=== PATIENT | female | born 1995 | race Hispanic/Latino ===

== ENCOUNTER 2017-05-08 22:35 | Emergency (ER) | payer OTHER ==
[2017-05-08 23:24] LABS: Absolute Lymphocytes (CBC) 2.1 K/uL (0.7-4.9); Absolute Monocytes 0.5 K/uL (0.1-1.3); Absolute Neutrophil 8.1 K/uL (1.8-8.0); Basophils % 0.2 % (0-1.3); Hematocrit 39.1 % (36.0-45.0); Lymphocytes % 19.1 % (15.3-44.8); MCH 28.2 pg (27.0-35.0); MCV 84.8 fL (80-100); MPV 7.4 fL (7.6-11.3); Monocytes % 4.7 % (3.3-12.3); RBC Red Blood Cell Count 4.62 M/uL (3.86-4.86)
--- NOTE | 2017-05-08 23:29 | ER ---
Nurse's Notes [facility] Name: Rasheeda Pagan Age: 21 yrs Sex: Female : 1995 Arrival Date: 05/08/2017 Time: 22:36 Bed 19 Private MD: Jordan Cruz E Diagnosis: Abdominal tenderness; related conditions, unspecified, second trimester;Cholelithiasis;Cholecystitis;Hypokalemia Presentation: 05/08 22:47 Presenting complaint: Patient states: she is 19 weeks has hx of gallstones and bb has severe abdominal pain and vomiting since approx 1900 tonight. Transition of care: patient was not received from another setting of care. Onset of symptoms was May 08, 2017 at 19:00. Care prior to arrival: None. 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 - Social history:: Smoking status: Patient/guardian denies using tobacco, Patient/guardian denies using alcohol, street drugs. Screenin:13 Abuse screen: Denies threats or abuse. Denies injuries from another. Nutritional bs1 screening: No deficits noted. Tuberculosis screening: No symptoms or risk factors identified. Fall Risk None identified. Assessment: 22:50 General: Appears uncomfortable, Behavior is cooperative, anxious, crying. bs1 22:50 Pain: Complains of pain in right upper abdomen Pain does not radiate. Pain currently is bs1 10 out of 10 on a pain scale. Quality of pain is described as stabbing. Neuro: Level of Consciousness is awake, alert, obeys commands, Oriented to person, place, time, situation, Appropriate for age [place]er are equal bilaterally Moves all extremities. Gait is steady. Cardiovascular: Denies chest pain, lightheadedness, shortness of breath, Heart tones S1 S2 present Capillary refill < 3 seconds Patient's skin is warm and dry. Respiratory: Airway is patent Trachea midline Respiratory effort is even, unlabored, Respiratory pattern is regular, symmetrical, Breath sounds are clear bilaterally. GI: Abdomen is round Pt is actively vomiting bile, Bowel sounds present X 4 quads. Abdomen is tender to palpation X 4 quads. Reports upper abdominal pain, nausea, vomiting. : No deficits noted. No signs and/or symptoms were reported regarding the genitourinary system. Denies burning with urination. EENT: No deficits noted. No signs and/or symptoms were reported regarding the EENT system. Derm: No deficits noted. No signs and/or symptoms reported regarding the dermatologic system. Musculoskeletal: Circulation, motion, and sensation intact. Capillary refill < 3 seconds, Range of motion: intact in all extremities. 23:50 Reassessment: No changes from previously documented assessment. Patient and/or family bs1 updated on plan of care and expected duration. Pain level reassessed. Patient is alert, oriented x 3, equal unlabored respirations, skin warm/dry/pink. Pending transfer. 05/09 00:09 General: Report called to Jennifer Lopez RN at [facility] OB unit.. bs1 00:36 Reassessment: Blood pressure dropped to 90/46 after given 50 mcg of Fentanyl. Patient bs1 denies dizziness or SOB. New IV started in left AC 20G by AUSTYN Gallegos, Bolus still infusing, New IV fluids NS w/ 20KCL started in left AC IV. Will continue to monitor blood pressure. Pending transfer to [facility]. 00:50 Reassessment: Patient and/or family updated on plan of care and expected duration. Pain bs1 level reassessed. Patient is alert, oriented x 3, equal unlabored respirations, skin warm/dry/pink. Patient c/o pain 10/10. Nurse closely monitoring blood pressure. Order for 25mcg of Fent IV. 01:02 Reassessment: Patient tolerated pain meds. Vitals wnl. [facility] here to transfer bs1 patient to [facility], report given to [facility]. Vital Signs: 05/08 22:48 BP 125 / 71; Pulse 91; Resp 20 S; Temp 98.8(O); Pulse Ox 100% on R/A; Weight 97.07 kg bb (R); Height 5 ft. 5 in. (165.10 cm) (R); Pain 10/10; 23:02 BP 114 / 69; Pulse 86; Resp 16; Pulse Ox 100% ; bp 23:50 BP 90 / 46; Pulse 72; Resp 19 S; Pulse Ox 100% on R/A; Pain 8/10; bs1 05/09 00:11 BP 103 / 61; Pulse 70; Resp 16; Pulse Ox 100% on R/A; bs1 00:39 BP 114 / 60; Pulse 79; Resp 17; Pulse Ox 100% on R/A; Pain 8/10; bs1 00:50 BP 123 / 76; Pulse 76; Resp 17; Pulse Ox 100% on R/A; Pain 10/10; bs1 00:52 BP 125 / 71; Pulse 74; Resp 17 S; Pulse Ox 100% on R/A; Pain 9/10; bs1 05/08 22:48 Body Mass Index 35.61 (97.07 kg, 165.10 cm) bb Vitals: 05/08 23:55 Heart Tones 152 bpm. bs1 ED Course: 22:36 Patient arrived in ED. es 22:36 Jordan Cruz MD is Private Physician. es 22:48 Triage completed. bb 22:48 Arm band placed on left wrist. Patient placed in an exam room, on a stretcher, on pulse bb oximetry. Family accompanied patient. 22:55 Ivonne Lopez, JESSICA is Primary Nurse. bs1 23:02 Inserted saline lock: 22 gauge in right antecubital area, using aseptic technique. bs1 23:10 US Abdomen Limited Sent. bp 23:14 Navi Allen PA is PHCP. cp 23:14 Navi Harrison MD is Attending Physician. cp 23:14 Patient has correct armband on for positive identification. Placed in gown. Bed in low bs1 position. Call light in reach. Side rails up X 1. Pulse ox on. NIBP on. 23:19 US Abdomen Limited In Process Unspecified. EDMS 05/09 00:10 No provider procedures requiring assistance completed. Patient transferred, IV remains bs1 in place. intact. 00:20 Inserted saline lock: 20 gauge in left antecubital area, using aseptic technique. By bs1 PARK Gallegos. Administered Medications: 05/08 23:45 Drug: NS 0.9% 1000 ml Route: IV; Rate: 1 bolus; Site: right antecubital; bs1 05/09 00:12 Follow up: IV Status: Infusion continued upon transfer bs1 05/08 23:45 Drug: fentaNYL (PF) 50 mcg Route: IVP; Site: right antecubital; bs1 05/09 00:11 Follow up: Response: No adverse reaction bs1 05/08 23:45 Drug: Zofran 4 mg Route: IVP; Site: right antecubital; bs1 05/09 00:11 Follow up: Response: No adverse reaction bs1 05/08 23:45 Drug: Zosyn 3.375 grams Route: IVPB; Infused Over: 60 mins; Site: right antecubital; bs1 05/09 00:12 Follow up: IV Status: Completed infusion bs1 00:30 Drug: Zofran 4 mg Route: IVP; Site: right antecubital; bs1 01:06 Follow up: Response: No adverse reaction bs1 00:34 Drug: NS 0.9% with KCl 20 mEq/L 1000 ml Route: IV; Rate: 125 ml/hr; Site: left bs1 antecubital; 00:59 Follow up: IV Status: Infusion continued upon transfer bs1 00:51 Drug: fentaNYL (PF) 25 mcg Route: IVP; Site: left antecubital; bs1 01:06 Follow up: Response: No adverse reaction bs1 Outcome: 05/08 23:28 ER care complete, transfer ordered by MD. [email or web address] 05/09 01:05 Transferred by ground EMS to [facility], Transfer form bs1 completed. Note: Report given to [facility]. Condition: stable 01:07 Patient left the ED. bs1 Signatures: Dispatcher [employer] Navi Ahuja MD MD cha Salyer, Edna es Ballard, Brenda RN RN Navi Pagan PA PA cp Peltier, Brian, RN RN bp Salazar, Brittany, RN RN bs1
--- NOTE | 2017-05-08 23:29 | EDPHYS ---
Physician Documentation [facility] Name: Rasheeda Pagan Age: 21 yrs Sex: Female : 1995 Arrival Date: 05/08/2017 Time: 22:36 Bed 19 Private MD: Jordan Cruz E ED Physician Navi Harrison HPI: 05/08 23:25 This 21 yrs old Female presents to ER via Ambulatory with complaints of oseas Abdominal Pain, 19 Weeks preg, Vomiting. 23:25 The patient presents to the emergency department with nausea, vomiting, abdominal pain, oseas of the right upper quadrant. Onset: The symptoms/episode began/occurred just prior to arrival. Possible causes: gallstones. The symptoms are aggravated by food , The symptoms are alleviated by nothing. Associated signs and symptoms: The patient has no apparent associated signs or symptoms. Severity of symptoms: At their worst the symptoms were moderate. The patient has not experienced similar symptoms in the past. 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 - Social history:: Smoking status: Patient/guardian denies using tobacco, Patient/guardian denies using alcohol, street drugs. ROS: 23:26 Constitutional: Negative for fever, chills, and weight loss, Eyes: Negative for injury, oseas pain, redness, and discharge, ENT: Negative for injury, pain, and discharge, Neck: Negative for injury, pain, and swelling, Cardiovascular: Negative for chest pain, palpitations, and edema, Respiratory: Negative for shortness of breath, cough, wheezing, and pleuritic chest pain, Back: Negative for injury and pain, : Negative for injury, bleeding, discharge, and swelling, MS/Extremity: Negative for injury and deformity, Skin: Negative for injury, rash, and discoloration, Neuro: Negative for headache, weakness, numbness, tingling, and seizure, Psych: Negative for depression, anxiety, suicide ideation, homicidal ideation, and hallucinations, Allergy/Immunology: Negative for hives, rash, and allergies, Endocrine: Negative for neck swelling, polydipsia, polyuria, polyphagia, and marked weight changes. 23:26 Abdomen/GI: Positive for abdominal pain, of the right upper quadrant. Exam: 23:26 Constitutional: This is a well developed, well nourished patient who is awake, alert, oseas and in no acute distress. Head/Face: Normocephalic, atraumatic. Eyes: Pupils equal round and reactive to light, extra-ocular motions intact. Lids and lashes normal. Conjunctiva and sclera are non-icteric and not injected. Cornea within normal limits. Periorbital areas with no swelling, redness, or edema. ENT: Nares patent. No nasal discharge, no septal abnormalities noted. Tympanic membranes are normal and external auditory canals are clear. Oropharynx with no redness, swelling, or masses, exudates, or evidence of obstruction, uvula midline. Mucous membranes moist. Neck: Trachea midline, no thyromegaly or masses palpated, and no cervical lymphadenopathy. Supple, full range of motion without nuchal rigidity, or vertebral point tenderness. No Meningismus. Chest/axilla: Normal chest wall appearance and motion. Nontender with no deformity. No lesions are appreciated. Cardiovascular: Regular rate and rhythm with a normal S1 and S2. No gallops, murmurs, or rubs. Normal PMI, no JVD. No pulse deficits. Respiratory: Lungs have equal breath sounds bilaterally, clear to auscultation and percussion. No rales, rhonchi or wheezes noted. No increased work of breathing, no retractions or nasal flaring. Back: No spinal tenderness. No costovertebral tenderness. Full range of motion. Female : Normal external genitalia. Skin: Warm, dry with normal turgor. Normal color with no rashes, no lesions, and no evidence of cellulitis. MS/ Extremity: Pulses equal, no cyanosis. Neurovascular intact. Full, normal range of motion. Neuro: Awake and alert, GCS 15, oriented to person, place, time, and situation. Cranial nerves II-XII grossly intact. Motor strength 5/5 in all extremities. Sensory grossly intact. Cerebellar exam normal. Normal gait. Psych: Awake, alert, with orientation to person, place and time. Behavior, mood, and affect are within normal limits. 23:26 Abdomen/GI: Inspection: gravid appearance, is noted, Bowel sounds: normal, Palpation: abdomen is soft and non-tender, in the right upper quadrant, Liver: tenderness, that is mild, Hernia: not appreciated. Vital Signs: 22:48 BP 125 / 71; Pulse 91; Resp 20 S; Temp 98.8(O); Pulse Ox 100% on R/A; Weight 97.07 kg bb (R); Height 5 ft. 5 in. (165.10 cm) (R); Pain 10/10; 23:02 BP 114 / 69; Pulse 86; Resp 16; Pulse Ox 100% ; bp 23:50 BP 90 / 46; Pulse 72; Resp 19 S; Pulse Ox 100% on R/A; Pain 8/10; bs1 05/09 00:11 BP 103 / 61; Pulse 70; Resp 16; Pulse Ox 100% on R/A; bs1 00:39 BP 114 / 60; Pulse 79; Resp 17; Pulse Ox 100% on R/A; Pain 8/10; bs1 00:50 BP 123 / 76; Pulse 76; Resp 17; Pulse Ox 100% on R/A; Pain 10/10; bs1 00:52 BP 125 / 71; Pulse 74; Resp 17 S; Pulse Ox 100% on R/A; Pain 9/10; bs1 05/08 22:48 Body Mass Index 35.61 (97.07 kg, 165.10 cm) bb MDM: 05/08 23:14 Patient medically screened. cp 23:26 Data reviewed: vital signs, nurses notes, lab test result(s), radiologic studies, oseas ultrasound. 05/08 23:07 Order name: Amylase, Serum bp 05/08 23:07 Order name: Basic Metabolic Panel bp 05/08 23:07 Order name: CBC with Diff; Complete Time: 23:25 bp 05/08 23:07 Order name: Creatinine for Radiology; Complete Time: 00:09 bp 05/08 23:07 Order name: Hepatic Function bp 05/08 23:07 Order name: Lipase bp 05/08 22:53 Order name: US Abdomen Limited fc 05/08 23:07 Order name: Beta hcg bp 05/08 23:07 Order name: IV Saline Lock; Complete Time: 23:11 bp 05/08 23:07 Order name: Labs collected and sent; Complete Time: 23:11 bp 05/08 23:07 Order name: Urine Dipstick-Ancillary (obtain specimen); Complete Time: 23:10 bp 05/08 23:25 Order name: FHT's; Complete Time: 23:54 oseas Administered Medications: 23:45 Drug: NS 0.9% 1000 ml Route: IV; Rate: 1 bolus; Site: right antecubital; bs1 05/09 00:12 Follow up: IV Status: Infusion continued upon transfer bs1 05/08 23:45 Drug: fentaNYL (PF) 50 mcg Route: IVP; Site: right antecubital; bs1 05/09 00:11 Follow up: Response: No adverse reaction bs1 05/08 23:45 Drug: Zofran 4 mg Route: IVP; Site: right antecubital; bs1 05/09 00:11 Follow up: Response: No adverse reaction 1 05/08 23:45 Drug: Zosyn 3.375 grams Route: IVPB; Infused Over: 60 mins; Site: right antecubital; bs1 05/09 00:12 Follow up: IV Status: Completed infusion bs1 00:30 Drug: Zofran 4 mg Route: IVP; Site: right antecubital; bs1 01:06 Follow up: Response: No adverse reaction bs1 00:34 Drug: NS 0.9% with KCl 20 mEq/L 1000 ml Route: IV; Rate: 125 ml/hr; Site: left bs1 antecubital; 00:59 Follow up: IV Status: Infusion continued upon transfer bs1 00:51 Drug: fentaNYL (PF) 25 mcg Route: IVP; Site: left antecubital; bs1 01:06 Follow up: Response: No adverse reaction bs1 Disposition: 05/08/17 23:28 Transfer ordered to [facility]. Diagnosis are Abdominal tenderness, related conditions, unspecified, second trimester, Cholelithiasis, Cholecystitis, Hypokalemia. - Reason for transfer: Higher level of care. - Accepting physician is to [id number], post . - Condition is Stable. - Problem is new. - Symptoms have improved. Signatures: Dispatcher [employer] EDNavi Dyson MD MD cha Ballard, Brenda, RN RN bb Navi Allen PA PA cp Peltier, Brian, RN RN bp Ivonne Lopez RN RN bs1
[2017-05-08] MEDS ORDERED: FENTANYL CITR 100 MCG/2 ML ONE (23:53)
[2017-05-08] MEDS ORDERED: ONDANSETRON 4 MG/2 ML VIAL ONE (23:53)
[2017-05-08] MEDS ORDERED: NA CHLORIDE 0.9% 1,000 ML ONE (23:54)
[2017-05-08] MEDS ORDERED: PIPER/TAZO/NS 3.375gm 3.375 GM/100 ML BAG ONE (23:54)
[2017-05-08 23:55] LABS: Glomerular Filtration Rate > 60 mL/min (>60)
[2017-05-08 23:59] LABS: Bicarbonate 24 mEq/L (21-31); Glucose Level 113 mg/dL (65-120); Lipase 16 U/L (22-51); Potassium 3.2 mEq/L (3.6-5.0); Sodium Level 139 mEq/L (135-145)
[2017-05-09 00:05] LABS: ALT/SGPT 13 IU/L (10-60); AST/SGOT 14 IU/L (10-42); Albumin 3.5 g/dL (3.2-5.5); Alkaline Phosphatase 59 IU/L (42-121); Amylase Level 84 U/L (28-100); BUN Blood Urea Nitrogen 7 mg/dL (6-20); Bilirubin Direct 0.1 mg/dL (0-0.2); Bilirubin Total 0.6 mg/dL (0.3-1.2); Glomerular Filtration Rate > 90 mL/min (=/>90); Protein, Total 7.8 g/dL (6.0-8.3)
[2017-05-09] MEDS ORDERED: NS KCL 20MEQ 1,000 ML IV ONE (00:44)
[2017-05-09] MEDS ORDERED: ONDANSETRON 4 MG/2 ML VIAL ONE (00:47)
[2017-05-09 01:19] VITALS: TEMP 98.8; O2SAT 100
[2017-05-09 01:26] VITALS: BP 125/71
--- NOTE | 2017-05-09 10:22 | RAD REPORT ---
EXAM DESCRIPTION: US - Abdomen Exam Limited - 05/08/2017 11:21 pm CLINICAL HISTORY: Abdominal pain, right upper quadrant pain A preliminary report was provided at the time of the study. COMPARISON: None. FINDINGS: Multiple gallstones are seen in a normal-sized gallbladder. No pericholecystic fluid. Gall bladder wall is upper normal in thickness. No common duct stone or biliary tree dilatation identified. IMPRESSION: Multi stone cholelithiasis with gallbladder wall upper normal. No pericholecystic fluid or biliary tree dilatation.
== END 2017-05-09 01:07 | disposition short-term general hospital (02) ==
LOC: ER 22:35
DX: O99.612 Diseases of the digestive system complicating pregnancy, second trimester (principal); K80.10 Calculus of gallbladder with chronic cholecystitis without obstruction; Z3A.16 16 weeks gestation of pregnancy; E87.6 Hypokalemia; O24.419 Gestational diabetes mellitus in pregnancy, unspecified control
CPT/HCPCS: 36415; 76705; 80048; 80076; 82150; 83690; 84702; 85025; 99285; J2405; J2543; J3010; J7030

== ENCOUNTER 2017-09-26 17:56 | Emergency (ER) | payer OTHER ==
--- NOTE | 2017-09-26 19:18 | EDPHYS ---
Physician Documentation [facility] Name: Rasheeda Pagan Age: 21 yrs Sex: Female : 1995 Arrival Date: 09/26/2017 Time: 17:58 Bed 17 Private MD: None, None ED Physician Cj Silva HPI: 09/26 18:40 This 21 yrs old Female presents to ER via Ambulatory with complaints of C cp Section Bleeding. 18:40 noticed bloody drainage from wound today. cp 18:40 Onset: The symptoms/episode began/occurred today. Patient denies fever, chills and cp sweats. Patient reports delivery 3 days ago. 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 - Social history:: Smoking status: Patient/guardian denies using tobacco. - Ebola Screening: : No symptoms or risks identified at this time. ROS: 18:40 Eyes: Negative for injury, pain, redness, and discharge. cp 18:40 Constitutional: Negative for body aches, chills, fever, poor PO intake. 18:40 Cardiovascular: Negative for chest pain. 18:40 Respiratory: Negative for cough, shortness of breath, wheezing. 18:40 Abdomen/GI: Negative for abdominal pain. 18:40 : Negative for urinary symptoms. 18:40 Skin: Positive for of the suprapubic area, surgical wound. 18:40 All other systems are negative. Exam: 18:45 Constitutional: The patient appears in no acute distress, alert, awake, non-toxic, well cp developed, well nourished. 18:45 Head/Face: Normocephalic, atraumatic. cp 18:45 Eyes: Periorbital structures: appear normal, Conjunctiva: normal, Lids and lashes: appear normal, bilaterally. 18:45 ENT: External ear(s): are unremarkable, Nose: is normal, Mouth: is normal, Posterior pharynx: is normal, airway is patent. 18:45 Chest/axilla: Inspection: normal, Palpation: is normal, no crepitus, no tenderness. 18:45 Cardiovascular: Rate: normal, Rhythm: regular. 18:45 Respiratory: the patient does not display signs of respiratory distress, Respirations: normal, no use of accessory muscles, no retractions, no splinting, no tachypnea. 18:45 Abdomen/GI: Inspection: obese Bowel sounds: active, all quadrants, Palpation: abdomen is soft and non-tender, in all quadrants. 18:45 Skin: wound appears w/o erythema, minimal drainage noted, no swelling, appears intact. Vital Signs: 18:02 BP 110 / 67; Pulse 103; Resp 19; Temp 97.5; Pulse Ox 100% on R/A; Weight 101.6 kg; la1 Height 5 ft. 4 in. (162.56 cm); 19:35 BP 120 / 70; Pulse 90; Resp 18; Temp 98(O); Pulse Ox 98% ; Pain 0/10; ea 18:02 Body Mass Index 38.45 (101.60 kg, 162.56 cm) la1 MDM: 18:37 Patient medically screened. cp 18:50 Differential Diagnosis sepsis, seroma, cellulitis, abscess. cp 19:15 Data reviewed: vital signs, nurses notes, and as a result, I will discharge patient. cp 19:15 Counseling: I had a detailed discussion with the patient and/or guardian regarding: the cp historical points, exam findings, and any diagnostic results supporting the discharge/admit diagnosis, to return to the emergency department if symptoms worsen or persist or if there are any questions or concerns that arise at home. ED course: VSS. Wound cleaned and redressed. 09/26 18:51 Order name: [facility] [place]. Order: dressing change; Complete Time: 19:07 cp Administered Medications: No medications were administered Disposition: 09/27 15:53 Co-signature as Attending Physician, Cj Silva MD. Disposition: 09/26/17 19:17 Discharged to Home. Impression: Encounter for change or removal of surgical wound dressing. - Condition is Stable. - Discharge Instructions: How to Change Your Dressing, Stitches, [place], or Adhesive Wound Closure, Wound Care. - Medication Reconciliation Form, Thank You Letter, Antibiotic Education, Prescription Opioid Use form. - Follow up: Private Physician; When: as scheduled for wound check; Reason: Wound Recheck. - Problem is new. - Symptoms have improved. Signatures: Reed Hughes RN RN la1 Navi Allen PA PA cp Swathi Melvin RN RN ea Cj Silva MD MD gs Corrections: (The following items were deleted from the chart) 09/26 19:39 19:17 09/26/2017 19:17 Discharged to Home. Impression: Encounter for change or removal ea of surgical wound dressing. Condition is Stable. Forms are Medication Reconciliation Form, Thank You Letter, Antibiotic Education, Prescription Opioid Use. Follow up: Private Physician; When: as scheduled for wound check; Reason: Wound Recheck. Problem is new. Symptoms have improved. cp 09/27 16:36 16:32 All other systems are negative, cp cp
--- NOTE | 2017-09-26 19:18 | ER ---
Nurse's Notes [facility] Name: Rasheeda Pagan Age: 21 yrs Sex: Female : 1995 Arrival Date: 09/26/2017 Time: 17:58 Bed 17 Private MD: None, None Diagnosis: Encounter for change or removal of surgical wound dressing Presentation: 09/26 18:01 Presenting complaint: Patient states: I had a 3 days ago and when it was la1 having it cleaned my significant other stated that it was bleeding a little. Transition of care: patient was not received from another setting of care. Onset of symptoms was September 26, 2017. Risk Assessment: Do you want to hurt yourself or someone else? Patient reports no desire to harm self or others. Initial Sepsis Screen: Does the patient meet any 2 criteria? No. Patient's initial sepsis screen is negative. Does the patient have a suspected source of infection? No. Patient's initial sepsis screen is negative. Care prior to arrival: None. 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 - Social history:: Smoking status: Patient/guardian denies using tobacco. - Ebola Screening: : No symptoms or risks identified at this time. Screenin:35 Abuse screen: Denies threats or abuse. Nutritional screening: No deficits noted. em Tuberculosis screening: No symptoms or risk factors identified. Fall Risk None identified. Assessment: 18:20 General: Appears in no apparent distress. comfortable, Behavior is calm, cooperative, em Denies fever, currently breast feeding . Pain: Denies pain. Neuro: Level of Consciousness is awake, alert, obeys commands, Oriented to person, place, time, situation. Cardiovascular: Capillary refill < 3 seconds Patient's skin is warm and dry. Respiratory: Airway is patent Respiratory effort is even, unlabored, Respiratory pattern is regular, symmetrical. GI: Abdomen is round distended, drainage noted to incision with steri strips. : Denies burning with urination, pain. EENT: No signs and/or symptoms were reported regarding the EENT system. Derm: Skin is pink, warm \T\ dry. Musculoskeletal: Range of motion: intact in all extremities. 18:30 Reassessment: Patient appears in no apparent distress at this time. I agree with above iw assessment by Jimbo Hoff LVN. 19:08 Reassessment: Patient appears in no apparent distress at this time. Patient and/or em family updated on plan of care and expected duration. Pain level reassessed. Patient is alert, oriented x 3, equal unlabored respirations, skin warm/dry/pink. cleaned Hibiclens and dry padded incision, applied new steri strips, ABD pad applied, pt tolerated well. 19:34 General: Appears in no apparent distress. comfortable, Behavior is calm, cooperative. ea Pain: Denies pain. Neuro: Level of Consciousness is awake, alert, obeys commands, Oriented to person, place, time, situation. Cardiovascular: Patient's skin is warm and dry. Respiratory: Airway is patent Respiratory effort is even, unlabored, Respiratory pattern is regular, symmetrical. GI: Abdomen is round. : No signs and/or symptoms were reported regarding the genitourinary system. EENT: No signs and/or symptoms were reported regarding the EENT system. Derm: Skin is pink, warm \T\ dry. Musculoskeletal: Range of motion: intact in all extremities. Vital Signs: 18:02 BP 110 / 67; Pulse 103; Resp 19; Temp 97.5; Pulse Ox 100% on R/A; Weight 101.6 kg; la1 Height 5 ft. 4 in. (162.56 cm); 19:35 BP 120 / 70; Pulse 90; Resp 18; Temp 98(O); Pulse Ox 98% ; Pain 0/10; ea 18:02 Body Mass Index 38.45 (101.60 kg, 162.56 cm) la1 ED Course: 17:58 Patient arrived in ED. mr 17:58 None, None is Private Physician. mr 18:02 Triage completed. la1 18:02 Arm band placed on left wrist. la1 18:11 Jimbo Hoff LVN is Primary Nurse. em 18:34 Patient has correct armband on for positive identification. Placed in gown. Bed in low em position. Call light in reach. Adult w/ patient. 18:37 Navi Allen PA is PHCP. cp 18:37 Cj Silva MD is Attending Physician. cp 19:09 No provider procedures requiring assistance completed. Patient did not have IV access em during this emergency room visit. Administered Medications: No medications were administered Outcome: 19:17 Discharge ordered by MD. cp 19:39 Discharged to home ambulatory, with family. ea 19:39 Condition: good 19:39 Discharge instructions given to patient, Instructed on discharge instructions, follow up and referral plans. Demonstrated understanding of instructions, follow-up care. 19:39 Patient left the ED. ea Signatures: Edith Bass mr Hoff, Jimbo, FOREST SCIENTIST FOREST SCIENTIST em Susan Lynn, JESSICA RN iw Reed Hughes RN RN la1 Navi Allen PA PA cp Antunez, Elena RN RN addie
[2017-09-26 20:28] VITALS: BP 120/70; TEMP 98; O2SAT 98
== END 2017-09-26 19:39 | disposition home or self-care (01) ==
LOC: ER 17:56
DX: Z48.01 Encounter for change or removal of surgical wound dressing (principal)
CPT/HCPCS: 99281

== ENCOUNTER 2018-11-18 12:20 | Emergency (ER) | payer OTHER, SELFPAY ==
[2018-11-18] MEDS ORDERED: KETOROLAC 30 MG/ML INJ ONE (14:41)
[2018-11-18 15:11] LABS: Absolute Lymphocytes (CBC) 1.7 K/uL (0.7-4.9); Basophils % 0.4 % (0-1.3); Hematocrit 40.4 % (36.0-45.0); Lymphocytes % 20.4 % (15.3-44.8); MPV 7.5 fL (7.6-11.3); RBC Red Blood Cell Count 4.75 M/uL (3.86-4.86)
[2018-11-18 15:21] LABS: Urine Blood 3+ (NEG); Urine Glucose NEGATIVE (NEG); Urine Protein NEGATIVE (NEG); Urine Specific Gravity >1.030 (1.005-1.030); Urine pH 5.5 (5.0-7.0)
[2018-11-18 15:24] LABS: BUN Blood Urea Nitrogen 11 mg/dL (7-18); Bicarbonate 29 mmol/L (21-32); Glucose Level 81 mg/dL (74-106); Potassium 3.5 mmol/L (3.5-5.1); Sodium Level 142 mmol/L (136-145)
--- NOTE | 2018-11-18 15:36 | ER ---
Nurse's Notes [facility] Name: Rasheeda Pagan Age: 22 yrs Sex: Female : 1995 Arrival Date: 11/18/2018 Time: 12:21 Bed 30 Private MD: Diagnosis: Menorrhagia Presentation: 11/18 12:42 Presenting complaint: Patient states: "I've been on my period for about a week and it's aa5 heavy with clots". Pt reports she is using approximately 6-7 pads a day since Friday. Transition of care: patient was not received from another setting of care. Onset of symptoms was 2018. Risk Assessment: Do you want to hurt yourself or someone else? Patient reports no desire to harm self or others. Initial Sepsis Screen: Does the patient meet any 2 criteria? No. Patient's initial sepsis screen is negative. Does the patient have a suspected source of infection? No. Patient's initial sepsis screen is negative. Care prior to arrival: None. 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 - Social history:: Smoking status: Patient/guardian denies using tobacco. - Ebola Screening: : No symptoms or risks identified at this time. Screenin:04 Abuse screen: Denies threats or abuse. Denies injuries from another. Nutritional rv screening: No deficits noted. Tuberculosis screening: No symptoms or risk factors identified. Fall Risk None identified. Assessment: 15:03 General: Appears in no apparent distress. comfortable, Behavior is calm, cooperative. rv Pain: Complains of pain in abdomen. Neuro: Level of Consciousness is awake, alert, obeys commands, Oriented to person, place, time, situation. Cardiovascular: Patient's skin is warm and dry. Respiratory: Airway is patent. GI: No signs and/or symptoms were reported involving the gastrointestinal system. : Vaginal discharge is bloody, Reports vaginal bleeding that is heavy flow. EENT: No signs and/or symptoms were reported regarding the EENT system. Derm: Skin is intact. Musculoskeletal: No signs and/or symptoms reported regarding the musculoskeletal system. 15:49 Reassessment: Patient appears in no apparent distress at this time. Patient is alert, ca1 oriented x 3, equal unlabored respirations, skin warm/dry/pink. Vital Signs: 12:44 BP 117 / 82; Pulse 93; Resp 18 S; Temp 97.0(TE); Pulse Ox 100% on R/A; Weight 104.33 kg aa5 (R); Height 5 ft. 3 in. (160.02 cm) (R); Pain 3/10; 15:05 BP 98 / 57; Pulse 73; Resp 15; Pulse Ox 100% on R/A; rv 15:49 BP 100 / 54; Pulse 81; Resp 16 S; Pulse Ox 100% on R/A; ca1 12:44 Body Mass Index 40.74 (104.33 kg, 160.02 cm) aa5 ED Course: 12:21 Patient arrived in ED. as 12:37 [facility]vian Cristobal [facility]-C [facility] snw 12:37 Navi Harrison MD is Attending Physician. snw 12:42 Arm band placed on. aa5 12:44 Triage completed. aa5 14:06 Trey Lyons, JESSICA is Primary Nurse. rv 14:24 Inserted saline lock: 20 gauge in right antecubital area, using aseptic technique. rv Blood collected. 14:27 Urine collected: clean catch specimen, clear, penny colored. ca1 15:03 Chem 7 Sent. rv 15:03 CBC with Diff Sent. rv 15:04 Patient has correct armband on for positive identification. Bed in low position. Call rv light in reach. Side rails up X 1. Pulse ox on. NIBP on. 15:49 No provider procedures requiring assistance completed. IV discontinued, intact, ca1 bleeding controlled, No redness/swelling at site. Pressure dressing applied. Administered Medications: 14:35 Drug: TORadol 30 mg Route: IVP; Site: right antecubital; rv 15:06 Follow up: Response: Pain is decreased rv Outcome: 15:36 Discharge ordered by . snw 15:50 Discharged to home ambulatory, with family. ca1 15:50 Condition: stable 15:50 Discharge instructions given to patient, Instructed on discharge instructions, follow up and referral plans. medication usage, Demonstrated understanding of instructions, follow-up care, medications, Prescriptions given X 1. 15:50 Patient left the ED. ca1 Signatures: Silvina Cristobal, LEARNING AND DEVELOPMENT INTERN-C LEARNING AND DEVELOPMENT INTERN-Shortyw Rosita Lee Audri, RN RN aa5 Trey Lyons RN RN rv Accarli, JESSICA Coats RN ca1
--- NOTE | 2018-11-18 15:36 | EDPHYS ---
Physician Documentation [facility] Name: Rasheeda Pagan Age: 22 yrs Sex: Female : 1995 Arrival Date: 11/18/2018 Time: 12:21 Bed 30 Private MD: ED Physician Navi Harrison HPI: 11/18 14:30 This 22 yrs old Female presents to ER via Ambulatory with complaints of snw Vaginal Bleeding, Pelvic Pain, Back Pain. 14:30 The patient presents with vaginal bleeding that is heavy, with clots, reports using 6 snw pads or tampons per day. Onset: The symptoms/episode began/occurred suddenly, 5 day(s) ago, and became persistent. Modifying factors: The symptoms are alleviated by nothing, the symptoms are aggravated by nothing. Associated signs and symptoms: Pertinent positives: cramping, nausea, vaginal bleeding. Severity of symptoms: At their worst the symptoms were moderate. The patient's method of control includes nexplanon. The patient has experienced similar episodes in the past, several times, today's symptoms are similar. Well woman next Friday. 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 - Social history:: Smoking status: Patient/guardian denies using tobacco. - Ebola Screening: : No symptoms or risks identified at this time. ROS: 14:29 Constitutional: Negative for fever, chills, and weight loss, Eyes: Negative for injury, snw pain, redness, and discharge, ENT: Negative for injury, pain, and discharge, Neck: Negative for injury, pain, and swelling, Cardiovascular: Negative for chest pain, palpitations, and edema, Respiratory: Negative for shortness of breath, cough, wheezing, and pleuritic chest pain, Abdomen/GI: Negative for abdominal pain, nausea, vomiting, diarrhea, and constipation, Back: Negative for injury and pain, MS/Extremity: Negative for injury and deformity, Skin: Negative for injury, rash, and discoloration, Neuro: Negative for headache, weakness, numbness, tingling, and seizure, Psych: Negative for depression, anxiety, suicide ideation, homicidal ideation, and hallucinations. 14:29 : Positive for vaginal bleeding. Exam: 14:29 Constitutional: This is a well developed, well nourished patient who is awake, alert, snw and in no acute distress. Head/Face: Normocephalic, atraumatic. Eyes: Pupils equal round and reactive to light, extra-ocular motions intact. Lids and lashes normal. Conjunctiva and sclera are non-icteric and not injected. Cornea within normal limits. Periorbital areas with no swelling, redness, or edema. ENT: Nares patent. No nasal discharge, no septal abnormalities noted. Tympanic membranes are normal and external auditory canals are clear. Oropharynx with no redness, swelling, or masses, exudates, or evidence of obstruction, uvula midline. Mucous membranes moist. Neck: Trachea midline, no thyromegaly or masses palpated, and no cervical lymphadenopathy. Supple, full range of motion without nuchal rigidity, or vertebral point tenderness. No Meningismus. Chest/axilla: Normal chest wall appearance and motion. Nontender with no deformity. No lesions are appreciated. Cardiovascular: Regular rate and rhythm with a normal S1 and S2. No gallops, murmurs, or rubs. Normal PMI, no JVD. No pulse deficits. Respiratory: Lungs have equal breath sounds bilaterally, clear to auscultation and percussion. No rales, rhonchi or wheezes noted. No increased work of breathing, no retractions or nasal flaring. Abdomen/GI: Soft, mild generalized tenderness, with normal bowel sounds. No distension or tympany. No guarding or rebound. No evidence of tenderness throughout. Back: No spinal tenderness. No costovertebral tenderness. Full range of motion. Skin: Warm, dry with normal turgor. Normal color with no rashes, no lesions, and no evidence of cellulitis. MS/ Extremity: Pulses equal, no cyanosis. Neurovascular intact. Full, normal range of motion. Neuro: Awake and alert, GCS 15, oriented to person, place, time, and situation. Cranial nerves II-XII grossly intact. Motor strength 5/5 in all extremities. Sensory grossly intact. Cerebellar exam normal. Normal gait. Psych: Awake, alert, with orientation to person, place and time. Behavior, mood, and affect are within normal limits. Vital Signs: 12:44 BP 117 / 82; Pulse 93; Resp 18 S; Temp 97.0(TE); Pulse Ox 100% on R/A; Weight 104.33 kg aa5 (R); Height 5 ft. 3 in. (160.02 cm) (R); Pain 3/10; 15:05 BP 98 / 57; Pulse 73; Resp 15; Pulse Ox 100% on R/A; rv 15:49 BP 100 / 54; Pulse 81; Resp 16 S; Pulse Ox 100% on R/A; ca1 12:44 Body Mass Index 40.74 (104.33 kg, 160.02 cm) aa5 MDM: 13:49 Patient medically screened. oseas 15:36 Data reviewed: vital signs, nurses notes. Data interpreted: Pulse oximetry: on room air snw is 100 %. Interpretation: normal. Counseling: I had a detailed discussion with the patient and/or guardian regarding: the historical points, exam findings, and any diagnostic results supporting the discharge/admit diagnosis, lab results, the need for outpatient follow up, to return to the emergency department if symptoms worsen or persist or if there are any questions or concerns that arise at home. Special discussion: Based on the history and exam findings, there is no indication for further emergent testing or inpatient evaluation. I discussed with the patient/guardian the need to see the OB Gyne specialist for further evaluation of the symptoms. I discussed with the patient/guardian the need to see the primary care provider for further evaluation of the symptoms. 11/18 14:28 Order name: Urine Dipstick--Ancillary (enter results); Complete Time: 15:21 gm 11/18 14:28 Order name: Urine --Ancillary (enter results); Complete Time: 15:21 gm 11/18 14:50 Order name: CBC with Diff; Complete Time: 15:31 snw 11/18 14:50 Order name: Chem 7; Complete Time: 15:25 snw 11/18 12:39 Order name: Urine Test (obtain specimen); Complete Time: 14:26 snw 11/18 12:39 Order name: Urine Dipstick-Ancillary (obtain specimen); Complete Time: 14:26 snw Administered Medications: 14:35 Drug: TORadol 30 mg Route: IVP; Site: right antecubital; rv 15:06 Follow up: Response: Pain is decreased rv Disposition: 11/19 07:23 Co-signature as Attending Physician, Navi Harrison MD I agree with the assessment and oseas plan of care. Disposition: 11/18/18 15:36 Discharged to Home. Impression: Menorrhagia. - Condition is Stable. - Discharge Instructions: Dysmenorrhea, Menorrhagia. - Prescriptions for Mobic 7.5 mg Oral Tablet - take 1 tablet by ORAL route once daily take with food; 20 tablet. - Medication Reconciliation Form, Thank You Letter, Antibiotic Education, Prescription Opioid Use form. - Follow up: Emergency Department; When: As needed; Reason: Worsening of condition. Follow up: Private Physician; When: 1 week; Reason: Recheck today's complaints, Continuance of care, Re-evaluation by your physician. Signatures: Dispatcher [employer] Navi Ahuja MD MD cha Therrien, Shelly, HAND COLLATOR-C HAND COLLATOR-Csnw Nannette Camacho, RN RN aa5 Trey Lyons RN RN rv Acob, Pauly RN RN ca1 Corrections: (The following items were deleted from the chart) 11/18 15:50 15:36 11/18/2018 15:36 Discharged to Home. Impression: Menorrhagia. Condition is ca1 Stable. Forms are Medication Reconciliation Form, Thank You Letter, Antibiotic Education, Prescription Opioid Use. Follow up: Emergency Department; When: As needed; Reason: Worsening of condition. Follow up: Private Physician; When: 1 week; Reason: Recheck today's complaints, Continuance of care, Re-evaluation by your physician. snw
[2018-11-18 15:57] VITALS: TEMP 97; O2SAT 100
[2018-11-18 15:59] VITALS: BP 100/54
== END 2018-11-18 15:50 | disposition home or self-care (01) ==
LOC: ER 12:20
DX: N92.0 Excessive and frequent menstruation with regular cycle (principal)
CPT/HCPCS: 36415; 80048; 81003; 81025; 85025; 96374; 99284

== ENCOUNTER 2019-01-14 17:24 | Emergency (ER) | payer SELFPAY ==
--- OUTSIDE RECORDS SUMMARY | 2019-01-14 17:26 | XMS REPORT ---
:1995 [facility] Address [address] [place] [address] Dr. Marquez [address] [place] [id number] Care Team Providers Name Role Phone Unavailable Unavailable Unavailable Problems This patient has no known problems. Allergies, Adverse Reactions, Alerts This patient has no known allergies or adverse reactions. Medications This patient has no known medications.
[2019-01-14 19:14] LABS: Urine Blood 2+ (NEG); Urine Glucose NEGATIVE (NEG); Urine Protein TRACE (NEG); Urine Specific Gravity >1.030 (1.005-1.030); Urine pH 5.5 (5.0-7.0)
--- NOTE | 2019-01-14 19:43 | RAD REPORT ---
EXAM DESCRIPTION: US - Abdomen Exam Limited - 01/14/2019 7:34 pm CLINICAL HISTORY: Abdominal pain. COMPARISON: 2018 FINDINGS: Multiple gallstones. Gallbladder wall is not thickened. The biliary tree is normal caliber. IMPRESSION: Cholelithiasis
[2019-01-14] MEDS ORDERED: NA CHLORIDE 0.9% 1,000 ML ONE (19:47)
[2019-01-14 20:01] LABS: Absolute Lymphocytes (CBC) 1.1 K/uL (0.7-4.9); Basophils % 0.3 % (0-1.3); Hematocrit 42.5 % (36.0-45.0); MPV 7.2 fL (7.6-11.3); RBC Red Blood Cell Count 5.09 M/uL (3.86-4.86)
[2019-01-14 20:22] LABS: ALT/SGPT 21 U/L (12-78); AST/SGOT 13 U/L (15-37); Albumin 3.7 g/dL (3.4-5.0); Alkaline Phosphatase 112 U/L (45-117); BUN Blood Urea Nitrogen 10 mg/dL (7-18); Bicarbonate 27 mmol/L (21-32); Bilirubin Direct < 0.1 mg/dL (0-0.2); Bilirubin Total 0.3 mg/dL (0.2-1.0); Glucose Level 89 mg/dL (74-106); Lipase 80 U/L (73-393); Potassium 3.8 mmol/L (3.5-5.1); Protein, Total 8.6 g/dL (6.4-8.2); Sodium Level 139 mmol/L (136-145)
--- NOTE | 2019-01-14 20:35 | ER ---
Nurse's Notes [facility] Name: Rasheeda Pagan Age: 23 yrs Sex: Female : 1995 Arrival Date: 01/14/2019 Time: 17:26 Bed 17 Private MD: Diagnosis: Unspecified abdominal pain;Volume depletion;Cholelithiasis Presentation: 01/14 18:04 Presenting complaint: Patient states: Diarrhea since last night, nausea and vomiting jl7 today, RUQ pain, reports hx of gallstones. Transition of care: patient was not received from another setting of care. Onset of symptoms was January 13, 2019. Risk Assessment: Do you want to hurt yourself or someone else? Patient reports no desire to harm self or others. Initial Sepsis Screen: Does the patient meet any 2 criteria? HR > 90 bpm. No. Patient's initial sepsis screen is negative. Does the patient have a suspected source of infection? Yes: Acute abdominal pain. Care prior to arrival: None. 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 - Social history:: Smoking status: Patient/guardian denies using tobacco. - Ebola Screening: : No symptoms or risks identified at this time. Screenin:15 Abuse screen: Denies threats or abuse. Denies injuries from another. Nutritional ca1 screening: No deficits noted. Tuberculosis screening: No symptoms or risk factors identified. Fall Risk None identified. Assessment: 18:15 General: Appears in no apparent distress. comfortable, Behavior is calm, cooperative, ca1 appropriate for age. Pain: Complains of pain in abdomen Pain currently is 8 out of 10 on a pain scale. Quality of pain is described as crampy, Pain began 1 day ago. Is intermittent. Neuro: Level of Consciousness is awake, alert, obeys commands, Oriented to person, place, time, situation. Cardiovascular: Heart tones S1 S2 present Capillary refill < 3 seconds Patient's skin is warm and dry. Respiratory: Airway is patent Respiratory effort is even, unlabored, Respiratory pattern is regular, symmetrical. GI: Abdomen is round non-distended, Bowel sounds present X 4 quads. Abd is soft X 4 quads Abdomen is tender to palpation X 4 quads. Reports cramping, diarrhea, nausea, vomiting, since last night. : No deficits noted. No signs and/or symptoms were reported regarding the genitourinary system. EENT: No deficits noted. No signs and/or symptoms were reported regarding the EENT system. Derm: Skin is intact, is healthy with good turgor, Skin is pink, warm \T\ dry. Musculoskeletal: Circulation, motion, and sensation intact. Capillary refill < 3 seconds, Range of motion: intact in all extremities. 19:30 Reassessment: Patient appears in no apparent distress at this time. Patient and/or wh family updated on plan of care and expected duration. Pain level reassessed. Patient is alert, oriented x 3, equal unlabored respirations, skin warm/dry/pink. 20:49 Reassessment: Patient appears in no apparent distress at this time. Patient is alert, aa1 oriented x 3, equal unlabored respirations, skin warm/dry/pink. Discussed d/c \T\ f/u instructions with pt; denies questions or concerns at this time. Ambulatory to lobby with steady gait. Patient states feeling better. Vital Signs: 18:06 BP 113 / 70; Pulse 106; Resp 17 S; Temp 98.6(O); Pulse Ox 98% on R/A; Weight 99.79 kg [facility] (R); Height 5 ft. 4 in. (162.56 cm) (R); Pain 6/10; 19:45 BP 95 / 54; Pulse 88; Resp 18; Pulse Ox 100% on R/A; wh 20:49 BP 96 / 61; Pulse 82; Resp 16; Pulse Ox 99% on R/A; aa1 18:06 Body Mass Index 37.76 (99.79 kg, 162.56 cm) [facility] ED Course: 17:26 Patient arrived in ED. as 18:05 Triage completed. 7 18:06 Arm band placed on right wrist. 7 18:15 Patient has correct armband on for positive identification. Bed in low position. Call ca1 light in reach. Side rails up X2. Pulse ox on. NIBP on. Warm blanket given. 18:15 No provider procedures requiring assistance completed. ca1 18:21 Silvina Cristobal FNP-C is PSYCHIATRICP. snw 18:21 Raz Benites MD is Attending Physician. snw 18:29 Pauly Neal, JESSICA is Primary Nurse. ca1 19:35 Inserted saline lock: 20 gauge in right antecubital area, using aseptic technique. Blood collected. 19:36 US Abdomen Limited In Process Unspecified. EDMS 20:49 IV discontinued, intact, bleeding controlled, No redness/swelling at site. Pressure aa1 dressing applied. Administered Medications: 19:47 Drug: NS 0.9% 1000 ml Route: IV; Rate: 1000 ml; Site: right antecubital; 20:38 Follow up: Response: No adverse reaction; IV Status: Completed infusion Outcome: 20:35 Discharge ordered by . snw 20:49 Discharged to home ambulatory. aa1 20:49 Condition: good 20:49 Discharge instructions given to patient, Instructed on discharge instructions, follow up and referral plans. medication usage, Demonstrated understanding of instructions, follow-up care, medications, Prescriptions given X 2. 20:50 Patient left the ED. aa1 Signatures: Dispatcher [employer] EDFL Risa Menon RN RN aa1 Silvina Cristobal FNP-C METAL STUD FRAMER-[facility] Rosita Lee Jahala, RN RN jl7 Rebekah Camacho Pauly Neal RN RN ca1
--- NOTE | 2019-01-14 20:36 | EDPHYS ---
Physician Documentation [facility] Name: Rasheeda Pagan Age: 23 yrs Sex: Female : 1995 Arrival Date: 01/14/2019 Time: 17:26 Bed 17 Private MD: ED Physician Raz Benites HPI: 01/14 19:45 This 23 yrs old Female presents to ER via Ambulatory with complaints of snw Abdominal Pain, Diarrhea, Fever. 19:45 The patient presents with abdominal pain in the upper abdomen. Onset: The snw symptoms/episode began/occurred suddenly, yesterday. The symptoms do not radiate. Associated signs and symptoms: Pertinent positives: diarrhea, nausea. The symptoms are described as crampy. Severity of pain: At its worst the pain was moderate. It is unknown whether or not the patient has had similar symptoms in the past. The patient has not recently seen a physician. child with similar s/s. 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 - Social history:: Smoking status: Patient/guardian denies using tobacco. - Ebola Screening: : No symptoms or risks identified at this time. ROS: 19:45 Constitutional: Negative for fever, chills, and weight loss, Eyes: Negative for injury, snw pain, redness, and discharge, ENT: Negative for injury, pain, and discharge, Neck: Negative for injury, pain, and swelling, Cardiovascular: Negative for chest pain, palpitations, and edema, Respiratory: Negative for shortness of breath, cough, wheezing, and pleuritic chest pain, Back: Negative for injury and pain, : Negative for injury, bleeding, discharge, and swelling, MS/Extremity: Negative for injury and deformity, Skin: Negative for injury, rash, and discoloration, Neuro: Negative for headache, weakness, numbness, tingling, and seizure. 19:45 Abdomen/GI: Positive for abdominal pain, nausea, diarrhea. Exam: 19:45 Constitutional: This is a well developed, well nourished patient who is awake, alert, snw and in no acute distress. Head/Face: Normocephalic, atraumatic. Eyes: Pupils equal round and reactive to light, extra-ocular motions intact. Lids and lashes normal. Conjunctiva and sclera are non-icteric and not injected. Cornea within normal limits. Periorbital areas with no swelling, redness, or edema. ENT: Nares patent. No nasal discharge, no septal abnormalities noted. Tympanic membranes are normal and external auditory canals are clear. Oropharynx with no redness, swelling, or masses, exudates, or evidence of obstruction, uvula midline. Mucous membranes moist. Neck: Trachea midline, no thyromegaly or masses palpated, and no cervical lymphadenopathy. Supple, full range of motion without nuchal rigidity, or vertebral point tenderness. No Meningismus. Chest/axilla: Normal chest wall appearance and motion. Nontender with no deformity. No lesions are appreciated. Cardiovascular: Regular rate and rhythm with a normal S1 and S2. No gallops, murmurs, or rubs. Normal PMI, no JVD. No pulse deficits. Respiratory: Lungs have equal breath sounds bilaterally, clear to auscultation and percussion. No rales, rhonchi or wheezes noted. No increased work of breathing, no retractions or nasal flaring. Back: No spinal tenderness. No costovertebral tenderness. Full range of motion. Skin: Warm, dry with normal turgor. Normal color with no rashes, no lesions, and no evidence of cellulitis. MS/ Extremity: Pulses equal, no cyanosis. Neurovascular intact. Full, normal range of motion. Neuro: Awake and alert, GCS 15, oriented to person, place, time, and situation. Cranial nerves II-XII grossly intact. Motor strength 5/5 in all extremities. Sensory grossly intact. Cerebellar exam normal. Normal gait. Psych: Awake, alert, with orientation to person, place and time. Behavior, mood, and affect are within normal limits. 19:45 Abdomen/GI: Inspection: obese Bowel sounds: normal, Palpation: mild abdominal tenderness, in all quadrants. Vital Signs: 18:06 BP 113 / 70; Pulse 106; Resp 17 S; Temp 98.6(O); Pulse Ox 98% on R/A; Weight 99.79 kg jl7 (R); Height 5 ft. 4 in. (162.56 cm) (R); Pain 6/10; 19:45 BP 95 / 54; Pulse 88; Resp 18; Pulse Ox 100% on R/A; wh 20:49 BP 96 / 61; Pulse 82; Resp 16; Pulse Ox 99% on R/A; aa1 18:06 Body Mass Index 37.76 (99.79 kg, 162.56 cm) 7 MDM: 18:56 Patient medically screened. snw 20:36 Data reviewed: vital signs, nurses notes. Data interpreted: Pulse oximetry: on room air snw is 100 %. Interpretation: normal. Counseling: I had a detailed discussion with the patient and/or guardian regarding: the historical points, exam findings, and any diagnostic results supporting the discharge/admit diagnosis, lab results, radiology results, the need for outpatient follow up, to return to the emergency department if symptoms worsen or persist or if there are any questions or concerns that arise at home. Special discussion: Based on the history and exam findings, there is no indication for further emergent testing or inpatient evaluation. I discussed with the patient/guardian the need to see the animal physiologist for further evaluation of the symptoms. I discussed with the patient/guardian the need to see the general surgeon for further evaluation of the symptoms. I discussed with the patient/guardian the need to see the primary care provider for further evaluation of the symptoms. 01/14 18:56 Order name: Urine Dipstick--Ancillary (enter results) em1 01/14 18:56 Order name: Urine --Ancillary (enter results) em1 01/14 18:56 Order name: GC (Ezekiel/Chl) Probe URINE EDMS 01/14 19:08 Order name: Basic Metabolic Panel; Complete Time: 20:33 snw 01/14 19:08 Order name: CBC with Diff; Complete Time: 20:11 snw 01/14 19:08 Order name: Hepatic Function; Complete Time: 20:33 snw 01/14 19:08 Order name: Lipase; Complete Time: 20:33 snw 01/14 19:08 Order name: IV Saline Lock; Complete Time: 19:39 snw 01/14 19:08 Order name: Labs collected and sent; Complete Time: 19:39 snw 01/14 19:08 Order name: US Abdomen Limited; Complete Time: 19:48 snw 01/14 19:08 Order name: NPO; Complete Time: 19:39 snw Administered Medications: 19:47 Drug: NS 0.9% 1000 ml Route: IV; Rate: 1000 ml; Site: right antecubital; 20:38 Follow up: Response: No adverse reaction; IV Status: Completed infusion Disposition: 01/14/19 20:35 Discharged to Home. Impression: Unspecified abdominal pain, Volume depletion, Cholelithiasis. - Condition is Stable. - Discharge Instructions: Abdominal Pain, Adult, Dehydration, Adult, Fat and Cholesterol Restricted Diet, Cholelithiasis, Rehydration, Adult. - Prescriptions for Bentyl 20 mg Oral Tablet - take 1 tablet by ORAL route every 6 hours As needed; 20 tablet. promethazine 25 mg Oral Tablet - take 1 tablet by ORAL route every 6 hours As needed; 20 tablet. - Work release form, Medication Reconciliation Form, Thank You Letter, Antibiotic Education, Prescription Opioid Use form. - Follow up: Emergency Department; When: As needed; Reason: Worsening of condition. Follow up: Private Physician; When: As needed; Reason: Recheck today's complaints, Re-evaluation by your physician. Addendum: 01/18/2019 07:26 Co-signature as Attending Physician, Raz Benites MD. r n Signatures: Dispatcher [employer] EDMS Risa Menon RN RN aa1 Silvina Cristobal, PROFESSOR OF RELIGION-C PROFESSOR OF RELIGION-Csnw Raz Benites MD MD rn Leal, Jahala, RN RN jl7 Rebekah Camacho Corrections: (The following items were deleted from the chart) 01/14 20:50 20:35 01/14/2019 20:35 Discharged to Home. Impression: Unspecified abdominal pain; aa1 Volume depletion; Cholelithiasis. Condition is Stable. Forms are Medication Reconciliation Form, Thank You Letter, Antibiotic Education, Prescription Opioid Use. Follow up: Emergency Department; When: As needed; Reason: Worsening of condition. Follow up: Private Physician; When: As needed; Reason: Recheck today's complaints, Re-evaluation by your physician. snw
[2019-01-14 22:37] VITALS: TEMP 98.6
[2019-01-14 22:39] VITALS: BP 96/61; O2SAT 99
[2019-01-19 20:48] LABS: C.trachomatis RNA,TMA Not Detected (Not Detected)
== END 2019-01-14 20:50 | disposition home or self-care (01) ==
LOC: ER 17:24
DX: E86.9 Volume depletion, unspecified (principal); K80.20 Calculus of gallbladder without cholecystitis without obstruction
CPT/HCPCS: 36415; 76705; 80048; 80076; 81003; 81025; 83690; 85025; 87490; 87590; 96360; 99284; J7030

== ENCOUNTER 2019-09-11 08:00 | Emergency (ER) | payer SELFPAY ==
--- OUTSIDE RECORDS SUMMARY | 2019-09-11 08:02 | XMS REPORT | Continuity of Care Document ---
:1995 Author Organization [facility] t Address [address] [place] [address] [place] [id number] Care Team Providers Name Role Phone Unavailable Unavailable Unavailable Problems This patient has no known problems. Allergies, Adverse Reactions, Alerts This patient has no known allergies or adverse reactions. Medications This patient has no known medications. Procedures This patient has no known procedures. Results This patient has no known results.
[2019-09-11] MEDS ORDERED: HYDROCODONE/APAP 7.5/325 MG TAB ONE (09:29)
--- NOTE | 2019-09-11 10:50 | ER ---
Nurse's Notes [facility] Name: Rasheeda Pagan Age: 23 yrs Sex: Female : 1995 Arrival Date: 09/11/2019 Time: 08:03 Bed 13 Private MD: Diagnosis: Unspecified sprain of left elbow;Facial contusion;Facial/oral abrasions Presentation: 09/10 08:25 Chief complaint: Patient states: Fell just prior to arrival down approximately 10 ss carpeted steps. Pt states, "I don't know if my boot got caught on the carpet, but I was sliding down the steps on my knees and finally my elbow caught and my face hit something at the end. My lip is swollen, my nose was bleeding and my L elbow hurts". Coronavirus screen: Client denies travel out of the [place] in the last 14 days. At this time, the client does not indicate any symptoms associated with coronavirus-19. Ebola Screen: Patient denies exposure to infectious person. Patient denies travel to an Ebola-affected area in the 21 days before illness onset. Initial Sepsis Screen: Does the patient meet any 2 criteria? No. Patient's initial sepsis screen is negative. Does the patient have a suspected source of infection? No. Patient's initial sepsis screen is negative. Risk Assessment: Do you want to hurt yourself or someone else? Patient reports no desire to harm self or others. Onset of symptoms was September 11, 2019. 08:25 Method Of Arrival: Ambulatory 08:25 Acuity: RILEY 4 ss Historical: - Allergies: 08:28 No Known Allergies; ss - Home Meds: 08:28 None [Active]; ss - PMHx: 08:28 GALLSTONES; gestational diabetes; ss - PSHx: 08:28 ; ss - Immunization history:: Adult Immunizations up to date. - Social history:: Smoking status: Patient denies any tobacco usage or history of. Vital Signs: 08:25 BP 126 / 73; Pulse 94; Resp 16; Temp 98.1(O); Pulse Ox 100% on R/A; Weight 90.72 kg; ss Height 5 ft. 5 in. (165.10 cm); Pain 8/10; 11:15 Pain 3/10; sv 08:25 Body Mass Index 33.28 (90.72 kg, 165.10 cm) ED Course: 08:03 Patient arrived in ED. mr 08:18 Ravin Madison MD is Attending Physician. kdr 08:27 Triage completed. ss 08:28 Arm band placed on right wrist. ss 08:29 Deandra Ray, RN is Primary Nurse. ss 08:48 Primary Nurse role handed off by Deandra Ray RN 08:48 Karen Campbell, RN is Primary Nurse. hb 09:06 Lyly Arizmendi RN is Primary Nurse. sv 10:38 Elbow Left 3 View XRAY In Process Unspecified. EDMS 10:39 Nasal Bones XRAY In Process Unspecified. EDMS Administered Medications: 09:29 Drug: [place] (7.5 mg-325 mg) 1 tabs {Note: rass1.} Route: PO; sv 11:15 Follow up: Pain 04/19 Adult; Response: No adverse reaction; Marked relief of symptoms; sv Pain is decreased; RASS: Alert and Calm (0) Outcome: 10:50 Discharge ordered by . kdr 11:16 Patient left the ED. sv Signatures: Dispatcher [employer] EDMS Lyly Arizmendi RN RN Ravin Madison MD MD [facility] mr Deandra Ray RN RN Karen Campbell RN RN
--- NOTE | 2019-09-11 10:51 | EDPHYS ---
Physician Documentation [facility] Name: Rasheeda Pagan Age: 23 yrs Sex: Female : 1995 Arrival Date: 09/11/2019 Time: 08:03 Bed 13 Private MD: ED Physician Ravin Madison HPI: 09/10 09:07 This 23 yrs old Female presents to ER via Ambulatory with complaints of Fall kdr Injury. 09:07 Details of fall: The patient fell from an upright position, while walking, Walking down kdr stairs. Onset: The symptoms/episode began/occurred acutely, suddenly, just prior to arrival. Associated injuries: The patient sustained injury to the head, contusion, pain, left elbow, decreased range of motion, painful injury, swelling. 09:07 Severity of symptoms: At their worst the symptoms were mild, in the emergency kdr department the symptoms are unchanged. The patient has not experienced similar symptoms in the past. The patient has not recently seen a physician. Historical: - Allergies: 08:28 No Known Allergies; ss - Home Meds: 08:28 None [Active]; ss - PMHx: 08:28 GALLSTONES; gestational diabetes; ss - PSHx: 08:28 ; ss - Immunization history:: Adult Immunizations up to date. - Social history:: Smoking status: Patient denies any tobacco usage or history of. ROS: 09:07 Constitutional: Negative for fever, chills, and weight loss, Eyes: Negative for injury, kdr pain, redness, and discharge, Neck: Negative for injury, pain, and swelling, Cardiovascular: Negative for chest pain, palpitations, and edema, Respiratory: Negative for shortness of breath, cough, wheezing, and pleuritic chest pain, Abdomen/GI: Negative for abdominal pain, nausea, vomiting, diarrhea, and constipation, Back: Negative for injury and pain, : Negative for injury, bleeding, discharge, and swelling, Skin: Negative for injury, rash, and discoloration, Neuro: Negative for headache, weakness, numbness, tingling, and seizure activity. Psych: Negative for depression, anxiety, suicide ideation, homicidal ideation, and hallucinations, Allergy/Immunology: Negative for hives, rash, and allergies, Endocrine: Negative for neck swelling, polydipsia, polyuria, polyphagia, and marked weight changes, Hematologic/Lymphatic: Negative for swollen nodes, abnormal bleeding, and unusual bruising. 09:07 ENT: Positive for nose bleed. 09: MS/extremity: Positive for contusion, decreased range of motion, pain, tenderness, of the left antecubital area and left elbow. Exam: : Constitutional: This is a well developed, well nourished patient who is awake, alert, kdr and in no acute distress. Head/Face: Normocephalic, atraumatic. Eyes: Pupils equal round and reactive to light, extra-ocular motions intact. Lids and lashes normal. Conjunctiva and sclera are non-icteric and not injected. Cornea within normal limits. Periorbital areas with no swelling, redness, or edema. Neck: Trachea midline, no thyromegaly or masses palpated, and no cervical lymphadenopathy. Supple, full range of motion without nuchal rigidity, or vertebral point tenderness. No Meningismus. Chest/axilla: Normal chest wall appearance and motion. Nontender with no deformity. No lesions are appreciated. Cardiovascular: Regular rate and rhythm with a normal S1 and S2. No gallops, murmurs, or rubs. Normal PMI, no JVD. No pulse deficits. Respiratory: Lungs have equal breath sounds bilaterally, clear to auscultation and percussion. No rales, rhonchi or wheezes noted. No increased work of breathing, no retractions or nasal flaring. Abdomen/GI: Soft, non-tender, with normal bowel sounds. No distension or tympany. No guarding or rebound. No evidence of tenderness throughout. Back: No spinal tenderness. No costovertebral tenderness. Full range of motion. Skin: Warm, dry with normal turgor. Normal color with no rashes, no lesions, and no evidence of cellulitis. Neuro: Awake and alert, GCS 15, oriented to person, place, time, and situation. Cranial nerves II-XII grossly intact. Motor strength 5/5 in all extremities. Sensory grossly intact. Cerebellar exam normal. Normal gait. Psych: Awake, alert, with orientation to person, place and time. Behavior, mood, and affect are within normal limits. :07 Skin: Appearance: normal except for affected area, injury, abrasion(s). Vital Signs: 08:25 BP 126 / 73; Pulse 94; Resp 16; Temp 98.1(O); Pulse Ox 100% on R/A; Weight 90.72 kg; ss Height 5 ft. 5 in. (165.10 cm); Pain 8/10; 11:15 Pain 3/10; sv 08:25 Body Mass Index 33.28 (90.72 kg, 165.10 cm) ss MDM: 09:07 Data reviewed: vital signs, nurses notes, radiologic studies. Counseling: I had a kdr detailed discussion with the patient and/or guardian regarding: the historical points, exam findings, and any diagnostic results supporting the discharge/admit diagnosis, radiology results, the need for outpatient follow up. 10:50 Patient medically screened. kdr 09/10 09:05 Order name: Elbow Left 3 View XRAY kdr 09/10 09:05 Order name: Nasal Bones XRAY kdr 09/10 10:48 Order name: Ed wrap-joint: Let elbow; Complete Time: 11:15 kdr 09/10 10:48 Order name: Sling: Left arm; Complete Time: 11:15 kdr Administered Medications: 09:29 Drug: [place] (7.5 mg-325 mg) 1 tabs {Note: rass1.} Route: PO; sv 11:15 Follow up: Pain 3/10 Adult; Response: No adverse reaction; Marked relief of symptoms; sv Pain is decreased; RASS: Alert and Calm (0) Disposition: 09/11/19 10:50 Discharged to Home. Impression: Unspecified sprain of left elbow, Facial contusion, Facial/oral abrasions. - Condition is Stable. - Discharge Instructions: Facial or Scalp Contusion, [id number], Elbow Contusion, [id number]-[id number]. - Prescriptions for Ibuprofen 600 mg Oral Tablet - take 1 tablet by ORAL route every 6 hours As needed take with food; 30 tablet. Tramadol 50 mg Oral Tablet - take 1 tablet by ORAL route every 8 hours as needed; 12 tablet. - Work release form, Medication Reconciliation Form, Thank You Letter form. - Follow up: Private Physician; When: 2 - 3 days; Reason: If symptoms return, Further diagnostic work-up, Recheck today's complaints, Continuance of care, Re-evaluation by your physician. - Problem is new. - Symptoms have improved. Signatures: Dispatcher [employer] Lyly Polanco RN RN sv Ravin Madison MD MD kdr Deandra Ray, JESSICA RN ss Corrections: (The following items were deleted from the chart) 10:50 10:50 09/11/2019 10:50 Discharged to Home. Impression: Unspecified sprain of left kdr elbow; Facial contusion. Condition is Stable. Forms are Medication Reconciliation Form, Thank You Letter, Antibiotic Education, Prescription Opioid Use. Follow up: Private Physician; When: 2 - 3 days; Reason: If symptoms return, Further diagnostic work-up, Recheck today's complaints, Continuance of care, Re-evaluation by your physician. Problem is new. Symptoms have improved. kdr 11:16 10:50 09/11/2019 10:50 Discharged to Home. Impression: Unspecified sprain of left sv elbow; Facial contusion; Facial/oral abrasions. Condition is Stable. Forms are Medication Reconciliation Form, Thank You Letter, Antibiotic Education, Prescription Opioid Use. Follow up: Private Physician; When: 2 - 3 days; Reason: If symptoms return, Further diagnostic work-up, Recheck today's complaints, Continuance of care, Re-evaluation by your physician. Problem is new. Symptoms have improved. kdr
--- NOTE | 2019-09-11 11:07 | RAD REPORT ---
EXAM DESCRIPTION: RAD - Elbow Left 3 View - 09/11/2019 10:38 am CLINICAL HISTORY: PAIN Trauma, fall, pain COMPARISON: No comparisons FINDINGS: No fracture or dislocation is seen.
--- NOTE | 2019-09-11 11:08 | RAD REPORT ---
EXAM DESCRIPTION: RAD - Nasal Bones - 09/11/2019 10:39 am CLINICAL HISTORY: FACIAL PAIN Trauma, fall, pain COMPARISON: No comparisons FINDINGS: No nasal bone fracture is seen. Visualized paranasal sinuses and mastoids are clear.
[2019-09-11 11:20] VITALS: BP 126/73; TEMP 98.1; O2SAT 100
== END 2019-09-11 11:16 | disposition home or self-care (01) ==
LOC: ER 08:00
DX: S53.402A Unspecified sprain of left elbow, initial encounter (principal); S00.81XA Abrasion of other part of head, initial encounter; S00.512A Abrasion of oral cavity, initial encounter; S00.83XA Contusion of other part of head, initial encounter; W10.9XXA Fall (on) (from) unspecified stairs and steps, initial encounter; Y93.01 Activity, walking, marching and hiking; Y92.9 Unspecified place or not applicable
CPT/HCPCS: 70160; 99283

== ENCOUNTER 2020-04-22 19:34 | Emergency (ER) | payer OTHER, SELFPAY ==
--- OUTSIDE RECORDS SUMMARY | 2020-04-22 19:37 | XMS REPORT | Continuity of Care Document ---
:1995 Author Organization [facility] t Address [address] [place] [place] [address] Care Team Providers Name Role Phone Leeroy LOPEZ Attending Clinician Unavailable Ultrasound Attending Clinician Unavailable Eugenia Murphy Attending Clinician Doctor Unassigned, Name Attending Clinician Unavailable Luis GRAVES, R Attending Clinician Problems This patient has no known problems. Allergies, Adverse Reactions, Alerts This patient has no known allergies or adverse reactions. Medications This patient has no known medications. Procedures This patient has no known procedures. Encounters Start End Encounter Admission Attending Care Care Encounter Source Date/Time Date/Time Type Type Clinicians Facility Department ID 2020-04-22 2020-04-22 Nurse FRED Umaña [id number] 00:00:00 00:00:00 Triage Navi TUCKER [id number] [facility] [id number] 2020-04-12 2020-04-12 Credit Manager CADY Lagunas [id number] 10:53:54 11:23:54 Visit Juli [employer]ER [id number] [facility] [id number] MATERNAL [id number] & CHILD [address] [place] [address] 2020-04-12 2020-04-12 Abstract CADY Avalos [id number] 00:00:00 00:00:00 Roshunda R [employer] OFFICER [id number] [facility] [id number] MATERNAL [id number] & CHILD [address] [facility] [place] 2020-04-11 2020-04-11 [facility] [id number] 00:00:00 00:00:00 Roshunda R C[employer]S OFFICER [id number] [facility] [id number] MATERNAL [id number] & CHILD 107 [facility] [place] 2020-04-10 2020-04-10 [facility] [id number] 12:50:04 13:57:01 Roshunda R C[employer]S OFFICER [id number] Visit [facility] [id number] MATERNAL [id number] & CHILD 107 [facility] [place] 2020-04-10 2020-04-10 Orders Doctor FRED [id number] 00:00:00 00:00:00 Only Unassigned, GARRETT [id number] [facility] [id number] 2020-03-22 2020-03-22 [facility] [id number] 00:00:00 00:00:00 Roshunda R [employer] OFFICER [id number] [facility] [id number] MATERNAL [id number] & CHILD 107 [facility] [place] 2020-03-19 2020-03-19 Emergency [facility] [id number] 18:03:00 21:52:00 Gilberto Hagen [id number] [place] [id number] [place] [id number] Results This patient has no known results.
[2020-04-22 21:02] LABS: Urine Blood NEGATIVE (NEG); Urine Glucose NEGATIVE (NEG); Urine Protein NEGATIVE (NEG); Urine Specific Gravity >1.030 (1.005-1.030); Urine pH 5.5 (5.0-7.0)
[2020-04-22 21:22] LABS: Absolute Lymphocytes (CBC) 1.8 K/uL (0.7-4.9); Basophils % 0.1 % (0-1.3); Hematocrit 36.8 % (36.0-45.0); Lymphocytes % 18.2 % (15.3-44.8); MPV 7.3 fL (7.6-11.3); RBC Red Blood Cell Count 4.32 M/uL (3.86-4.86)
[2020-04-22 21:28] LABS: Urine Bacteria <20 /HPF (<20); Urine RBC NONE SEEN /HPF (NONE SEEN)
[2020-04-22 21:29] LABS: Calcium Oxalate Crystals- Ur MODERATE (NONE SEEN)
[2020-04-22] MEDS ORDERED: NA CHLORIDE 0.9% 1,000 ML ONE (21:32)
[2020-04-22] MEDS ORDERED: ONDANSETRON 4 MG/2 ML VIAL ONE (21:32)
[2020-04-22 21:54] LABS: ALT/SGPT 17 U/L (12-78); AST/SGOT 8 U/L (15-37); Alkaline Phosphatase 65 U/L (45-117); BUN Blood Urea Nitrogen 12 mg/dL (7-18); Bicarbonate 22 mmol/L (21-32); Bilirubin Direct < 0.1 mg/dL (0-0.2); Bilirubin Total 0.2 mg/dL (0.2-1.0); Glucose Level 75 mg/dL (74-106); HCG, Quantitative 22611 mIU/mL (1-3); Lipase 85 U/L (73-393); Potassium 3.8 mmol/L (3.5-5.1); Protein, Total 7.8 g/dL (6.4-8.2); Sodium Level 140 mmol/L (136-145)
--- NOTE | 2020-04-22 23:08 | EDPHYS ---
Physician Documentation [facility] Name: Rasheeda Pagan Age: 24 yrs Sex: Female : 1995 Arrival Date: 04/22/2020 Time: 19:36 Bed 13 Private MD: ED Physician Raz Benites HPI: 04/22 21:10 This 24 yrs old Female presents to ER via Ambulatory with complaints of cp Abdominal Pain, Constipation. 21:10 The patient presents with abdominal pain in the upper abdomen. The symptoms do not cp radiate. Associated signs and symptoms: Pertinent positives: constipation, dysuria, nausea, headache, dizziness, Pertinent negatives: chest pain, diarrhea, fever, vomiting, vaginal bleeding. 21:10 Patient reports last bowel movement was 6 days ago. 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 - Social history:: Smoking status: Patient denies any tobacco usage or history of. ROS: 21:15 Abdomen/GI: Positive for abdominal pain, nausea, constipation, Negative for vomiting, cp diarrhea, black/tarry stool, rectal bleeding. 21:15 Eyes: Negative for injury, pain, redness, and discharge. cp 21:15 Constitutional: Negative for body aches, chills, fever, poor PO intake. 21:15 Cardiovascular: Negative for chest pain, palpitations. 21:15 Respiratory: Negative for cough, shortness of breath. 21:15 Back: Negative for pain at rest, pain with movement. 21:15 Neuro: Negative for altered mental status, headache, weakness. 21:15 All other systems are negative. Exam: 21:20 Constitutional: The patient appears in no acute distress, alert, awake, non-toxic, well cp developed, well nourished. 21:20 Head/Face: Normocephalic, atraumatic. cp 21:20 Eyes: Periorbital structures: appear normal, Conjunctiva: normal, no exudate, no injection, Sclera: no appreciated abnormality, Lids and lashes: appear normal, bilaterally. 21:20 ENT: External ear(s): are unremarkable, Nose: is normal, Mouth: Lips: moist, Oral mucosa: moist, Posterior pharynx: Airway: no evidence of obstruction, patent. 21:20 Chest/axilla: Inspection: normal, Palpation: is normal, no crepitus, no tenderness. 21:20 Cardiovascular: Rate: normal, Rhythm: regular. 21:20 Respiratory: the patient does not display signs of respiratory distress, Respirations: normal, no use of accessory muscles, no retractions, labored breathing, is not present, Breath sounds: are clear throughout, no decreased breath sounds, no stridor, no wheezing. 21:20 Abdomen/GI: Inspection: abdomen appears normal, Bowel sounds: active, all quadrants, Palpation: soft, in all quadrants, mild abdominal tenderness, in the right upper quadrant and left upper quadrant, rebound tenderness, is not appreciated, voluntary guarding, is not appreciated, involuntary guarding, is not appreciated. 21:20 Back: CVA tenderness, is absent. 21:20 Neuro: Orientation: is normal, Mentation: is normal. Vital Signs: 19:41 BP 121 / 72; Pulse 88; Resp 17; Temp 98.7; Pulse Ox 100% ; Weight 102.06 kg; Height 5 ll1 ft. 3 in. (160.02 cm); Pain 6/10; 23:14 BP 105 / 59; Pulse 88; Resp 17; Temp 98.4; Pulse Ox 100% ; rv 19:41 Body Mass Index 39.86 (102.06 kg, 160.02 cm) ll1 MDM: 21:03 Patient medically screened. cp 23:07 Data reviewed: vital signs, nurses notes, lab test result(s), radiologic studies, cp ultrasound. 23:07 Differential diagnosis: bowel obstruction, cholecystitis, Cholelithiasis, gastritis, cp pancreatitis, Peptic Ulcer Disease, Perf. Duodenal Ulcer, Perf. Gastric Ulcer, urinary tract infection. Counseling: I had a detailed discussion with the patient and/or guardian regarding: the historical points, exam findings, and any diagnostic results supporting the discharge/admit diagnosis, lab results, radiology results, to return to the emergency department if symptoms worsen or persist or if there are any questions or concerns that arise at home. Response to treatment: Symptoms improved, and as a result, I will discharge patient. 04/22 21:00 Order name: Urine Dipstick--Ancillary (enter results); Complete Time: 21:07 mw2 04/22 21:00 Order name: Urine --Ancillary (enter results); Complete Time: 21:07 2 04/22 21:09 Order name: Basic Metabolic Panel; Complete Time: 22:08 cp 04/22 22:08 Interpretation: Normal except: CL 109. cp 04/22 21:09 Order name: CBC with Diff; Complete Time: 22:08 cp 04/22 22:09 Interpretation: Normal except: MPV 7.3; TORREY% 74.2. cp 04/22 21:09 Order name: Hepatic Function; Complete Time: 22:08 cp 04/22 22:09 Interpretation: Normal except: ALB 3.0; GLOB 4.8; A/G 0.6. cp 04/22 21:09 Order name: Lipase; Complete Time: 22:08 cp 04/22 20:53 Order name: Urine Dipstick-Ancillary (obtain specimen); Complete Time: 20:54 mw2 04/22 21:09 Order name: Quantitative Hcg; Complete Time: 22:08 cp 04/22 21:09 Order name: Abo/rh Typing 04/22 21:10 Order name: Urine Microscopic Only; Complete Time: 22:08 cp 04/22 21:13 Order name: US OB Limited 04/22 21:13 Order name: US Abdomen Limited: liver/gallbladder 04/22 20:53 Order name: Urine Test (obtain specimen); Complete Time: 20:54 mw2 04/22 21:09 Order name: IV Saline Lock; Complete Time: 21:12 cp 04/22 21:09 Order name: Labs collected and sent; Complete Time: 21:12 cp Administered Medications: 21:21 Drug: Zofran (Ondansetron) 4 mg Route: IVP; Site: right antecubital; rv 23:15 Follow up: Response: No adverse reaction rv 21:22 Drug: NS 0.9% 1000 ml Route: IV; Rate: 1 bolus; Site: right antecubital; rv 23:15 Follow up: IV Status: Completed infusion; IV Intake: 1000ml rv Disposition: 23:24 Co-signature as Attending Physician, Raz Benites MD. rn Disposition: 04/22/20 23:08 Discharged to Home. Impression: Constipation, unspecified, Cholelithiasis, related conditions, unspecified, first trimester, Nausea. - Condition is Stable. - Discharge Instructions: Abdominal Pain During , Biliary Colic, Adult, Constipation, Adult, Cholelithiasis. - Prescriptions for promethazine 25 mg Oral Tablet - take 1 tablet by ORAL route every 6 hours As needed; 20 tablet. Bentyl 20 mg Oral Tablet - take 2 tablet by ORAL route every 6 hours As needed; 40 tablet. - Medication Reconciliation Form, Thank You Letter, Antibiotic Education, Prescription Opioid Use form. - Follow up: Private Physician; When: 2 - 3 days; Reason: Recheck today's complaints. - Problem is new. - Symptoms have improved. Signatures: Dispatcher [employer] EDMS Raz Benites MD MD rn Page, Corey, PA PA cp Tara Garcia mw2 Trey Lyons RN RN rv Shun Miller RN RN ll1 Corrections: (The following items were deleted from the chart) 23:15 23:08 04/22/2020 23:08 Discharged to Home. Impression: Constipation, unspecified; rv Cholelithiasis; related conditions, unspecified, first trimester; Nausea. Condition is Stable. Forms are Medication Reconciliation Form, Thank You Letter, Antibiotic Education, Prescription Opioid Use. Follow up: Private Physician; When: 2 - 3 days; Reason: Recheck today's complaints. Problem is new. Symptoms have improved. cp
--- NOTE | 2020-04-22 23:08 | ER ---
Nurse's Notes [facility] Name: Rasheeda Pagan Age: 24 yrs Sex: Female : 1995 Arrival Date: 04/22/2020 Time: 19:36 Bed 13 Private MD: Diagnosis: Constipation, unspecified;Cholelithiasis; related conditions, unspecified, first trimester;Nausea Presentation: 04/22 19:41 Chief complaint: Patient states: Abd pain with constipation for 1 week. + nausea. No ll1 fever. + LANZA and dizzy. Dysuria for 2 days. About 13 weeks . G4, P2. Coronavirus screen: Client denies travel out of the [place] in the last 14 days. At this time, the client does not indicate any symptoms associated with coronavirus-19. Ebola Screen: Patient denies travel to an Ebola-affected area in the 21 days before illness onset. Initial Sepsis Screen: Does the patient meet any 2 criteria? No. Patient's initial sepsis screen is negative. Does the patient have a suspected source of infection? Yes: Acute abdominal pain. Risk Assessment: Do you want to hurt yourself or someone else? Patient reports no desire to harm self or others. Onset of symptoms was April 15, 2020. 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 - Social history:: Smoking status: Patient denies any tobacco usage or history of. Screenin:20 Abuse screen: Denies threats or abuse. Denies injuries from another. Nutritional rv screening: No deficits noted. Tuberculosis screening: No symptoms or risk factors identified. Fall Risk None identified. Assessment: 21:21 General: Appears comfortable, Behavior is calm, cooperative. Pain: Complains of pain in rv abdomen. Neuro: Level of Consciousness is awake, alert, obeys commands, Oriented to person, place, time, situation. Cardiovascular: Patient's skin is warm and dry. Respiratory: Airway is patent Respiratory effort is even, unlabored. GI: Bowel sounds present X 4 quads. Abd is soft and non tender X 4 quads. Derm: Skin is intact. Vital Signs: 19:41 BP 121 / 72; Pulse 88; Resp 17; Temp 98.7; Pulse Ox 100% ; Weight 102.06 kg; Height 5 ll1 ft. 3 in. (160.02 cm); Pain 6/10; 23:14 BP 105 / 59; Pulse 88; Resp 17; Temp 98.4; Pulse Ox 100% ; rv 19:41 Body Mass Index 39.86 (102.06 kg, 160.02 cm) ll1 Vitals: 21:22 Heart Tones 155. rv ED Course: 19:36 Patient arrived in ED. cl3 19:44 Triage completed. ll1 19:45 Arm band placed on. ll1 20:52 Navi Allen PA is PHCP. cp 20:52 Raz Benites MD is Attending Physician. cp 20:53 Trey Lyons RN is Primary Nurse. rv 21:12 Initial lab(s) drawn, by me, sent to lab. Inserted saline lock: 20 gauge in right rv antecubital area, using aseptic technique. Blood collected. 21:21 Patient has correct armband on for positive identification. Pulse ox on. NIBP on. rv 23:14 No provider procedures requiring assistance completed. IV discontinued, intact, rv bleeding controlled, No redness/swelling at site. Pressure dressing applied. 23:19 US OB Limited In Process Unspecified. EDMS 23:19 US Abdomen Limited: liver/gallbladder In Process Unspecified. EDMS Administered Medications: 21:21 Drug: Zofran (Ondansetron) 4 mg Route: IVP; Site: right antecubital; rv 23:15 Follow up: Response: No adverse reaction rv 21:22 Drug: NS 0.9% 1000 ml Route: IV; Rate: 1 bolus; Site: right antecubital; rv 23:15 Follow up: IV Status: Completed infusion; IV Intake: 1000ml rv Intake: 23:15 IV: 1000ml; Total: 1000ml. rv Outcome: 23:08 Discharge ordered by . cp 23:15 Discharged to home ambulatory. rv 23:15 Condition: good 23:15 Discharge instructions given to patient, Instructed on discharge instructions, follow up and referral plans. medication usage, Demonstrated understanding of instructions, follow-up care, medications, Prescriptions given X 2. 23:15 Patient left the ED. rv Signatures: Dispatcher [employer] EDMS Navi Allen PA PA cp Vicente, Ronaldo, RN RN rv Dani Miller cl3 Shun Miller RN RN ll1
[2020-04-23 00:19] VITALS: O2SAT 100
[2020-04-23 00:20] VITALS: BP 105/59; TEMP 98.4
--- NOTE | 2020-04-23 08:19 | RAD REPORT ---
EXAM DESCRIPTION: US - Abdomen Exam Limited - 04/22/2020 11:19 pm CLINICAL HISTORY: ABD PAIN Preliminary findings provided at the time of the study. COMPARISON: Abdomen Exam Limited dated 01/14/2019 FINDINGS: Gallbladder is densely packed with stones as has been previously demonstrated. The dense s hadowing created by the gallstones partially obscures the gallbladder montes and limits overall assess ment of gallbladder size. Gallbladder does not appear to be dilated. No wall thickening suspected. No pericholecystic fluid seen. No common duct stone or biliary tree dilatation identified. IMPRESSION: Cholelithiasis. Normal size gallbladder is densely packed with multiple gallstones. No biliary tree abnormality.
--- NOTE | 2020-04-23 10:28 | RAD REPORT ---
EXAM DESCRIPTION: US - OB Limited - 04/22/2020 11:19 pm CLINICAL HISTORY: ABD PAIN Preliminary findings provided at the time of the study. COMPARISON: No relevant comparison FINDINGS: Limited OB sonography shows a single intrauterine gestation within a normal shaped gestati onal sac. Amniotic fluid volume is normal. Placenta is anterior with no suspicious finding. Cervical canal is long and closed. No gross anatomic abnormality seen. Anatomic assessment is significantly limited at this gestational age. Body and limb measurements were obtained. Gestational age is 13 weeks 6 days with an estimated d elivery date of 10/22/2020. Heart rate was 146 BPM. No adnexal abnormality identifiable. IMPRESSION: Single 13 week 6 day IUP with a due date of 10/22/2020. Heart rate was 146 BPM. No gross anatomic abnormality seen though assessment is limited at this age. No placenta, amniotic fluid or adnexal abnormality seen.
== END 2020-04-22 23:15 | disposition home or self-care (01) ==
LOC: ER 19:34
DX: O99.611 Diseases of the digestive system complicating pregnancy, first trimester (principal); K80.20 Calculus of gallbladder without cholecystitis without obstruction; O24.419 Gestational diabetes mellitus in pregnancy, unspecified control; O26.891 Other specified pregnancy related conditions, first trimester; Z3A.13 13 weeks gestation of pregnancy
CPT/HCPCS: 85025; 80048; 36415; 86900; 81025; 86901; 80076; 84702; 83690; 76705; 76815; J7030; J2405; 81003; 81015; 96361; 96374; 99284

== ENCOUNTER 2020-09-04 21:36 | Emergency (ER) | payer OTHER ==
--- OUTSIDE RECORDS SUMMARY | 2020-09-04 21:38 | XMS REPORT | Continuity of Care Document ---
:1995 Author Organization [facility]ly [facility] t Address [address] [place] [place] [address] Care Team Providers Name Role Phone Eugenia Murphy Attending Clinician Problems This patient has no known problems. Allergies, Adverse Reactions, Alerts This patient has no known allergies or adverse reactions. Medications This patient has no known medications. Procedures This patient has no known procedures. 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
[2020-09-05] MEDS ORDERED: ACETAMINOPHEN 500 MG TAB ONE (01:51)
--- NOTE | 2020-09-05 07:55 | RAD REPORT ---
EXAM DESCRIPTION: RAD - Knee Left 2 View - 09/04/2020 11:30 pm CLINICAL HISTORY: PAIN, fall with knee pain COMPARISON: No comparisons FINDINGS: No fracture, dislocation or periosteal reaction.No joint effusion seen. No joint space devyn rowing. No soft tissue abnormality. IMPRESSION: Negative left knee. Clinical concerns for internal derangement or occult bony injury could be further assessed with MR im aging.
--- NOTE | 2020-09-05 07:56 | RAD REPORT ---
EXAM DESCRIPTION: RAD - Elbow Left 3 View - 09/04/2020 11:30 pm CLINICAL HISTORY: PAIN, fall with elbow pain COMPARISON: None. FINDINGS: No fracture is identified and no elevated posterior fat pad. There is no dislocation or pe riosteal reaction noted. No foreign body in the soft tissues. Edema or contusion changes are present posterior forearm. IMPRESSION: Negative left elbow examination.
--- NOTE | 2020-09-05 17:48 | EDPHYS ---
Physician Documentation [facility] Name: Rasheeda Alfonso Age: 24 yrs Sex: Female : 1995 Arrival Date: 09/04/2020 Time: 21:40 Bed 19 Private MD: IDALIA Physician Navi Harrison HPI: 09/05 01:24 This 24 yrs old Female presents to ER via Wheelchair with complaints of Knee oseas Pain, Back Pain, ELBOW PAIN. 01:24 The patient presents with pain that is acute. The symptoms are located in the low back, oseas lumbar area. Onset: The symptoms/episode began/occurred just prior to arrival. The pain does not radiate. Associated signs and symptoms: The patient has no apparent associated signs or symptoms. The problem was sustained during a fall, while walking. Modifying factors: The patient symptoms are alleviated by remaining still, the patient symptoms are aggravated by any movement. Severity of symptoms: At their worst the symptoms were mild, in the emergency department the symptoms are unchanged. The patient has not experienced similar symptoms in the past. 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 - Social history:: Smoking status: Patient denies any tobacco usage or history of. - Family history:: not pertinent. ROS: 09/05 01:24 Constitutional: Negative for fever, chills, and weight loss, Eyes: Negative for injury, oseas pain, redness, and discharge, ENT: Negative for injury, pain, and discharge, Neck: Negative for injury, pain, and swelling, Cardiovascular: Negative for chest pain, palpitations, and edema, Respiratory: Negative for shortness of breath, cough, wheezing, and pleuritic chest pain, Abdomen/GI: Negative for abdominal pain, nausea, vomiting, diarrhea, and constipation, Back: Negative for injury and pain, : Negative for injury, bleeding, discharge, and swelling, Skin: Negative for injury, rash, and discoloration, Neuro: Negative for headache, weakness, numbness, tingling, and seizure, Psych: Negative for depression, anxiety, suicide ideation, homicidal ideation, and hallucinations, Allergy/Immunology: Negative for hives, rash, and allergies, Endocrine: Negative for neck swelling, polydipsia, polyuria, polyphagia, and marked weight changes, Hematologic/Lymphatic: Negative for swollen nodes, abnormal bleeding, and unusual bruising. MS/extremity: Positive for decreased range of motion, pain, tenderness, of the right knee, left elbow. Exam: 01:24 Constitutional: This is a well developed, well nourished patient who is awake, alert, oseas and in no acute distress. Head/Face: Normocephalic, atraumatic. Eyes: Pupils equal round and reactive to light, extra-ocular motions intact. Lids and lashes normal. Conjunctiva and sclera are non-icteric and not injected. Cornea within normal limits. Periorbital areas with no swelling, redness, or edema. ENT: Nares patent. No nasal discharge, no septal abnormalities noted. Tympanic membranes are normal and external auditory canals are clear. Oropharynx with no redness, swelling, or masses, exudates, or evidence of obstruction, uvula midline. Mucous membranes moist. Neck: Trachea midline, no thyromegaly or masses palpated, and no cervical lymphadenopathy. Supple, full range of motion without nuchal rigidity, or vertebral point tenderness. No Meningismus. Chest/axilla: Normal chest wall appearance and motion. Nontender with no deformity. No lesions are appreciated. Cardiovascular: Regular rate and rhythm with a normal S1 and S2. No gallops, murmurs, or rubs. Normal PMI, no JVD. No pulse deficits. Respiratory: Lungs have equal breath sounds bilaterally, clear to auscultation and percussion. No rales, rhonchi or wheezes noted. No increased work of breathing, no retractions or nasal flaring. Abdomen/GI: Soft, non-tender, with normal bowel sounds. No distension or tympany. No guarding or rebound. No evidence of tenderness throughout. Back: No spinal tenderness. No costovertebral tenderness. Full range of motion. Female : Normal external genitalia. Skin: Warm, dry with normal turgor. Normal color with no rashes, no lesions, and no evidence of cellulitis. Neuro: Awake and alert, GCS 15, oriented to person, place, time, and situation. Cranial nerves II-XII grossly intact. Motor strength 5/5 in all extremities. Sensory grossly intact. Cerebellar exam normal. Normal gait. Psych: Awake, alert, with orientation to person, place and time. Behavior, mood, and affect are within normal limits. 01:24 Musculoskeletal/extremity: ROM: limited active range of motion, limited passive range of motion, limited active range of motion due to pain, limited passive range of motion due to pain, in the left arm and left leg, Circulation is intact in all extremities. Sensation intact. Compartment Syndrome exam of affected extremity: is normal. Weight bearing: able to fully bear weight, DVT Exam: no swelling, negative Homans' sign noted on exam, no appreciated bluish discoloration, no erythema, no increased warmth, pain, tenderness. Vital Signs: 09/04 22:56 BP 129 / 75; Pulse 105; Resp 20; Temp 97.6(TE); Pulse Ox 100% on R/A; Weight 105.23 kg; kg Height 5 ft. 3 in. (160.02 cm); Pain 8/10; 09/05 01:40 BP 105 / 60; Pulse 83; Resp 16 S; Pulse Ox 98% on R/A; ad5 09/04 22:56 Body Mass Index 41.10 (105.23 kg, 160.02 cm) kg MDM: 01:06 Patient medically screened. [facility] 01:27 Differential diagnosis: arthritis, Joint Injury Obesity sprain. Data oseas reviewed: vital signs, nurses notes, radiologic studies, plain films. Data interpreted: monitor worker: not applicable for this patient encounter. rate is 105 beats/min. Test interpretation: by ED physician or midlevel provider: plain radiologic studies. Counseling: I had a detailed discussion with the patient and/or guardian regarding: the historical points, exam findings, and any diagnostic results supporting the discharge/admit diagnosis, lab results, radiology results, the need for outpatient follow up, for definitive care, a family practitioner, an OB/Gyne specialist, a orthopedic surgeon. 09/04 22:56 Order name: XRAY Elbow LEFT 3 view kg 09/04 22:56 Order name: XRAY Knee LEFT 2 view kg 09/05 01:23 Order name: Ice pack; Complete Time: 01:40 oseas 09/05 01:23 Order name: FHT's; Complete Time: :40 [facility] Administered Medications: 01:35 Drug: Tylenol 1000 mg Route: PO; ad5 02:04 Follow up: Response: No adverse reaction ad5 Disposition Summary: 09/05/20 01:29 Discharge Ordered Location: Home oseas Problem: new oseas Symptoms: have improved oseas Condition: Stable oseas Diagnosis - Fall (on)(from) incline oseas - 36 weeks gestation of oseas - Contusion of left knee oseas - Contusion of left elbow oseas Followup: oseas - With: Private Physician - When: 2 - 3 days - Reason: Recheck today's complaints, Continuance of care, Re-evaluation by your physician Followup: oseas - With: Bala Remy MD - When: 2 - 3 days - Reason: Recheck today's complaints, Re-evaluation by your physician Discharge Instructions: - Discharge Summary Sheet oseas - Fall Prevention in the Home, Adult oseas - Care oseas - Third Trimester of oseas - Fall Prevention in the Home, Adult, [id number] [facility] Forms: - Medication Reconciliation Form [facility] - Thank You Letter oseas - Antibiotic Education oseas - Prescription Opioid Use [facility] Prescriptions: - Tylenol 325 mg Oral Tablet - take 2 tablets by ORAL route every 6 hours as needed; 1 bottle; Refills: 0, oseas Product Selection Permitted Signatures: Dispatcher [employer] Navi Ahuja MD MD cha Graham, Kristen, RN RN Lee Chappell ad5
--- NOTE | 2020-09-05 17:48 | ER ---
Nurse's Notes [facility] Name: Rasheeda Alfonso Age: 24 yrs Sex: Female : 1995 Arrival Date: 09/04/2020 Time: 21:40 Bed 19 Private MD: Diagnosis: Fall (on)(from) incline;36 weeks gestation of ;Contusion of left knee;Contusion of left elbow Presentation: 09/04 22:56 Chief complaint: Patient states: Pt slipped and fell and hit the wall. Hurt left knee, kg left elbow, back pain, lower abdominal pain. Coronavirus screen: Client denies travel out of the [place] in the last 14 days. At this time, unable to obtain information related to travel outside the [place] At this time, the client does not indicate any symptoms associated with coronavirus-19. Ebola Screen: Patient negative for fever greater than or equal to 101.5 degrees Fahrenheit, and additional compatible Ebola Virus Disease symptoms Patient denies exposure to infectious person. Patient denies travel to an Ebola-affected area in the 21 days before illness onset. Initial Sepsis Screen: Does the patient meet any 2 criteria? No. Patient's initial sepsis screen is negative. Does the patient have a suspected source of infection? No. Patient's initial sepsis screen is negative. Risk Assessment: Do you want to hurt yourself or someone else? Patient reports no desire to harm self or others. Onset of symptoms was September 04, 2020 at 18:30. 22:56 Method Of Arrival: Wheelchair kg 22:56 Acuity: RILEY 4 kg Triage Assessment: 22:59 General: Appears in no apparent distress. Behavior is calm, cooperative, appropriate kg for age, quiet. Pain: Denies pain. Musculoskeletal: Capillary refill < 3 seconds, Range of motion: intact in all extremities, Reports pain in Left elbow, left knee, lower abdominal, back. 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 - Social history:: Smoking status: Patient denies any tobacco usage or history of. - Family history:: not pertinent. Screenin/27 01:49 Abuse screen: Denies threats or abuse. Denies injuries from another. Nutritional ad5 screening: No deficits noted. Tuberculosis screening: No symptoms or risk factors identified. Fall Risk Ambulatory Aid- None/Bed Rest/Nurse Assist (0 pts). Gait- Normal/Bed Rest/Wheelchair (0 pts) Mental Status- Oriented to own ability (0 pts). Total Pimentel Fall Scale indicates. Assessment: 09/04 23:03 Reassessment: Pt was seen in L\T\D and cleared. . kg 09/05 01:47 General: Appears in no apparent distress. Behavior is calm, cooperative, appropriate ad5 for age. Neuro: No deficits noted. Level of Consciousness is awake, alert, obeys commands, Oriented to person, place, time, situation, Appropriate for age. Cardiovascular: No deficits noted. Capillary refill < 3 seconds Patient's skin is warm and dry. Pulses are all present. Rhythm is regular. Respiratory: No deficits noted. Airway is patent Respiratory effort is even, unlabored, Respiratory pattern is regular, symmetrical. GI: Bowel sounds present X 4 quads. Reports lower abdominal pain, nausea. : No deficits noted. No signs and/or symptoms were reported regarding the genitourinary system. Derm: abrasion to L elbow; bruising to medial L knee. Musculoskeletal: Reports pain to L elbow, LL abd, L knee s/p mechanical fall at home. Pt states was observed in LD prior to coming to ED. Distal SMCs intact, no obvious deformity noted to affected areas. Vital Signs: 09/04 22:56 BP 129 / 75; Pulse 105; Resp 20; Temp 97.6(TE); Pulse Ox 100% on R/A; Weight 105.23 kg; kg Height 5 ft. 3 in. (160.02 cm); Pain 8/10; 09/05 01:40 BP 105 / 60; Pulse 83; Resp 16 S; Pulse Ox 98% on R/A; ad5 09/04 22:56 Body Mass Index 41.10 (105.23 kg, 160.02 cm) kg Vitals: 01:40 Heart Tones 131 . ad5 ED Course: 09/04 21:40 Patient arrived in ED. cf2 22:59 Triage completed. kg 22:59 Arm band placed on right wrist. kg 23:30 XRAY Elbow LEFT 3 view In Process Unspecified. EDMS 23:30 XRAY Knee LEFT 2 view In Process Unspecified. EDMS 09/05 01:06 Navi Harrison MD is Attending Physician. oseas 01:24 Lee Maldonado is Primary Nurse. ad5 01:29 Bala Remy MD is Referral Physician. oseas 01:50 Patient has correct armband on for positive identification. Bed in low position. Call ad5 light in reach. Side rails up X2. Adult w/ patient. Pulse ox on. NIBP on. 02:05 No provider procedures requiring assistance completed. Patient did not have IV access ad5 during this emergency room visit. Administered Medications: 01:35 Drug: Tylenol 1000 mg Route: PO; ad5 02:04 Follow up: Response: No adverse reaction ad5 Outcome: 01:29 Discharge ordered by . oseas 02:05 Discharged to home via wheelchair, with significant other. ad5 02:05 Condition: stable 02:05 Discharge instructions given to patient, significant other, Instructed on discharge instructions, follow up and referral plans. medication usage, Demonstrated understanding of instructions, follow-up care, medications, Prescriptions given X 1. 02:05 Patient left the ED. ad5 Signatures: Dispatcher [employer] [facility] Navi Harrison MD MD cha Frazier, Celesta cf2 Jesusita Knapp, RN RN kg Lee Maldonado ad5
[2020-09-06 17:20] VITALS: TEMP 97.6
[2020-09-06 17:22] VITALS: BP 105/60; O2SAT 98
== END 2020-09-05 02:05 | disposition home or self-care (01) ==
LOC: ER 21:36
DX: O9A.213 Injury, poisoning and certain other consequences of external causes complicating pregnancy, third trimester (principal); S80.02XA Contusion of left knee, initial encounter; S50.02XA Contusion of left elbow, initial encounter; O24.419 Gestational diabetes mellitus in pregnancy, unspecified control; Z3A.36 36 weeks gestation of pregnancy; W10.2XXA Fall (on)(from) incline, initial encounter; Y93.01 Activity, walking, marching and hiking

== ENCOUNTER 2020-11-13 22:56 | Emergency (ER) | payer OTHER ==
--- NOTE | 2020-11-14 00:05 | ER ---
Nurse's Notes [facility] Name: Rasheeda Alfonso Age: 24 yrs Sex: Female : 1995 Arrival Date: 11/13/2020 Time: 23:09 Bed 10 Private MD: Diagnosis: Mastitis Presentation: 11/13 23:12 Chief complaint: Patient states: Pt states she is breast feeding and pumping for her wg and a week ago noticed a half-dollar sized lump just below her left breast. Pt states it has slowly been getting larger. Pt denies any abnormal discharge from breast/nipple. Pt states she took Motrin without relief. Coronavirus screen: Vaccine status: Patient reports receiving the 2nd dose of the covid vaccine. Date October 06, 2020. Ebola Screen: Patient negative for fever greater than or equal to 101.5 degrees Fahrenheit, and additional compatible Ebola Virus Disease symptoms Patient denies exposure to infectious person. Patient denies travel to an Ebola-affected area in the 21 days before illness onset. Initial Sepsis Screen: Does the patient meet any 2 criteria? No. Patient's initial sepsis screen is negative. Does the patient have a suspected source of infection? No. Patient's initial sepsis screen is negative. Risk Assessment: Do you want to hurt yourself or someone else? Patient reports no desire to harm self or others. Onset of symptoms was November 05, 2020. 23:12 Method Of Arrival: Ambulatory 23:12 Acuity: RILEY 4 wg Triage Assessment: 23:15 General: Appears uncomfortable, obese, well groomed, Behavior is calm, cooperative, wg appropriate for age. Pain: Complains of pain in Left breast- below nipple Pain currently is 8 out of 10 on a pain scale. Quality of pain is described as burning, sharp, Pain began gradually. 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 - Social history:: Smoking status: Patient denies any tobacco usage or history of. Screenin/05 00:32 Abuse screen: Denies. Nutritional screening: No deficits noted. wr 00:33 Tuberculosis screening: No symptoms or risk factors identified. wr 00:33 Fall Risk None identified. wr Assessment: 00:32 Reassessment: No changes from previously documented assessment. wr Vital Signs: 11/13 23:12 BP 121 / 68; Pulse 82; Resp 18; Temp 98.7; Pulse Ox 100% on R/A; Weight 93.89 kg; wg Height 5 ft. 4 in. (162.56 cm); Pain 8/10; 11/14 00:30 BP 121 / 68; Pulse 82; Resp 20; Temp 97.8; Pulse Ox 100% ; wr 11/13 23:12 Body Mass Index 35.53 (93.89 kg, 162.56 cm) ED Course: 11/13 23:09 Patient arrived in ED. cf2 23:15 Triage completed. wg 23:15 Arm band placed on left wrist. wg 23:33 Amador Aguirre NP is PHCP. pm1 23:33 Navi Harrison MD is Attending Physician. pm1 Administered Medications: No medications were administered Outcome: 11/14 00:05 Discharge ordered by . pm1 00:33 Patient left the ED. wr Signatures: Amador Aguirre NP PSYCHIATRIC NURSE pm1 Pradip Hdz cf2 Ori Patricia RN Dwayne Newman Corrections: (The following items were deleted from the chart) 11/13 23:18 23:12 Chief complaint: Patient states: Pt states she is breast feeding and pumping for wg her and a week ago noticed a half-dollar sized lump just below her left breast. Pt states it has slowly been getting larger. Pt denies any abnormal discharge from breast/nipple. Pt states she took Motrin without relief. wg
--- NOTE | 2020-11-14 00:06 | EDPHYS ---
Physician Documentation [facility] Name: Rasheeda Alfonso Age: 24 yrs Sex: Female : 1995 Arrival Date: 11/13/2020 Time: 23:09 Bed 10 Private MD: IDALIA Physician Navi Harrison HPI: 11/14 00:04 This 24 yrs old Female presents to ER via Ambulatory with complaints of Breast pm1 Problem, Breast Lump. 00:04 Onset: The symptoms/episode began/occurred 3 day(s) ago. Associated signs and symptoms: pm1 Pertinent negatives: fever. Modifying factors: The patient symptoms are alleviated by nothing, the patient symptoms are aggravated by nothing. The patient has not experienced similar symptoms in the past. The patient has not recently seen a physician. Patient breast feeding her 1 month old child. Patient with difficulty feeding on the left breast because she has an inverted nipple on that breast and her child has difficulty latching on. 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 - Social history:: Smoking status: Patient denies any tobacco usage or history of. ROS: 11/14 00:04 Constitutional: Negative for fever, chills, and weight loss, Cardiovascular: Negative pm1 for chest pain, palpitations, and edema, Respiratory: Negative for shortness of breath, cough, wheezing, and pleuritic chest pain, MS/Extremity: Negative for injury and deformity, Skin: Negative for injury, rash, and discoloration, Neuro: Negative for headache, weakness, numbness, tingling, and seizure. All other systems are negative. Exam: 00:04 Constitutional: This is a well developed, well nourished patient who is awake, alert, pm1 and in no acute distress. Head/Face: Normocephalic, atraumatic. MS/ Extremity: Pulses equal, no cyanosis. Neurovascular intact. Full, normal range of motion. 00:04 Skin: Warm, dry with normal turgor. Normal color with no rashes, no lesions, and no evidence of cellulitis. 00:04 Chest/axilla: Inspection: cellulitis, is not appreciated, Breasts: cellulitis, is not appreciated, nipple discharge, is not appreciated, tenderness, of the left breast, Mild swelling present at 7 o'clock. 00:04 Cardiovascular: Exam negative for acute changes, Rate: normal, Rhythm: regular, Pulses: no pulse deficits are appreciated. 00:04 Respiratory: Exam negative for acute changes, respiratory distress, shortness of breath. 00:04 Neuro: Exam negative for acute changes, Orientation: is normal, Mentation: is normal, Motor: is normal, moves all fours. Vital Signs: 11/13 23:12 BP 121 / 68; Pulse 82; Resp 18; Temp 98.7; Pulse Ox 100% on R/A; Weight 93.89 kg; wg Height 5 ft. 4 in. (162.56 cm); Pain 09/19; 11/14 00:30 BP 121 / 68; Pulse 82; Resp 20; Temp 97.8; Pulse Ox 100% ; wr 11/13 23:12 Body Mass Index 35.53 (93.89 kg, 162.56 cm) wg MDM: 11/13 23:36 Patient medically screened. oseas 11/14 00:04 Data reviewed: vital signs. Data interpreted: Pulse oximetry: on room air is 100 %. pm1 Interpretation: normal. Counseling: I had a detailed discussion with the patient and/or guardian regarding: the historical points, exam findings, and any diagnostic results supporting the discharge/admit diagnosis, the need for outpatient follow up, an OB/Gyne specialist, to return to the emergency department if symptoms worsen or persist or if there are any questions or concerns that arise at home. Administered Medications: No medications were administered Disposition: 06:51 Co-signature as Attending Physician, Navi Harrison MD I agree with the assessment and oseas plan of care. Disposition Summary: 11/14/20 00:05 Discharge Ordered Location: Home pm1 Problem: new pm1 Symptoms: have improved pm1 Condition: Stable pm1 Diagnosis - Mastitis pm1 Followup: pm1 - With: Emergency Department - When: As needed - Reason: Worsening of condition Followup: pm1 - With: Private Physician - When: 2 - 3 days - Reason: Recheck today's complaints, Continuance of care, Re-evaluation by your physician Discharge Instructions: - Discharge Summary Sheet pm1 - Mastitis pm1 - and Mastitis pm1 Forms: - Medication Reconciliation Form pm1 - Thank You Letter pm1 - Antibiotic Education pm1 - Prescription Opioid Use pm1 Prescriptions: - Dicloxacillin 500 mg Oral Capsule - take 1 capsule by ORAL route every 6 hours for 10 days; 40 capsule; Refills: 0, pm1 Product Selection Permitted Signatures: Navi Harrison MD MD cha Marinas, Patrick, NP PRESCHOOL ADVISER pm1 Ori Patricia, RN wg
[2020-11-14 00:56] VITALS: BP 121/68; O2SAT 100
[2020-11-14 00:58] VITALS: TEMP 97.8
== END 2020-11-14 00:33 | disposition home or self-care (01) ==
LOC: ER 22:56
DX: N61.0 Mastitis without abscess (principal)
CPT/HCPCS: 99281

== ENCOUNTER 2021-01-31 09:46 | Emergency (ER) | payer OTHER ==
--- OUTSIDE RECORDS SUMMARY | 2021-01-31 09:50 | XMS REPORT | Continuity of Care Document ---
:1995 Author Organization [facility] t Address [facility] [place] [address] Care Team Providers Name Role Phone Juan GRAVES, R Primary Care Physician Aníbal MARQUEZ Attending Clinician Unavailable UNKNOWN Attending Clinician Unavailable Aurelia GRAVES Attending Clinician Unknown Attending Clinician Unavailable Aníbal Reis Attending Clinician Lab Attending Clinician Unavailable Juan GRAVES R Attending Clinician AKINKatharine LOWERY Attending Clinician Unavailable Eugenia AVALOS Attending Clinician Unavailable Aj SAENZ Admitting Clinician Unavailable Payers Payer Name Policy Type Policy Number Effective Date Expiration Date [facility] [id number] 2020 [facility] MEDICAID 00:00:00 AURA RODRIGUEZ [id number] 2020 00:00:00 Advance Directives Directive Decision Effective Termination Comments Source Date Date Healthcare Agents on N/A [facility] FileNameRelation[facility] Agent Medical RelationshipCommunicationBellevue Branch SanchezMdtherHealth Care [phone] (Mobile) Dayron PenaSpouseFirst Alternate Health Care [phone] (Mobile) Problems Condition Condition Condition Status Onset Resolution Last Treating Co mments Source Name Details Category Date Date Treatment Clinician Date History of History of Disease Active 2020-02 U nivers gestationa gestationa 0-13 [place] l diabetes [place] [facility] Morbid Morbid Disease Active Univers obesity obesity 8-18 [place] of [place] mass index mass index 00 Me dical of of Branch 40.0-49.9 40.0-49.9 Maternal Maternal Disease Active Overview: Un reyes varicella, varicella, 3- Formattin ity of non-immune non-immune 00:00: g of this [place] 00 note Medical might be Branch different from the original. Address in Postpartu m Acute Acute Disease Active Univers cholecysti cholecysti 05-11 it y of tis tis 00:00: [place] 00 Medical Branch Gall Gall Disease Active Overview: Univer s bladder bladder 04-08 Formattin ity o f stones stones 00:00: g of this [place] 00 note Medical might be Branch different from the original. Per patient report can not have surgery until she is about 20 weeks Allergies, Adverse Reactions, Alerts Allergy Allergy Status Severity Reaction(s) Onset Inactive Treating Comm ents Source Name Type Date Date Clinician NO KNOWN Drug Active Univers ALLERGIE Class ity of S [facility] Social History Social Habit Start Date Stop Date Quantity Comments Source Exposure to Not sure [facility] SARS-CoV-2 (event) Medica l Branch Alcohol intake 2020-11-22 2020-11-22 0 /d [facility] 00:00:00 00:00:00 [facility] Tobacco use and 2014-05-17 2014-05-17 Never used [facility] exposure 00:00:00 00:00:00 [facility] Sex Assigned At [birth year] [facility] 00:00:00 00:00:00 [facility] Smoking Status Start Date Stop Date Source Never smoker [facility] Medications Ordered Filled Start Stop Current Ordering Indication Dosage Frequency Signature Comments Components Source Medication Medication Date Date Medication? Clinician (SIG) Name Name cephALEXin 2020-02- Yes [id number] 500mg Take 1 Univers (KEFLEX) 12-17 capsule by ity of 500 mg 00:00: 04:59 mouth 4 [place] capsule 00 :00 (four) Medical times Branch daily for 10 days. norethindro 2020-02 Yes [id number] 1{tbl} Take 1 Univers ne 0.35 mg 0-13 tablet by ity of tablet 00:00: mouth [place] 00 daily. Medical Branch norethindro 2020-02 Yes [id number] 1{tbl} Take 1 Univers ne 0.35 mg 0-13 tablet by ity of tablet 00:00: mouth [place] 00 daily. Medical Branch norethindro 2020-02 Yes [id number] 1{tbl} Take 1 Univers ne 0.35 mg 0-13 tablet by ity of tablet 00:00: mouth [place] 00 daily. Medical Branch dicloxacill 2020-02 Yes Univer s in 500 mg 0-05 ity of capsule 00:00: [place] 00 Medical Branch dicloxacill 2020-02 Yes Univer s in 500 mg 0-05 ity of capsule 00:00: [place] 00 Medical Branch dicloxacill 2020-02 Yes Univer s in 500 mg 0-05 ity of capsule 00:00: [place] 00 Medical Branch Yes [id number] 1{tbl} Take 1 Univers vitamin 9-01 tablet by ity of w/FA tablet 00:00: mouth [place] 00 daily. Medical Branch docusate Yes [id number] 240mg Take 1 U nivers calcium 240 9-01 capsule by it y of mg capsule 00:00: mouth [place] 00 daily as Medical needed for Branch Constipati on. ferrous Yes [id number] 325mg Take 1 Un reyes sulfate 325 9-01 tablet by ity of mg (65 mg 00:00: mouth 2 [place] iron) 00 (two) Medical tablet times Branch daily. ibuprofen Yes [id number] 600mg Take 1 Univers 600 mg 9-01 tablet by ity of tablet 00:00: mouth [place] 00 every 6 Medical (six) Branch hours as needed (Pain). Take with food or milk. Yes [id number] 1{tbl} Take 1 Univers vitamin 9-01 tablet by ity of w/FA tablet 00:00: mouth [place] 00 daily. Medical Branch docusate Yes [id number] 240mg Take 1 U nivers calcium 240 9-01 capsule by it y of mg capsule 00:00: mouth once [place] 00 daily as Medical needed for Branch Constipati on. ferrous Yes [id number] 325mg Take 1 Un reyes sulfate 325 9-01 tablet by ity of mg (65 mg 00:00: mouth 2 [place] iron) 00 (two) Medical tablet times Branch daily. ibuprofen Yes [id number] 600mg Take 1 Univers 600 mg 9-01 tablet by ity of tablet 00:00: mouth [place] 00 every 6 Medical (six) Branch hours as needed (Pain). Take with food or milk. Yes [id number] 1{tbl} Take 1 Univers vitamin 9-01 tablet by ity of w/FA tablet 00:00: mouth [place] 00 daily. Medical Branch docusate Yes [id number] 240mg Take 1 U nivers calcium 240 9-01 capsule by it y of mg capsule 00:00: mouth once [place] 00 daily as Medical needed for Branch Constipati on. ferrous Yes [id number] 325mg Take 1 Un reyes sulfate 325 9-01 tablet by ity of mg (65 mg 00:00: mouth 2 [place] iron) 00 (two) Medical tablet times Branch daily. ibuprofen Yes [id number] 600mg Take 1 Univers 600 mg 9-01 tablet by ity of tablet 00:00: mouth [place] 00 every 6 Medical (six) Branch hours as needed (Pain). Take with food or milk. Immunizations Ordered Filled Immunization Date Status Comments [facility] e Immunization Name Name Influenza Virus 2020-11-22 Completed Universit y of Vaccine Quad IM, 00:00:00 [facility] dical Preserv and ABX Branch Free 2-64 YRS HPV9 2020-11-22 Completed University of 00:00:00 [facility] Influenza Virus 2020-11-22 Completed Universit y of Vaccine Quad IM, 00:00:00 [place] Me dical Preserv and ABX Branch Free 6 MO-64 YRS HPV9 2020-11-22 Completed University of 00:00:00 [facility] Influenza Virus 2020-11-22 Completed Universit y of Vaccine Quad IM, 00:00:00 [facility] dical Preserv and ABX Branch Free 6 MO-64 YRS HPV9 2020-11-22 Completed University 00:00:00 [facility] TDAP 2020-08-09 Completed University of 00:00:00 [facility] TDAP 2020-08-09 Completed University of 00:00:00 [facility] TDAP 2020-08-09 Completed University of 00:00:00 [facility] HPV9 2017-09-24 Completed University of 00:00:00 [facility] HPV9 2017-09-24 Completed University of 00:00:00 [facility] HPV9 2017-09-24 Completed University of 00:00:00 [facility] TDAP 2017-07-09 Completed University of 00:00:00 [facility] TDAP 2017-07-09 Completed University of 00:00:00 [facility] TDAP 2017-07-09 Completed University of 00:00:00 [facility] Influenza Virus 2017-01-21 Completed Universit y of Vaccine Quad IM 3+ 00:00:00 [facility] Influenza Virus 2017-01-21 Completed Universit y of Vaccine Quad IM 3+ 00:00:00 [facility] Influenza Virus 2017-01-21 Completed Universit y of Vaccine Quad IM 3+ 00:00:00 [facility] HPV9 2016-11-06 Completed University of 00:00:00 [facility] HPV9 2016-11-06 Completed University of 00:00:00 [facility] HPV9 2016-11-06 Completed University of 00:00:00 [facility] TDAP 2015-05-16 Completed University of 00:00:00 [facility] TDAP 2015-05-16 Completed University of 00:00:00 [facility] TDAP 2015-05-16 Completed University of 00:00:00 [facility] Influenza Virus 2014-12-05 Completed Universit y of Vaccine Quad IM 3+ 00:00:00 [facility] Influenza Virus 2014-12-05 Completed Universit y of Vaccine Quad IM 3+ 00:00:00 [facility] Influenza Virus 2014-12-05 Completed Universit y of Vaccine Quad IM 3+ 00:00:00 [facility] TDAP 2009-02-10 Completed University of 00:00:00 [facility] TDAP 2009-02-10 [facility] 00:[facility] Vital Signs Vital Name Observation Time Observation Value Comments Source Systolic blood 2020-12-06 19:45:00 104 mm[Hg] Univer sity of pressure [facility] Diastolic blood 2020-12-06 19:45:00 69 mm[Hg] Unive rsity of pressure [facility] Heart rate 2020-12-06 19:45:00 75 /min Universi ty [facility] Body temperature 2020-12-06 19:45:00 36.72 Samina [facility] Res[facility] rate 2020-12-06 19:45:00 16 /min [facility] Body height 2020-12-06 19:45:00 162.6 cm Universi ty [facility] Body weight 2020-12-06 19:45:00 93.611 [address]i ty [facility] BMI 2020-12-06 19:45:00 35.42 kg/m2 [facility] Oxygen saturation in 2020-12-06 19:45:00 98 /min [facility] Arterial blood by [facility] Pulse oximetry Branch Procedures This patient has no known procedures. Encounters Start End Encounter Admission Attending Care Care Encounter Source Date/Time Date/Time Type Type Clinicians Facility Department ID 2020-12-11 Outpatient P [facility] [id number] Univers 16:35:[address] [facility] 2020-12-11 Outpatient [facility] [id number] [facility] 2020-12-09 Emergency [facility] [id number] Univers 22:21:37 [facility] 2021-02-12 2021-02-12 Outpatient R ALMA [facility] [id number] Univers 08:00:00 08:00:00 ANGELINA [id number] [facility] 2021-02-12 2021-02-12 Outpatient R ALMA [facility] [id number] Univers 08:00:00 08:00:00 [facility] 2020-12-06 2020-12-06 Outpatient R [facility] [id number] Univers 15:00:00 15:00:00 [id number] [facility] 2020-12-06 2020-12-06 Outpatient R JANEL [facility] [id number] Univers 15:00:00 15:00:[address] 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 Univers 07:58:15 08:13:12 Visit AvalosGavino [employer]CH[employer]ISING STOCK ASSOCIATE [id number] [facility] [id number] Erik as MATERNAL [phone] Med ical & CHILD [address] [place] [address] 2020-11-27 2020-11-27 Outpatient R [facility] [id number] Univers 07:45:00 07:45:00 [id number] [facility] 2020-11-27 2020-11-27 Outpatient R [facility] [id number] Univers 07:45:00 07:45:[address] [facility] 2020-11-22 2020-11-22 [facility] [id number] Univers 13:15:00 13:15:00 ANGELINA [id number] [facility] 2020-11-22 2020-11-22 Outpatient R ALMA [facility] [id number] Univers 13:15:00 13:15:00 [facility] 2020-11-01 2020-11-01 Outpatient R FADUMO [facility] [id number] Univers 13:30:00 13:30:00 MARCELLE [id number] ity o f [facility] 2020-11-01 2020-11-01 Outpatient R AKINSIELLIOTT [facility] [id number] Univers 13:30:00 13:30:00 MARCELLE ity o f [facility] 2020-10-17 2020-10-17 Outpatient R JUAN [facility] [id number] Univers 08:00:00 08:00:00 RAENDA ity o f [facility] 2020-10-04 2020-10-04 Outpatient [facility] [id number] Univers 10:15:00 10:15:[id number] [facility] 2020-10-04 2020-10-04 Outpatient R [facility] [id number] Univers 10:15:00 10:15:[address] [facility] 2020-10-02 2020-10-02 Outpatient R JUAN [facility] [id number] Univers 14:45:00 14:45:00 GAVINO [id number] ity o f [facility] 2020-10-02 2020-10-02 Outpatient R JUAN [facility] [id number] Univers 14:45:00 14:45:00 GAVINO ity o [facility] 2020-09-27 2020-09-27 Outpatient R [facility] [id number] Univers 13:30:00 13:30:00 [id number] [facility] 2020-09-27 2020-09-27 Outpatient R [facility] [id number] Univers 13:30:00 13:30:[address] [facility] 2020-09-25 2020-09-25 Outpatient R [facility] [id number] Univers 15:30:00 15:30:[id number] [facility] 2020-09-25 2020-09-25 Outpatient P [facility] [id number] Univers 15:30:00 15:30:[address] [facility] 2020-09-20 2020-09-20 Outpatient R [facility] [id number] Univers 15:00:00 15:00:[id number] [facility] 2020-09-20 2020-09-20 Outpatient R [facility] [id number] Univers 15:00:00 15:00:[address] [facility] 2020-09-18 2020-09-18 Outpatient R JUAN [facility] [id number] Univers 17:00:00 17:00:00 RAENDA [id number] ity o f [facility] 2020-09-18 2020-09-18 [facility] [id number] Univers 17:00:00 17:00:00 RENAA ity o f [facility] 2020-09-13 2020-09-13 Outpatient R [facility] [id number] Univers 14:30:00 14:30:[id number] [facility] 2020-09-13 2020-09-13 Outpatient R [facility] [id number] Univers 14:30:00 14:30:[address] [facility] 2020-09-11 2020-09-11 Outpatient R AVALOS, [facility] [id number] Univers 14:30:00 14:30:00 GAVINO [id number] ity o [facility] 2020-09-11 2020-09-11 [facility] [id number] Univers 14:30:00 14:30:00 GAVINO ity o f [facility] 2020-09-06 2020-09-06 Outpatient R [facility] [id number] Univers 13:45:00 13:45:[id number] [facility] 2020-09-06 2020-09-06 Outpatient R [facility] [id number] Univers 13:45:00 13:45:00 [facility] 2020-09-04 2020-09-04 [facility] [id number] 13:56:43 14:48:59 Gavino R [employer] ASSOCI[employer] [id number] Visit REGIONAL [id number] MATERNAL [phone] & CHILD [address] [place] [address] 2020-09-04 2020-09-04 Outpatient R [facility] [id number] Univers 14:30:00 14:30:00 [id number] ity of [facility] 2020-09-04 2020-09-04 Outpatient R [facility] [id number] Univers 14:30:00 14:30:00 ity of [facility] 2020-08-31 2020-08-31 Outpatient R [facility] [id number] Univers 09:30:00 09:30:00 [id number] ity of [facility] 2020-08-31 2020-08-31 Outpatient R [facility] [id number] Univers 09:30:00 09:30:00 ity of [facility] 2020-08-29 2020-08-29 Outpatient R [facility] [id number] Univers 15:15:00 15:15:00 [id number] ity of [facility] 2020-08-29 2020-08-29 Outpatient R [facility] [id number] Univers 15:15:00 15:15:00 ity of [facility] 2020-08-28 2020-08-28 Outpatient R [facility] [id number] Univers 13:00:00 13:00:00 [id number] ity of [facility] 2020-08-28 2020-08-28 Outpatient R [facility] [id number] Univers 13:00:00 13:00:00 ity of [facility] 2020-08-22 2020-08-22 Outpatient R [facility] [id number] Univers 15:15:00 15:15:00 [id number] ity of [facility] 2020-08-22 2020-08-22 Outpatient P [facility] [id number] Univers 15:15:00 15:15:00 ity of [facility] 2020-08-21 2020-08-21 [facility] [id number] Univers 13:45:00 13:45:00 GAVINO [id number] ity o f [facility] 2020-08-21 2020-08-21 [facility] [id number] Univers 13:45:00 13:45:00 ROSJESSENDA ity o [facility] 2020-08-09 2020-08-09 Outpatient R JUAN, [facility] [id number] Univers 16:00:00 16:00:00 GAVINO ity o [facility] 2020-08-09 2020-08-09 Outpatient R JUAN, [facility] [id number] Univers 08:00:00 08:00:00 GAVINO [id number] ity o [facility] 2020-08-09 2020-08-09 Outpatient R JUAN, [facility] [id number] Univers 08:00:00 08:00:00 GAVINO peres o [facility] 2020-08-01 2020-08-01 Outpatient [facility] [id number] Univers 15:00:00 15:00:00 [id number] [facility] 2020-08-01 2020-08-01 Outpatient R AKINSIPE, [facility] [id number] Univers 15:00:00 15:00:00 MARCELLE peres o [facility] 2020-07-28 2020-07-28 Outpatient [facility] [id number] Univers 07:45:00 07:45:00 [id number] [facility] 2020-07-28 2020-07-28 Outpatient R AKINSIPE, [facility] [id number] Univers 07:45:00 07:45:00 MARCELLE itviviana o [facility] 2020-07-26 2020-07-26 Outpatient R JUAN, [facility] [id number] Univers 10:00:00 10:00:00 GAVINO [id number] ity o [facility] 2020-07-26 2020-07-26 Outpatient R AVALOS, [facility] [id number] Univers 10:00:00 10:00:00 RAENDA ity o [facility] 2020-07-12 2020-07-12 Outpatient R AVALOS, [facility] [id number] Univers 10:45:00 10:45:00 GAVINO [id number] ity o [facility] 2020-07-12 2020-07-12 Outpatient R AVALOS, [facility] [id number] Univers 10:45:00 10:45:00 ROSHUNDA ity o [facility] 2020-07-05 2020-07-05 Outpatient R JUAN [facility] [id number] Univers 13:45:00 13:45:00 ROSHUNDA [id number] ity o f [facility] 2020-07-05 2020-07-05 Outpatient Eugenia AVALOS [facility] [id number] Univers 13:45:00 13:45:00 ROSHUNDA ity o [facility] 2020-07-03 2020-07-03 Outpatient Eugenia AVALOS [facility] [id number] Univers 13:00:00 13:00:00 ROSJESSENDA [id number] ity o [facility] 2020-07-03 2020-07-03 Outpatient Eugenia AVALOS [facility] [id number] Univers 13:00:00 13:00:00 JOSSELYNNDA ity o [facility] 2020-06-06 2020-06-06 Outpatient R [facility] [id number] Univers 09:30:00 09:30:00 [id number] [facility] 2020-06-06 2020-06-06 Outpatient P [facility] [id number] Univers 09:30:00 09:30:00 [facility] 2020-06-05 2020-06-05 Outpatient R JUAN [facility] [id number] Univers 12:45:00 12:45:00 JOSSELYNHUNDA [id number] ity o [facility] 2020-06-05 2020-06-05 Outpatient Eugenia AVALOS [facility] [id number] Univers 12:45:00 12:45:00 ROSHUNDA ity o [facility] 2020-05-08 2020-05-08 Outpatient R JUAN [facility] [id number] Univers 13:00:00 13:00:00 ROSJESSENDA [id number] ity o [facility] 2020-05-08 2020-05-08 Outpatient Eugenia AVALOS [facility] [id number] Univers 13:00:00 13:00:00 RAENDA ity o f [facility] 2020-04-12 2020-04-12 Outpatient R [facility] [id number] Univers 11:00:00 11:00:00 [id number] [facility] 2020-04-12 2020-04-12 Outpatient P [facility] [id number] Univers 11:00:00 11:00:00 [facility] 2020-04-10 2020-04-10 Outpatient R AVALOS, [facility] [id number] Univers 13:15:00 13:15:00 GAVINO [id number] ity o [facility] 2020-04-10 2020-04-10 Outpatient R AVALOS, [facility] [id number] Univers 13:15:00 13:15:00 RAENDA ity o [facility] 2020-03-22 2020-03-22 Outpatient R AVALOS, [facility] [id number] Univers 14:15:00 14:15:00 RAENDRafael [id number] ity o [facility] 2020-03-22 2020-03-22 Outpatient R AVALOS, [facility] [id number] Univers 14:15:00 14:15:00 RENAA ity o [facility] 2019-12-13 2019-12-13 Outpatient R AKINSIPE, [facility] [id number] Univers 12:45:00 12:45:00 MARCELLE [id number] y o [facility] 2019-12-13 2019-12-13 Outpatient R AKINSIPE, [facility] [id number] Univers 12:45:00 12:45:00 MARCELLE [facility] Results This patient has no known results.
[2021-01-31 10:10] LABS: Urine Blood 3+ (Negative); Urine Glucose Negative (Negative); Urine Protein Negative (Negative); Urine Specific Gravity 1.025 (1.005-1.030)
[2021-01-31 10:15] LABS: Urine Specific Gravity/Preg 1.025 (1.005-1.030)
[2021-01-31] MEDS ORDERED: ONDANSETRON 4 MG/2 ML VIAL ONE ×2 (10:34→10:47)
[2021-01-31] MEDS ORDERED: NA CHLORIDE 0.9% 500 ML ONE ×2 (10:34→10:47)
[2021-01-31 10:36] LABS: Absolute Lymphocytes (CBC) 2.3 K/uL (0.7-4.9); Basophils % 0.3 % (0-1.3); Hematocrit 34.9 % (36.0-45.0); MPV 6.7 fL (7.6-11.3); RBC Red Blood Cell Count 4.26 M/uL (3.86-4.86)
[2021-01-31 10:53] LABS: ALT/SGPT 18 U/L (12-78); AST/SGOT 9 U/L (15-37); Albumin 2.8 g/dL (3.4-5.0); Alkaline Phosphatase 115 U/L (45-117); BUN Blood Urea Nitrogen 18 mg/dL (7-18); Bicarbonate 25 mmol/L (21-32); Bilirubin Direct < 0.1 mg/dL (0-0.2); Bilirubin Total 0.3 mg/dL (0.2-1.0); Glucose Level 102 mg/dL (74-106); Lipase 92 U/L (73-393); Protein, Total 7.2 g/dL (6.4-8.2); Sodium Level 141 mmol/L (136-145)
--- NOTE | 2021-01-31 11:09 | RAD REPORT ---
EXAM DESCRIPTION: US - Abdomen Exam Limited - 01/31/2021 10:46 am CLINICAL HISTORY: history of stones. Flare up of GB;Abd pain Abdominal pain COMPARISON: Abdomen Exam Limited dated 04/22/2020 FINDINGS: The gallbladder demonstrates extensive cholelithiasis. No pericholecystic fluid or gallbla dder wall thickening. The common bile duct is normal measuring 1-2 mm. The liver demonstrates no findings of intrahepatic biliary dilatation. IMPRESSION: Extensive cholelithiasis.
--- NOTE | 2021-01-31 11:52 | EDPHYS ---
Physician Documentation [facility] Name: Rasheeda Alfonso Age: 25 yrs Sex: Female : 1995 Arrival Date: 01/31/2021 Time: 09:49 Bed 8 Private MD: ED Physician Ravin Madison HPI: 01/31 11:33 This 25 yrs old Female presents to ER via Ambulatory with complaints of jr8 Abdominal Pain. 11:33 This is a 25-year-old female with a history of gallstones from previous pregnancies in 8 the past that presented to the emergency room with complaints of upper abdominal pain including right side of abdomen with nausea and diarrhea. Patient stated that she had a delivery about 4-1/2 months ago. Now over the last 24 hours started to have pain. Feels like it is her gallbladder again. Denies any fevers or any other symptoms at this time.. 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 - Social history:: Smoking status: Patient denies any tobacco usage or history of. ROS: 11:33 Constitutional: Negative for fever, chills, and weight loss. jr8 11:33 Cardiovascular: Negative for chest pain, palpitations, and edema, Respiratory: Negative for shortness of breath, cough, wheezing, and pleuritic chest pain, Back: Negative for injury and pain. 11:33 Abdomen/GI: Positive for abdominal pain, nausea, diarrhea. 11:33 All other systems are negative. Exam: 11:33 Constitutional: This is a well developed, well nourished patient who is awake, alert, jr8 and in no acute distress. Cardiovascular: Regular rate and rhythm with a normal S1 and S2. No gallops, murmurs, or rubs. Normal PMI, no JVD. No pulse deficits. Respiratory: Lungs have equal breath sounds bilaterally, clear to auscultation and percussion. No rales, rhonchi or wheezes noted. No increased work of breathing, no retractions or nasal flaring. Back: No spinal tenderness. No costovertebral tenderness. Full range of motion. Skin: Warm, dry with normal turgor. Normal color with no rashes, no lesions, and no evidence of cellulitis. MS/ Extremity: Pulses equal, no cyanosis. Neurovascular intact. Full, normal range of motion. Neuro: Awake and alert, GCS 15, oriented to person, place, time, and situation. Cranial nerves II-XII grossly intact. Motor strength 5/5 in all extremities. Sensory grossly intact. 11:33 Abdomen/GI: Inspection: abdomen appears normal, Bowel sounds: active, all quadrants, Palpation: soft, in all quadrants, moderate abdominal tenderness, in the epigastric area and right upper quadrant, mass, is not appreciated, rebound tenderness, is not appreciated, voluntary guarding, is not appreciated, involuntary guarding, is not appreciated, no appreciated organomegaly, Indicators: McBurney's point is not tender, Max's sign is positive, Rovsing's sign is negative. Vital Signs: 09:57 BP 127 / 65; Pulse 78; Resp 16; Temp 98.2(O); Pulse Ox 99% on R/A; Weight 104.33 kg; iw Height 5 ft. 4 in. (162.56 cm); 11:12 BP 106 / 58; Pulse 71; Resp 18; Pulse Ox 98% on R/A; oconnell 09:57 Body Mass Index 39.48 (104.33 kg, 162.56 cm) iw MDM: 10:01 Patient medically screened. [facility] 11:33 Data reviewed: vital signs, nurses notes, lab test result(s), radiologic studies, jr ultrasound. Data interpreted: Pulse oximetry: on room air is 98 %. Interpretation: normal. Counseling: I had a detailed discussion with the patient and/or guardian regarding: the historical points, exam findings, and any diagnostic results supporting the discharge/admit diagnosis, lab results, radiology results, the need for outpatient follow up, a general surgeon, to return to the emergency department if symptoms worsen or persist or if there are any questions or concerns that arise at home. 11:50 ED course: Discussed with patient that there is no signs for acute cholecystitis at [facility] this time. Patient does have multiple stones throughout the gallbladder which is her likely cause for her pain. Patient overall doing better at this time. We will send her to see general surgery for further evaluation for possible cholecystectomy. Patient knows to come back if she were to run fever pain will get worsening point time.. 01/31 10:10 Order name: Urine Dipstick-Ancillary; Complete Time: 10:10 EDMS 01/31 10:11 Order name: Basic Metabolic Panel; Complete Time: 10:55 [facility] 01/31 10:11 Order name: CBC with Diff; Complete Time: 10:45 8 01/31 10:11 Order name: Hepatic Function; Complete Time: 10:55 [facility] 01/31 10:11 Order name: Lipase; Complete Time: 10:55 [facility] 01/31 10:12 Order name: Urine --Ancillary (enter results); Complete Time: 10:26 bd 01/31 10:11 Order name: IV Saline Lock; Complete Time: 10:29 [facility] 01/31 10:11 Order name: Labs collected and sent; Complete Time: 10:29 8 01/31 10:25 Order name: US Abdomen Limited; Complete Time: 11:14 [facility] Administered Medications: 10:50 Drug: Zofran (Ondansetron) 4 mg Route: IVP; Site: left antecubital; oconnell 10:50 Follow up: Response: No adverse reaction oconnell 11:43 Follow up: Response: Nausea is decreased jg9 10:50 Drug: NS 0.9% 500 ml Route: IV; Rate: bolus; Site: left antecubital; oconnell 11:53 Follow up: IV Status: Completed infusion; IV Intake: 500ml jg9 Disposition: 18:28 Co-signature as Attending Physician, Ravin Madison MD I agree with the assessment and kdr plan of care. Disposition Summary: 01/31/21 11:51 Discharge Ordered Location: Home [facility] Problem: new jr Symptoms: have improved jr Condition: Stable jr8 Diagnosis - Other cholelithiasis without obstruction jr8 - Right upper quadrant abdominal tenderness [facility] Followup: jr8 - With: Manuel Lee MD - When: Today - Reason: Recheck today's complaints, Continuance of care, Re-evaluation by your physician Discharge Instructions: - Discharge Summary Sheet jr8 - Abdominal Pain, Adult jr8 - Cholelithiasis jr8 - Gallbladder Eating Plan jr8 - Form - Return To Work oconnell - Form - Excuse from Work, School, or Physical Activity oconnell Forms: - Medication Reconciliation Form jr8 - Thank You Letter jr8 - Antibiotic Education jr8 - Prescription Opioid Use jr8 Prescriptions: - Zofran 4 mg Oral Tablet - take 1 tablet by ORAL route every 12 hours As needed; 20 tablet; Refills: 0, jr8 Product Selection Permitted Signatures: Dispatcher [employer] EDRavin Cotter MD MD kdr Williams, Irene, RN RN Geoffrey Mares PA PA jr8 Karen Erickson Jennifer jg9
--- NOTE | 2021-01-31 11:52 | ER ---
Nurse's Notes [facility] Name: Rasheeda Alfonso Age: 25 yrs Sex: Female : 1995 Arrival Date: 01/31/2021 Time: 09:49 Bed 8 Private MD: Diagnosis: Other cholelithiasis without obstruction;Right upper quadrant abdominal tenderness Presentation: 01/31 09:56 Chief complaint: Patient states: has gallstones and earlier this morning she had a lot iw of pain and nausea and diarrhea. Coronavirus screen: At this time, the client does not indicate any symptoms associated with coronavirus-19. Ebola Screen: Patient negative for fever greater than or equal to 101.5 degrees Fahrenheit, and additional compatible Ebola Virus Disease symptoms Patient denies exposure to infectious person. Patient denies travel to an Ebola-affected area in the 21 days before illness onset. No symptoms or risks identified at this time. Initial Sepsis Screen: Does the patient meet any 2 criteria? No. Patient's initial sepsis screen is negative. Does the patient have a suspected source of infection? No. Patient's initial sepsis screen is negative. Risk Assessment: Do you want to hurt yourself or someone else? Patient reports no desire to harm self or others. Onset of symptoms was January 31, 2021. 09:56 Method Of Arrival: Ambulatory iw 09:56 Acuity: RILEY 3 iw Triage Assessment: 10:30 General: Appears uncomfortable, Behavior is calm, cooperative. 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 - Social history:: Smoking status: Patient denies any tobacco usage or history of. Screenin:29 Abuse screen: Denies threats or abuse. Denies injuries from another. Nutritional oconnell screening: No deficits noted. Tuberculosis screening: No symptoms or risk factors identified. Fall Risk IV access (20 points). Assessment: 10:29 Pain: Complains of pain in abdomen Pain at worst was 10 out of 10 on a pain scale. oconnell Quality of pain is described as sharp, stabbing. GI: Bowel sounds Abdomen is tender to palpation in right upper quadrant Reports upper abdominal pain, diarrhea, nausea. 11:44 Reassessment: Patient is alert, oriented x 3, equal unlabored respirations, skin jg9 warm/dry/pink. Patient states feeling better. patient reports decreased nausea. Vital Signs: 09:57 BP 127 / 65; Pulse 78; Resp 16; Temp 98.2(O); Pulse Ox 99% on R/A; Weight 104.33 kg; iw Height 5 ft. 4 in. (162.56 cm); 11:12 BP 106 / 58; Pulse 71; Resp 18; Pulse Ox 98% on R/A; oconnell 09:57 Body Mass Index 39.48 (104.33 kg, 162.56 cm) iw ED Course: 09:49 Patient arrived in ED. mr 09:56 Triage completed. iw 09:57 Arm band placed on. iw 10:01 Geoffrey Parra PA is PHCP. jr8 10:01 Ravin Madison MD is Attending Physician. jr8 10:17 Asha Michael is Primary Nurse. jg9 10:29 Patient has correct armband on for positive identification. Bed in low position. oconnell 10:29 Basic Metabolic Panel Sent. oconnell 10:29 CBC with Diff Sent. oconnell 10:29 Hepatic Function Sent. oconnell 10:29 Lipase Sent. oconnell 10:29 No provider procedures requiring assistance completed. Inserted saline lock: 20 gauge oconnell in left antecubital area, using aseptic technique. 10:46 US Abdomen Limited In Process Unspecified. EDMS 11:42 No apparent distress. Resting quietly. Awaiting lab results, Awaiting radiology jg9 results. Awaiting disposition. 11:51 Manuel Lee MD is Referral Physician. jr8 12:06 IV discontinued, No redness/swelling at site. Pressure dressing applied. oconnell Administered Medications: 10:50 Drug: Zofran (Ondansetron) 4 mg Route: IVP; Site: left antecubital; oconnell 10:50 Follow up: Response: No adverse reaction oconnell 11:43 Follow up: Response: Nausea is decreased jg9 10:50 Drug: NS 0.9% 500 ml Route: IV; Rate: bolus; Site: left antecubital; oconnell 11:53 Follow up: IV Status: Completed infusion; IV Intake: 500ml jg9 Intake: 11:53 IV: 500ml; Total: 500ml. jg9 Outcome: 11:51 Discharge ordered by MD. aponte 12:05 Discharged to home ambulatory. oconnell 12:05 Condition: good 12:05 Discharge instructions given to patient, Prescriptions given X 1. 12:06 Patient left the ED. oconnell Signatures: Dispatcher [employer] Bertha Elizalde Irene, RN RN Geoffrey Mares PA PA jr8 Asha Michael jg9 Au-StagerKaren
[2021-01-31 12:23] VITALS: TEMP 98.2
[2021-01-31 12:28] VITALS: BP 106/58; O2SAT 98
== END 2021-01-31 12:06 | disposition home or self-care (01) ==
LOC: ER 09:46
DX: K80.80 Other cholelithiasis without obstruction (principal)
CPT/HCPCS: 96361; 85025; 80048; 36415; 81025; 80076; 81003; 83690; 76705; 96374; 99284; J7040 ×2; J2405

== ENCOUNTER 2021-04-02 16:42 | Emergency (ER) | payer OTHER ==
[2021-04-02 17:58] LABS: Urine Blood 2+ (Negative); Urine Glucose Negative (Negative); Urine Protein Negative (Negative); Urine Specific Gravity >=1.030 (1.005-1.030); Urine pH 5.5 (5.0-7.0)
[2021-04-02 18:16] LABS: Urine Specific Gravity/Preg >1.030 (1.005-1.030)
[2021-04-02] MEDS ORDERED: MORPHINE 2 MG/ML SYR ONE ×2 (18:21→18:50)
[2021-04-02] MEDS ORDERED: ONDANSETRON 4 MG/2 ML VIAL ONE ×2 (18:21→18:47)
[2021-04-02] MEDS ORDERED: NA CHLORIDE 0.9% 1,000 ML ONE (18:21)
[2021-04-02 18:29] LABS: Absolute Lymphocytes (CBC) 0.5 K/uL (0.7-4.9); Hematocrit 39.9 % (36.0-45.0); Lymphocytes % 5.6 % (15.3-44.8); MPV 6.8 fL (7.6-11.3); RBC Red Blood Cell Count 4.89 M/uL (3.86-4.86)
[2021-04-02 18:37] LABS: Urine Bacteria 20-50 /HPF (<20); Urine Mucus 3+ /HPF (NONE SEEN)
[2021-04-02 18:47] LABS: Albumin 3.5 g/dL (3.4-5.0); Bilirubin Direct 0.1 mg/dL (0-0.2); Bilirubin Total 0.7 mg/dL (0.2-1.0); Magnesium 1.9 mg/dL (1.8-2.4); Potassium 3.8 mmol/L (3.5-5.1); Protein, Total 8.3 g/dL (6.4-8.2)
--- NOTE | 2021-04-02 20:14 | RAD REPORT ---
EXAM DESCRIPTION: CT - Abdomen Pelvis W Contrast - 04/02/2021 8:00 pm CLINICAL HISTORY: Abdominal pain COMPARISON: none. TECHNIQUE: Computed axial tomography of the abdomen pelvis was obtained. 100 cc Isovue-300 was admin istered intravenously. Oral contrast was not requested which limits evaluation of bowel. All CT scans are performed using dose optimization technique as appropriate and may include automated exposure control or mA/KV adjustment according to patient size. FINDINGS: Cholecystectomy. The liver, spleen, pancreas, adrenal and kidneys appear unremarkable. There is no evidence of diverticulitis. Normal appendix Fluid within nondilated bowel. IMPRESSION: Fluid within nondilated bowel may indicate an enteritis
--- NOTE | 2021-04-02 20:38 | EDPHYS ---
Physician Documentation [facility] Name: Rasheeda Alfonso Age: 25 yrs Sex: Female : 1995 Arrival Date: 04/02/2021 Time: 16:47 Bed 20 Private MD: ED Physician Navi Harrison HPI: 04/02 18:00 This 25 yrs old Female presents to ER via Ambulatory with complaints of cp Nausea/Vomiting/Diarrhea, Abdominal Pain. 18:00 The patient presents with abdominal pain in the upper abdomen. cp 18:00 The patient presents to the emergency department with nausea, vomiting, that is cp intermittent. Possible causes: unknown. Patient reports having cholecystectomy 03-03-2021. 18:00 Severity of pain: in the emergency department the pain is unchanged despite home cp interventions. Historical: - Allergies: 17:02 No Known Drug Allergies; ph - PMHx: 17:02 GALLSTONES; gestational diabetes; ph - PSHx: 17:02 section; ph - Immunization history:: Adult Immunizations unknown. - Social history:: Smoking status: Patient denies any tobacco usage or history of. ROS: 18:05 Eyes: Negative for injury, pain, redness, and discharge. cp 18:05 Constitutional: Negative for body aches, chills, fever, poor PO intake. 18:05 Cardiovascular: Negative for chest pain, palpitations. 18:05 Respiratory: Negative for cough, shortness of breath, wheezing. 18:05 Abdomen/GI: Positive for abdominal pain, nausea and vomiting. 18:05 Neuro: Negative for altered mental status, headache, weakness. 18:05 All other systems are negative. Exam: 18:10 Constitutional: The patient appears in no acute distress, alert, awake, cp non-diaphoretic, non-toxic, well developed, well nourished. 18:10 Head/Face: Normocephalic, atraumatic. cp 18:10 Eyes: Periorbital structures: appear normal, Conjunctiva: normal, no exudate, no injection, Sclera: no appreciated abnormality, Lids and lashes: appear normal, bilaterally. 18:10 ENT: External ear(s): are unremarkable, Nose: is normal, Mouth: Lips: moist, Oral mucosa: moist, Posterior pharynx: Airway: no evidence of obstruction, patent. 18:10 Chest/axilla: Inspection: normal. 18:10 Cardiovascular: Rate: tachycardic, Rhythm: regular, Edema: is not appreciated, JVD: is not appreciated. 18:10 Respiratory: the patient does not display signs of respiratory distress, Respirations: normal, no use of accessory muscles, no retractions, labored breathing, is not present, Breath sounds: are clear throughout, no decreased breath sounds, no stridor, no wheezing. 18:10 Abdomen/GI: Inspection: scar(s), are noted in the umbilical area and right upper quadrant, Bowel sounds: active, all quadrants, Palpation: soft, in all quadrants, moderate abdominal tenderness, in the right upper quadrant and left upper quadrant, rebound tenderness, is not appreciated, involuntary guarding, is not appreciated. 18:10 Back: CVA tenderness, is absent. 18:10 Skin: cellulitis, is not appreciated, no rash present. Vital Signs: 16:59 BP 123 / 56; Pulse 138; Resp 18; Temp 99.0; Pulse Ox 98% on R/A; Weight 99.79 kg; ph Height 5 ft. 4 in. (162.56 cm); 17:39 BP 111 / 62; Pulse 116; Resp 18; Pulse Ox 98% ; ke1 16:59 Body Mass Index 37.76 (99.79 kg, 162.56 cm) ph MDM: 17:06 Patient medically screened. cp 18:00 Differential diagnosis: gastritis, gastroenteritis, appendicitis, bowel obstruction, cp Pyelonephritis, Ureterolithiasis, urinary tract infection, choledocholithiasis. 20:37 Data reviewed: vital signs, nurses notes, lab test result(s), radiologic studies, CT cp scan. 20:37 Counseling: I had a detailed discussion with the patient and/or guardian regarding: the cp historical points, exam findings, and any diagnostic results supporting the discharge/admit diagnosis, lab results, radiology results, to return to the emergency department if symptoms worsen or persist or if there are any questions or concerns that arise at home. Response to treatment: the patient's symptoms have markedly improved after treatment, and as a result, I will discharge patient. Special discussion: Based on the patient's Hx, exam, and Dx evaluation, there is no indication for emergent surgery or inpatient Tx. It is understood by the patient/guardian that if the Sx's persist or worsen they need to return immediately for re-evaluation. 04/02 17:46 Order name: Basic Metabolic Panel; Complete Time: 20:24 cp 04/02 20:24 Interpretation: Normal except: CL 109; GLUC 107; GFR 85. cp 04/02 17:46 Order name: CBC with Diff; Complete Time: 20:24 cp 04/02 20:25 Interpretation: Normal except: RBC 4.89; RDW 15.5; MPV 6.8; TORREY% 87.7; LYM% 5.6; LYMA cp 0.5. 04/02 17:46 Order name: Hepatic Function; Complete Time: 20:24 cp 04/02 20:25 Interpretation: Normal except: AST 11; ALK 128; TP 8.3; GLOB 4.8; A/G 0.7. cp 04/02 17:46 Order name: Lipase; Complete Time: 20:24 cp 04/02 17:46 Order name: Magnesium; Complete Time: 20:24 cp 04/02 17:46 Order name: Urine Microscopic Only; Complete Time: 20:24 04/02 20:25 Interpretation: Normal except: URBC 5-10; UBACT 20-50; SQEPI 5-10; MUCUS 3+. cp 04/02 17:58 Order name: Urine Dipstick-Ancillary; Complete Time: 18:20 [facility] 04/02 18:09 Order name: Urine --Ancillary (enter results); Complete Time: 18:20 bd 04/02 18:20 Order name: CT Abd/Pelvis - IV Contrast Only; Complete Time: 20:24 04/02 18:38 Order name: Urine Culture [facility] 04/02 17:46 Order name: IV Saline Lock; Complete Time: 18:29 cp 04/02 17:46 Order name: Labs collected and sent; Complete Time: 18:29 cp 04/02 17:46 Order name: Urine Test (obtain specimen); Complete Time: 18:10 04/02 17:46 Order name: Urine Dipstick-Ancillary (obtain specimen); Complete Time: 18:10 cp 04/02 20:26 Order name: PO challenge; Complete Time: 20:50 cp Administered Medications: 18:27 Drug: morphine 2 mg Route: IVP; Site: left antecubital; ke1 18:45 Follow up: Response: Pain is unchanged, physician notified ke1 18:28 Drug: Zofran (Ondansetron) 4 mg Route: IVP; Site: left antecubital; ke1 18:45 Follow up: Response: Nausea unchanged 18:29 Drug: NS 0.9% 1000 ml Route: IV; Rate: 1 bolus; Site: left antecubital; ke1 18:54 Drug: morphine 2 mg Route: IVP; Site: left antecubital; ke1 18:54 Drug: Zofran (Ondansetron) 4 mg Route: IVP; Site: left antecubital; ke1 Disposition Summary: 04/02/21 20:38 Discharge Ordered Location: Home cp Problem: new cp Symptoms: have improved cp Condition: Stable cp Diagnosis - Nausea cp - Diarrhea, unspecified cp Followup: cp - With: Private Physician - When: 2 - 3 days - Reason: Worsening of condition Discharge Instructions: - Discharge Summary Sheet cp - Food Choices to Help Relieve Diarrhea, Adult cp - Diarrhea, Adult cp - Nausea, Adult cp Forms: - Medication Reconciliation Form cp - Thank You Letter cp - Antibiotic Education cp - Prescription Opioid Use cp Prescriptions: - Zofran 4 mg Oral Tablet - take 1 tablet by ORAL route every 12 hours As needed; 20 tablet; Refills: 0, cp Product Selection Permitted - dicyclomine 20 mg Oral Tablet - take 1 tablet by ORAL route 4 times per day As needed; 20 tablet; Refills: 0, cp Product Selection Permitted Signatures: Dispatcher [employer] Ellen Medellin RN RN ph Page, Corey, PA PA cp Ebrottie, Kouassi, RN RN ke1 Corrections: (The following items were deleted from the chart) 04/03 20:50 04/02 18:00 The patient presents with abdominal pain that is diffuse, cp cp 04/03 20:52 18:05 Constitutional: Negative for body aches, chills, fever, poor PO intake, cp cp 20:52 18:05 Respiratory: Negative for cough, shortness of breath, wheezing, cp cp 20:52 18:05 Cardiovascular: Negative for chest pain, palpitations, cp cp 20:52 18:05 Abdomen/GI: Positive for abdominal pain, nausea and vomiting, cp cp 20:52 18:05 Eyes: Negative for injury, pain, redness, and discharge, cp cp 20:52 18:05 Neuro: Negative for altered mental status, headache, weakness, cp cp 20:52 18:05 All other systems are negative, cp cp
--- NOTE | 2021-04-02 20:38 | ER ---
Nurse's Notes [facility] Name: Rasheeda Alfonso Age: 25 yrs Sex: Female : 1995 Arrival Date: 04/02/2021 Time: 16:47 Bed 20 Private MD: Diagnosis: Nausea;Diarrhea, unspecified Presentation: 04/02 16:59 Chief complaint: Patient states: Upper abdominal pain, N/V/D, palpitations, and fever, ph had gallbladder removed 03/08. Coronavirus screen: Vaccine status: Patient reports having had a previously documented Covid positive illness. Ebola Screen: No symptoms or risks identified at this time. Initial Sepsis Screen: Does the patient meet any 2 criteria? HR > 90 bpm. Does the patient have a suspected source of infection? No. Patient's initial sepsis screen is negative. Risk Assessment: Do you want to hurt yourself or someone else? Patient reports no desire to harm self or others. Onset of symptoms was April 02, 2021. 16:59 Method Of Arrival: Ambulatory 16:59 Acuity: RILEY 2 ph Triage Assessment: 19:02 General: Appears uncomfortable, Behavior is calm, cooperative. ke1 Historical: - Allergies: 17:02 No Known Drug Allergies; ph - PMHx: 17:02 GALLSTONES; gestational diabetes; ph - PSHx: 17:02 section; ph - Immunization history:: Adult Immunizations unknown. - Social history:: Smoking status: Patient denies any tobacco usage or history of. Screenin:00 Abuse screen: Denies threats or abuse. Nutritional screening: No deficits noted. ke1 Tuberculosis screening: No symptoms or risk factors identified. Fall Risk No fall in past 12 months (0 pts). No secondary diagnosis (0 pts). IV access (20 points). Ambulatory Aid- None/Bed Rest/Nurse Assist (0 pts). Gait- Normal/Bed Rest/Wheelchair (0 pts) Mental Status- Oriented to own ability (0 pts). Total Pimentel Fall Scale indicates No Risk (0-24 pts). Assessment: 17:13 Pain: Complains of pain in Right upper and lower abdomen Pain does not radiate. Pain ke1 currently is 7 out of 10 on a pain scale. Respiratory: Airway is patent Breath sounds are clear bilaterally. GI: Abdomen is round non-distended, Bowel sounds present X 4 quads. diminished in right upper quadrant, left upper quadrant, right lower quadrant and abdomen diffusely Abd is soft X 4 quads Abdomen is tender to palpation in right upper quadrant and right lower quadrant. 17:16 Cardiovascular: Pulses are all present. tachycardic. ke1 17:17 Derm: Post laparoscopic surgery 4 points access dry, no sign of infection. ke1 Vital Signs: 16:59 BP 123 / 56; Pulse 138; Resp 18; Temp 99.0; Pulse Ox 98% on R/A; Weight 99.79 kg; ph Height 5 ft. 4 in. (162.56 cm); 17:39 BP 111 / 62; Pulse 116; Resp 18; Pulse Ox 98% ; ke1 16:59 Body Mass Index 37.76 (99.79 kg, 162.56 cm) ph ED Course: 16:47 Patient arrived in ED. ds1 17:02 Triage completed. ph 17:03 Arm band placed on. ph 17:04 Navi Allen PA is PHCP. cp 17:05 Navi Harrison MD is Attending Physician. cp 17:08 Frantz Kirkland, JESSICA is Primary Nurse. ke1 18:10 Urine --Ancillary (enter results) Sent. mh5 18:10 Urine Microscopic Only Sent. 5 18:22 Inserted saline lock: 22 gauge in left antecubital area, using aseptic technique. Blood jd3 collected. 20:00 CT Abd/Pelvis - IV Contrast Only In Process Unspecified. EDMS 20:13 Warm blanket given. sf1 20:55 IV discontinued, intact, bleeding controlled, No redness/swelling at site. Pressure sf1 dressing applied. Administered Medications: 18:27 Drug: morphine 2 mg Route: IVP; Site: left antecubital; ke1 18:45 Follow up: Response: Pain is unchanged, physician notified ke1 18:28 Drug: Zofran (Ondansetron) 4 mg Route: IVP; Site: left antecubital; ke1 18:45 Follow up: Response: Nausea unchanged ke1 18:29 Drug: NS 0.9% 1000 ml Route: IV; Rate: 1 bolus; Site: left antecubital; ke1 18:54 Drug: morphine 2 mg Route: IVP; Site: left antecubital; ke1 18:54 Drug: Zofran (Ondansetron) 4 mg Route: IVP; Site: left antecubital; ke1 Outcome: 20:38 Discharge ordered by . josef 20:57 Discharged to home ambulatory. sf1 20:57 Condition: good 20:57 Discharge instructions given to patient, Instructed on discharge instructions, follow up and referral plans. Demonstrated understanding of instructions, follow-up care, medications, Prescriptions given X 2. 20:57 Patient left the ED. sf1 Signatures: Dispatcher [employer] EDPA Iveth Prieto Ellen Buck, RN RN ph Tiffany, Navi, SHANA PA Edith Fischer Leon Bowling RN RN jd3 Lynn Brooks RN RN sf1 Frantz Kirkland RN RN ke1
[2021-04-02 21:09] VITALS: TEMP 99; O2SAT 98
[2021-04-02 21:11] VITALS: BP 111/62
== END 2021-04-02 20:57 | disposition home or self-care (01) ==
LOC: ER 16:42
DX: R19.7 Diarrhea, unspecified (principal); Z90.49 Acquired absence of other specified parts of digestive tract
CPT/HCPCS: 87088; 85025; 87086; 80048; 36415; 83735; 81025; 80076; 83690; 74177; 96375; 96374; 99284; Q9967; J2270 ×2; J7030; J2405 ×2; 81003; 81015

== ENCOUNTER 2021-07-28 09:22 | Emergency (ER) | payer OTHER ==
--- OUTSIDE RECORDS SUMMARY | 2021-07-28 09:26 | XMS REPORT | Continuity of Care Document ---
:1995 Author Organization [facility] t Address [address] [place] [address] Care Team Providers Name Role Phone Eugenia MARTINEZ Primary Care Physician Unavailable Katharine THORNE Attending Clinician Unavailable Zaire MERCADO Attending Clinician Eugenia Murphy Attending Clinician Payers Payer Name Policy Type Policy Number Effective Date Expiration Date S ource Problems Condition Condition Condition Status Onset Resolution Last Treating Co mments Source Name Details Category Date Date Treatment Clinician Date Obesity Obesity Disease Active Univers (BMI (BMI 1-24 ity of 30-39.9) 30-39.9) 00:00: [place] 00 [facility] History of History of Disease Active 2020-02 U nivers gestationa gestationa 0-13 [place] l diabetes [place] Morbid Morbid Disease Active Univers obesity obesity 8-18 [place] of [place] body [place] mass index mass index 00 Me dical of of Branch 40.0-49.9 40.0-49.9 Maternal Maternal Disease Active Overview: Un reyes varicella, varicella, 3-02 Formattin ity of non-immune non-immune 00:00: g of this [place] 00 note Medical might be Branch different from the original. Address in Postpartu m Acute Acute Disease Active Univers cholecysti cholecysti 4 it y of tis tis 00:00: [place] 00 [facility] Gall Gall Disease Active Overview: Ravin mayers bladder bladder 2-27 Formattin ity o f stones stones 00:00: g of this note Medical might be Branch different from the original. Per patient report can not have surgery until she is about 20 weeks Allergies, Adverse Reactions, Alerts Allergy Allergy Status Severity Reaction(s) Onset Inactive Treating Comm ents Source Name Type Date Date Clinician NO KNOWN Drug Active Univers ALLERGIE Class ity of S [facility] Social History Social Habit Start Date Stop Date Quantity Comments Source Exposure to Not sure [facility] SARS-CoV-2 (event) [facility] [place] Alcohol intake 2021-05-24 2021-05-24 0 /d [facility] 00:00:00 00:00:00 [facility] Tobacco use and 2014-05-17 2014-05-17 Never used [facility] exposure 00:00:00 00:00:00 [facility] Sex Ass[birth year] [facility] 00:00:00 00:00:00 [facility] Smoking Status Start Date Stop Date Source Never smoker [facility] Medications Ordered Filled Start Stop Current Ordering Indication Dosage Frequency Signature Comments Components Source Medication Medication Date Date Medication? Clinician (SIG) Name Name ann 2020-02 Yes [id number] 1{tbl} Take 1 Univers ne 0.35 mg 0-13 tablet by ity of tablet 00:00: mouth 00 daily. Medical Branch dicloxacill 2020-02 Yes Univmarla s in 500 mg 0-05 ity of capsule 00:00: [place] 00 Medical Branch Yes [id number] 1{tbl} Take 1 Univers vitamin 9-01 tablet by ity of w/FA tablet 00:00: mouth 00 daily. Medical Branch docusate Yes [id number] 240mg Take 1 U nivers calcium 240 9-01 capsule by it y of mg capsule 00:00[place] 00 daily as Medical needed for Branch Constipati on. ferrous Yes [id number] 325mg Take 1 Un reyes sulfate 325 9- tablet by ity of mg (65 mg 00:00: mouth 2 [place] iron) 00 (two) Medical tablet times Branch daily. Immunizations Ordered Filled Immunization Date Status Comments Sour e Immunization Name Name Influenza Virus 2020-11-22 Completed Universit y of Vaccine Quad IM, 00:00:00 [facility] dical Preserv and ABX Branch Free 6 MO-64 YRS HPV9 2020-11-22 Completed University of 00:00:00 [facility] TDAP 2020-08-09 Completed University of 00:00:00 [facility] HPV9 2017-09-24 Completed University of 00:00:00 [facility] TDAP 2017-07-09 Completed University of 00:00:00 [facility] Influenza Virus 2017-01-21 Completed Universit y of Vaccine Quad IM 3+ 00:00:00 [facility] HPV9 2016-11-06 Completed University of 00:00:00 [facility] TDAP 2015-05-16 Completed University of 00:00:00 [facility] Influenza Virus 2014-12-05 Completed Universit y of Vaccine Quad IM 3+ 00:00:00 [facility] TDAP 2009-02-10 Completed University of 00:00:00 [facility] Vital Signs Vital Name Observation Time Observation Value Comments Source Systolic blood 2021-05-21 21:30:00 116 mm[Hg] Univer sity of pressure [facility] Diastolic blood 2021-05-21 21:30:00 77 mm[Hg] Unive rsity of pressure [facility] Heart rate 2021-05-21 21:30:00 88 /min [facility] Body temperature 2021-05-21 21:30:00 36.72 [facility] Respiratory rate 2021-05-21 21:30:00 18 /min [facility] Body height 2021-05-21 21:30:00 162.6 cm [facility] Body weight 2021-05-21 21:30:00 99.156 kg [facility] BMI 2021-05-21 21:30:00 37.52 kg/m2 [facility] Procedures This patient has no known procedures. Encounters Start End Encounter Admission Attending Care Care Encounter Source Date/Time Date/Time Type Type Clinicians Facility Department ID 2021-08-01 2021-08-01 [facility] [id number] Univers 14:15:00 14:15:00 MARCELLE [id number] ity o f [facility] 2021-05-21 2021-05-21 Office SHERICE Tai [id number] Univers 16:00:00 16:44:38 Visit [facility] [id number] ity of [facility] [id number] Fallon mayers [id number] [address] 2020-09-04 2020-09-04 Routine [facility] [id number] 13:56:43 14:48:59 Roshunda R ARMHOLE SEWER [id number] Visit [facility] [id number] MATERNAL [id number] & CHILD [address] [place] [address] Results Test Description Test Time Test Comments Results Result Comments Source CULTURE, URINE 2021-07-27 SPECIMEN NUMBER: 10:31:14 [id number] CULTURE, URINE SPECIMEN NUMBER: [id number] SPECIMEN COMMENT: URINE SOURCE: URINE REPORT STATUS: FINAL ISOLATE NUMBER 1: IDENTIFICATION: 07/27/2021 <10,000 CFU/ML BETA-STREPTOCOCCUS GROUP B ADDITIONAL OBSERVATIONS: PENICILLIN AND AMPICILLIN ARE DRUGS OF CHOICE FOR TREATMENT OF B-HEMOLYTIC STREPTOCOCCAL INFECTIONS. SUSCEPTIBILITY TESTING OF PENICILLIN AND OTHER B-LACTAMS APPROVED BY THE US FOOD AND DRUG ADMINISTRATION FOR TREATMENT OF B-HEMOLYTIC STREPTOCOCCAL INFECTIONS NEED NOT BE PERFORMED ROUTINELY. ADDITIONAL OBSERVATIONS: 07/27/2021 50-100,000 CFU/ML UROGENITAL RHETT PRESENT NO COMMON PATHOGENS HEMOGLOBIN ELECTROPHORESIS 2021-07-27 09:41:43 Test Item Value Reference Range Interpretation Comme nts HEMOGLOBIN A1 (test code = 97.7 % 95.0-98.5 5) HEMOGLOBIN A2 (test code = 2.3 % 1.6-3.7 2576) HEMOGLOBIN F () (test 0.0 % 0.0-2.0 code = 2722) HEMOGLOBIN S (test code = NONE % NONE DETECTED 2723) HEMOGLOBIN C (test code = NONE % NONE DETECTED 2725) OTHER HEMOGLOBIN VARIANT (test NONE DETEC % NONE DETECTED code = 50219) PATHOLOGIST'S INTERPRETATION (NOTE) NO ABNORMAL HEMOGLOBINS (test code = 2577) AZRA BRAND M.D. CT/NG, NAAT, [id number] 18:15:43 Test Item Value Reference Range Interpretation Comments GONORRHEA, NAAT NEGATIVE NEGATIVE IMPORTANT (test code = NOTICE: [place] [address]) [email or web address] [email or web address] MedicalrineKit Note: Assay methodology is nucleic acid amplification b y discharge door operator mediated amplification ( TMA) utilizing the A ptima Combo 2 Assay. CHLAMYDIA, NAAT NEGATIVE NEGATIVE IMPORTANT (test code = NOTICE: [place] [address]) [email or web address] [email or web address] Note: Assay methodology is nucleic acid amplification b y discharge door operator mediated amplification ( TMA) utilizing the A ptima Combo 2 Assay. VARICELLA ZOSTER [id number] 14:50:13 Test Item Value Reference Range Interpretation Comments VARICELLA ZOSTER IgG 270 INDEX SEE BELOW INTERPRETATION (test code = 94962) VZV IgG N EGATIVE . . . . . . . . . . . . INDEX <135 EQUIVOCAL. . . . . . . . . . . . I NDEX 135-164 NOTE: CONSIDER RETEST ING IN A CLINICALLY SUIT ABLE BRIAN OD OF TIME, NO SOONER THAN 1-2 WEEKS. POSITIVE . . . . . . . . . . . . INDEX >=165 DRUG ABUSE SCREEN 10 REFLEX [id number] 06:16:03 Test Item Value Reference Range Interpretation Comments AMPHETAMINES (test NEGATIVE NEGATIVE code = 3201) BARBITURATES (test NEGATIVE NEGATIVE code = 3202) BENZODIAZEPINES (test NEGATIVE NEGATIVE code = 3203) CANNABINOIDS (test NEGATIVE NEGATIVE code = 3204) COCAINE METABOLITE NEGATIVE NEGATIVE (test code = 3205) OPIATES (test code = NEGATIVE NEGATIVE 3209) OXYCODONE (test code NEGATIVE NEGATIVE = 24564) PHENCYCLIDINE (test NEGATIVE NEGATIVE code = 3210) METHADONE (test code NEGATIVE NEGATIVE = 3207) BUPRENORPHINE (test NEGATIVE NEGATIVE code = 29583) SOURCE (test code = URINE * SEE BELOW FOR 852322) THRESHOLDS AND IMPORTANT METHOD NOTES * ANALYTE SCREENING CUTOF F CONFIRMATORY CUTOFF AMPHETAMINES 500 NG/ML 100 NG/MLBARB ITURATES 2 00 NG/ML 10 0 NG/MLBENZODIAZE PINES 200 NG/ ML 100 NG/MLCANNABINOI DS (THC) 20 NG/ ML 15 NG/M LCOCAINE METABOLITES 150 NG/ML 100 NG/MLOPIATE MET ABOLITES 300 NG/ ML 100 NG/M LOXYCODONE 100 NG/ML 100 NG/MLPHENCYCLID INE (PCP) 25 NG/ ML 25 NG/M LMETHADONE 300 NG/ML 100 NG/MLBUPRENORPH INE 5 NG/ ML 5 NG/M L NOTE: Screening metho dology is qualitative Enz yme Immunoassay.The screening method may be l ess sensitive for c ertain medicationsincl uding clonazepam and lorazepam in the benzodia zepine assay andtramad ol or fentanyl in the opiate assay, amongst others. Patientcomplian ce, hydration statu s, timing and dose of med ications, drugabsorption and specimen qualit y may affect screenin g assay.For clini albertina discrepancies, consider directed testin g for specificcompoun ds or contact the lab oratory within specimen stability toforrocky top for confirmatory te sting. This test is sp ecified for medicalpurp oses only. It is not lianne d for forensic use. GLUCOSE, 1 HR, GESTATIONAL SCREEN, 50 GM [id number] 06:09:04 Test Item Value Reference Range Interpretation Comments GLUCOSE 1 HR POST 197 MG/DL <140 H UNL ESS OTHERWISE 50 GM (test code = INDICATED , ALL TESTING 2005) PERFORMED [facility] [address] [place] [address] 4 LABORATORY DIRE CTOR: RAJAN BOWDEN M.D. CLIA NUMBER [id number] [place]. [id number] OBSTETRIC PANEL + [id number] 03:35:02 Test Item Value Reference Range Interpretation Comments WBC (test code = 9.4 K/UL 3.5-11.0 1001) RBC (test code = 4.32 M/UL 3.80-5.40 1002) HEMOGLOBIN (test 12.3 G/DL 11.5-15.5 code = 1003) HEMATOCRIT (test 36.4 % 34.0-45.0 code = 1004) MCV (test code = 84.3 fL 80.0-99.0 1005) MCH (test code = 28.5 PG 25.0-33.0 1006) MCHC (test code = 33.8 G/DL 31.0-36.0 1007) RDW (test code = 13.0 % 11.5-15.0 1038) NEUTROPHILS (test 81.1 % code = 1008) LYMPHOCYTES (test 13.6 % code = 1010) MONOCYTES (test 3.6 % code = 1011) EOSINOPHILS (test 1.1 % code = 1012) BASOPHILS (test 0.3 % code = 1013) IMMATURE 0.3 % GRANULOCYTES (test code = 1036) NUCLEATED RBCS 0.0 /100 WBC'S See_Comment [Automate d message] (test code = 1065) The syste [email or web address] which generated this result transmit lino reference range : 0.0. The refere nce range was not u sed to interpret th is result as normal/abnormal . PLATELET COUNT 338 K/UL 130-400 (test code = 1015) ABSOLUTE 7.60 K/UL 1.50-7.50 H NEUTROPHILS (test code = 1066) ABSOLUTE 1.27 K/UL 1.00-4.00 LYMPHOCYTES (test code = 1067) ABSOLUTE MONOCYTES 0.34 K/UL 0.20-1.00 (test code = 1068) ABSOLUTE 0.10 K/UL 0.00-0.50 EOSINOPHILS (test code = 1040) ABSOLUTE BASOPHILS 0.03 K/UL 0.00-0.20 (test code = 1069) ABS IMMATURE 0.03 K/UL 0.00-0.10 GRANULOCYTES (test code = 1020) ABS NUCLEATED RBCS 0.00 K/UL 0.00-0.11 (test code = 37709) BLOOD TYPE AND RH O POSITIVE A HISTORI ALBERTINA RECORD (test code = 3906) CHECK FOR PREVIOUS RESULTS IS NOT PERFORMED.THESE RESULTS SHOULD BE CORRELATED WITH RESULTS OF PRIO R BLOODTYPING AND ANTIBODY SCREEN STUDIES. ANTIBODY SCREEN NEGATIVE NEGATIVE A HISTORICA L RECORD (test code = 3907) CHECK FOR PREVIOUS RESULTS IS NOT PERFORMED.THESE RESULTS SHOULD BE CORRELATED WITH RESULTS OF PRIO R BLOODTYPING AND ANTIBODY SCREEN STUDIES. RUBELLA ANTIBODY 43 IU/ML SEE BELOW SCREEN (test code = INTERPRE TATION 4600) RUBELLA IgG NON-REACTIVE/NO N-IMM UNE . . . . . . . IU/ML < 10 REACTIVE/IM MUNE . . . . . . . . . . . IU/ML >=10 RUBELLA IgG INTERP REACTIVE REACTIVE (test code = 13184) HEPATITIS B SURF AG NON-REACTIVE NON-REACTIVE (test code = 2739) RPR (test code = NON-REACTIVE NON-REACTIVE 97208) RPR TITER (test NOT INDIC. NOT INDIC. code = 3500) TITER HIV 1/2 4TH GEN, NON-REACTIVE NON-REACTIVE RFLX CONF (test code = 3514) HEPATITIS C REFLEX [id number] 03:35:02 Test Item Value Reference Range Interpretation Comments HEPATITIS C ANTIBODY (test code NON-REACTIVE NON-REACTIVE = 4675) [id number] 03:31:45 Test Item Value Reference Range Interpretation Comments RPR RESULT (test code = NON-REACTIVE NON-REACTIVE 3501) RPR TITER (test code = 3500) NOT INDIC. TITER NOT INDIC. COMPREHENSIVE METABOLIC [id number] 02:50:58 Test Item Value Reference Range Interpretation Comments GLUCOSE (test code = 192 MG/DL 70-99 H 2216) BUN (test code = 9 MG/DL 6-20 2207) CREATININE (test 0.63 MG/DL 0.60-1.30 code = 2214) eGFR (2020 CKD-EPI) 125 >60 (test code = 78331) ML/MIN/1.73 CALC BUN/CREAT (test 14 RATIO 6-28 code = 2235) SODIUM (test code = 138 MEQ/L 932-572 3551) POTASSIUM (test code 4.0 MEQ/L 3.5-5.4 = 2227) CHLORIDE (test code 103 MEQ/L 95-107 = 221) CARBON DIOXIDE (test 23 MEQ/L 19-31 code = 2206) CALCIUM (test code = 8.6 MG/DL 8.5-10.5 2208) PROTEIN, TOTAL (test 7.4 G/DL 6.1-8.3 code = 2229) ALBUMIN (test code = 4.0 G/DL 3.5-5.2 2200) CALC GLOBULIN (test 3.4 G/DL 1.9-3.7 code = 2240) CALC A/G RATIO (test 1.2 RATIO 1.0-2.6 code = 2234) BILIRUBIN, TOTAL 0.3 MG/DL See_Comment [Automated message] (test code = 2207) The syste m which generated this result transmit lino reference range : <=1.2. The refe rence range was not u sed to interpret th is result as normal/abnormal . ALKALINE PHOSPHATASE 107 U/L 40-112 (test code = 4) AST (test code = 12 U/L 9-40 2217) ALT (test code = 18 U/L 5-40 2218) SARS-CoV-2 (COVID-19), RT-PCR/[id number] 09:38:11 Test Item Value Reference Interpretation Comments Range SARS-CoV-2 NEGATIVE SEE NOTE SARS-CoV-2 RNA NOT INTERPRETATION DETECTEDNegat crystal (test code = 41113) results do not preclude SARS-CoV-2 infe ction and should notb e used as the sole bas is for patient managem ent decisions. Negativeresults must be combined with c linical observations, p atient history,and epidemiological information. Op timum specimen types and timingfor peak viral levels during infections caus ed by SARS-CoV-2 have notbeen determined. Col lection of multiple spe cimens or types ofspec imens may be necessar y to detect virus. I mproper specimencollect ion and handling, seque nce variability und er primers/probes, or organism presen t below the limit of de tection may lead to falsenegative r esults. Positive and ne gative predictive valu es oftesting are h ighly dependent on prevalence. Fal se negative testre sults are more likely when prevalence is h igh. SOURCE (test code = [place]IF[place]: [place] [address]) Roma Fredy Judith l-Time RT-PCR. The exp ected result or ref erence range is NEGATI VE (Not Detected). For more information reg arding COVID-19 testin g to include clinicalinforma tion, methodology det ail, intended use, F DA authorization andrecommended fact sheets for leroy ents or healthcare prov iders, see NewTest Announcement: SARS-CoV-2 (COV ID-19) by NAAT at URL below (note,fact shee ts are provided by met hod given in report:https:// [email or web address] [email or web address] [email or web address] ns/ Alternatively, see downloadable PD F fact sheet at:https://www. [employer]/COVID-19-RT -PCR UNLESS OTHERW ISE INDICATED, ALL TESTING PERFORMED [facility] PATHOLOG[facility] [employer] [facility]. [address] [place] [address] 4 LABORATORY DI KARLI: Ita ARENAS ZHAO R [id number] CAP ACCREDITATION N O. [id number] SARS-CoV-2 (COVID-19), RT-PCR/[id number] 09:22:51 Test Item Value Reference Interpretation Comments Range SARS-CoV-2 NEGATIVE SEE NOTE SARS-CoV-2 RNA NOT INTERPRETATION DETECTEDNegat crystal (test code = 19765) results do not preclude SARS-CoV-2 infe ction and should notb e used as the sole bas is for patient managem ent decisions. Negativeresults must be combined with c linical observations, p atient history,and epidemiological information. Op timum specimen types and timingfor peak viral levels during infections caus ed by SARS-CoV-2 have notbeen determined. Col lection of multiple spe cimens or types ofspec imens may be necessar y to detect virus. I mproper specimencollect ion and handling, seque nce variability und er primers/probes, or organism presen t below the limit of de tection may lead to falsenegative r esults. Positive and ne gative predictive valu es oftesting are h ighly dependent on prevalence. Fal se negative testre sults are more likely when prevalence is h igh. SOURCE (test code = NASOPHARYNGEAL Note: [place] [address]) Roma Fredy Judith l-Time RT-PCR. The exp ected result or ref erence range is NEGATI VE (Not Detected). For more information reg arding COVID-19 testin g to include clinicalinforma tion, methodology det ail, intended use, F DA authorization andrecommended fact sheets for leroy ents or healthcare prov iders, see NewTest Announcement: SARS-CoV-2 (COV ID-19) by NAAT at URL below (note,fact shee ts are provided by met hod given in report:https:// www.[email or web address] [email or web address] nt-[email or web address] ns/ Alternatively, see downloadable PD F fact sheet at:https://www. [employer]/COVID-19-RT -PCR UNLESS OTHERW ISE INDICATED, ALL TESTING PERFORMED [facility] NICAL PATHOLOGY [facility], [facility]. [address] [place] [address] 4 LABORATORY DI KARLI: Ita ARENAS [id number] CAP ACCREDITATION N O. [id number]
[2021-07-28 10:09] LABS: Urine Blood Negative (Negative); Urine Glucose Negative (Negative); Urine Protein Negative (Negative); Urine Specific Gravity >=1.030 (1.005-1.030)
--- NOTE | 2021-07-28 11:17 | EDPHYS ---
Physician Documentation [facility] Name: Raseheda Alfonso Age: 25 yrs Sex: Female : 1995 Arrival Date: 07/28/2021 Time: 09:24 Bed 20 Private MD: ED Physician Patrick Truong HPI: 07/28 12:31 This 25 yrs old Female presents to ER via Ambulatory with complaints of kb Vaginal Bleeding, + Preg <12wks, Flu Symptoms. 12:31 cough, congestion, sore throat and hoarse for a few days. slight spotting as well. kb 12:32 The patient or guardian reports cough, that is intermittent, described as mild. The kb patient or guardian reports hoarse voice. Onset: The symptoms/episode began/occurred 2 day(s) ago. Severity of symptoms: At their worst the symptoms were mild, in the emergency department the symptoms are unchanged. Modifying factors: The symptoms are alleviated by nothing, the symptoms are aggravated by nothing. Associated signs and symptoms: Pertinent positives: sore throat, Pertinent negatives: chest pain, diarrhea, ear ache, fever, nausea, rhinorrhea, vomiting. The patient has not experienced similar symptoms in the past. The patient has not recently seen a physician. SERVICE DELIVERY DIRECTOR: 09:30 5, Full Term 3, Premature 0, 1, Living 3 aa5 Historical: - Allergies: 09:30 No Known Allergies; aa5 - PMHx: 09:30 GALLSTONES; gestational diabetes; aa5 - PSHx: 09:30 section; aa5 - Immunization history:: Adult Immunizations up to date. - Social history:: Smoking status: Patient denies any tobacco usage or history of. ROS: 12:32 Constitutional: Negative for fever, chills, and weight loss. kb 12:32 ENT: Positive for hoarseness, sinus congestion, sore throat. 12:32 Respiratory: Positive for cough. 12:32 : Positive for vaginal bleeding. 12:32 All other systems are negative. Exam: 12:32 Constitutional: This is a well developed, well nourished patient who is awake, alert, kb and in no acute distress. Head/Face: Normocephalic, atraumatic. ENT: Moist Mucous membranes Cardiovascular: Regular rate and rhythm with a normal S1 and S2. No gallops, murmurs, or rubs. No pulse deficits. Respiratory: Respirations even and unlabored. No increased work of breathing. Talking in full sentences Abdomen/GI: Soft, non-tender. No distention Skin: Warm, dry with normal turgor. Normal color. MS/ Extremity: Pulses equal, no cyanosis. Neurovascular intact. Full, normal range of motion. Neuro: Awake and alert, GCS 15, oriented to person, place, time, and situation. Moves all extremities. Normal gait. Psych: Awake, alert, with orientation to person, place and time. Behavior, mood, and affect are within normal limits. Vital Signs: 09:30 BP 107 / 52; Pulse 104; Resp 18 S; Temp 98.4(TE); Pulse Ox 100% on R/A; aa5 09:34 BP 129 / 94; aa5 MDM: 09:36 Patient medically screened. kb 12:33 Data reviewed: vital signs, nurses notes. Data interpreted: Pulse oximetry: on room air kb is 100 %. Interpretation: normal. Counseling: I had a detailed discussion with the patient and/or guardian regarding: the historical points, exam findings, and any diagnostic results supporting the discharge/admit diagnosis, lab results, radiology results, the need for outpatient follow up, a family practitioner, an OB/Gyne specialist, to return to the emergency department if symptoms worsen or persist or if there are any questions or concerns that arise at home. 07/28 09:36 Order name: Flu; Complete Time: 10:52 kb 07/28 09:36 Order name: COVID-19 SARS RT PCR (Document "Date of Onset" if Symptomatic); Complete kb Time: 11:01 07/28 09:36 Order name: Strep; Complete Time: 10:52 kb 07/28 10:09 Order name: Urine --Ancillary (enter results) eb 07/28 10:10 Order name: Urine Dipstick-Ancillary; Complete Time: 10:17 EDMS 07/28 10:32 Order name: Throat Culture EDMS 07/28 09:36 Order name: Urine Dipstick-Ancillary (obtain specimen); Complete Time: 10:03 kb 07/28 09:36 Order name: US Transvaginal Ob; Complete Time: 11:24 kb 07/28 10:26 Order name: OB Limited EDMS Administered Medications: No medications were administered Disposition Summary: 07/28/21 11:17 Discharge Ordered Location: Home kb Condition: Stable kb Diagnosis - Acute upper respiratory infection, unspecified kb - Threatened kb Followup: kb - With: Emergency Department - When: As needed - Reason: Worsening of condition Followup: kb - With: Private Physician - When: 2 - 3 days - Reason: Recheck today's complaints, Continuance of care, Re-evaluation by your physician Discharge Instructions: - Discharge Summary Sheet kb - Upper Respiratory Infection, Adult, [id number] kb - Viral Respiratory Infection, [id number] kb Forms: - Medication Reconciliation Form kb - Thank You Letter kb - Antibiotic Education kb - Prescription Opioid Use kb Signatures: Dispatcher [employer] EDMS Mary Pinto, JAIME GRAVES-Nannette Gagnon, RN RN aa5 Shun Miller RN RN ll1
--- NOTE | 2021-07-28 11:17 | ER ---
Nurse's Notes [facility] Name: Rasheeda Alfonso Age: 25 yrs Sex: Female : 1995 Arrival Date: 07/28/2021 Time: 09:24 Bed 20 Private MD: Diagnosis: Acute upper respiratory infection, unspecified;Threatened Presentation: 07/28 09:30 Chief complaint: Patient states: sore throat, hoarse voice,cough that began 2 days ago. aa5 Pt reports being 7wks and reports vaginal spotting x 2 days ago. Pt also reports she is currently breast feeding. Coronavirus screen: cough unrelated to allergies. Ebola Screen: No symptoms or risks identified at this time. Initial Sepsis Screen: Does the patient meet any 2 criteria? HR > 90 bpm. Does the patient have a suspected source of infection? No. Patient's initial sepsis screen is negative. Risk Assessment: Do you want to hurt yourself or someone else? Patient reports no desire to harm self or others. Onset of symptoms was July 2021. 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 - Social history:: Smoking status: Patient denies any tobacco usage or history of. Screenin:40 Abuse screen: Denies threats or abuse. Nutritional screening: No deficits noted. ll1 Tuberculosis screening: No symptoms or risk factors identified. Fall Risk Total Pimentel Fall Scale indicates No Risk (0-24 pts). Assessment: 09:39 General: Appears ill, Behavior is calm, cooperative, appropriate for age. Neuro: No ll1 deficits noted. Cardiovascular: No deficits noted. Respiratory: Reports cough that is. : Reports vaginal bleeding that is spotty. EENT: Reports hoarse voice. 09:40 Obstetrical Assessment: General assessment:. Pain: Denies pain. ll1 Vital Signs: 09:30 BP 107 / 52; Pulse 104; Resp 18 S; Temp 98.4(TE); Pulse Ox 100% on R/A; aa5 09:34 BP 129 / 94; aa5 ED Course: 09:24 Patient arrived in ED. mr 09:25 [facility]C [facility] kb 09:25 Patrick Truong MD is Attending Physician. kb 09:30 Arm band placed on. aa5 09:32 Triage completed. aa5 09:38 Shun Miller, RN is Primary Nurse. ll1 09:40 Patient has correct armband on for positive identification. Bed in low position. Call ll1 light in reach. Side rails up X 1. Cardiac monitoring not applicable on this patient. 09:42 Strep Sent. mb7 09:42 Flu Sent. mb7 09:43 COVID-19 SARS RT PCR (Document "Date of Onset" if Symptomatic) Sent. mb7 10:31 US Transvaginal Ob In Process Unspecified. EDMS 10:31 OB Limited In Process Unspecified. EDMS 11:27 No provider procedures requiring assistance completed. Patient did not have IV access ss during this emergency room visit. Administered Medications: No medications were administered Medication: 09:40 VIS not applicable for this client. ll1 Outcome: 11:17 Discharge ordered by . kb 11:27 Discharged to home ambulatory. ss 11:27 Condition: good 11:27 Discharge instructions given to patient, Instructed on discharge instructions, follow up and referral plans. medication usage, Demonstrated understanding of instructions, follow-up care. 11:28 Patient left the ED. ss Signatures: Dispatcher [employer] EDTX Mary Pinto FNP-C FNP-Ckb Rivera Bertha CamachoNannette RN RN aa5 Deandra Ray RN RN ss Shun Miller, JESSICA RN [facility] MariahelidaBertha 7
--- NOTE | 2021-07-28 11:22 | RAD REPORT ---
EXAM DESCRIPTION: US - Transvaginal OB - 07/28/2021 10:35 am CLINICAL HISTORY: VAGINAL BLEEDING COMPARISON: OB Limited dated 07/28/2021 FINDINGS: A single gestational sac is seen within the uterus. The shape of the sac is within normal limits for gestational age. Within the sac is a single pole with crown-rump length of 4 mm, cor relating to estimated gestational age of 6 weeks 1 day. Estimated date of delivery is 03/22/2022. Heart rate is 119 BPM. The placenta is not yet developed due to early gestational age. The maternal adnexa and ovaries are within normal limits. Normal Doppler blood flow was demonstrated to both ovaries. IMPRESSION: Single live early intrauterine gestation with estimated gestational age of 6 weeks 1 day , [employer] 03/22/2022. No unusual or unexpected finding.
[2021-07-28 11:33] VITALS: TEMP 98.4; O2SAT 100
[2021-07-28 11:34] VITALS: BP 129/94
--- NOTE | 2021-07-30 11:53 | RAD REPORT ---
EXAM DESCRIPTION: US - OB Limited - 07/28/2021 10:29 am CLINICAL HISTORY: VAGINAL BLEEDING COMPARISON: OB Limited dated 07/28/2021 FINDINGS: A single gestational sac is seen within the uterus. The shape of the sac is within normal limits for gestational age. Within the sac is a single pole with crown-rump length of 4 mm , co rrelating to estimated gestational age of 6 weeks 1 day . Estimated date of delivery is 03/22/2022 . Heart rate is 119 BPM . The placenta is not yet developed due to early gestational age. The maternal adnexa and ovaries are within normal limits. Normal Doppler blood flow was demonstrated to both ovaries. IMPRESSION: Single live early intrauterine gestation with estimated gestational age of 6 weeks 1 day , [employer] 03/22/2022 . No unusual or unexpected finding.
== END 2021-07-28 11:28 | disposition home or self-care (01) ==
LOC: ER 09:22
DX: O20.0 Threatened abortion (principal); Z3A.01 Less than 8 weeks gestation of pregnancy; J06.9 Acute upper respiratory infection, unspecified; Z20.822 Contact with and (suspected) exposure to COVID-19
CPT/HCPCS: 87070; 81025; 87081; 81003; 87804 ×2; 76815; 76817; 99283; U0003

== ENCOUNTER 2022-03-30 19:19 | Emergency (ER) | payer OTHER ==
--- OUTSIDE RECORDS SUMMARY | 2022-03-30 19:53 | XMS REPORT | Continuity of Care Document ---
:1995 Author Organization [facility] t Address [address] [place] [place] [address] Care Team Providers Name Role Phone Marcelle García Primary Care Physician [phone] CASTRO GUTIÉRREZ Attending Clinician Unavailable KAROLINE MATT Attending Clinician Unavailable Provider, Jerry Temp Attending Clinician Unavailable Karoline Matt CNM Attending Clinician Visit, Jerry Nurse Attending Clinician Unavailable Marcelle García Attending Clinician [phone] MARCELLE MUNGUIA Attending Clinician Unavailable VIKTOR NEVES Attending Clinician Unavailable Barber Hendricks MD Attending Clinician Viktor Neves MD Attending Clinician OMKAR GILBERT Attending Clinician Unavailable Doctor Unassigned, Carmichael Attending Clinician Unavailable GRADY MARIE Attending Clinician Unavailable Risk, Yrx-Fekui-Lb/High Attending Clinician Unavailable Grady Griffin Attending Clinician Ultrasound, Ang-Mfm Attending Clinician Unavailable Mirtha Escamilla MD, Gardner Attending Clinician [phone] SHANNON KOUTROUVELIS, GARDNER Attending Clinician Unavailable FABIENNE VIEIRA Attending Clinician Unavailable FABIENNE VIEIRA Attending Clinician Unavailable Trudy Gomez MD Attending Clinician [phone] TRUDY GOMEZ Attending Clinician Unavailable MINERVA BEEBE Attending Clinician Unavailable Rc Dickerson MD Attending Clinician Minerva Beebe MD Attending Clinician Sylvia Wong RN Attending Clinician Unavailable Nathalia Pearl MD Attending Clinician NATHALIA PEARL Attending Clinician Unavailable NATHALIA PEARL Attending Clinician Unavailable Lab, Ang-Rmchp Attending Clinician Unavailable Juan APARTMENT ASSISTANT MANAGER, Gavino Bello Attending Clinician GAVINO MARTINEZ Attending Clinician Unavailable Castro Gutiérrez MD Attending Clinician Only, Adc Test Attending Clinician Unavailable VICKEY MARQUEZ Attending Clinician Unavailable Alma APARTMENT ASSISTANT MANAGER, Vickey Spangler Attending Clinician UNKNOWN, ATTENDING Attending Clinician Unavailable Ebyelena APARTMENT ASSISTANT MANAGER, Laura Attending Clinician Unknown, Attending Attending Clinician Unavailable Sada Quach MD Attending Clinician Tapan Calles MD Attending Clinician Kim QURESHIP, Melanie Mcnulty Attending Clinician Nely Cruz MD Attending Clinician Ultrasound, Sug-Mfm Attending Clinician Unavailable Faculty, Ang Rmchp Mfm Attending Clinician Unavailable Nehemiah Andrade MD Attending Clinician Navi Umaña RN Attending Clinician Unavailable Luis GRAVES, Gilberto Bello Attending Clinician MINERVA BEEBE Admitting Clinician Unavailable CASTRO GUTIÉRREZ Admitting Clinician Unavailable BARBER HENDRICKS Admitting Clinician Unavailable VIKTOR NEVES Admitting Clinician Unavailable Viktor Neves MD Admitting Clinician FABIENNE VIEIRA Admitting Clinician Unavailable Abiel MERCADO, Minerva Mcnulty Admitting Clinician Zaire MERCADO, Castro Admitting Clinician Stevan MERCADO, Tapan Membreno Admitting Clinician Payers Payer Name Policy Type Policy Number Effective Date Expiration Date S jameel [facility] [id number] 2020 CHOICE [place] STAR 00:00:00 AURA RODRIGUEZ [id number] 2020 00:00:00 Problems Condition Condition Condition Status Onset Resolution Last Treating Co mments Source Name Details Category Date Date Treatment Clinician Date Anemia, Anemia, Disease Active Univers 2-03 it y of 00:00: Medical Branch S/P S/P Disease Active Univers 1-17 ity of section section 00:00: [place] [facility] Branch 36 weeks 36 weeks Disease Active Unive rs gestation gestation 1-06 ity of of of 00:00: [place] 00 [facility] Branch Abdominal Abdominal Disease Active 2021-02 Uni vers pain pain 1-27 [place] of affecting [place] [facility] [place] Diet Diet Disease Active 2021-02 Univers controlled controlled 1-22 it y of gestationa gestationa 00:[place] l diabetes l diabetes 00 Me dical mellitus mellitus Branch (GDM) (GDM) Pregestati Pregestati Disease Active 2021-02 U nivers onal onal 1-22 ity of diabetes diabetes 00:00: [place] mellitus, mellitus, 00 [facility] modified modified Branch White White class B class B Abscess of Abscess of Disease Active U nivers right right 9- ity of buttock buttock 00:00: Medical Branch Right Right Disease Active Univers buttock buttock 9-22 ity of pain pain 00:00: [facility] Branch UTI in UTI in Disease Active Overview: Univer s 10-29 Formattin i ty of 00:00: g of this 00 note Medical might be Branch different from the original. pending bhavin Boil of Boil of Disease Active Univers buttock buttock 8-24 ity of 00:00: [place] 00 Medical Branch GBS (group GBS (group Disease Active Overview : Univers B B 08-06 Formattin ity of streptococ streptococ 00:00: g of this [place] cus) UTI cus) UTI 00 note Medica l complicati complicati might be Branch ng ng different from the original. pending bhavin Abnormal Abnormal Disease Active Overview: Un reyes maternal maternal 08-03 Formattin ity of glucose glucose 00:00: g of this [place] tolerance, tolerance, 00 note Me dical antepartum antepartum might be Branch different from the original. See outside records failed 1hr gtt 197mgdl, passed early 3hr gtt History of History of Disease Active Overview : Univers 08-01 Formattin ity of section section 00:00: g of this [place] 00 note Medical might be Branch different from the original. x3 Multiparit Multiparit Disease Active U nivers y y 08-01 ity of 00:00: [place] 00 Medical Branch Short Short Disease Active Univers interval interval 08-01 ity of between between 00:00: [place] pregnancie pregnancie 00 Me dical s s Branch affecting affecting , , antepartum antepartum Supervisio Supervisio Disease Active U nivers n of n of 08-01 ity of high-risk high-risk 00:[place] [facility] Vaginal Vaginal Disease Active Overview: Univ ers bleeding bleeding 08-01 Formattin ity of in in 00:00: g of this [place] 00 note Medi albertina might be Branch different from the original. Reports seen at ER on07/28/21 , reports resolved History of History of Disease Active Overview : Univers cholecyste cholecyste 08-01 Formattin ity of ctomy ctomy 00:00: g of this [place] 00 note Medical might be Branch different from the original. Reports 02/2021 Diarrhea Diarrhea Disease Active Unive rs during during 08-01 [place] Obesity Obesity Disease Active Univers during during 24 [place] of 00:[place] History of History of Disease Active 2020-02 Overview : Univers gestationa gestationa 0-13 Formattin ity of l diabetes l diabetes 00:00: g of this 00 note Medical might be Branch different from the original. With 2nd and 4th Acute Acute Disease Active Univers cholecysti cholecysti 05-11 it y of tis tis 00:00: [address] Allergies, Adverse Reactions, Alerts Allergy Allergy Status Severity Reaction(s) Onset Inactive Treating Comm ents Source Name Type Date Date Clinician NO KNOWN Drug Active Univers ALLERGIE Class ity of S [facility] Social History Social Habit Start Date Stop Date Quantity Comments Source ASSERTION 2021-06-22 [facility] 00:00:00 [facility] History of Passive smoker [facility] tobacco use [facility] Exposure to 2022-03-05 2022-03-15 Not sure [facility] SARS-CoV-2 00:00:00 10:36:00 [facility] (event) [place] Alcohol intake 2022-03-15 2022-03-15 0 /d [facility] 00:00:00 00:00:00 [facility] Tobacco use and 2022-02-15 2022-02-15 Smokeless tobacco Un iversity of exposure 00:00:00 00:00:00 non-user [facility] Sex Ass[birth year] At [birth year] Universit y of 00:00:00 00:00:00 [facility] Smoking Status Start Date Stop Date Source Never smoked tobacco [facility] Medications Ordered Filled Start Stop Current Ordering Indication Dosage Frequency Signature Comments Components Source Medication Medication Date Date Medication? Clinician (SIG) Name Name metFORMIN Yes 500mg 500 mg, Univ ers (GLUCOPHAGE 1-07 Oral, BID ity of ) tablet 14:00: MEALS, [place] 500 mg 00 First dose Medical on [facility] 02/16/22 at 0800, Until Discontinu ed, Routine metFORMIN No 500mg 500 mg, Uni vers (GLUCOPHAGE 1-07 -09 Oral, BID it y of ) tablet 14:00: 21:57 MEALS, [place] 500 mg 00 :23 First dose Medical on [facility] 02/16/22 at 0800, Until Discontinu ed, Routine No known No No known Unive rs medications 1-07 medication it y of 00:36: s [address] Yes [id number] 1{tbl} Take 1 Univers vitamin 1-07 tablet by ity of w/FA tablet 00:00: mouth [place] 00 the Medical morning. Branch docusate 2022-0 Yes [id number] 200mg Take 2 U nivers 100 mg 1-07 capsules ity of capsule 00:00: by mouth [place] 00 once daily Medical as needed Branch for Constipati on. ferrous 2022-0 Yes [id number] 325mg Take 1 Un reyes sulfate 325 1-07 tablet by ity of mg (65 mg 00:00: [place] iron[place] 00 the Medical tablet morning Branch and 1 tablet in the evening. ibuprofen 2022-0 Yes [id number] 600mg Take 1 Univers 600 mg 1-07 tablet by ity of tablet 00:00: mouth [place] 00 every 6 Medical (six) Branch hours as needed (Pain). Take with food or milk. foLIC acid 2022-0 Yes [id number] 1mg Take 1 Univers 1 mg tablet 1-07 tablet by ity of 00:00: mouth in [place] 00 the Medical morning. Branch ascorbic 2022-0 Yes [id number] 500mg Take 1 U nivers acid, 1-07 tablet by ity of vitamin C, 00:00: mouth in [place] (VITAMIN C) 00 the Medical 500 mg morning. Branch tablet 2022-0 Yes [id number] 1{tbl} Take 1 Univers vitamin 1-07 tablet by ity of w/FA tablet 00:00: [place] the Medical morning. Branch docusate 2022-0 Yes [id number] 200mg Take 2 U nivers 100 mg 1-07 capsules ity of capsule 00:00: by mouth [place] 00 once daily Medical as needed Branch for Constipati on. ferrous 2022-0 Yes [id number] 325mg Take 1 Un reyes sulfate 325 1-07 tablet by ity of mg (65 mg 00:00: [place] iron[place] 00 the Medical tablet morning Branch and 1 tablet in the evening. ibuprofen 2022-0 Yes [id number] 600mg Take 1 Univers 600 mg 1-07 tablet by ity of tablet 00:00: mouth [place] 00 every 6 Medical (six) Branch hours as needed (Pain). Take with food or milk. foLIC acid 2022-0 Yes [id number] 1mg Take 1 Univers 1 mg tablet 1-07 tablet by ity of 00:00: mouth in [place] 00 the Medical morning. Branch ascorbic 2022-0 Yes [id number] 500mg Take 1 U nivers acid, 1-07 tablet by ity of vitamin C, 00:00: mouth in [facility] as (VITAMIN C) 00 the Medical 500 mg morning. Branch tablet 2022-0 Yes [id number] 1{tbl} Take 1 Univers vitamin 1-07 tablet by ity of w/FA tablet 00:00: [place] the Medical morning. Branch docusate 2022-0 Yes [id number] 200mg Take 2 U nivers 100 mg 1-07 capsules ity of capsule 00:00: by mouth [place] 00 once daily Medical as needed Branch for Constipati on. ferrous 2022-0 Yes [id number] 325mg Take 1 Un reyes sulfate 325 1-07 tablet by ity of mg (65 mg 00:00: mouth in [facility] iron) 00 the Medical tablet morning Branch and 1 tablet in the evening. ibuprofen 2022-0 Yes [id number] 600mg Take 1 Univers 600 mg 1-07 tablet by ity of tablet 00:00: mouth [place] 00 every 6 Medical (six) Branch hours as needed (Pain). Take with food or milk. foLIC acid 2022-0 Yes [id number] 1mg Take 1 Univers 1 mg tablet 1-07 tablet by ity of 00:00: mouth in [place] 00 the Medical morning. Branch ascorbic 2022-0 Yes [id number] 500mg Take 1 U nivers acid, 1-07 tablet by ity of vitamin C, 00:00: mouth in [facility] as (VITAMIN C) 00 the Medical 500 mg morning. Branch tablet 2022-0 Yes [id number] 1{tbl} Take 1 Univers vitamin 1-07 tablet by ity of w/FA tablet 00:00: [place] the Medical morning. Branch docusate 2022-0 Yes [id number] 200mg Take 2 U nivers 100 mg 1-07 capsules ity of capsule 00:00: by mouth [place] 00 once daily Medical as needed Branch for Constipati on. ferrous 2022-0 Yes [id number] 325mg Take 1 Un reyes sulfate 325 1-07 tablet by ity of mg (65 mg 00:00: mouth in [facility] iron) 00 the Medical tablet morning Branch and 1 tablet in the evening. ibuprofen Yes [id number] 600mg Take 1 Univers 600 mg 02-16 tablet by ity of tablet 00:00: mouth [place] 00 every 6 Medical (six) Branch hours as needed (Pain). Take with food or milk. foLIC acid Yes [id number] 1mg Take 1 Univers 1 mg tablet 07 tablet by ity of 00:00: mouth in [place] 00 the Medical morning. Branch ascorbic 2022-0 Yes [id number] 500mg Take 1 U nivers acid, -07 tablet by ity of vitamin C, 00:00: mouth in [place] (VITAMIN C) 00 the Medical 500 mg morning. Branch tablet metFORMIN 2022- Yes [id number] 500mg Take 1 Univers 500 mg 02-16 tablet by ity of tablet 00:00: 05:59 mouth in [place] 00 :00 the Medical morning Branch and 1 tablet in the evening. Take with meals. Do all this for 45 days. metFORMIN 2022- Yes [id number] 500mg Take 1 Univers 500 mg 02-16 tablet by ity of tablet 00:00: 05:59 mouth in [place] 00 :00 the Medical morning Branch and 1 tablet in the evening. Take with meals. Do all this for 45 days. metFORMIN 2022- Yes [id number] 500mg Take 1 Univers 500 mg 02-16 tablet by ity of tablet 00:00: 05:59 mouth in [place] 00 :00 the Medical morning Branch and 1 tablet in the evening. Take with meals. Do all this for 45 days. metFORMIN 2022- Yes [id number] 500mg Take 1 Univers 500 mg 02-16 tablet by ity of tablet 00:00: 05:59 mouth in [place] 00 :00 the Medical morning Branch and 1 tablet in the evening. Take with meals. Do all this for 45 days. HYDROcodone 2022- Yes [id number] 1{tbl} Take 1 U nivers -acetaminop 02-1615 tablet by it y of hen 5-325 00:00: 05:59 mouth [place] mg tablet 00 :00 every 6 Medical (six) Branch hours as needed for Pain (scale 4-6) or Pain (scale 7-10) (Pain scale above 4) for up to 7 days. Do not exceed 3 grams of acetaminop hen in 24 hours. Indication s: acute pain HYDROcodone 2022- Yes [id number] 1{tbl} Take 1 U nivers -acetaminop 02-1615 tablet by it y of hen 5-325 00:00: 05:59 mouth [place] mg tablet 00 :00 every 6 Medical (six) Branch hours as needed for Pain (scale 4-6) or Pain (scale 7-10) (Pain scale above 4) for up to 7 days. Do not exceed 3 grams of acetaminop hen in 24 hours. Indication s: acute pain HYDROcodone 2022- Yes [id number] 1{tbl} Take 1 U nivers -acetaminop 02-1615 tablet by it y of hen 5-325 00:00: 05:59 mouth [place] mg tablet 00 :00 every 6 Medical (six) Branch hours as needed for Pain (scale 4-6) or Pain (scale 7-10) (Pain scale above 4) for up to 7 days. Do not exceed 3 grams of acetaminop hen in 24 hours. Indication s: acute pain rho(D) Yes 300ug 300 mcg, Univer s immune 02-15 Intramuscu ity of globulin 19:17: lar, ONCE, [place] (RHOGAM) 57 For 1 Medical syringe 300 dose, Branch mcg Conditiona l, Routine rho(D) 2022- No 300ug 300 mcg, Unive rs immune 02-15- Intramuscu ity of globulin 19:17: 21:57 [place], [place] (RHOGAM) 57 :23 For 1 Medical syringe 300 dose, Branch mcg Conditiona l, Routine HYDROcodone Yes 2{tbl} 2 tablet, Univers -acetaminop 1-06 Oral, ity of hen (NORCO 19:17: Q6HPRN, [place] 5) 5-325 mg 53 Starting Medi albertina tablet 2 on Fri Branch tablet 02/15/22 at 1317, Until Discontinu ed, Routine, Pain (scale 7-10), Alternate with Ibuprofen HYDROcodone Yes 1{tbl} 1 tablet, Univers -acetaminop 1-06 Oral, ity of hen (NORCO 19:17: Q6HPRN, [place] 5) 5-325 mg 53 Starting Medi albertina tablet 1 on Fri Branch tablet 02/15/22 at 1317, Until Discontinu ed, Routine, Pain (scale 4-6), Alternate with Ibuprofen ibuprofen 2023-0 Yes 600mg 600 mg, Univ ers (IBU) 1 Oral, ity of tablet 600 19:17: Q6HPRN, [place] mg 53 Starting Medical on Fri Branch 02/15/22 at 1317, Until Discontinu ed, Routine, Pain (scale 1-3) diphenhydrA 2023-0 Yes 25mg 25 mg, Univ ers MINE 1- Slow IV ity of (BENADRYL) 19:17: Push, [place] injection 53 Q6HPRN, Medical 25 mg Starting Branch on 02/15/22 at 1317, Until Discontinu ed, Routine, Itching diphenhydrA 2023-0 Yes 25mg 25 mg, Univ ers MINE 02-15 Oral, ity of (BENADRYL) 19:17: Q6HPRN, [place] tablet 25 53 Starting Medica l mg on Fri Branch 02/15/22 at 1317, Until Discontinu ed, Routine, Sleep, Itching ondansetron 3-0 Yes 4mg 4 mg, Slow Univers (ZOFRAN 02-15 IV Push, ity of (PF)) 19:17: Q8HPRN, [place] injection 4 53 Starting Medi albertina mg on Fri Branch 02/15/22 at 1317, Until Discontinu ed, Routine, Nausea and Vomiting (N/V) bisacodyL 2022-0 Yes 10mg 10 mg, Univer s (DULCOLAX) 02-15 Rectal, ity of suppository 19:17: QDAILYPRN, [place] 10 mg 53 Starting Medical on Fri Branch 02/15/22 at 1317, Until Discontinu ed, Routine, Constipati on simethicone 3-0 Yes 160mg 160 mg, Un reyes (GAS RELIEF 02-15 Oral, ity of (SIMETHICON 19:17: PC+HSPRN, [place] E)) 53 Starting Medical chewable on Fri Branch tablet 160 02/15/22 at mg 1317, Until Discontinu ed, Routine, Gas docusate Yes 200mg 200 mg, Unive rs (COLACE) 06 Oral, ity of capsule 200 19:17: QDAILYPRN, [place] mg 53 Starting Medical on Fri Branch 02/15/22 at 1317, Until Discontinu ed, Routine, Constipati on magnesium Yes 30mL 30 mL, Univer s hydroxide 06 Oral, ity of (MILK OF 19:17: QDAILYPRN, [place] MAGNESIA) 53 Starting Medica l 400 mg/5 mL on Fri Branch suspension 02/15/22 at 30 mL 1317, Until Discontinu ed, Routine, Constipati on lactated Yes 1000mL at 125 Unive rs ringers IV 1-06 mL/hr, ity of infusion 19:17: 1,000 mL, [place] 1,000 mL 53 IV Medical Infusion, Branch PRN, 1 dose, Starting on 02/15/22 at 1317, Until Discontinu ed, Routine HYDROcodone 2022- No 2{tbl} 2 tablet, Univers -acetaminop 02-15 Oral, ity of hen (NORCO 19:17: 21:57 Q6HPRN, [place] 5) 5-325 mg 53 :23 Starting Medi albertina tablet 2 on Fri Branch tablet 02/15/22 at 1317, Until 02/18/22 at 1557, Routine, Pain (scale 7-10), Alternate with Ibuprofen HYDROcodone 2022- No 1{tbl} 1 tablet, Univers -acetaminop 02-15 Oral, ity of hen (NORCO 19:17: 21:57 Q6HPRN, [place] 5) 5-325 mg 53 :23 Starting Medi albertina tablet 1 on Fri Branch tablet 02/15/22 at 1317, Until 02/18/22 at 1557, Routine, Pain (scale 4-6), Alternate with Ibuprofen ibuprofen 2022- No 600mg 600 mg, Uni vers (IBU) 02-15 Oral, ity of tablet 600 19:17: 21:57 Q6HPRN, [place] mg 53 :23 Starting Medical on Fri Branch 02/15/22 at 1317, Until 02/18/22 at 1557, Routine, Pain (scale 1-3) diphenhydrA 2022- No 25mg 25 mg, Uni vers MINE 02-15 Slow IV ity of (BENADRYL) 19:17: 21:57 Push, [place] injection 53 :23 Q6HPRN, Medical 25 mg Starting Branch on 02/15/22 at 1317, Until 02/18/22 at 1557, Routine, Itching diphenhydrA 2022- No 25mg 25 mg, Uni vers MINE 02-15 Oral, ity of (BENADRYL) 19:17: 21:57 Q6HPRN, [place] tablet 25 53 :23 Starting Medica l mg on Fri Branch 02/15/22 at 1317, Until 02/18/22 at 1557, Routine, Sleep, Itching ondansetron 2022- No 4mg 4 mg, Slow Univers (ZOFRAN 02-15 IV Push, ity of (PF)) 19:17: 21:57 Q8HPRN, [place] injection 4 53 :23 Starting Medi albertina mg on Fri Branch 02/15/22 at 1317, Until 02/18/22 at 1557, Routine, Nausea and Vomiting (N/V) bisacodyL 2022- No 10mg 10 mg, Unive rs (DULCOLAX) 02-15 Rectal, ity o f suppository 19:17: 21:57 QDAILYPRN, [place] 10 mg 53 :23 Starting Medical on Fri Branch 02/15/22 at 1317, Until 02/18/22 at 1557, Routine, Constipati on simethicone 2022- No 160mg 160 mg, U nivers (GAS RELIEF 02-15 Oral, ity of (SIMETHICON 19:17: 21:57 PC+HSPRN, [place] E)) 53 :23 Starting Medical chewable on Fri Branch tablet 160 02/15/22 at mg 1317, Until 02/18/22 at 1557, Routine, Gas docusate 2022- No 200mg 200 mg, Univ ers (COLACE) 02-15 Oral, ity of capsule 200 19:17: 21:57 QDAILYPRN, [place] mg 53 :23 Starting Medical on Fri Branch 02/15/22 at 1317, Until 02/18/22 at 1557, Routine, Constipati on magnesium 2022- No 30mL 30 mL, Unive rs hydroxide 02-15 Oral, ity of (MILK OF 19:17: 21:57 QDAILYPRN, [place] MAGNESIA) 53 :23 Starting Medica l 400 mg/5 mL on Fri Branch suspension 02/15/22 at 30 mL 1317, Until 02/18/22 at 1557, Routine, Constipati on lactated 2022- No 1000mL at 125 Univ ers ringers IV 02-15 mL/hr, ity of infusion 19:17: 21:57 1,000 mL, [place] 1,000 mL 53 :23 IV Medical Infusion, Branch PRN, 1 dose, Starting on 02/15/22 at 1317, Until Fri02/18/22 at 1557, Routine FENTanyl PF Yes 25ug 25 mcg, Uni vers (SUBLIMAZE 02-15 Slow IV ity of (PF)) 16:50: Push, [place] injection 58 Q5MIN PRN, Medi albertina 25 mcg 4 doses, Branch Starting on Fri02/15/22 at 1050, Until Discontinu ed, Routine, Pain (scale 4-6), PACU nalbuphine Yes 5mg 5 mg, Univer s (NUBAIN) 02-15 Intravenou ity o f injection 5 16:50: s, PRN, 1 [place] mg 58 dose, Medical Starting Branch on Fri02/15/22 at 1050, Until Discontinu ed, Routine, itching, PACU FENTanyl PF 2022- No 25ug 25 mcg, Un reyes (SUBLIMAZE 02-15 Slow IV ity o f (PF)) 16:50: 21:57 Push, [place] injection 58 :23 Q5MIN PRN, Medi albertina 25 mcg 4 doses, Branch Starting on Fri02/15/22 at 1050, Until 02/18/22 at 1557, Routine, Pain (scale 4-6), PACU nalbuphine 2022- No 5mg 5 mg, Unive rs (NUBAIN) 02-15 Intravenou ity of injection 5 16:50: 21:57 s, PRN, 1 [place] mg 58 :23 dose, Medical Starting Branch on Fri02/15/22 at 1050, Until Fri02/18/22 at 1557, Routine, itching, PACU HYDROcodone 2022- No 1{tbl} 1 tablet, Univers -acetaminop 02-15 Oral, ity of hen (NORCO) 13:43: 14:14 Q6HPRN, 1 [place] 10-325 mg 31 :00 dose, Medical tablet 1 Starting Branch tablet on Fri02/15/22 at 0743, Until Discontinu ed, Routine, Pain (scale 7-10) HYDROcodone Yes 1{tbl} 1 tablet, Univers -acetaminop 02-15 Oral, ity of hen (NORCO 13:43: Q6HPRN, 1 [place] 5) 5-325 mg 30 dose, Medical tablet 1 Starting Branch tablet on Fri02/15/22 at 0743, Until Discontinu ed, Routine, Pain (scale 4-6) HYDROcodone 2022- No 1{tbl} 1 tablet, Univers -acetaminop 02-15 Oral, ity of hen (NORCO 13:43: 21:57 Q6HPRN, 1 [place] 5) 5-325 mg 30 :23 dose, Medical tablet 1 Starting Branch tablet on Fri02/15/22 at 0743, Until Fri02/18/22 at 1557, Routine, Pain (scale 4-6) ibuprofen Yes 600mg 600 mg, Univ ers (IBU) 02-15 Oral, ity of tablet 600 13:43: Q6HPRN, [place] mg 28 Starting Medical on Fri Branch 02/15/22 at 0743, Until Discontinu ed, Routine, Pain (scale 1-3) ibuprofen 2022- No 600mg 600 mg, Uni vers (IBU) 02-15 Oral, ity of tablet 600 13:43: 21:57 Q6HPRN, [place] mg 28 :23 Starting Medical on Fri Branch 02/15/22 at 0743, Until Fri02/18/22 at 1557, Routine, Pain (scale 1-3) oxytocin 2022-0 Yes 600mL/h 600 mL/hr, Univers (PITOCIN) 1-06 IV ity of 30 units in 13:43: Infusion, [place] 500 mL 14 PRN, For Medica l IV infusion post Branch delivery uterine atony., Starting on Fri02/15/22 at 0743<br&gt ;Start at 600 mL/hr for 1 hr then 150 mL/hr for 1 hr.
oxytocin 2022-0 Yes 300mL/h 300 mL/hr, Univers (PITOCIN) 06 IV ity of 30 units in 13:43: Infusion, [place] 500 mL 14 SEE-INSTRU Medi albertina IV infusion CTIONS, Branc h Starting on Fri02/15/[address] at 300 mL/hr for 1 hr then 150 mL/hr for 1 hr. & nbsp; For post delivery uterotonic
oxytocin 2022-0 2022- No 600mL/h 600 mL/hr, Univers (PITOCIN) 02-1509 IV ity of 30 units in 13:43: 21:57 Infusion, [place] NS 500 mL 14 :23 PRN, For Medica l IV infusion post Branch delivery uterine atony., Starting on Fri02/15/22 at 0743<br&gt ;Start at 600 mL/hr for 1 hr then 150 mL/hr for 1 hr.
oxytocin 2022-0 2022- No 300mL/h 300 mL/hr, Univers (PITOCIN) 02-1509 IV ity of 30 units in 13:43: 21:57 Infusion, [place] NS 500 mL 14 :23 SEE-INSTRU Medi albertina IV infusion CTIONS, Branc h Starting on Fri02/15/[address] art at 300 mL/hr for 1 hr then 150 mL/hr for 1 hr. & nbsp; For post delivery uterotonic
lactated 2022-0 Yes 1000mL at 125 Unive rs ringers IV 1-06 mL/hr, ity of infusion 12:15: 1,000 mL, [place] 1,000 mL 00 IV Medical Infusion, Branch CONTINUOUS , Starting on Fri02/15/22 at 0615, Until Discontinu ed, Routine lactated No 1000mL at 125 Univ ers ringers IV 02-1509 mL/hr, ity of infusion 12:15: 21:57 1,000 mL, [place] 1,000 mL 00 :23 IV Medical Infusion, Branch CONTINUOUS , Starting on Fri02/15/22 at 0615, Until 02/18/22 at 1557, Routine acetaminoph 2022- No 650mg 650 mg, U nivers en 02-15 Oral, ity of (TYLENOL) 12:15: 13:59 ONCE, 1 [place] tablet 650 00 :00 dose, On Medic al mg 02/15/22 Branch at 0615, Routine ceFAZolin No 2000mg 2,000 mg, [facility] (ANCEF) 02-15 IV ity of 2,000 mg in 12:05: 12:04 Piggyback, [place] NaCl 0.9% 06 :06 O.R. Medical (NS) 100 mL HOLDING Branc h MINI-BAG ONCE, Starting on Fri02/15/22 at 0605, Until 02/16/22 at 0604, Administer over 30 Minutes, 100 mL
Reas on for Anti-Infec tive: Surgical Prophylaxi s
Surgi albertina Prophylaxi s: GRINDER TENDER
Duration of therapy: within 24 hours of surgery sodium 2022- No 30mL 30 mL, [facility] citrate-cit 02-15 Oral, ity of rex acid 12:05: 14:16 PRE-PROCED [place] (BICITRA) 06 :00 URE ONCE, Medic al 500-334 1 dose, Branch mg/5 mL Starting solution 30 on Fri mL 02/15/22 at 0605, Until 02/17/22 at 2359, Routine, Surgery/Pr ocedure metFORMIN 2021-02- Yes [id number] Take 1 U nivers 500 mg 2-15 -14 tablet by ity of tablet 00:00: 05:59 mouth [place] 00 :00 daily with Medical breakfast Branch AND 1 tablet at bedtime. Do all this for 60 days. metFORMIN 2021-02- Yes [id number] Take 1 U nivers 500 mg 2-15 -14 tablet by ity of tablet 00:00: 05:59 mouth [place] 00 :00 daily with Medical breakfast Branch AND 1 tablet at bedtime. Do all this for 60 days. metFORMIN 2021-02- Yes [id number] Take 1 U nivers 500 mg 2-15 -14 tablet by ity of tablet 00:00: 05:59 mouth [place] 00 :00 daily with Medical breakfast Branch AND 1 tablet at bedtime. Do all this for 60 days. metFORMIN 2021-02- Yes [id number] Take 1 U nivers 500 mg 2-15 -14 tablet by ity of tablet 00:00: 05:59 mouth [place] 00 :00 daily with Medical breakfast Branch AND 1 tablet at bedtime. Do all this for 60 days. metFORMIN 2021-02- Yes [id number] Take 1 U nivers 500 mg 2-15 -14 tablet by ity of tablet 00:00: 05:59 mouth [place] 00 :00 daily with Medical breakfast Branch AND 1 tablet at bedtime. Do all this for 60 days. metFORMIN 2021-02- Yes [id number] Take 1 U nivers 500 mg 2-15 -14 tablet by ity of tablet 00:00: 05:59 mouth [place] 00 :00 daily with Medical breakfast Branch AND 1 tablet at bedtime. Do all this for 60 days. metFORMIN 2021-02- Yes [id number] Take 1 U nivers 500 mg 2-15 -14 tablet by ity of tablet 00:00: 05:59 mouth [place] 00 :00 daily with Medical breakfast Branch AND 1 tablet at bedtime. Do all this for 60 days. lancets 2021-02 Yes [id number] Check Unive rs (FREESTYLE 1-22 blood ity of LANCETS) 28 00:00: glucose 4x [place] gauge Misc 00 daily Medical Branch Blood-Gluco 2021-02 Yes [id number] Check U nivers se Meter 1-22 blood ity of (FREESTYLE 00:00: glucose 4x [place] LITE METER) 00 daily Medical Kit Branch blood sugar 2021-02 Yes [id number] Check U nivers diagnostic 1-22 blood ity of (FREESTYLE 00:00: glucose 4x [place] LITE 00 daily Medical STRIPS) Branch strip lancets 2021-02 Yes [id number] Check Unive rs (FREESTYLE 1-22 blood ity of LANCETS) 28 00:00: glucose 4x [place] gauge Misc 00 daily Medical Branch Blood-Gluco 2021-02 Yes [id number] Check U nivers se Meter 1-22 blood ity of (FREESTYLE 00:00: glucose 4x [place] LITE METER) 00 daily Medical Kit Branch blood sugar 2021-02 Yes [id number] Check U nivers diagnostic 1-22 blood ity of (FREESTYLE 00:00: glucose 4x [place] LITE 00 daily Medical STRIPS) Branch strip lancets 2021-02 Yes [id number] Check Unive rs (FREESTYLE 1-22 blood ity of LANCETS) 28 00:00: glucose 4x [place] gauge Misc daily Medical Branch Blood-Gluco 2021-02 Yes [id number] Check U nivers se Meter 1-22 blood ity of (FREESTYLE 00:00: glucose 4x [place] LITE METER) 00 daily Medical Kit Branch blood sugar 2021-02 Yes [id number] Check U nivers diagnostic 1-22 blood ity of (FREESTYLE 00:00: glucose 4x [place] LITE 00 daily Medical STRIPS) Branch strip lancets 2021-02 Yes [id number] Check Unive rs (FREESTYLE 1-22 blood ity of LANCETS) 28 00:00: glucose 4x [place] gauge Misc daily Medical Branch Blood-Gluco 2021-02 Yes [id number] Check U nivers se Meter 1-22 blood ity of (FREESTYLE 00:00: glucose 4x [place] LITE METER) 00 daily Medical Kit Branch blood sugar 2021-02 Yes [id number] Check U nivers diagnostic 1-22 blood ity of (FREESTYLE 00:00: glucose 4x [place] LITE 00 daily Medical STRIPS) Branch strip lancets 2021-02 Yes [id number] Check Unive rs (FREESTYLE 1-22 blood ity of LANCETS) 28 00:00: glucose 4x [place] gauge Misc daily Medical Branch Blood-Gluco 2021-02 Yes [id number] Check U nivers se Meter 1-22 blood ity of (FREESTYLE 00:00: glucose 4x [place] LITE METER) 00 daily Medical Kit Branch blood sugar 2021-02 Yes [id number] Check U nivers diagnostic 1-22 blood ity of (FREESTYLE 00:00: glucose 4x [place] LITE 00 daily Medical STRIPS) Branch strip lancets 2021-02 Yes [id number] Check Unive rs (FREESTYLE 1-22 blood ity of LANCETS) 28 00:00: glucose 4x [place] gauge Misc 00 daily Medical Branch Blood-Gluco 2021-02 Yes [id number] Check U nivers se Meter 1-22 blood ity of (FREESTYLE 00:00: glucose 4x [place] LITE METER) 00 daily Medical Kit Branch blood sugar 2021-02 Yes [id number] Check U nivers diagnostic 1-22 blood ity of (FREESTYLE 00:00: glucose 4x [place] LITE 00 daily Medical STRIPS) Branch strip lancets 2021-02 Yes [id number] Check Unive rs (FREESTYLE 1-22 blood ity of LANCETS) 28 00:00: glucose 4x [place] gauge Misc 00 daily Medical Branch Blood-Gluco 2021-02 Yes [id number] Check U nivers se Meter 1-22 blood ity of (FREESTYLE 00:00: glucose 4x [place] LITE METER) 00 daily Medical Kit Branch blood sugar 2021-02 Yes [id number] Check U nivers diagnostic 1-22 blood ity of (FREESTYLE 00:00: glucose 4x [place] LITE 00 daily Medical STRIPS) Branch strip lancets 2021-02 Yes [id number] Check Unive rs (FREESTYLE 1-22 blood ity of LANCETS) 28 00:00: glucose 4x [place] gauge Misc 00 daily Medical Branch Blood-Gluco 2021-02 Yes [id number] Check U nivers se Meter 1-22 blood ity of (FREESTYLE 00:00: glucose 4x [place] LITE METER) 00 daily Medical Kit Branch blood sugar 2021-02 Yes [id number] Check U nivers diagnostic 1-22 blood ity of (FREESTYLE 00:00: glucose 4x [place] LITE 00 daily Medical STRIPS) Branch strip lancets 2021-02 Yes [id number] Check Unive rs (FREESTYLE 1-22 blood ity of LANCETS) 28 00:00: glucose 4x [place] gauge Misc 00 daily Medical Branch Blood-Gluco 2021-02 Yes [id number] Check U nivers se Meter 1-22 blood ity of (FREESTYLE 00:00: glucose 4x [place] LITE METER) 00 daily Medical Kit Branch blood sugar 2021-02 Yes [id number] Check U nivers diagnostic 1-22 blood ity of (FREESTYLE 00:00: glucose 4x [place] LITE 00 daily Medical STRIPS) Branch strip lancets 2021-02 Yes [id number] Check Unive rs (FREESTYLE 1-22 blood ity of LANCETS) 28 00:00: glucose 4x [place] gauge Misc 00 daily Medical Branch Blood-Gluco 2021-02 Yes [id number] Check U nivers se Meter 1-22 blood ity of (FREESTYLE 00:00: glucose 4x [place] LITE METER) 00 daily Medical Kit Branch blood sugar 2021-02 Yes [id number] Check U nivers diagnostic 1-22 blood ity of (FREESTYLE 00:00: glucose 4x [place] LITE 00 daily Medical STRIPS) Branch strip lancets 2021-02 Yes [id number] Check Unive rs (FREESTYLE 1-22 blood ity of LANCETS) 28 00:00: glucose 4x [place] gauge Misc daily Medical Branch Blood-Gluco 2021-02 Yes [id number] Check U nivers se Meter 1-22 blood ity of (FREESTYLE 00:00: glucose 4x [place] LITE METER) 00 daily Medical Kit Branch blood sugar 2021-02 Yes [id number] Check U nivers diagnostic 1-22 blood ity of (FREESTYLE 00:00: glucose 4x [place] LITE 00 daily Medical STRIPS) Branch strip lancets 2021-02 Yes [id number] Check Unive rs (FREESTYLE 1-22 blood ity of LANCETS) 28 00:00: glucose 4x [place] gauge Misc 00 daily Medical Branch Blood-Gluco 2021-02 Yes [id number] Check U nivers se Meter 1-22 blood ity of (FREESTYLE 00:00: glucose 4x [place] LITE METER) 00 daily Medical Kit Branch blood sugar 2021-02 Yes [id number] Check U nivers diagnostic 1-22 blood ity of (FREESTYLE 00:00: glucose 4x [place] LITE 00 daily Medical STRIPS) Branch strip lancets 2021-02 Yes [id number] Check Unive rs (FREESTYLE 1-22 blood ity of LANCETS) 28 00:00: glucose 4x [place] gauge Misc 00 daily Medical Branch Blood-Gluco 2021-02 Yes [id number] Check U nivers se Meter 1-22 blood ity of (FREESTYLE 00:00: glucose 4x [place] LITE METER) 00 daily Medical Kit Branch blood sugar 2021-02 Yes [id number] Check U nivers diagnostic 1-22 blood ity of (FREESTYLE 00:00: glucose 4x [place] LITE 00 daily Medical STRIPS) Branch strip lancets 2021-02 Yes [id number] Check Unive rs (FREESTYLE 1-22 blood ity of LANCETS) 28 00:00: glucose 4x [place] gauge Misc 00 daily Medical Branch Blood-Gluco 2021-02 Yes [id number] Check U nivers se Meter 1-22 blood ity of (FREESTYLE 00:00: glucose 4x [place] LITE METER) 00 daily Medical Kit Branch blood sugar 2021-02 Yes [id number] Check U nivers diagnostic 1-22 blood ity of (FREESTYLE 00:00: glucose 4x [place] LITE 00 daily Medical STRIPS) Branch strip lancets 2021-02 Yes [id number] Check Unive rs (FREESTYLE 1-22 blood ity of LANCETS) 28 00:00: glucose 4x [place] gauge Misc 00 daily Medical Branch Blood-Gluco 2021-02 Yes [id number] Check U nivers se Meter 1-22 blood ity of (FREESTYLE 00:00: glucose 4x [place] LITE METER) 00 daily Medical Kit Branch blood sugar 2021-02 Yes [id number] Check U nivers diagnostic 1-22 blood ity of (FREESTYLE 00:00: glucose 4x [place] LITE 00 daily Medical STRIPS) Branch strip lancets 2021-02- No [id number] Check Univ ers (FREESTYLE -22 -07 blood ity of LANCETS) 28 00:00: 00:00 glucose 4x [place] gauge Misc 00 :00 daily Medical Branch Blood-Gluco 2021-02- No [id number] Check [facility] se Meter 1-22 -07 blood ity of (FREESTYLE 00:00: 00:00 glucose 4x [place] LITE METER) 00 :00 daily Medical Kit Branch blood sugar 2021-02- No [id number] Check [facility] diagnostic 03-03 blood ity of (FREESTYLE 00:00: 00:00 glucose 4x [place] LITE 00 :00 daily Medical STRIPS) Branch strip lancets 2021-02- No [id number] Check Univ ers (FREESTYLE 03-03 blood ity of LANCETS) 28 00:00: 00:00 glucose 4x [place] gauge Misc 00 :00 daily Medical Branch Blood-Gluco 2021-02- No [id number] Check [facility] se Meter 03-03 blood ity of (FREESTYLE 00:00: 00:00 glucose 4x [place] LITE METER) 00 :00 daily Medical Kit [place] blood sugar 2021-02- No [id number] Check [facility] diagnostic 03-03 blood ity of (FREESTYLE 00:00: 00:00 glucose 4x [place] LITE 00 :00 daily Medical STRIPS) Branch strip PNV 2021-02 Yes [id number] 3{tbl} Take 3 Unive rs 112-iron-FA 1-02 tablets by it y of -om-3s-dha- 00:00: mouth [place] epa 00 daily. Medical (VITAFOL Branch GUMMIES) 3.33 mg iron- 0.33 mg Chew PNV 2021-02 Yes [id number] 3{tbl} Take 3 Unive rs 112-iron-FA 1-02 tablets by it y of -om-3s-dha- 00:00: mouth [place] epa 00 daily. Medical (VITAFOL Branch GUMMIES) 3.33 mg iron- 0.33 mg Chew PNV 2021-02 Yes [id number] 3{tbl} Take 3 Unive rs 112-iron-FA 1-02 tablets by it y of -om-3s-dha- 00:00: mouth [place] epa 00 daily. Medical (VITAFOL Branch GUMMIES) 3.33 mg iron- 0.33 mg Chew PNV 2021-02 Yes [id number] 3{tbl} Take 3 Unive rs 112-iron-FA 1-02 tablets by it y of -om-3s-dha- 00:00: mouth [place] epa 00 daily. Medical (VITAFOL Branch GUMMIES) 3.33 mg iron- 0.33 mg Chew PNV 2-1 Yes [id number] 3{tbl} Take 3 Unive rs 112-iron-FA 1-02 tablets by it y of -om-3s-dha- 00:00: mouth [place] epa 00 daily. Medical (VITAFOL Branch GUMMIES) 3.33 mg iron- 0.33 mg Chew PNV 2021- Yes [id number] 3{tbl} Take 3 Unive rs 112-iron-FA 1-02 tablets by it y of -om-3s-dha- 00:00: mouth [place] epa 00 daily. Medical (VITAFOL Branch GUMMIES) 3.33 mg iron- 0.33 mg Chew PNV 2- Yes [id number] 3{tbl} Take 3 Unive rs 112-iron-FA 1-02 tablets by it y of -om-3s-dha- 00:00: mouth [place] epa 00 daily. Medical (VITAFOL Branch GUMMIES) 3.33 mg iron- 0.33 mg Chew PNV 2021- Yes [id number] 3{tbl} Take 3 Unive rs 112-iron-FA 1-02 tablets by it y of -om-3s-dha- 00:00: mouth [place] epa 00 daily. Medical (VITAFOL Branch GUMMIES) 3.33 mg iron- 0.33 mg Chew PNV 2021-1 Yes [id number] 3{tbl} Take 3 Unive rs 112-iron-FA 1-02 tablets by it y of -om-3s-dha- 00:00: mouth [place] epa 00 daily. Medical (VITAFOL Branch GUMMIES) 3.33 mg iron- 0.33 mg Chew PNV 2-1 Yes [id number] 3{tbl} Take 3 Unive rs 112-iron-FA 1-02 tablets by it y of -om-3s-dha- 00:00: mouth [place] epa 00 daily. Medical (VITAFOL Branch GUMMIES) 3.33 mg iron- 0.33 mg Chew PNV 2-1 Yes [id number] 3{tbl} Take 3 Unive rs 112-iron-FA 1-02 tablets by it y of -om-3s-dha- 00:00: mouth [place] epa 00 daily. Medical (VITAFOL Branch GUMMIES) 3.33 mg iron- 0.33 mg Chew PNV 2-1 Yes [id number] 3{tbl} Take 3 Unive rs 112-iron-FA 1-02 tablets by it y of -om-3s-dha- 00:00: mouth [place] epa 00 daily. Medical (VITAFOL Branch GUMMIES) 3.33 mg iron- 0.33 mg Chew PNV 2-1 Yes [id number] 3{tbl} Take 3 Unive rs 112-iron-FA 1-02 tablets by it y of -om-3s-dha- 00:00: mouth [place] epa 00 daily. Medical (VITAFOL Branch GUMMIES) 3.33 mg iron- 0.33 mg Chew PNV 2-1 Yes [id number] 3{tbl} Take 3 Unive rs 112-iron-FA 1-02 tablets by it y of -om-3s-dha- 00:00: mouth [place] epa 00 daily. Medical (VITAFOL Branch GUMMIES) 3.33 mg iron- 0.33 mg Chew PNV 2-1 Yes [id number] 3{tbl} Take 3 Unive rs 112-iron-FA 1-02 tablets by it y of -om-3s-dha- 00:00: mouth [place] epa 00 daily. Medical (VITAFOL Branch GUMMIES) 3.33 mg iron- 0.33 mg Chew PNV 2021-1 Yes [id number] 3{tbl} Take 3 Unive rs 112-iron-FA 1-02 tablets by it y of -om-3s-dha- 00:00: mouth [place] epa 00 daily. Medical (VITAFOL Branch GUMMIES) 3.33 mg iron- 0.33 mg Chew PNV 2-1 Yes [id number] 3{tbl} Take 3 Unive rs 112-iron-FA 1-02 tablets by it y of -om-3s-dha- 00:00: mouth [place] epa 00 daily. Medical (VITAFOL Branch GUMMIES) 3.33 mg iron- 0.33 mg Chew PNV 2-1 Yes [id number] 3{tbl} Take 3 Unive rs 112-iron-FA 1-02 tablets by it y of -om-3s-dha- 00:00: mouth [place] epa 00 daily. Medical (VITAFOL Branch GUMMIES) 3.33 mg iron- 0.33 mg Chew PNV 2021- Yes [id number] 3{tbl} Take 3 Unive rs 112-iron-FA 1-02 tablets by it y of -om-3s-dha- 00:00: mouth [place] epa 00 daily. Medical (VITAFOL Branch GUMMIES) 3.33 mg iron- 0.33 mg Chew PNV 2021-1 Yes [id number] 3{tbl} Take 3 Unive rs 112-iron-FA 1-02 tablets by it y of -om-3s-dha- 00:00: mouth [place] epa 00 daily. Medical (VITAFOL Branch GUMMIES) 3.33 mg iron- 0.33 mg Chew PNV 2021- Yes [id number] 3{tbl} Take 3 Unive rs 112-iron-FA 1-02 tablets by it y of -om-3s-dha- 00:00: mouth [place] epa 00 daily. Medical (VITAFOL Branch GUMMIES) 3.33 mg iron- 0.33 mg Chew PNV 2021- Yes [id number] 3{tbl} Take 3 Unive rs 112-iron-FA 1-02 tablets by it y of -om-3s-dha- 00:00: mouth [place] epa 00 daily. Medical (VITAFOL Branch GUMMIES) 3.33 mg iron- 0.33 mg Chew PNV 2021- Yes [id number] 3{tbl} Take 3 Unive rs 112-iron-FA 1-02 tablets by it y of -om-3s-dha- 00:00: mouth [place] epa 00 daily. Medical (VITAFOL Branch GUMMIES) 3.33 mg iron- 0.33 mg Chew PNV 2-1 Yes [id number] 3{tbl} Take 3 Unive rs 112-iron-FA 1-02 tablets by it y of -om-3s-dha- 00:00: mouth [place] epa 00 daily. Medical (VITAFOL Branch GUMMIES) 3.33 mg iron- 0.33 mg Chew PNV 2-1 Yes [id number] 3{tbl} Take 3 Unive rs 112-iron-FA 1-02 tablets by it y of -om-3s-dha- 00:00: mouth [place] epa 00 daily. Medical (VITAFOL Branch GUMMIES) 3.33 mg iron- 0.33 mg Chew PNV 2021-02 Yes [id number] 3{tbl} Take 3 Unive rs 112-iron-FA 02-11 tablets by it y of -om-3s-dha- 00:00: mouth [place] epa 00 daily. Medical (VITAFOL Branch GUMMIES) 3.33 mg iron- 0.33 mg Chew PNV 2021-02- No [id number] 3{tbl} Take 3 Univ ers 112-iron-FA 02-11 tablets by i ty of -om-3s-dha- 00:00: 00:00 mouth [place] epa 00 :00 daily. Medical (VITAFOL Branch GUMMIES) 3.33 mg iron- 0.33 mg Chew PNV 2021-02- No [id number] 3{tbl} Take 3 Univ ers 112-iron-FA 02-11 tablets by i ty of -om-3s-dha- 00:00: 00:00 mouth [place] epa 00 :00 daily. Medical (VITAFOL Branch GUMMIES) 3.33 mg iron- 0.33 mg Chew acetaminoph 2021- No 650mg 650 mg, U nivers en 11-02 Oral, ity of (TYLENOL) 00:51: 00:54 Q6HPRN, 1 [place] tablet 650 55 :00 dose, Medical mg Starting Branch on Fri11/01/21 at 1950, Until Fri11/01/21 at 1953, Routine, Pain (scale 4-6) guaifenesin 2021- No Take by [facility] [place] (MUCINEX 11-01 mouth. ity of ORAL) 20:01: 00:00 [place] 10 :00 Medical Branch amoxicillin Yes [id number] 500mg Take 1 [facility] -pot 11-01 tablet by ity of clavulanate 00:00: mouth in [place] 500 mg 00 the Medical (AUGMENTIN) morning Branc h 500-125 mg and 1 tablet tablet at noon and 1 tablet in the evening. amoxicillin Yes [id number] 500mg Take 1 [facility] -pot 11-01 tablet by ity of clavulanate 00:00: mouth in [place] 500 mg 00 the Medical (AUGMENTIN) morning Branc h 500-125 mg and 1 tablet tablet at noon and 1 tablet in the evening. amoxicillin 2022-0 Yes [id number] 500mg Take 1 [facility] -pot 9-22 tablet by ity of clavulanate 00:00: mouth in [place] 500 mg 00 the Medical (AUGMENTIN) morning Branc h 500-125 mg and 1 tablet tablet at noon and 1 tablet in the evening. amoxicillin 2022-0 Yes [id number] 500mg Take 1 [facility] -pot 9-22 tablet by ity of clavulanate 00:00: mouth in [place] 500 mg 00 the Medical (AUGMENTIN) morning Branc h 500-125 mg and 1 tablet tablet at noon and 1 tablet in the evening. amoxicillin 2022-0 Yes [id number] 500mg Take 1 [facility] -pot 9-22 tablet by ity of clavulanate 00:00: mouth in [place] 500 mg 00 the Medical (AUGMENTIN) morning Branc h 500-125 mg and 1 tablet tablet at noon and 1 tablet in the evening. amoxicillin 2022-0 Yes [id number] 500mg Take 1 [facility] -pot 9-22 tablet by ity of clavulanate 00:00: mouth in [place] 500 mg 00 the Medical (AUGMENTIN) morning Branc h 500-125 mg and 1 tablet tablet at noon and 1 tablet in the evening. amoxicillin 2022-0 Yes [id number] 500mg Take 1 [facility] -pot 9-22 tablet by ity of clavulanate 00:00: mouth in [place] 500 mg 00 the Medical (AUGMENTIN) morning Branc h 500-125 mg and 1 tablet tablet at noon and 1 tablet in the evening. amoxicillin 2022-0 Yes [id number] 500mg Take 1 [facility] -pot 9-22 tablet by ity of clavulanate 00:00: mouth in [place] 500 mg 00 the Medical (AUGMENTIN) morning Branc h 500-125 mg and 1 tablet tablet at noon and 1 tablet in the evening. amoxicillin 2022-0 Yes [id number] 500mg Take 1 [facility] -pot 9-22 tablet by ity of clavulanate 00:00: mouth in [place] 500 mg 00 the Medical (AUGMENTIN) morning Branc h 500-125 mg and 1 tablet tablet at noon and 1 tablet in the evening. amoxicillin 2022-0 Yes [id number] 500mg Take 1 [facility] -pot 9-22 tablet by ity of clavulanate 00:00: mouth in [place] 500 mg 00 the Medical (AUGMENTIN) morning Branc h 500-125 mg and 1 tablet tablet at noon and 1 tablet in the evening. amoxicillin 2022-0 Yes [id number] 500mg Take 1 [facility] -pot 9-22 tablet by ity of clavulanate 00:00: mouth in [place] 500 mg 00 the Medical (AUGMENTIN) morning Branc h 500-125 mg and 1 tablet tablet at noon and 1 tablet in the evening. amoxicillin 2022-0 Yes [id number] 500mg Take 1 [facility] -pot 9-22 tablet by ity of clavulanate 00:00: mouth in [place] 500 mg 00 the Medical (AUGMENTIN) morning Branc h 500-125 mg and 1 tablet tablet at noon and 1 tablet in the evening. amoxicillin 2022-0 Yes [id number] 500mg Take 1 [facility] -pot 9-22 tablet by ity of clavulanate 00:00: mouth in [place] 500 mg 00 the Medical (AUGMENTIN) morning Branc h 500-125 mg and 1 tablet tablet at noon and 1 tablet in the evening. amoxicillin 2-0 Yes [id number] 500mg Take 1 [facility] -pot 9-22 tablet by ity of clavulanate 00:00: mouth in [place] 500 mg 00 the Medical (AUGMENTIN) morning Branc h 500-125 mg and 1 tablet tablet at noon and 1 tablet in the evening. amoxicillin 2022-0 Yes [id number] 500mg Take 1 [facility] -pot 9-22 tablet by ity of clavulanate 00:00: mouth in [place] 500 mg 00 the Medical (AUGMENTIN) morning Branc h 500-125 mg and 1 tablet tablet at noon and 1 tablet in the evening. amoxicillin 2022-0 Yes [id number] 500mg Take 1 [facility] -pot 9-22 tablet by ity of clavulanate 00:00: mouth in [place] 500 mg 00 the Medical (AUGMENTIN) morning Branc h 500-125 mg and 1 tablet tablet at noon and 1 tablet in the evening. amoxicillin 2022-0 Yes [id number] 500mg Take 1 [facility] -pot 9-22 tablet by ity of clavulanate 00:00: mouth in [place] 500 mg 00 the Medical (AUGMENTIN) morning Branc h 500-125 mg and 1 tablet tablet at noon and 1 tablet in the evening. amoxicillin 2022-0 Yes [id number] 500mg Take 1 [facility] -pot 9-22 tablet by ity of clavulanate 00:00: mouth in [place] 500 mg 00 the Medical (AUGMENTIN) morning Branc h 500-125 mg and 1 tablet tablet at noon and 1 tablet in the evening. amoxicillin 2022-0 Yes [id number] 500mg Take 1 [facility] -pot 9-22 tablet by ity of clavulanate 00:00: mouth in [place] 500 mg 00 the Medical (AUGMENTIN) morning Branc h 500-125 mg and 1 tablet tablet at noon and 1 tablet in the evening. amoxicillin 2022-0 Yes [id number] 500mg Take 1 [facility] -pot 9-22 tablet by ity of clavulanate 00:00: mouth in [place] 500 mg 00 the Medical (AUGMENTIN) morning Branc h 500-125 mg and 1 tablet tablet at noon and 1 tablet in the evening. amoxicillin 2022-0 Yes [id number] 500mg Take 1 [facility] -pot 9-22 tablet by ity of clavulanate 00:00: mouth in [place] 500 mg 00 the Medical (AUGMENTIN) morning Branc h 500-125 mg and 1 tablet tablet at noon and 1 tablet in the evening. amoxicillin 2022-0 Yes [id number] 500mg Take 1 [facility] -pot 9-22 tablet by ity of clavulanate 00:00: mouth in [place] 500 mg 00 the Medical (AUGMENTIN) morning Branc h 500-125 mg and 1 tablet tablet at noon and 1 tablet in the evening. amoxicillin 2022-0 Yes [id number] 500mg Take 1 [facility] -pot 9-22 tablet by ity of clavulanate 00:00: mouth in [place] 500 mg 00 the Medical (AUGMENTIN) morning Branc h 500-125 mg and 1 tablet tablet at noon and 1 tablet in the evening. amoxicillin 2022-0 Yes [id number] 500mg Take 1 [facility] -pot 9-22 tablet by ity of clavulanate 00:00: mouth in [place] 500 mg 00 the Medical (AUGMENTIN) morning Branc h 500-125 mg and 1 tablet tablet at noon and 1 tablet in the evening. amoxicillin 2-0 Yes [id number] 500mg Take 1 [facility] -pot 9-22 tablet by ity of clavulanate 00:00: mouth in [place] 500 mg 00 the Medical (AUGMENTIN) morning Branc h 500-125 mg and 1 tablet tablet at noon and 1 tablet in the evening. amoxicillin 2-0 Yes [id number] 500mg Take 1 [facility] -pot 9-22 tablet by ity of clavulanate 00:00: mouth in [place] 500 mg 00 the Medical (AUGMENTIN) morning Branc h 500-125 mg and 1 tablet tablet at noon and 1 tablet in the evening. amoxicillin 2-0 Yes [id number] 500mg Take 1 [facility] -pot 9-22 tablet by ity of clavulanate 00:00: mouth in [place] 500 mg 00 the Medical (AUGMENTIN) morning Branc h 500-125 mg and 1 tablet tablet at noon and 1 tablet in the evening. amoxicillin 2-0 Yes [id number] 500mg Take 1 [facility] -pot 9-22 tablet by ity of clavulanate 00:00: mouth in [place] 500 mg 00 the Medical (AUGMENTIN) morning Branc h 500-125 mg and 1 tablet tablet at noon and 1 tablet in the evening. amoxicillin 2-0 Yes [id number] 500mg Take 1 [facility] -pot 9-22 tablet by ity of clavulanate 00:00: mouth in [place] 500 mg 00 the Medical (AUGMENTIN) morning Branc h 500-125 mg and 1 tablet tablet at noon and 1 tablet in the evening. amoxicillin 2-0 Yes [id number] 500mg Take 1 [facility] -pot 9-22 tablet by ity of clavulanate 00:00: mouth in [place] 500 mg 00 the Medical (AUGMENTIN) morning Branc h 500-125 mg and 1 tablet tablet at noon and 1 tablet in the evening. amoxicillin 2-0 2023- No [id number] 500mg Take 1 [facility] -pot 9-22 01-07 tablet by ity of clavulanate 00:00: 00:00 mouth in [place] 500 mg 00 :00 the Medical (AUGMENTIN) morning Branc h 500-125 mg and 1 tablet tablet at noon and 1 tablet in the evening. amoxicillin 3- No [id number] 500mg Take 1 [facility] -pot 9-22 01-07 tablet by ity of clavulanate 00:00: 00:00 mouth [place] 500 mg 00 :00 the Medical (AUGMENTIN) morning Branc h 500-125 mg and 1 tablet tablet at noon and 1 tablet in the evening. Nitrofurant Yes [id number] 100mg Take 1 [facility] oin&Nit. 9-19 capsule by ity o f Macrocryst 00:00: mouth in [place] (MACROBID) 00 the Medical 100 mg morning Branch capsule and 1 capsule in the evening. Nitrofurant Yes [id number] 100mg Take 1 [facility] oin&Nit. 9-19 capsule by ity o f Macrocryst 00:00: mouth in [place] (MACROBID) 00 the Medical 100 mg morning Branch capsule and 1 capsule in the evening. Nitrofurant Yes [id number] 100mg Take 1 [facility] oin&Nit. 9-19 capsule by ity o f Macrocryst 00:00: mouth in [place] (MACROBID) 00 the Medical 100 mg morning Branch capsule and 1 capsule in the evening. Nitrofurant Yes [id number] 100mg Take 1 [facility] oin&Nit. 9-19 capsule by ity o f Macrocryst 00:00: mouth in [place] (MACROBID) 00 the Medical 100 mg morning Branch capsule and 1 capsule in the evening. Nitrofurant Yes [id number] 100mg Take 1 [facility] oin&Nit. 9-19 capsule by ity o f Macrocryst 00:00: mouth in [place] (MACROBID) 00 the Medical 100 mg morning Branch capsule and 1 capsule in the evening. Nitrofurant 2021-0 Yes [id number] 100mg Take 1 [facility] oin&Nit. 9-19 capsule by ity o f [facility] 00:00: mouth in [place] (MACROBID) 00 the Medical 100 mg morning Branch capsule and 1 capsule in the evening. Nitrofurant 2021-0 Yes [id number] 100mg Take 1 [facility] oin&Nit. 9-19 capsule by ity o f [facility] 00:00: mouth in [place] (MACROBID) 00 the Medical 100 mg morning Branch capsule and 1 capsule in the evening. Nitrofurant 0 Yes [id number] 100mg Take 1 [facility] oin&Nit. 9-19 capsule by ity o f [facility] 00:00: mouth in [place] (MACROBID) 00 the Medical 100 mg morning Branch capsule and 1 capsule in the evening. Nitrofurant 0 Yes [id number] 100mg Take 1 [facility] oin&Nit. 9-19 capsule by ity o f [facility] 00:00: mouth in [place] (MACROBID) 00 the Medical 100 mg morning Branch capsule and 1 capsule in the evening. Nitrofurant Yes [id number] 100mg Take 1 [facility] oin&Nit. 9-19 capsule by ity o f [facility] 00:00: mouth in [place] (MACROBID) 00 the Medical 100 mg morning Branch capsule and 1 capsule in the evening. Nitrofurant Yes [id number] 100mg Take 1 [facility] oin&Nit. 9-19 capsule by ity o f [facility] 00:00: mouth in [place] (MACROBID) 00 the Medical 100 mg morning Branch capsule and 1 capsule in the evening. Nitrofurant Yes [id number] 100mg Take 1 [facility] oin&Nit. 9-19 capsule by ity o f [facility] 00:00: mouth in [place] (MACROBID) 00 the Medical 100 mg morning Branch capsule and 1 capsule in the evening. Nitrofurant Yes [id number] 100mg Take 1 [facility] oin&Nit. 9-19 capsule by ity o f [facility] 00:00: mouth in [place] (MACROBID) 00 the Medical 100 mg morning Branch capsule and 1 capsule in the evening. Nitrofurant 2021-0 Yes [id number] 100mg Take 1 [facility] oin&Nit. 9-19 capsule by ity o f [facility] 00:00: mouth in [place] (MACROBID) 00 the Medical 100 mg morning Branch capsule and 1 capsule in the evening. Nitrofurant 2021-0 Yes [id number] 100mg Take 1 [facility] oin&Nit. 9-19 capsule by ity o f [facility] 00:00: mouth in [place] (MACROBID) 00 the Medical 100 mg morning Branch capsule and 1 capsule in the evening. Nitrofurant 2021-0 Yes [id number] 100mg Take 1 [facility] oin&Nit. 9-19 capsule by ity o f [facility] 00:00: mouth in [place] (MACROBID) 00 the Medical 100 mg morning Branch capsule and 1 capsule in the evening. Nitrofurant 2021-0 Yes [id number] 100mg Take 1 [facility] oin&Nit. 9-19 capsule by ity o f [facility] 00:00: mouth in [place] (MACROBID) 00 the Medical 100 mg morning Branch capsule and 1 capsule in the evening. Nitrofurant 2021-0 Yes [id number] 100mg Take 1 [facility] oin&Nit. 9-19 capsule by ity o f [facility] 00:00: mouth in [place] (MACROBID) 00 the Medical 100 mg morning Branch capsule and 1 capsule in the evening. Nitrofurant 2021-0 Yes [id number] 100mg Take 1 [facility] oin&Nit. 9-19 capsule by ity o f [facility] 00:00: mouth in [place] (MACROBID) 00 the Medical 100 mg morning Branch capsule and 1 capsule in the evening. Nitrofurant 2021-0 Yes [id number] 100mg Take 1 [facility] oin&Nit. 9-19 capsule by ity o f [facility] 00:00: mouth in [place] (MACROBID) 00 the Medical 100 mg morning Branch capsule and 1 capsule in the evening. Nitrofurant 2021-0 Yes [id number] 100mg Take 1 [facility] oin&Nit. 9-19 capsule by ity o f [facility] 00:00: mouth in [place] (MACROBID) 00 the Medical 100 mg morning Branch capsule and 1 capsule in the evening. Nitrofurant 2021-0 Yes [id number] 100mg Take 1 [facility] oin&Nit. 9-19 capsule by ity o f [facility] 00:00: mouth in [place] (MACROBID) 00 the Medical 100 mg morning Branch capsule and 1 capsule in the evening. Nitrofurant 2021-0 Yes [id number] 100mg Take 1 [facility] oin&Nit. 9-19 capsule by ity o f [facility] 00:00: mouth in [place] (MACROBID) 00 the Medical 100 mg morning Branch capsule and 1 capsule in the evening. Nitrofurant 2021-0 Yes [id number] 100mg Take 1 [facility] oin&Nit. 9-19 capsule by ity o f [facility] 00:00: mouth in [place] (MACROBID) 00 the Medical 100 mg morning Branch capsule and 1 capsule in the evening. Nitrofurant 2021-0 Yes [id number] 100mg Take 1 [facility] oin&Nit. 9-19 capsule by ity o f [facility] 00:00: mouth in [place] (MACROBID) 00 the Medical 100 mg morning Branch capsule and 1 capsule in the evening. Nitrofurant 2021-0 Yes [id number] 100mg Take 1 [facility] oin&Nit. 9-19 capsule by ity o f [facility] 00:00: mouth in [place] (MACROBID) 00 the Medical 100 mg morning Branch capsule and 1 capsule in the evening. Nitrofurant 2021-0 Yes [id number] 100mg Take 1 [facility] oin&Nit. 9-19 capsule by ity o f [facility] 00:00: mouth in [place] (MACROBID) 00 the Medical 100 mg morning Branch capsule and 1 capsule in the evening. Nitrofurant 2021-0 Yes [id number] 100mg Take 1 [facility] oin&Nit. 9-19 capsule by ity o f [facility] 00:00: mouth in [place] (MACROBID) 00 the Medical 100 mg morning Branch capsule and 1 capsule in the evening. Nitrofurant 2021-0 Yes [id number] 100mg Take 1 [facility] oin&Nit. 9-19 capsule by ity o f [facility] 00:00: mouth in [place] (MACROBID) 00 the Medical 100 mg morning Branch capsule and 1 capsule in the evening. Nitrofurant 2021-0 Yes [id number] 100mg Take 1 [facility] oin&Nit. 9-19 capsule by ity o f [facility] 00:00: mouth in [place] (MACROBID) 00 the Medical 100 mg morning Branch capsule and 1 capsule in the evening. Nitrofurant 2021-0 Yes [id number] 100mg Take 1 [facility] oin&Nit. 9-19 capsule by ity o f [facility] 00:00: mouth in [place] (MACROBID) 00 the Medical 100 mg morning Branch capsule and 1 capsule in the evening. Nitrofurant 2021-0 Yes [id number] 100mg Take 1 [facility] oin&Nit. 9-19 capsule by ity o f [facility] 00:00: mouth in [place] (MACROBID) 00 the Medical 100 mg morning Branch capsule and 1 capsule in the evening. Nitrofurant 0 Yes [id number] 100mg Take 1 [facility] oin&Nit. 9-19 capsule by ity o f [facility] 00:00: mouth in [place] (MACROBID) 00 the Medical 100 mg morning Branch capsule and 1 capsule in the evening. Nitrofurant 0 Yes [id number] 100mg Take 1 [facility] oin&Nit. 9-19 capsule by ity o f [facility] 00:00: mouth in [place] (MACROBID) 00 the Medical 100 mg morning Branch capsule and 1 capsule in the evening. Nitrofurant 3- No [id number] 100mg Take 1 [facility] oin&Nit. 9-19 -07 capsule by ity of [facility] 00:00: 00:00 mouth in [place] (MACROBID) 00 :00 the Medical 100 mg morning Branch capsule and 1 capsule in the evening. Nitrofurant 0 3- No [id number] 100mg Take 1 [facility] oin&Nit. 9-19 -07 capsule by ity of [facility] 00:00: 00:00 mouth in [place] (MACROBID) 00 :00 the Medical 100 mg morning Branch capsule and 1 capsule in the evening. guaifenesin Yes Take by Uni vers (MUCINEX 6-22 mouth. ity of ORAL) 14:25: [address] guaifenesin Yes Take by Uni vers (MUCINEX 6-22 mouth. ity of ORAL) 14:25: [address] guaifenesin Yes Take by Uni vers (MUCINEX 6-22 mouth. ity of ORAL) 14:25: [address] guaifenesin 0 Yes Take by Uni vers (MUCINEX 6-22 mouth. ity of ORAL) 14:25: [address] guaifenesin Yes Take by Uni vers (MUCINEX 6-22 mouth. ity of ORAL) 14:25: [place] 11 [facility] Take by [facility] vers (MUCINEX 6-22 mouth. ity of ORAL) 14:25: 11 Medical Branch Yes [id number] 1{tbl} Take 1 U nivers multivitami 6-22 tablet by ity of n ( 00:00: mouth [place] VITAMIN) 00 daily. Medical tablet Branch Yes [id number] 1{tbl} Take 1 U nivers multivitami 6-22 tablet by ity of n ( 00:00: mouth [place] VITAMIN) 00 daily. Medical tablet Branch Yes [id number] 1{tbl} Take 1 U nivers multivitami 6-22 tablet by ity of n ( 00:00: mouth [place] VITAMIN) 00 daily. Medical tablet Branch Yes [id number] 1{tbl} Take 1 U nivers multivitami 6-22 tablet by ity of n ( 00:00: mouth [place] VITAMIN) 00 daily. Medical tablet Branch Yes [id number] 1{tbl} Take 1 U nivers multivitami 6-22 tablet by ity of n ( 00:00: mouth [place] VITAMIN) 00 daily. Medical tablet Branch Yes [id number] 1{tbl} Take 1 U nivers multivitami 6-22 tablet by ity of n ( 00:00: mouth [place] VITAMIN) 00 daily. Medical tablet Branch Yes [id number] 1{tbl} Take 1 U nivers multivitami 6-22 tablet by ity of n ( 00:00: mouth [place] VITAMIN) 00 daily. Medical tablet Branch Yes [id number] 1{tbl} Take 1 U nivers multivitami 6-22 tablet by ity of n ( 00:00: mouth [place] VITAMIN) 00 daily. Medical tablet Branch Yes [id number] 1{tbl} Take 1 U nivers multivitami 6-22 tablet by ity of n ( 00:00: mouth [place] VITAMIN) 00 daily. Medical tablet Branch Yes [id number] 1{tbl} Take 1 U nivers multivitami 6-22 tablet by ity of n ( 00:00: mouth [place] VITAMIN) 00 daily. Medical tablet Branch Yes [id number] 1{tbl} Take 1 U nivers multivitami 6-22 tablet by ity of n ( 00:00: mouth [place] VITAMIN) 00 daily. Medical tablet Branch Yes [id number] 1{tbl} Take 1 U nivers multivitami 6-22 tablet by ity of n ( 00:00: mouth [place] VITAMIN) 00 daily. Medical tablet Branch Yes [id number] 1{tbl} Take 1 U nivers multivitami 6-22 tablet by ity of n ( 00:00: mouth [place] VITAMIN) 00 daily. Medical tablet Branch Yes [id number] 1{tbl} Take 1 U nivers multivitami 6-22 tablet by ity of n ( 00:00: mouth [place] VITAMIN) 00 daily. Medical tablet Branch Yes [id number] 1{tbl} Take 1 U nivers multivitami 6-22 tablet by ity of n ( 00:00: mouth [place] VITAMIN) 00 daily. Medical tablet Branch Yes [id number] 1{tbl} Take 1 U nivers multivitami 6-22 tablet by ity of n ( 00:00: mouth [place] VITAMIN) 00 daily. Medical tablet Branch Yes [id number] 1{tbl} Take 1 U nivers multivitami 6-22 tablet by ity of n ( 00:00: mouth [place] VITAMIN) 00 daily. Medical tablet Branch Yes [id number] 1{tbl} Take 1 U nivers multivitami 6-22 tablet by ity of n ( 00:00: mouth [place] VITAMIN) 00 daily. Medical tablet Branch Yes [id number] 1{tbl} Take 1 U nivers multivitami 6-22 tablet by ity of n ( 00:00: mouth [place] VITAMIN) 00 daily. Medical tablet Branch Yes [id number] 1{tbl} Take 1 U nivers multivitami 6-22 tablet by ity of n ( 00:00: mouth [place] VITAMIN) 00 daily. Medical tablet Branch Yes [id number] 1{tbl} Take 1 U nivers multivitami 6-22 tablet by ity of n ( 00:00: mouth [place] VITAMIN) 00 daily. Medical tablet Branch Yes [id number] 1{tbl} Take 1 U nivers multivitami 6-22 tablet by ity of n ( 00:00: mouth [place] VITAMIN) 00 daily. Medical tablet Branch Yes [id number] 1{tbl} Take 1 U nivers multivitami 6-22 tablet by ity of n ( 00:00: mouth [place] VITAMIN) 00 daily. Medical tablet Branch Yes [id number] 1{tbl} Take 1 U nivers multivitami 6-22 tablet by ity of n ( 00:00: mouth [place] VITAMIN) 00 daily. Medical tablet Branch Yes [id number] 1{tbl} Take 1 U nivers multivitami 6-22 tablet by ity of n ( 00:00: mouth [place] VITAMIN) 00 daily. Medical tablet Branch Yes [id number] 1{tbl} Take 1 U nivers multivitami 6-22 tablet by ity of n ( 00:00: mouth [place] VITAMIN) 00 daily. Medical tablet Branch Yes [id number] 1{tbl} Take 1 U nivers multivitami 6-22 tablet by ity of n ( 00:00: mouth [place] VITAMIN) 00 daily. Medical tablet Branch Yes [id number] 1{tbl} Take 1 U nivers multivitami 6-22 tablet by ity of n ( 00:00: mouth [place] VITAMIN) 00 daily. Medical tablet Branch Yes [id number] 1{tbl} Take 1 U nivers multivitami 6-22 tablet by ity of n ( 00:00: mouth [place] VITAMIN) 00 daily. Medical tablet Branch Yes [id number] 1{tbl} Take 1 U nivers multivitami 6-22 tablet by ity of n ( 00:00: mouth [place] VITAMIN) 00 daily. Medical tablet Branch Yes [id number] 1{tbl} Take 1 U nivers multivitami 6-22 tablet by ity of n ( 00:00: mouth [place] VITAMIN) 00 daily. Medical tablet Branch Yes [id number] 1{tbl} Take 1 U nivers multivitami 6-22 tablet by ity of n ( 00:00: mouth [place] VITAMIN) 00 daily. Medical tablet Branch Yes [id number] 1{tbl} Take 1 U nivers multivitami 6-22 tablet by ity of n ( 00:00: mouth [place] VITAMIN) 00 daily. Medical tablet Branch Yes [id number] 1{tbl} Take 1 U nivers multivitami 6-22 tablet by ity of n ( 00:00: mouth [place] VITAMIN) 00 daily. Medical tablet Branch Yes [id number] 1{tbl} Take 1 U nivers multivitami 6-22 tablet by ity of n ( 00:00: mouth [place] VITAMIN) 00 daily. Medical tablet Branch Yes [id number] 1{tbl} Take 1 U nivers multivitami 6-22 tablet by ity of n ( 00:00: mouth [place] VITAMIN) 00 daily. Medical tablet Branch 2022- No [id number] 1{tbl} Take 1 [facility] multivitami 6-22 01-07 tablet by it y of n ( 00:00: 00:[place] VIT[place]IN[place] 00 :00 daily. Medical tablet Branch [facility] 2022- No [id number] 1{tbl} Take 1 Univers multivitami 6-22 01-07 tablet by it y of n ( 00:00: 00:[place] VIT[place] 00 :00 daily. Medical tablet Branch [facility] 2020-02 Yes [id number] 1{tbl} Take 1 Univers ne 0.35 mg 0-13 tablet by ity of tablet 00:00: mouth [place] 00 daily. Medical [facility] 2020-02 Yes [id number] 1{tbl} Take 1 Univers ne 0.35 mg 0-13 tablet by ity of tablet 00:00: mouth [place] 00 daily. Medical [facility] 2020-02 Yes [id number] 1{tbl} Take 1 Univers ne 0.35 mg 0-13 tablet by ity of tablet 00:00: mouth [place] 00 daily. Medical [facility] 2020-02 Yes [id number] 1{tbl} Take 1 Univers ne 0.35 mg 0-13 tablet by ity of tablet 00:00: mouth 00 daily. Medical Branch norethindro 2020-02 Yes [id number] 1{tbl} Take 1 Univers ne 0.35 mg 0-13 tablet by ity of tablet 00:00: mouth 00 daily. Medical Branch norethindro 2020-02 Yes [id number] 1{tbl} Take 1 Univers ne 0.35 mg 0-13 tablet by ity of tablet 00:00: mouth [place] 00 daily. Medical Branch norethindro 2020-02- No [id number] 1{tbl} Take 1 Univers ne 0.35 mg 0-13 11-01 tablet by ity of tablet 00:00: 00:00 mouth [place] 00 :00 daily. Medical Branch dicloxacill 2020-02 Yes Univer s in 500 mg 0-05 ity of capsule 00:00: 00 Medical Branch dicloxacill 2020-02 Yes Univer s in 500 mg 0-05 ity of capsule 00:00: [place] [facility] Branch dicloxacill 2020-02 Yes Univer s in 500 mg 0-05 ity of capsule 00:00: [place] 00 Medical Branch dicloxacill 2020-02 Yes Univer s in 500 mg 0-05 ity of capsule 00:00: [place] Medical Branch dicloxacill 2020-02 Yes Univer s in 500 mg 0-05 ity of capsule 00:00: 00 Medical Branch dicloxacill 2020-02 Yes Univer s in 500 mg 0-05 ity of capsule 00:00: [place] [facility] Branch dicloxacill 2020-02- No Unive rs in 500 mg 0-05 - ity of capsule 00:00: 00:00 [place] 00 :00 Medical Branch 0 Yes [id number] 1{tbl} Take 1 Univers vitamin 9-01 tablet by ity of w/FA tablet 00:00: mouth [place] 00 daily. Medical Branch docusate Yes [id number] 240mg Take 1 U nivers calcium 240 9- capsule by it y of mg capsule 00:00: mouth once [place] 00 daily as Medical needed for Branch Constipati on. ferrous Yes [id number] 325mg Take 1 Un reyes sulfate 325 9-01 tablet by ity of mg (65 mg 00:00: mouth 2 [place] iron) 00 (two) Medical tablet times Branch daily. Yes [id number] 1{tbl} Take 1 Univers vitamin 9-01 tablet by ity of w/FA tablet 00:00: mouth [place] 00 daily. Medical Branch docusate Yes [id number] 240mg Take 1 U nivers calcium 240 9-01 capsule by it y of mg capsule 00:00: mouth once [place] 00 daily as Medical needed for Branch Constipati on. ferrous Yes [id number] 325mg Take 1 Un reyes sulfate 325 9-01 tablet by ity of mg (65 mg 00:00: mouth 2 [place] iron) 00 (two) Medical tablet times Branch daily. Yes [id number] 1{tbl} Take 1 Univers vitamin 9-01 tablet by ity of w/FA tablet 00:00: mouth [place] 00 daily. Medical Branch docusate Yes [id number] 240mg Take 1 U nivers calcium 240 9-01 capsule by it y of mg capsule 00:00: mouth once [place] 00 daily as Medical needed for Branch Constipati on. ferrous Yes [id number] 325mg Take 1 Un reyes sulfate 325 9-01 tablet by ity of mg (65 mg 00:00: mouth 2 [place] iron) 00 (two) Medical tablet times Branch daily. Yes [id number] 1{tbl} Take 1 Univers vitamin 9-01 tablet by ity of w/FA tablet 00:00: mouth [place] 00 daily. Medical Branch docusate Yes [id number] 240mg Take 1 U nivers calcium 240 9-01 capsule by it y of mg capsule 00:00: mouth once [place] 00 daily as Medical needed for Branch Constipati on. ferrous Yes [id number] 325mg Take 1 Un reyes sulfate 325 9-01 tablet by ity of mg (65 mg 00:00: mouth 2 [place] iron) 00 (two) Medical tablet times Branch daily. Yes [id number] 1{tbl} Take 1 Univers vitamin 9-01 tablet by ity of w/FA tablet 00:00: mouth [place] 00 daily. Medical Branch docusate Yes [id number] 240mg Take 1 U nivers calcium 240 9- capsule by it y of mg capsule 00:00: mouth once [place] 00 daily as Medical needed for Branch Constipati on. ferrous Yes [id number] 325mg Take 1 Un reyes sulfate 325 9-01 tablet by ity of mg (65 mg 00:00: mouth 2 [place] iron) 00 (two) Medical tablet times Branch daily. Yes [id number] 1{tbl} Take 1 Univers vitamin 9-01 tablet by ity of w/FA tablet 00:00: mouth [place] 00 daily. Medical Branch docusate Yes [id number] 240mg Take 1 U nivers calcium 240 9- capsule by it y of mg capsule 00:00: mouth once [place] 00 daily as Medical needed for Branch Constipati on. ferrous Yes [id number] 325mg Take 1 Un reyes sulfate 325 9- tablet by ity of mg (65 mg 00:00: mouth 2 [place] iron) 00 (two) Medical tablet times Branch daily. 2021- No [id number] 1{tbl} Take 1 [facility] vitamin 9-02 18- tablet by ity of w/FA tablet 00:00: 00:[place] :00 daily. Medical Branch docusate 2021- No [id number] 240mg Take 1 [facility] calcium 240 10-11 capsule by i ty of mg capsule 00:00: 00:00 mouth once [place] 00 :00 daily as Medical needed for Branch Constipati on. ferrous 2021- No [id number] 325mg Take 1 U nivers sulfate 325 10-11- tablet by it y of mg (65 mg 00:00: 00:00 [place] iron[place] 00 :00 (two) Medical tablet times Branch daily. Immunizations Ordered Filled Immunization Date Status Comments [facility] e Immunization Name Name TD 2021-12-28 Completed [facility] 00:00:00 [facility] TD 2021-12-28 Completed [facility] 00:00:00 [facility] TDAP 2021-12-28 Completed [facility] of 00:00:00 [facility] TDAP 2021-12-28 Completed University of 00:00:00 [facility] TDAP 2021-12-28 Completed University of 00:00:00 [facility] Branch TDAP 2021-12-28 Completed University of 00:00:00 [facility] TDAP 2021-12-28 Completed University of 00:00:00 [facility] TDAP 2021-12-28 Completed University of 00:00:00 [facility] TDAP 2021-12-28 Completed University of 00:00:00 [facility] TDAP 2021-12-28 Completed University of 00:00:00 [facility] TDAP 2021-12-28 Completed University of 00:00:00 [facility] TDAP 2021-12-28 Completed University of 00:00:00 [facility] TDAP 2021-12-28 Completed University of 00:00:00 [facility] TDAP 2021-12-28 Completed University of 00:00:00 [facility] TDAP 2021-12-28 Completed University of 00:00:00 [facility] TDAP 2021-12-28 Completed University of 00:00:00 [facility] TDAP 2021-12-28 Completed University of 00:00:00 [facility] TDAP 2021-12-28 Completed University of 00:00:00 [facility] TDAP 2021-12-28 Completed University of 00:00:00 [facility] TDAP 2021-12-28 Completed University of 00:00:00 [facility] TDAP 2021-12-28 Completed University of 00:00:00 [facility] TDAP 2021-12-28 Completed University of 00:00:00 [facility] TDAP 2021-12-28 Completed University of 00:00:00 [facility] TDAP 2021-12-28 Completed University of 00:00:00 [facility] TDAP 2021-12-28 Completed University of 00:00:00 [facility] TDAP 2021-12-28 Completed University of 00:00:00 [facility] TDAP 2021-12-28 Completed University of 00:00:00 [facility] TDAP 2021-12-28 Completed University of 00:00:00 [facility] Influenza Virus 2020-11-22 Completed Universit y of Vaccine Quad IM, 00:00:00 [place] Me dical Preserv and ABX Branch Free 6 MO-64 YRS HPV9 2020-11-22 Completed University of 00:00:00 [facility] Influenza Virus 2020-11-22 Completed Universit y of Vaccine Quad IM, 00:00:00 [place] Me dical Preserv and ABX Branch Free 6 MO-64 YRS HPV9 2020-11-22 Completed University of 00:00:00 [facility] Influenza Virus 2020-11-22 Completed Universit y of Vaccine Quad IM, 00:00:00 [place] Me dical Preserv and ABX Branch Free 6 MO-64 YRS HPV9 2020-11-22 Completed University of 00:00:00 [facility] Influenza Virus 2020-11-22 Completed Universit y of Vaccine Quad IM, 00:00:00 [facility] dical Preserv and ABX Branch Free 6 MO-64 YRS HPV9 2020-11-22 Completed University of 00:00:00 [facility] Influenza Virus 2020-11-22 Completed Universit y of Vaccine Quad IM, 00:00:00 [place] Me dical Preserv and ABX Branch Free 6 MO-64 YRS HPV9 2020-11-22 Completed University of 00:00:00 [facility] Influenza Virus 2020-11-22 Completed Universit y of Vaccine Quad IM, 00:00:00 [place] Me dical Preserv and ABX Branch Free 6 MO-64 YRS HPV9 2020-11-22 Completed University of 00:00:00 [facility] Influenza Virus 2020-11-22 Completed Universit y of Vaccine Quad IM, 00:00:00 [place] Me dical Preserv and ABX Branch Free 6 MO-64 YRS HPV9 2020-11-22 Completed University of 00:00:00 [facility] Influenza Virus 2020-11-22 Completed Universit y of Vaccine Quad IM, 00:00:00 [place] Me dical Preserv and ABX Branch Free 6 MO-64 YRS HPV9 2020-11-22 Completed University of 00:00:00 [facility] Influenza Virus 2020-11-22 Completed Universit y of Vaccine Quad IM, 00:00:00 [place] Me dical Preserv and ABX Branch Free 6 MO-64 YRS HPV9 2020-11-22 Completed University of 00:00:00 [facility] Influenza Virus 2020-11-22 Completed Universit y of Vaccine Quad IM, 00:00:00 [place] Me dical Preserv and ABX Branch Free 6 MO-64 YRS HPV9 2020-11-22 Completed University of 00:00:00 [facility] Influenza Virus 2020-11-22 Completed Universit y of Vaccine Quad IM, 00:00:00 [place] Me dical Preserv and ABX Branch Free 6 MO-64 YRS HPV9 2020-11-22 Completed University of 00:00:00 [facility] Influenza Virus 2020-11-22 Completed Universit y of Vaccine Quad IM, 00:00:00 [place] Me dical Preserv and ABX Branch Free 6 MO-64 YRS HPV9 2020-11-22 Completed University of 00:00:00 [facility] Influenza Virus 2020-11-22 Completed Universit y of Vaccine Quad IM, 00:00:00 [place] Me dical Preserv and ABX Branch Free 6 MO-64 YRS HPV9 2020-11-22 Completed University of 00:00:00 [facility] Influenza Virus 2020-11-22 Completed Universit y of Vaccine Quad IM, 00:00:00 [place] Me dical Preserv and ABX Branch Free 6 MO-64 YRS HPV9 2020-11-22 Completed University of 00:00:00 [facility] Influenza Virus 2020-11-22 Completed Universit y of Vaccine Quad IM, 00:00:00 [place] Me dical Preserv and ABX Branch Free 6 MO-64 YRS HPV9 2020-11-22 Completed University of 00:00:00 [facility] Influenza Virus 2020-11-22 Completed Universit y of Vaccine Quad IM, 00:00:00 [place] Me dical Preserv and ABX Branch Free 6 MO-64 YRS HPV9 2020-11-22 Completed University of 00:00:00 [facility] Influenza Virus 2020-11-22 Completed Universit y of Vaccine Quad IM, 00:00:00 [place] Me dical Preserv and ABX Branch Free 6 MO-64 YRS HPV9 2020-11-22 Completed University of 00:00:00 [facility] Influenza Virus 2020-11-22 Completed Universit y of Vaccine Quad IM, 00:00:00 [place] Me dical Preserv and ABX Branch Free 6 MO-64 YRS HPV9 2020-11-22 Completed University of 00:00:00 [facility] Influenza Virus 2020-11-22 Completed Universit y of Vaccine Quad IM, 00:00:00 [place] Me dical Preserv and ABX Branch Free 6 MO-64 YRS HPV9 2020-11-22 Completed University of 00:00:00 [facility] Influenza Virus 2020-11-22 Completed Universit y of Vaccine Quad IM, 00:00:00 [place] Me dical Preserv and ABX Branch Free 6 MO-64 YRS HPV9 2020-11-22 Completed University of 00:00:00 [facility] Influenza Virus 2020-11-22 Completed Universit y of Vaccine Quad IM, 00:00:00 [place] Me dical Preserv and ABX Branch Free 6 MO-64 YRS HPV9 2020-11-22 Completed University of 00:00:00 [facility] Influenza Virus 2020-11-22 Completed Universit y of Vaccine Quad IM, 00:00:00 [place] Me dical Preserv and ABX Branch Free 6 MO-64 YRS HPV9 2020-11-22 Completed [facility] 00:00:00 [facility] Influenza Virus 2020-11-22 Completed [facility], 00:00:00 [place] [facility] Preserv and ABX Branch Free 6 MO-64 YRS HPV9 2020-11-22 Completed [facility] 00:00:00 [facility] Influenza Virus 2020-11-22 Completed [facility], 00:00:00 [place] [facility] Preserv and ABX Branch Free 6 MO-64 YRS HPV9 2020-11-22 Completed [facility] 00:00:00 [facility] Influenza Virus 2020-11-22 Completed [facility], 00:00:00 [place] [facility] Preserv and ABX Branch Free 6 MO-64 YRS HPV9 2020-11-22 Completed [facility] 00:00:00 [facility] Influenza Virus 2020-11-22 Completed [facility], 00:00:00 [place] [facility] Preserv and ABX Branch Free 6 MO-64 YRS HPV9 2020-11-22 Completed [facility] 00:00:00 [facility] Influenza Virus 2020-11-22 Completed [facility], 00:00:00 [place] [facility] Preserv and ABX Branch Free 6 MO-64 YRS HPV9 2020-11-22 Completed [facility] 00:00:00 [facility] Influenza Virus 2020-11-22 Completed [facility], 00:00:00 [place] [facility] Preserv and ABX Branch Free 6 MO-64 YRS HPV9 2020-11-22 Completed [facility] 00:00:00 [facility] Influenza Virus 2020-11-22 Completed [facility], 00:00:00 [place] [facility] Preserv and ABX Branch Free 6 MO-64 YRS HPV9 2020-11-22 Completed [facility] 00:00:00 [facility] Influenza Virus 2020-11-22 Completed [facility], 00:00:00 [place] [facility] Preserv and ABX Branch Free 6 MO-64 YRS HPV9 2020-11-22 Completed [facility] 00:00:00 [facility] Influenza Virus 2020-11-22 Completed [facility], 00:00:00 [place] [facility] Preserv and ABX Branch Free 6 MO-64 YRS HPV9 2020-11-22 Completed [facility] 00:00:00 [facility] Influenza Virus 2020-11-22 Completed [facility], 00:00:00 [place] [facility] Preserv and ABX Branch Free 6 MO-64 YRS HPV9 2020-11-22 Completed [facility] 00:00:00 [facility] Influenza Virus 2020-11-22 Completed [facility], 00:00:00 [place] [facility] Preserv and ABX Branch Free 6 MO-64 YRS HPV9 2020-11-22 Completed [facility] 00:00:00 [facility] Influenza Virus 2020-11-22 Completed [facility], 00:00:00 [place] [facility] Preserv and ABX Branch Free 6 MO-64 YRS HPV9 2020-11-22 Completed [facility] 00:00:00 [facility] Influenza Virus 2020-11-22 Completed [facility], 00:00:00 [place] [facility] Preserv and ABX Branch Free 6 MO-64 YRS HPV9 2020-11-22 Completed [facility] 00:00:00 [facility] Influenza Virus 2020-11-22 Completed [facility], 00:00:00 [facility] dical Preserv and ABX Branch Free 6 MO-64 YRS HPV9 2020-11-22 Completed [facility] 00:00:00 [facility] Influenza Virus 2020-11-22 Completed [facility], 00:00:00 [place] [facility] Preserv and ABX Branch Free 6 MO-64 YRS HPV9 2020-11-22 Completed [facility] 00:00:00 [facility] Influenza Virus 2020-11-22 Completed [facility], 00:00:00 [place] [facility] Preserv and ABX Branch Free 6 MO-64 YRS HPV9 2020-11-22 Completed [facility] 00:00:00 [facility] Influenza Virus 2020-11-22 Completed [facility], 00:00:00 [facility] dical Preserv and ABX Branch Free 6 MO-64 YRS HPV9 2020-11-22 Completed [facility] 00:00:00 [facility] Influenza Virus 2020-11-22 Completed [facility], 00:00:00 [facility] dical Preserv and ABX Branch Free 6 MO-64 YRS HPV9 2020-11-22 Completed [facility] 00:00:00 [facility] Influenza Virus 2020-11-22 Completed [facility], 00:00:00 [facility] dical Preserv and ABX Branch Free 6 MO-64 YRS HPV9 2020-11-22 Completed [facility] 00:00:00 [facility] SARS-COV-2 COVID-19 2020-10-08 Completed Unive rsity of PFIZER VACCINE 00:00:00 [facility] SARS-COV-2 COVID-19 2020-10-08 Completed [facility] of PFIZER VACCINE 00:00:00 [facility] SARS-COV-2 COVID-19 2020-10-08 Completed [facility] of PFIZER VACCINE 00:00:00 [facility] SARS-COV-2 COVID-19 2020-10-08 Completed [facility] of PFIZER VACCINE 00:00:00 [facility] SARS-COV-2 COVID-19 2020-10-08 Completed [facility] of PFIZER VACCINE 00:00:00 [facility] SARS-COV-2 COVID-19 2020-10-08 Completed [facility] of PFIZER VACCINE 00:00:00 [facility] SARS-COV-2 COVID-19 2020-10-08 Completed [facility]ive rsity of PFIZER VACCINE 00:00:00 [facility] SARS-COV-2 COVID-19 2020-10-08 Completed [facility] of PFIZER VACCINE 00:00:00 [facility] SARS-COV-2 COVID-19 2020-10-08 Completed [facility] of PFIZER VACCINE 00:00:00 [facility] SARS-COV-2 COVID-19 2020-10-08 Completed [facility] of PFIZER VACCINE 00:00:00 [facility] SARS-COV-2 COVID-19 2020-10-08 Completed [facility] of PFIZER VACCINE 00:00:00 [facility] SARS-COV-2 COVID-19 2020-10-08 Completed [facility] of PFIZER VACCINE 00:00:00 [facility] SARS-COV-2 COVID-19 2020-10-08 Completed [facility] of PFIZER VACCINE 00:00:00 [facility] SARS-COV-2 COVID-19 2020-10-08 Completed [facility] of PFIZER VACCINE 00:00:00 [facility] SARS-COV-2 COVID-19 2020-10-08 Completed [facility] of PFIZER VACCINE 00:00:00 [facility] SARS-COV-2 COVID-19 2020-10-08 Completed [facility] of PFIZER VACCINE 00:00:00 [facility] SARS-COV-2 COVID-19 2020-10-08 Completed [facility] of PFIZER VACCINE 00:00:00 [facility] SARS-COV-2 COVID-19 2020-10-08 Completed [facility] of PFIZER VACCINE 00:00:00 [facility] SARS-COV-2 COVID-19 2020-10-08 Completed [facility] of PFIZER VACCINE 00:00:00 [facility] SARS-COV-2 COVID-19 2020-10-08 Completed [facility] of PFIZER VACCINE 00:00:00 [facility] SARS-COV-2 COVID-19 2020-10-08 Completed [facility] of PFIZER VACCINE 00:00:00 [facility] SARS-COV-2 COVID-19 2020-10-08 Completed [facility] of PFIZER VACCINE 00:00:00 [facility] SARS-COV-2 COVID-19 2020-10-08 Completed [facility] of PFIZER VACCINE 00:00:00 [facility] SARS-COV-2 COVID-19 2020-10-08 Completed [facility] of PFIZER VACCINE 00:00:00 [facility] SARS-COV-2 COVID-19 2020-10-08 Completed [facility] of PFIZER VACCINE 00:00:00 [facility] SARS-COV-2 COVID-19 2020-10-08 Completed [facility] of PFIZER VACCINE 00:00:00 [facility] SARS-COV-2 COVID-19 2020-10-08 Completed [facility] of PFIZER VACCINE 00:00:00 [facility] SARS-COV-2 COVID-19 2020-10-08 Completed [facility] of PFIZER VACCINE 00:00:00 [facility] SARS-COV-2 COVID-19 2020-10-08 Completed [facility] of PFIZER VACCINE 00:00:00 [facility] SARS-COV-2 COVID-19 2020-10-08 Completed [facility] of PFIZER VACCINE 00:00:00 [facility] SARS-COV-2 COVID-19 2020-10-08 Completed [facility] of PFIZER VACCINE 00:00:00 [facility] SARS-COV-2 COVID-19 2020-10-08 Completed [facility] of PFIZER VACCINE 00:00:00 [facility] SARS-COV-2 COVID-19 2020-10-08 Completed [facility] of PFIZER VACCINE 00:00:00 [facility] SARS-COV-2 COVID-19 2020-10-08 Completed [facility] of PFIZER VACCINE 00:00:00 [facility] SARS-COV-2 COVID-19 2020-10-08 Completed [facility] of PFIZER VACCINE 00:00:00 [facility] SARS-COV-2 COVID-19 2020-10-08 Completed [facility] of PFIZER VACCINE 00:00:00 [facility] SARS-COV-2 COVID-19 2020-10-08 Completed [facility] of PFIZER VACCINE 00:00:00 [facility] SARS-COV-2 COVID-19 2020-10-08 Completed [facility] of PFIZER VACCINE 00:00:00 [facility] SARS-COV-2 COVID-19 2020-10-08 Completed [facility] of PFIZER VACCINE 00:00:00 [facility] SARS-COV-2 COVID-19 2020-10-08 Completed [facility] of PFIZER VACCINE 00:00:00 [facility] SARS-COV-2 COVID-19 2020-10-08 Completed [facility]ity of PFIZER VACCINE 00:00:00 [facility] SARS-COV-2 COVID-19 2020-09-16 Completed [facility] of PFIZER VACCINE 00:00:00 [facility] SARS-COV-2 COVID-19 2020-09-16 Completed [facility] of PFIZER VACCINE 00:00:00 [facility] SARS-COV-2 COVID-19 2020-09-16 Completed [facility] of PFIZER VACCINE 00:00:00 [facility] SARS-COV-2 COVID-19 2020-09-16 Completed [facility] of PFIZER VACCINE 00:00:00 [facility] SARS-COV-2 COVID-19 2020-09-16 Completed [facility] of PFIZER VACCINE 00:00:00 [facility] SARS-COV-2 COVID-19 2020-09-16 Completed [facility] of PFIZER VACCINE 00:00:00 [facility] SARS-COV-2 COVID-19 2020-09-16 Completed [facility] of PFIZER VACCINE 00:00:00 [facility] SARS-COV-2 COVID-19 2020-09-16 Completed [facility] of PFIZER VACCINE 00:00:00 [facility] SARS-COV-2 COVID-19 2020-09-16 Completed [facility] of PFIZER VACCINE 00:00:00 [facility] SARS-COV-2 COVID-19 2020-09-16 Completed [facility] PFIZER VACCINE 00:00:00 [facility] SARS-COV-2 COVID-19 2020-09-16 Completed [facility] of PFIZER VACCINE 00:00:00 [facility] SARS-COV-2 COVID-19 2020-09-16 Completed [facility] of PFIZER VACCINE 00:00:00 [facility] SARS-COV-2 COVID-19 2020-09-16 Completed [facility] of PFIZER VACCINE 00:00:00 [facility] SARS-COV-2 COVID-19 2020-09-16 Completed [facility] of PFIZER VACCINE 00:00:00 [facility] SARS-COV-2 COVID-19 2020-09-16 Completed [facility] of PFIZER VACCINE 00:00:00 [facility] SARS-COV-2 COVID-19 2020-09-16 Completed [facility] of PFIZER VACCINE 00:00:00 [facility] SARS-COV-2 COVID-19 2020-09-16 Completed [facility] of PFIZER VACCINE 00:00:00 [facility] SARS-COV-2 COVID-19 2020-09-16 Completed [facility] of PFIZER VACCINE 00:00:00 [facility] SARS-COV-2 COVID-19 2020-09-16 Completed [facility] of PFIZER VACCINE 00:00:00 [facility] SARS-COV-2 COVID-19 2020-09-16 Completed [facility] of PFIZER VACCINE 00:00:00 [facility] SARS-COV-2 COVID-19 2020-09-16 Completed [facility] of PFIZER VACCINE 00:00:00 [facility] SARS-COV-2 COVID-19 2020-09-16 Completed [facility] of PFIZER VACCINE 00:00:00 [facility] SARS-COV-2 COVID-19 2020-09-16 Completed [facility] of PFIZER VACCINE 00:00:00 [facility] SARS-COV-2 COVID-19 2020-09-16 Completed [facility] of PFIZER VACCINE 00:00:00 [facility] SARS-COV-2 COVID-19 2020-09-16 Completed [facility] of PFIZER VACCINE 00:00:00 [facility] SARS-COV-2 COVID-19 2020-09-16 Completed [facility] of PFIZER VACCINE 00:00:00 [facility] SARS-COV-2 COVID-19 2020-09-16 Completed [facility] of PFIZER VACCINE 00:00:00 [facility] SARS-COV-2 COVID-19 2020-09-16 Completed [facility] of PFIZER VACCINE 00:00:00 [facility] SARS-COV-2 COVID-19 2020-09-16 Completed [facility] of PFIZER VACCINE 00:00:00 [facility] SARS-COV-2 COVID-19 2020-09-16 Completed [facility] of PFIZER VACCINE 00:00:00 [facility] SARS-COV-2 COVID-19 2020-09-16 Completed [facility] of PFIZER VACCINE 00:00:00 [facility] SARS-COV-2 COVID-19 2020-09-16 Completed [facility] of PFIZER VACCINE 00:00:00 [facility] SARS-COV-2 COVID-19 2020-09-16 Completed [facility] of PFIZER VACCINE 00:00:00 [facility] SARS-COV-2 COVID-19 2020-09-16 Completed [facility] of PFIZER VACCINE 00:00:00 [facility] SARS-COV-2 COVID-19 2020-09-16 Completed [facility] of PFIZER VACCINE 00:00:00 [facility] SARS-COV-2 COVID-19 2020-09-16 Completed [facility] of PFIZER VACCINE 00:00:00 [facility] SARS-COV-2 COVID-19 2020-09-16 Completed [facility] of PFIZER VACCINE 00:00:00 [facility] SARS-COV-2 COVID-19 2020-09-16 Completed [facility] of PFIZER VACCINE 00:00:00 [facility] SARS-COV-2 COVID-19 2020-09-16 Completed [facility] of PFIZER VACCINE 00:00:00 [facility] SARS-COV-2 COVID-19 2020-09-16 Completed [facility] of PFIZER VACCINE 00:00:00 [facility] SARS-COV-2 COVID-19 2020-09-16 Completed [facility] of PFIZER VACCINE 00:00:00 [facility] TDAP 2020-08-09 Completed [facility] 00:00:00 [facility] TDAP 2020-08-09 Completed [facility] 00:00:00 [facility] TDAP 2020-08-09 Completed [facility] 00:00:00 [facility] TDAP 2020-08-09 Completed [facility] 00:00:00 [facility] TDAP 2020-08-09 Completed [facility] 00:00:00 [facility] TD 2020-08-09 Completed [facility] 00:00:00 [facility] TD 2020-08-09 Completed [facility] 00:00:00 [facility] TD 2020-08-09 Completed [facility] 00:00:00 [facility] TDAP 2020-08-09 Completed [facility] 00:00:00 [facility] TD 2020-08-09 Completed [facility] 00:00:00 [facility] TDAP 2020-08-09 Completed [facility] 00[facility]00:00 [facility] TD 2020-08-09 Completed [facility] 00:00:00 [facility] TD 2020-08-09 Completed [facility] 00:00:00 [facility] 2020-08-09 Completed [facility] 00:00:00 [facility] 2020-08-09 Completed [facility] 00[facility]00:00 [facility] TDAP 2020-08-09 Completed [facility] 00:00:00 [facility] TD 2020-08-09 Completed [facility] 00:00:00 [facility] TD 2020-08-09 Completed [facility] 00:00:00 [facility] TD 2020-08-09 Completed [facility] 00:00:00 [facility] TD 2020-08-09 Completed [facility] 00:00:00 [facility] TDAP 2020-08-09 Completed [facility] 00:00:00 [facility] TDAP 2020-08-09 Completed [facility] 00:00:00 [facility] TDAP 2020-08-09 Completed [facility] 00:00:00 [facility] TDAP 2020-08-09 Completed [facility] 00:00:00 [facility] TDAP 2020-08-09 Completed [facility] 00:00:00 [facility] TDAP 2020-08-09 Completed [facility] 00:00:00 [facility] TDAP 2020-08-09 Completed [facility] 00:00:00 [facility] TDAP 2020-08-09 Completed [facility] 00:00:00 [facility] TDAP 2020-08-09 Completed [facility] 00:00:00 [facility] TDAP 2020-08-09 Completed [facility] 00:00:00 [facility] TDAP 2020-08-09 Completed [facility] 00:00:00 [facility] TDAP 2020-08-09 Completed [facility] 00:00:00 [facility] TDAP 2020-08-09 Completed [facility] 00:00:00 [facility] TDAP 2020-08-09 Completed [facility] 00:00:00 [facility] TDAP 2020-08-09 Completed [facility] 00:00:00 [facility] TDAP 2020-08-09 Completed [facility] 00:00:00 [facility] TDAP 2020-08-09 Completed [facility] 00:00:00 [facility] TDAP 2020-08-09 Completed [facility] 00:00:00 [facility] TDAP 2020-08-09 Completed [facility] 00:00:00 [facility] TDAP 2020-08-09 Completed [facility] 00:00:00 [facility] TDAP 2020-08-09 Completed [facility] 00:00:00 [facility] HPV9 2017-09-24 Completed [facility] 00:00:00 [facility] HPV9 2017-09-24 Completed [facility] 00:00:00 [facility] HPV9 2017-09-24 Completed [facility] 00:00:00 [facility] HPV9 2017-09-24 Completed [facility] 00:00:00 [facility] HPV9 2017-09-24 Completed [facility] 00:00:00 [facility] HPV9 2017-09-24 Completed [facility] 00:00:00 [facility] HPV9 2017-09-24 Completed [facility] 00:00:00 [facility] HPV9 2017-09-24 Completed [facility] 00:00:00 [facility] HPV9 2017-09-24 Completed [facility] 00:00:00 [facility] HPV9 2017-09-24 Completed [facility] 00:00:00 [facility] HPV9 2017-09-24 Completed [facility] 00:00:00 [facility] HPV9 2017-09-24 Completed [facility] 00:00:00 [facility] HPV9 2017-09-24 Completed [facility] 00:00:00 [facility] HPV9 2017-09-24 Completed [facility] 00:00:00 [facility] HPV9 2017-09-24 Completed [facility] 00:00:00 [facility] HPV9 2017-09-24 Completed [facility] 00:00:00 [facility] HPV9 2017-09-24 Completed [facility] 00:00:00 [facility] HPV9 2017-09-24 Completed [facility] 00:00:00 [facility] HPV9 2017-09-24 Completed [facility] 00:00:00 [facility] HPV9 2017-09-24 Completed [facility] 00:00:00 [facility] HPV9 2017-09-24 Completed [facility] 00:00:00 [facility] HPV9 2017-09-24 Completed [facility] 00:00:00 [facility] HPV9 2017-09-24 Completed [facility] 00:00:00 [facility] HPV9 2017-09-24 Completed [facility] 00:00:00 [facility] HPV9 2017-09-24 Completed [facility] 00:00:00 [facility] HPV9 2017-09-24 Completed [facility] 00:00:00 [facility] HPV9 2017-09-24 Completed [facility] 00:00:00 [facility] HPV9 2017-09-24 Completed [facility] 00:00:00 [facility] HPV9 2017-09-24 Completed [facility] 00:00:00 [facility] HPV9 2017-09-24 Completed [facility] 00:00:00 [facility] HPV9 2017-09-24 Completed [facility] 00:00:00 [facility] HPV9 2017-09-24 Completed [facility] 00:00:00 [facility] HPV9 2017-09-24 Completed [facility] 00:00:00 [facility] HPV9 2017-09-24 Completed [facility] 00:00:00 [facility] HPV9 2017-09-24 Completed [facility] 00:00:00 [facility] HPV9 2017-09-24 Completed [facility] 00:00:00 [facility] HPV9 2017-09-24 Completed [facility] 00:00:00 [facility] HPV9 2017-09-24 Completed [facility] 00:00:00 [facility] HPV9 2017-09-24 Completed [facility] 00:00:00 [facility] HPV9 2017-09-24 Completed [facility] 00:00:00 [facility] HPV9 2017-09-24 Completed [facility] 00:00:00 [facility] TDAP 2017-07-09 Completed [facility] 00:00:00 [facility] TDAP 2017-07-09 Completed [facility] 00:00:00 [facility] TDAP 2017-07-09 Completed [facility] 00:00:00 [facility] TDAP 2017-07-09 Completed [facility] 00:00:00 [facility] TDAP 2017-07-09 Completed [facility] 00:00:00 [facility] TDAP 2017-07-09 Completed [facility] 00:00:00 [facility] TDAP 2017-07-09 Completed [facility] 00:00:00 [facility] TDAP 2017-07-09 Completed [facility] 00:00:00 [facility] TDAP 2017-07-09 Completed [facility] 00:00:00 [facility] TDAP 2017-07-09 Completed [facility] 00:00:00 [facility] TDAP 2017-07-09 Completed [facility] 00:00:00 [facility] TDAP 2017-07-09 Completed [facility] 00:00:00 [facility] TDAP 2017-07-09 Completed [facility] 00:00:00 [facility] TDAP 2017-07-09 Completed [facility] 00:00:00 [facility] TDAP 2017-07-09 Completed [facility] 00:00:00 [facility] TDAP 2017-07-09 Completed [facility] 00:00:00 [facility] TDAP 2017-07-09 Completed [facility] 00:00:00 [facility] TDAP 2017-07-09 Completed [facility] 00:00:00 [facility] TDAP 2017-07-09 Completed [facility] 00:00:00 [facility] TDAP 2017-07-09 Completed [facility] 00:00:00 [facility] TDAP 2017-07-09 Completed [facility] 00:00:00 [facility] TDAP 2017-07-09 Completed [facility] 00:00:00 [facility] TDAP 2017-07-09 Completed [facility] 00:00:00 [facility] TDAP 2017-07-09 Completed [facility] 00:00:00 [facility] TDAP 2017-07-09 Completed [facility] 00:00:00 [facility] TDAP 2017-07-09 Completed [facility] 00:00:00 [facility] TDAP 2017-07-09 Completed [facility] 00:00:00 [facility] TDAP 2017-07-09 Completed [facility] 00:00:00 [facility] TDAP 2017-07-09 Completed [facility] 00:00:00 [facility] TDAP 2017-07-09 Completed [facility] 00:00:00 [facility] TDAP 2017-07-09 Completed [facility] 00:00:00 [facility] TDAP 2017-07-09 Completed [facility] 00:00:00 [facility] TDAP 2017-07-09 Completed [facility] 00:00:00 [facility] TDAP 2017-07-09 Completed [facility] 00:00:00 [facility] TDAP 2017-07-09 Completed [facility] 00:00:00 [facility] TDAP 2017-07-09 Completed [facility] 00:00:00 [facility] TDAP 2017-07-09 Completed [facility] 00:00:00 [facility] TDAP 2017-07-09 Completed [facility] 00:00:00 [facility] TDAP 2017-07-09 Completed [facility] 00:00:00 [facility] TDAP 2017-07-09 Completed [facility] 00:00:00 [facility] TDAP 2017-07-09 Completed [facility] 00:00:00 [facility] Influenza Virus 2017-01-21 Completed [facility] HPV9 2016-11-06 Completed [facility] 00:00:00 [facility] HPV9 2016-11-06 Completed [facility] 00:00:00 [facility] HPV9 2016-11-06 Completed [facility] 00[facility]00:00 [facility] HPV9 2016-11-06 Completed [facility] 00:00:00 [facility] HPV9 2016-11-06 Completed [facility] 00:00:00 [facility] HPV9 2016-11-06 Completed [facility] 00:00:00 [facility] HPV9 2016-11-06 Completed [facility] 00:00:00 [facility] HPV9 2016-11-06 Completed [facility] 00:00:00 [facility] HPV9 2016-11-06 Completed [facility] 00:00:00 [facility] HPV9 2016-11-06 Completed [facility] 00:00:00 [facility] HPV9 2016-11-06 Completed [facility] 00:00:00 [facility] HPV9 2016-11-06 Completed [facility] 00:00:00 [facility] HPV9 2016-11-06 Completed [facility] 00:00:00 [facility] HPV9 2016-11-06 Completed [facility] 00:00:00 [facility] HPV9 2016-11-06 Completed [facility] 00:00:00 [facility] HPV9 2016-11-06 Completed [facility] 00:00:00 [facility] HPV9 2016-11-06 Completed [facility] 00:00:00 [facility] HPV9 2016-11-06 Completed [facility] 00:00:00 [facility] HPV9 2016-11-06 Completed [facility] 00:00:00 [facility] HPV9 2016-11-06 Completed [facility] 00:00:00 [facility] HPV9 2016-11-06 Completed [facility] 00:00:00 [facility] HPV9 2016-11-06 Completed [facility] 00:00:00 [facility] HPV9 2016-11-06 Completed [facility] 00:00:00 [facility] HPV9 2016-11-06 Completed [facility] 00:00:00 [facility] HPV9 2016-11-06 Completed [facility] 00:00:00 [facility] HPV9 2016-11-06 Completed [facility] 00:00:00 [facility] HPV9 2016-11-06 Completed [facility] 00:00:00 [facility] HPV9 2016-11-06 Completed [facility] 00:00:00 [facility] HPV9 2016-11-06 Completed [facility] 00:00:00 [facility] HPV9 2016-11-06 Completed [facility] 00:00:00 [facility] HPV9 2016-11-06 Completed [facility] 00:00:00 [facility] HPV9 2016-11-06 Completed [facility] 00:00:00 [facility] HPV9 2016-11-06 Completed [facility] 00:00:00 [facility] HPV9 2016-11-06 Completed [facility] 00:00:00 [facility] HPV9 2016-11-06 Completed [facility] 00:00:00 [facility] HPV9 2016-11-06 Completed [facility] 00:00:00 [facility] HPV9 2016-11-06 Completed [facility] 00:00:00 [facility] HPV9 2016-11-06 Completed [facility] 00:00:00 [facility] HPV9 2016-11-06 Completed [facility] 00:00:00 [facility] HPV9 2016-11-06 Completed [facility] 00:00:00 [facility] HPV9 2016-11-06 Completed [facility] 00:00:00 [facility] TDAP 2015-05-16 Completed [facility] 00:00:00 [facility] TDAP 2015-05-16 Completed [facility] 00:00:00 [facility] TDAP 2015-05-16 Completed [facility] 00:00:00 [facility] TDAP 2015-05-16 Completed [facility] 00:00:00 [facility] TDAP 2015-05-16 Completed [facility] 00:00:00 [facility] TDAP 2015-05-16 Completed [facility] 00:00:00 [facility] TDAP 2015-05-16 Completed [facility] 00:00:00 [facility] TDAP 2015-05-16 Completed [facility] 00:00:00 [facility] TDAP 2015-05-16 Completed [facility] 00:00:00 [facility] TDAP 2015-05-16 Completed [facility] 00:00:00 [facility] TDAP 2015-05-16 Completed [facility] 00:00:00 [facility] TDAP 2015-05-16 Completed [facility] 00:00:00 [facility] TDAP 2015-05-16 Completed [facility] 00:00:00 [facility] TDAP 2015-05-16 Completed [facility] 00:00:00 [facility] TDAP 2015-05-16 Completed [facility] 00:00:00 [facility] TDAP 2015-05-16 Completed [facility] 00:00:00 [facility] TDAP 2015-05-16 Completed [facility] 00:00:00 [facility] TDAP 2015-05-16 Completed [facility] 00:00:00 [facility] TDAP 2015-05-16 Completed [facility] 00:00:00 [facility] TDAP 2015-05-16 Completed [facility] 00:00:00 [facility] TDAP 2015-05-16 Completed [facility] 00:00:00 [facility] TDAP 2015-05-16 Completed [facility] 00:00:00 [facility] TDAP 2015-05-16 Completed [facility] 00:00:00 [facility] TDAP 2015-05-16 Completed [facility] 00:00:00 [facility] TDAP 2015-05-16 Completed [facility] 00:00:00 [facility] TDAP 2015-05-16 Completed [facility] 00:00:00 [facility] TDAP 2015-05-16 Completed [facility] 00:00:00 [facility] TDAP 2015-05-16 Completed [facility] 00:00:00 [facility] TDAP 2015-05-16 Completed [facility] 00:00:00 [facility] TDAP 2015-05-16 Completed [facility] 00:00:00 [facility] TDAP 2015-05-16 Completed [facility] 00:00:00 [facility] TDAP 2015-05-16 Completed [facility] 00:00:00 [facility] TDAP 2015-05-16 Completed [facility] 00:00:00 [facility] TDAP 2015-05-16 Completed [facility] 00:00:00 [facility] TDAP 2015-05-16 Completed [facility] 00:00:00 [facility] TDAP 2015-05-16 Completed [facility] 00:00:00 [facility] TDAP 2015-05-16 Completed [facility] 00:00:00 [facility] TDAP 2015-05-16 Completed [facility] 00:00:00 [facility] TDAP 2015-05-16 Completed [facility] 00:00:00 [facility] TDAP 2015-05-16 Completed [facility] 00:00:00 [facility] TDAP 2015-05-16 Completed [facility] 00:00:00 [facility] Influenza Virus 2014-12-05 Completed Universit y [...] y of [facility] 3+ 00:00:00 [facility] Influenza Virus 2014-12-05 Completed [facility]it y of [facility] 3+ 00:00:00 [facility] Influenza Virus 2014-12-05 Completed [facility]it y of [facility] 3+ 00:00:00 [facility] Influenza Virus 2014-12-05 Completed [facility]it y of [facility] 3+ 00:00:00 [facility] Influenza Virus 2014-12-05 Completed [facility]it y of [facility] 3+ 00:00:00 [facility] Influenza Virus 2014-12-05 Completed [facility]it y of [facility] 3+ 00:00:00 [facility] Influenza Virus 2014-12-05 Completed [facility]it y of [facility] 3+ 00:00:00 [facility] Influenza Virus 2014-12-05 Completed [facility]it y [facility]+ 00:00:00 [facility] Influenza Virus 2014-12-05 Completed [facility]it y of [facility]+ 00:00:00 [facility] Influenza Virus 2014-12-05 Completed [facility]it y of [facility] 3+ 00:00:00 [facility] Influenza Virus 2014-12-05 Completed [facility]it y of [facility]+ 00:00:00 [facility] Influenza Virus 2014-12-05 Completed [facility]it y of [facility] 3+ 00:00:00 [facility] Influenza Virus 2014-12-05 Completed [facility]it y of [facility] 3+ 00:00:00 [facility] Influenza Virus 2014-12-05 Completed [facility]it y of [facility]+ 00:00:00 [facility] Influenza Virus 2014-12-05 Completed [facility]it y of [...] Hospital TDAP 2009-02-10 Completed [facility] 00:00:00 [facility] TDAP 2009-02-10 Completed [facility] 00:00:00 [facility] TDAP 2009-02-10 Completed [facility] 00:00:00 [facility] TDAP 2009-02-10 Completed [facility] 00:00:00 [facility] TDAP 2009-02-10 Completed [facility] 00:00:00 [facility] TDAP 2009-02-10 Completed [facility] 00:00:00 [facility] TDAP 2009-02-10 Completed [facility] 00:00:00 [facility] TDAP 2009-02-10 Completed [facility] 00:00:00 [facility] TDAP 2009-02-10 Completed [facility] 00:00:00 [facility] TDAP 2009-02-10 Completed [facility] 00:00:00 [facility] TDAP 2009-02-10 Completed [facility] 00:00:00 [facility] TDAP 2009-02-10 Completed [facility] 00:00:00 [facility] TDAP 2009-02-10 Completed [facility] of 00:00:00 [facility] TDAP 2009-02-10 Completed [facility] of 00:00:00 [facility] TDAP 2009-02-10 Completed [facility] of 00:00:00 [facility] TDAP 2009-02-10 Completed [facility] of 00:00:00 [facility] TDAP 2009-02-10 Completed [facility] of 00:00:00 [facility] TDAP 2009-02-10 Completed [facility] of 00:00:00 [facility] TDAP 2009-02-10 Completed [facility] 00:00:00 [facility] TDAP 2009-02-10 Completed [facility] of 00:00:00 [facility] TDAP 2009-02-10 Completed [facility] 00:00:00 [facility] TDAP 2009-02-10 Completed [facility] of 00:00:00 [facility] TDAP 2009-02-10 Completed [facility] of 00:00:00 [facility] TDAP 2009-02-10 Completed [facility] of 00:00:00 [facility] TDAP 2009-02-10 Completed [facility] of 00:00:00 [facility] TDAP 2009-02-10 Completed [facility] of 00:00:00 [facility] TDAP 2009-02-10 Completed [facility] 00:00:00 [facility] TDAP 2009-02-10 Completed [facility] of 00:00:00 [facility] TDAP 2009-02-10 Completed [facility] of 00:00:00 [facility] TDAP 2009-02-10 Completed [facility] of 00:00:00 [facility] TDAP 2009-02-10 Completed [facility] of 00:00:00 [facility] TDAP 2009-02-10 Completed [facility] of 00:00:00 [facility] TDAP 2009-02-10 Completed [facility] of 00:00:00 [facility] TDAP 2009-02-10 Completed [facility] of 00:00:00 [facility] TDAP 2009-02-10 Completed [facility] of 00:00:00 [facility] TDAP 2009-02-10 Completed [facility] 00:00:00 [facility] TDAP 2009-02-10 Completed [facility] of 00:00:00 [facility] TDAP 2009-02-10 Completed [facility] 00:00:00 [facility] TDAP 2009-02-10 Completed University 00:00:00 [facility] TDAP 2009-02-10 Completed University 00:00:00 [facility] TDAP 2009-02-10 Completed University 00:00:00 [facility] Vital Signs Vital Name Observation Time Observation Value Comments Source Systolic blood 2022-03-15 16:38:00 114 mm[Hg] Univer sity of pressure [facility] Diastolic blood 2022-03-15 16:38:00 62 mm[Hg] Unive rsity of pressure [facility] Heart rate 2022-03-15 16:38:00 84 /min Universi ty of [facility] Body temperature 2022-03-15 16:38:00 36.56 [place] Univ ersity of [facility] Respiratory rate 2022-03-15 16:38:00 18 /min Univ ersity of [facility] Body height 2022-03-15 16:38:00 157.5 cm Universi ty of [facility] Body weight 2022-03-15 16:38:00 100.018 kg [facility]i ty of [facility] BMI 2022-03-15 16:38:00 40.33 kg/m2 [facility] of [facility] Systolic blood 2022-02-18 13:25:00 102 mm[Hg] Univer sity of pressure [facility] Diastolic blood 2022-02-18 13:25:00 66 mm[Hg] Unive rsity of pressure [facility] Heart rate 2022-02-18 13:25:00 95 /min [facility]i ty of [facility] Body temperature 2022-02-18 13:25:00 36.78 [place] Univ ersity of [facility] Respiratory rate 2022-02-18 13:25:00 18 /min Univ ersity of [facility] Oxygen saturation 2022-02-18 13:25:00 99 /min Uni versity of in Arterial blood [facility] by Pulse oximetry [place] Body height 2022-02-15 12:00:00 157.5 cm Universi ty of [facility] Body weight 2022-02-15 12:00:00 108.41 kg [facility]i [facility] of [facility] BMI 2022-02-15 12:00:00 43.71 kg/m2 [facility] Systolic blood 2022-02-15 14:00:00 104 mm[Hg] Univer sity of pressure [facility] Diastolic blood 2022-02-15 14:00:00 52 mm[Hg] Unive rsity of pressure [facility] Heart rate 2022-02-15 14:00:00 79 /min [facility]i ty of [facility] Respiratory rate 2022-02-15 14:00:00 17 /min Univ ersity of [facility] Oxygen saturation 2022-02-15 14:00:00 100 /min Uni versity of in Arterial blood [facility] by [facility]xim[facility] Branch Body temperature 2022-02-15 13:00:00 36.33 [place] Univ ersity of [facility] Body height 2022-02-15 12:00:00 157.5 cm [facility]i [facility] of [facility] Body weight 2022-02-15 12:00:00 108.41 kg [facility]i [facility] of [facility] BMI 2022-02-15 12:00:00 43.71 kg/m2 [facility] of [facility] Systolic blood 2022-02-11 21:03:00 111 mm[Hg] Univer sity of pressure [facility] Diastolic blood 2022-02-11 21:03:00 74 mm[Hg] Unive rsity of [facility] Heart rate 2022-02-11 21:03:00 99 /min [facility]i ty of [facility] Body temperature 2022-02-11 21:03:00 36.11 [place] [facility] Respiratory rate 2022-02-11 21:03:00 18 /min Univ ersity of [facility] Body height 2022-02-11 21:03:00 157.5 cm [facility] of [facility] Body weight 2022-02-11 21:03:00 107.673 kg [facility]i [facility] of [facility] BMI 2022-02-11 21:03:00 43.42 kg/m2 [facility] Systolic blood 2022-02-07 22:37:00 129 mm[Hg] Univer sity of pressure [facility] Diastolic blood 2022-02-07 22:37:00 79 mm[Hg] Unive rsity of pressure [facility] Body height 2022-02-07 22:37:00 157.5 cm [facility] of [facility] Body weight 2022-02-07 22:37:00 108.863 kg [facility] BMI 2022-02-07 22:37:00 43.90 kg/m2 [facility] Systolic blood 2022-01-31 20:45:00 134 mm[Hg] Univer sity of pressure [facility] Diastolic blood 2022-01-31 20:45:00 71 mm[Hg] Unive rsity of pressure [facility] Heart rate 2022-01-31 20:45:00 107 /min [facility] Body temperature 2022-01-31 20:45:00 36.44 [facility] Respiratory rate 2022-01-31 20:45:00 18 /min Univ ersity of [facility] Body height 2022-01-31 20:45:00 157.5 cm [facility] Body weight 2022-01-31 20:45:00 109.634 kg [facility] BMI 2022-01-31 20:45:00 44.21 kg/m2 [facility] Systolic blood 2022-01-28 15:28:00 118 mm[Hg] Univer sity of pressure [facility] Diastolic blood 2022-01-28 15:28:00 61 mm[Hg] Unive rsity of pressure [facility] Heart rate 2022-01-28 15:28:00 97 /min [facility] Body temperature 2022-01-28 15:28:00 36.67 [facility] Respiratory rate 2022-01-28 15:28:00 18 /min Univ ersity of [facility] Body height 2022-01-28 15:28:00 157.5 cm [facility] Body weight 2022-01-28 15:28:00 109.374 kg [facility] BMI 2022-01-28 15:28:00 44.10 kg/m2 [facility] Systolic blood 2022-01-24 22:01:00 124 mm[Hg] Univer sity of pressure [facility] Diastolic blood 2022-01-24 22:01:00 78 mm[Hg] Unive rsity of pressure [facility] Heart rate 2022-01-24 22:01:00 97 /min [facility] Body temperature 2022-01-24 22:01:00 36.39 [place] Univ ersity of [facility] Respiratory rate 2022-01-24 22:01:00 17 /min Univ ersity of [facility] Body height 2022-01-24 22:01:00 157.5 cm Universi ty of [facility] Body weight 2022-01-24 22:01:00 109.045 kg Universi ty of [facility] BMI 2022-01-24 22:01:00 43.97 kg/m2 [facility] ty of [facility] Systolic blood 2022-01-17 14:17:00 102 mm[Hg] Univer sity of pressure [facility] Diastolic blood 2022-01-17 14:17:00 65 mm[Hg] Unive rsity of pressure [facility] Heart rate 2022-01-17 14:17:00 90 /min [facility]i ty of [facility] Body temperature 2022-01-17 14:17:00 36.5 [facility] of [facility] Respiratory rate 2022-01-17 14:17:00 20 /min Univ ersity of [facility] Body height 2022-01-17 14:17:00 157.5 cm [facility]i ty of [facility] Body weight 2022-01-17 14:17:00 108.319 kg [facility] [place] [facility] [place] BMI 2022-01-17 14:17:00 43.68 kg/m2 [facility] ty of [facility] Heart rate 2022-01-06 15:30:00 90 /min [facility]i ty of [facility] Oxygen saturation 2022-01-06 15:30:00 100 /min Uni versity of in Arterial blood [facility] by Pulse oxim[facility] Branch Systolic blood 2022-01-06 14:59:00 113 mm[Hg] sitting up Univer sity of pressure [facility] Diastolic blood 2022-01-06 14:59:00 71 mm[Hg] sitting up Unive rsity of pressure [facility] Respiratory rate 2022-01-06 14:59:00 18 /min Univ ersity of [facility] Body temperature 2022-01-06 14:34:00 36.61 [place] [facility] of [facility] Body height 2022-01-06 14:34:00 160 cm [facility] Body weight 2022-01-06 14:34:00 108.863 kg [facility] BMI 2022-01-06 14:34:00 42.52 kg/m2 [facility] Systolic blood 2021-12-28 14:25:00 139 mm[Hg] Univer sity of pressure [facility] Diastolic blood 2021-12-28 14:25:00 81 mm[Hg] Unive rsity of pressure [facility] Heart rate 2021-12-28 14:25:00 104 /min [facility] Body temperature 2021-12-28 14:25:00 36.5 [facility] Respiratory rate 2021-12-28 14:25:00 16 /min Univ ersity of [facility] Body height 2021-12-28 14:25:00 162.6 cm [facility] Body weight 2021-12-28 14:25:00 109.317 kg [facility] BMI 2021-12-28 14:25:00 41.37 kg/m2 [facility] Systolic blood 2021-12-12 18:58:00 139 mm[Hg] Univer sity of pressure [facility] Diastolic blood 2021-12-12 18:58:00 78 mm[Hg] Unive rsity of pressure [facility] Heart rate 2021-12-12 18:58:00 101 /min [facility] Body temperature 2021-12-12 18:58:00 36.5 [facility] Respiratory rate 2021-12-12 18:58:00 18 /min Univ [facility] Body height 2021-12-12 18:58:00 162.6 cm [facility] Body weight 2021-12-12 18:58:00 107.077 kg [facility] BMI 2021-12-12 18:58:00 40.52 kg/m2 [facility] Systolic blood 2021-11-05 21:20:00 120 mm[Hg] Univer sity of pressure [facility] Diastolic blood 2021-11-05 21:20:00 71 mm[Hg] Unive rsity of pressure [facility] Heart rate 2021-11-05 21:20:00 101 /min [facility] Body temperature 2021-11-05 21:20:00 36.5 [facility] Respiratory rate 2021-11-05 21:20:00 20 /min Univ [facility]ity of [facility] Body height 2021-11-05 21:20:00 162.6 cm [facility] Body weight 2021-11-05 21:20:00 105.291 kg [facility] BMI 2021-11-05 21:20:00 39.84 kg/m2 [facility] Heart rate 2021-11-02 00:45:00 96 /min [facility]i ty of [facility] Oxygen saturation 2021-11-02 00:45:00 100 /min Uni versity of in Arterial blood [facility] Pulse oxim[facility] Systolic blood 2021-11-02 00:15:00 123 mm[Hg] Univer sity of pressure [facility] Diastolic blood 2021-11-02 00:15:00 64 mm[Hg] Unive rsity of pressure [facility] Body temperature 2021-11-02 00:12:00 36.72 [facility] Respiratory rate 2021-11-02 00:12:00 18 /min Univ ersity of [facility] Body height 2021-11-01 22:23:00 162.6 cm [facility] Body weight 2021-11-01 22:23:00 107.049 kg [facility] BMI 2021-11-01 22:23:00 40.51 kg/m2 [facility] Systolic blood 2021-10-25 19:51:00 125 mm[Hg] Univer sity of pressure [facility] Diastolic blood 2021-10-25 19:51:00 79 mm[Hg] Unive rsity of pressure [facility] Heart rate 2021-10-25 19:51:00 96 /min [facility] Body temperature 2021-10-25 19:51:00 36.5 [facility] Respiratory rate 2021-10-25 19:51:00 18 /min [facility] Body weight 2021-10-25 19:51:00 109.272 kg [facility] BMI 2021-10-25 19:51:00 41.35 kg/m2 [facility] Procedures Procedure Date / Time Performing Clinician Source Performed POCT URINALYSIS 2022-02-22 16:10:00 Marcelle Munguia [facility] POCT GLUCOSE (AUTOMATED) 2022-02-18 16:52:00 Neves [facility] POCT GLUCOSE (AUTOMATED) 2022-02-18 [facility]22-02-18 [facility]:08[facility] 2022-02-18 12:08:00 Neves [facility] POCT GLUCOSE (AUTOMATED) 2022-02-18 03:44[facility] 2022-02-18 03:44:00 Neves [facility] POCT GLUCOSE (AUTOMATED) 2022-02-18 01:41:00 Neves [facility] POCT GLUCOSE (AUTOMATED) 2022-02-18 01:41:00 Neves [facility] POCT GLUCOSE (AUTOMATED) 2022-02-17 21:04:00 Neves [facility] POCT GLUCOSE (AUTOMATED) 2022-02-17 21:04:00 Neves [facility] POCT GLUCOSE (AUTOMATED) 2022-02-17 16:46:00 Neves [facility] POCT GLUCOSE (AUTOMATED) 2022-02-17 16:46:00 Neves [facility] POCT GLUCOSE (AUTOMATED) 2022-02-17 11:59:00 Neves [facility] POCT GLUCOSE (AUTOMATED) 2022-02-17 11:59[facility] 2022-02-17 04:24:00 Neves [facility] POCT GLUCOSE (AUTOMATED) 2022-02-17 04:24:00 Neves [facility] POCT GLUCOSE (AUTOMATED) 2022-02-16 22:02:00 Neves [facility] POCT GLUCOSE (AUTOMATED) 2022-02-16 22:02:00 Neves [facility] POCT GLUCOSE (AUTOMATED) 2022-02-16 14:22:00 Neves [facility] POCT GLUCOSE (AUTOMATED) 2022-02-16 14:22:00 Neves, [facility] CBC WITH DIFF 2022-02-16 07:22:00 [facility] CBC WITH DIFF 2022-02-16 07:22:00 [facility] VENOUS CORD GAS 2022-02-15 15:17:00 Chaljucorwin [facility] VENOUS CORD GAS 2022-02-15 15:17:00 Diane [facility] SECTION 2022-02-15 14:07:00 Neves, [facility] SECTION 2022-02-15 14:07[facility] 2022-02-15 12:26:00 Diane [facility] HEPATITIS B SURFACE 2022-02-15 12:26:00 Diane [facility] ANTIGEN [facility] GALV ONLY - SYPHILIS 2022-02-15 12:26:00 Diane [facility] IGG/IGM [facility] CBC WITH DIFF 2022-02-15 12:26:00 Diane [facility] HEPATITIS B SURFACE 2022-02-15 12:26:00 [facility] GALV ONLY - SYPHILIS 2022-02-15 12:26:00 Diane [facility] IGG/IGM [facility] POCT GLUCOSE (AUTOMATED) 2022-02-15 12:15:00 Edinson [facility] POCT GLUCOSE (AUTOMATED) 2022-02-15 12:15:00 Edinson Viktor [facility] HB ABO GROUPING 2022-02-15 12:10:00 [facility] o [facility] RHO (D) IMMUNE GLOBULIN 2022-02-15 12:10:00 Vasiliy Morton Uni [facility] HB ABO GROUPING 2022-02-15 12:10:00 [facility] RHO (D) IMMUNE GLOBULIN 2022-02-15 12:10:00 Vasiliy [facility] NON-STRESS TEST 2022-02-11 21:46:44 Akinsipe, Marcelle C U [facility] POCT URINALYSIS 2022-02-11 21:04:00 Akinsipe, Marcelle C [facility] DIABETES TESTING REPORTS 2022-02-11 06:01:00 Doctor Unassigned, Libby [facility] NON-STRESS TEST 2022-02-07 22:37:[address] POCT URINALYSIS 2022-02-07 21:36:00 Akinsipe, Marcelle C [facility] NON-STRESS TEST 2022-01-31 21:49:50 Akinsipe, Marcelle C U [facility] POCT URINALYSIS 2022-01-31 00:00:00 Akinsipe, Marcelle C Univers [facility] NON-STRESS TEST 2022-01-28 16:02:49 Akinsipe, Marcelle C U [facility] POCT URINALYSIS 2022-01-28 15:31:00 Akinsipe, Marcelle C Univers [facility] DIABETES TESTING REPORTS 2022-01-28 06:01:00 Doctor Unassigned, Libby [facility] NON-STRESS TEST 2022-01-24 22:41:[address] POCT URINALYSIS 2022-01-24 00:00:00 Marcelle Munguia [facility] ASSIGNMENT OF BENEFITS 2022-01-17 13:56:35 Doctor Unassigned, No [facility] POCT URINALYSIS 2022-01-17 00:00:00 Marcelle Munguia [facility] CONSENT/REFUSAL FOR 2022-01-06 13:49:04 Doctor Unassigned, No [facility] [place] [facility] L&D VISIT 2022-01-06 06:01:00 Doctor Unassigned, No Univer sity [facility] (NON-DELIVERED) [facility] L&D VISIT 2022-01-06 06:01:00 [facility] TDAP VACCINE, >11 YRS, 2021-12-28 14:30:37 Marcelle Munguia [facility] POCT URINALYSIS 2021-12-28 14:27:00 Marcelle Munguia [facility] STERILIZATION CONSENT 2021-12-28 06:01:00 Doctor Unassigned, No [facility] [employer] FORM [facility] POCT URINALYSIS 2021-12-12 18:59:00 Marcelle Munguia [facility] POCT URINALYSIS 2021-11-05 21:22:00 Marcelle Munguia [facility] CBC WITH DIFF 2021-11-02 01:46:00 Minerva Beebe [place] o [facility] NOTICE OF PRIVACY 2021-11-01 21:51:20 Doctor Unassigned, No [facility] CONSENT/REFUSAL FOR 2021-11-01 21:50:26 Doctor Unassigned, No [facility] POCT URINALYSIS 2021-10-25 19:52:00 Marcelle Munguia [facility] Encounters Start End Encounter Admission Attending Care Care Encounter Source Date/Time Date/Time Type Type Clinicians Facility Department ID 2021-11-01 Outpatient X [facility] CHE[facility] [id number] Univers 21:40:41 ity [facility] 2021-02-06 Outpatient ZAIRE, [facility] NABIL [id number] Univers 07:22:09 CASTRO itviviana o f [facility] 2020-12-11 Outpatient P [facility] [id number] Univers 16:35:44 ity of [facility] 2020-12-11 Outpatient [facility] [id number] Univers 16:34:50 ity [facility] 2020-12-09 Emergency [facility] [id number] Univers 22:21:37 ity [facility] 2022-04-05 2022-04-05 Outpatient R [facility] [id number] Univers 08:15:00 08:15:00 ity [facility] 2022-03-15 2022-03-15 Outpatient R SHAKA [facility] [id number] Univers 10:15:00 11:12:51 KAROLINE peres [facility] 2022-03-15 2022-03-15 Routine Provider, Jerry Temp [facility] 1 .2.840.114 [id number] Univers 10:15:00 11:12:51 Karoline Matt GRINDER TENDER 350.1.13. 10 ity of Visit REGIONAL 4.2.7.2.686 Erik as MATERNAL [id number] Med ical & CHILD [address] [place] [address] 2022-02-22 2022-02-22 Nurse Visit, Jerry Nurse [facility] 1.2 .840.114 [id number] Univers 10:00:00 10:15:00 Visit Marcelle Munguia GRINDER TENDER 350.1.13. 10 ity of REGIONAL 4.2.7.2.686 Erik as MATERNAL [phone] Med ical & CHILD [address] [place] [address] 2022-02-22 2022-02-22 Outpatient R EZRA [facility] [id number] Univers 10:00:00 10:00:00 MARCELLE peres o f [facility] 2022-02-20 2022-02-20 Outpatient P [facility] [id number] Univers 13:45:00 13:45:00 ity [facility] 2022-02-15 2022-02-18 Inpatient X EDINSON [facility] [id number] Univers 05:43:00 13:57:00 VIKTOR itviviana [facility] 2022-02-15 2022-02-18 Hospital Barber Hendricks 1.2.840.1 14 [id number] Univers 05:43:00 13:57:00 Encounter Viktor Neves 350.1.13 .10 ity of [facility] 4.2.7.2.686 Erik as [id number] [facility] [address] 2022-02-15 2022-02-15 Surgery FRED Neves 1.2.840.114 [id number] Univers 07:15:00 09:01:00 Viktor TUCKER 350.1.13.10 ity of [facility] 4.2.7.2.686 Erik as [id number] [facility] [address] 2022-02-14 2022-02-14 [facility] [id number] Univers 15:00:00 15:00:00 OMKAR ity [facility] 2022-02-11 2022-02-11 [facility] [id number] Univers 15:15:00 15:41:15 MARCELLE peres o f [facility] 2022-02-11 2022-02-11 Routine [facility] 1.2.574.091 [id number] Univers 15:15:00 15:41:15 Marcelle Alcantar GRINDER TENDER 350.1.13.[address] [facility] 4.2.7.2.686 Erik as MATERNAL [id number] Med ical & CHILD [address] [place] [address] 2022-02-11 2022-02-11 Orders Doctor FRED 1.2.840.114 [id number] Univers 00:00:00 00:00:00 Only Unassigned, GARRETT 350.1.13.10 ity of [place] [facility] 4.2.7.2.686 Erik as [phone] [facility] [address] 2022-02-07 2022-02-07 [facility] [id number] Univers 15:15:00 16:26:37 GRADY itviviana [facility] 2022-02-07 2022-02-07 Routine Risk, Cuh-Bvwea-Gp/High [facility] 1. 2.840.114 [id number] Univers 15:15:00 16:26:37 Grady Marie GRINDER TENDER 350.1.13.10 ity of Visit REGIONAL 4.2.7.2.686 Erik as MATERNAL [id number] [facility] ical & CHILD [address] [place] [address] 2022-02-05 2022-02-05 Outpatient R AKINJESSICAPE, [facility] [id number] Univers 14:30:00 14:30:00 MARCELLE ity o [facility] 2022-01-31 2022-01-31 Outpatient R AKINSIPE, [facility] [id number] Univers 14:00:00 15:43:41 MARCELLE ity o [facility] 2022-01-31 2022-01-31 [facility] 1.2.647.719 [id number] Univers 14:00:00 15:43:41 Marcelle C GRINDER TENDER 350.1.13.10 ity of Visit REGIONAL 4.2.7.2.686 Erik as MATERNAL [id number] [facility] CHILD [address] [place] [address] 2022-01-31 2022-01-31 Outpatient R OFELIA, [facility] [id number] Univers 15:15:00 15:15:00 [facility] 2022-01-28 2022-01-28 Outpatient R AKINSIPE, [facility] [id number] Univers 09:45:00 10:03:15 MARCELLE ity o [facility] 2022-01-28 2022-01-28 Routine Akinpe, [facility] 1.2.609.165 [id number] Univers 09:45:00 10:03:15 Marcelle C GRINDER TENDER 350.1.13.10 ity of Visit REGIONAL 4.2.7.2.686 Erik as MATERNAL [id number] [facility] CHILD [address] [place] [address] 2022-01-28 2022-01-28 Orders Doctor FRED 1.2.840.114 [id number] Univers 00:00:00 00:00:00 Only Unassigned, GARRETT 350.1.13.10 ity of [place] [facility] 4.2.7.2.686 Erik as [id number] [address] 2022-01-24 2022-01-24 Outpatient R DELMY [facility] [id number] Univers 15:00:00 16:29:32 GRADY donatoy [facility] 2022-01-24 2022-01-24 Routine Risk, Lyq-Dkujp-Oh/High [facility] 1. 2.840.114 [id number] Univers 15:00:00 16:29:32 Karoline Matt GRINDER TENDER 350.1.13. 10 ity of Visit Grady Marie [facility] 4.2.7.2.686 [place] MATERNAL [phone] Med ical & CHILD [address] [place] [address] 2022-01-22 2022-01-22 Traffic Director Ultrasound, [facility] 1.2 .840.114 [id number] Univers 15:15:00 16:00:00 Visit Jj Giraldo GRINDER TENDER 350.1. 13.[address] [facility] 4.2.7.2.686 Erik as MATERNAL [phone] Med ical & CHILD [facility] 2022-01-22 2022-01-22 Outpatient P MIRTHA [facility] [id number] Univers 15:15:00 15:15:00 FELIPE it y of SJJ [facility] 2022-01-17 2022-01-17 Outpatient R EZRA [facility] [id number] Univers 08:00:00 09:32:18 MARCELLE peres o f [facility] 2022-01-17 2022-01-17 Routine Ezra, [facility] 1.2.485.581 [id number] Univers 08:00:00 09:32:18 Marcelle Alcantar GRINDER TENDER 350.1.13.[address] [facility] 4.2.7.2.686 Erik as MATERNAL [phone] Med ical & CHILD [address] [place] [address] 2022-01-17 2022-01-17 Orders Doctor FRED 1.2.840.114 [id number] Univers 00:00:00 00:00:00 Only Unassigned, GARRETT 350.1.13.10 ity of [place] [facility] 4.2.7.2.686 Erik as [id number] [facility] [address] [place] 2022-01-09 2022-01-09 Outpatient R EZRA, [facility] [id number] Univers 15:45:00 15:45:00 MARCELLE donatoy o f [facility] 2022-01-07 2022-01-07 Outpatient P [facility] [id number] Univers 13:00:00 13:00:00 ity [facility] 2022-01-06 2022-01-06 Outpatient X FABIENNE VIEIRA [facility] O [place] [id number] Univers 08:03:00 09:45:00 FABIENNE VIEIRA ity [facility] 2022-01-06 2022-01-06 Emergency Rigoberto [facility] 1.2.840.114 [id number] Univers 08:03:00 09:45:00 [facility]Fabienne [facility] 350.1.13.[address] [facility] 4.2.7.2.686 [facility] [id number] [facility] [address] 2022-01-06 2022-01-06 Orders Doctor FRED 1.2.840.114 [id number] Univers 00:00:00 00:00:00 Only Unassigned, GARRETT 350.1.13.10 [facility] 4.2.7.2.686 Erik as [id number] [facility] [address] [place] 2022-01-01 2022-01-01 Telephone [facility] 1.2.840.114 [id number] Univers 00:00:00 00:00:00 Marcelle Alcantar GRINDER TENDER 350.1.13.10 ity [facility] 4.2.7.2.686 Erik as MATERNAL [id number] [facility] CHILD [address] [place] [address] 2021-12-28 2021-12-28 Outpatient R EZRA [facility] [id number] Univers 08:00:00 09:14:56 MARCELLE ity o f [facility] 2021-12-28 2021-12-28 [facility]ine [facility] 1.2.419.882 [id number] Univers 08:00:00 09:14:56 Marcelle C GRINDER TENDER 350.1.13.10 ity of Visit REGIONAL 4.2.7.2.686 Erik as MATERNAL [id number] [facility] CHILD [address] [place] [address] 2021-12-28 2021-12-28 Orders Doctor FRED 1.2.840.114 [id number] Univers 00:00:00 00:00:00 Only Unassigned, GARRETT 350.1.13.10 [facility] 4.2.7.2.686 Erik as [id number] [address] 2021-12-12 2021-12-12 [facility] [id number] Univers 14:00:00 14:22:22 MARCELLE ity o f [facility] 2021-12-12 2021-12-12 Routine [facility] 1.2.942.241 [id number] Univers 14:00:00 14:22:22 Marcelle C GRINDER TENDER 350.1.13.10 ity of Visit REGIONAL 4.2.7.2.686 Erik as MATERNAL [id number] [facility] & [address] 2021-12-06 2021-12-06 Traffic Director Ultrasound, [facility] 1.2 .840.114 [id number] Univers 14:45:00 16:00:00 Visit Trudy Gomez GRINDER TENDER 350.1. 13.[address] [facility] 4.2.7.2.686 Erik as MATERNAL [id number] [facility] & CHILD [address] [place] [address] 2021-12-06 2021-12-06 Outpatient P JASON [facility] [id number] Univers 14:45:00 14:45:00 CHASEViviana ity [facility] 2021-12-06 2021-12-06 Abstract [facility] 1.2.840.114 [id number] Univers 00:00:00 00:00:00 Marcelle C GRINDER TENDER 350.1.13.10 ity of REGIONAL 4.2.7.2.686 Erik as MATERNAL [id number] [facility] & CHILD [address] [place] [address] 2021-11-28 2021-11-28 Outpatient R EZRA, [facility] [id number] Univers 16:00:00 16:00:00 MARCELLE kingay o f [facility] 2021-11-21 2021-11-21 Outpatient P [facility] [id number] Univers 14:45:00 14:45:00 ity of [facility] 2021-11-07 2021-11-07 Outpatient R EZRA, [facility] [id number] Univers 14:00:00 14:00:00 MARCELLE peres o f [facility] 2021-11-05 2021-11-05 Routine [facility] 1.2.580.533 [id number] Univers 16:00:00 16:50:27 Marcelle Katharine GRINDER TENDER 350.1.13.10 ity of Visit REGIONAL 4.2.7.2.686 Erik as MATERNAL [id number] [facility] & [address] 2021-11-05 2021-11-05 Outpatient R EZRA, [facility] [id number] Univers 16:00:00 16:50:27 MARCELLE donatoy o [facility] 2021-11-01 2021-11-01 Outpatient X ABIEL, [facility] [place] [id number] Univers 17:03:00 21:17:00 MINERVA peres of [facility] 2021-11-01 2021-11-01 Emergency Rc Dickerson [facility] 1.2.840 .114 [id number] Univers 17:03:00 21:17:00 Minerva Beebe 350.1.13.10 ity of [place] 4.2.7.2.686 [facility] [phone] [place] [address] [address] 2021-11-01 2021-11-01 Orders Doctor IBARRA 1.2.840.114 [id number] Univers 00:00:00 00:00:00 Only Unassigned, GARRETT 350.1.13.10 ity of [place] [facility] 4.2.7.2.686 Erik as [id number] [facility] [address] 2021-10-31 2021-10-31 Outpatient P [facility] [id number] Univers 13:00:00 13:00:00 ity of [facility] 2021-10-29 2021-10-29 Telephone Ezra [facility] 1.2.840.114 [id number] Univers 00:00:00 00:00:00 Marcelle Alcantar GRINDER TENDER 350.1.13.10 ity of REGIONAL 4.2.7.2.686 Erik as MATERNAL [id number] [facility] CHILD [address] [place] [address] 2021-10-28 2021-10-28 Nurse Sylvia Wong 1.2.840.114 [id number] Univers 00:00:00 00:00:00 Triage GARRETT 350.1.13.10 it y of HOSPITAL 4.2.7.2.686 Erik as [phone] [facility] [address] [place] 2021-10-25 2021-10-25 Routine Marcelle Munguia [facility] 1.2.8 40.114 [id number] Univers 15:00:00 15:15:11 Grady Marie GRINDER TENDER 350.1.13.10 ity of Visit REGIONAL 4.2.7.2.686 Erik as MATERNAL [id number] [facility] & [address] 2021-10-25 2021-10-25 Outpatient R AKINSIPE, [facility] [id number] Univers 15:00:00 15:15:11 MARCELLE ity o f [facility] 2021-10-25 2021-10-25 Outpatient R AKINSIPE, [facility] [id number] Univers 15:00:00 15:00:00 MARCELLE ity o f [facility] 2021-10-25 2021-10-25 Outpatient R AKINSIPE, [facility] [id number] Univers 15:00:00 15:00:00 MARCELLE ity o f [facility] 2021-10-18 2021-10-18 Outpatient R DELMY, [facility] [id number] Univers 15:00:00 15:00:00 GRADY peres [facility] 2021-10-17 2021-10-17 Outpatient R AKINSIPE, [facility] [id number] Univers 13:00:00 13:00:00 MARCELLE peres o [facility] 2021-10-03 2021-10-03 Outpatient R AKINSIPE, [facility] [id number] Univers 09:45:00 11:05:02 MARCELLE peres o [facility] 2021-10-03 2021-10-03 Routine Akinsipe, [facility] 1.2.062.476 [id number] Univers 09:45:00 11:05:02 Marcelle C GRINDER TENDER 350.1.13.10 ity of Visit REGIONAL 4.2.7.2.686 Erik as MATERNAL [id number] [facility] CHILD [address] [place] [address] 2021-09-12 2021-09-12 Outpatient R AKINSIPE, [facility] [id number] Univers 13:00:00 13:56:10 MARCELLE lawler [facility] 2021-09-12 2021-09-12 Routine Akinsipe, [facility] 1.2.436.450 [id number] Univers 13:00:00 13:56:10 Marcelle C GRINDER TENDER 350.1.13.10 ity of Visit REGIONAL 4.2.7.2.686 Erik as MATERNAL [id number] [facility] & CHILD [address] [place] [address] 2021-08-29 2021-08-29 Traffic Director Ultrasound, [facility] 1.2 .840.114 [id number] Univers 08:00:00 08:30:00 Visit Nathalia Pearl GRINDER TENDER 350.1.13.10 ity of REGIONAL 4.2.7.2.686 Erik as MATERNAL [id number] [facility] CHILD [address] [place] [address] 2021-08-29 2021-08-29 Outpatient P NATHALIA PEARL [facility] [id number] Univers 08:00:00 08:00:00 NATHALIA PEARL ity of [facility] 2021-08-22 2021-08-22 Outpatient R EZRA [facility] [id number] Univers 10:45:00 10:45:00 MARCELLE ity o f [facility] 2021-08-21 2021-08-21 Telephone [facility] 1.2.840.114 [id number] Univers 00:00:00 00:00:00 Marcelle C GRINDER TENDER 350.1.13.10 ity of REGIONAL 4.2.7.2.686 Erik as MATERNAL [id number] [facility] ical & CHILD [address] [place] [address] 2021-08-17 2021-08-17 Traffic Director Lab, [facility] 1.2.840. 114 [id number] Univers 08:30:00 08:45:00 Visit MartinezGavino GRINDER TENDER 350.1.13.[address] [facility] 4.2.7.2.686 Erik as MATERNAL [id number] [facility] CHILD [address] [place] [address] 2021-08-17 2021-08-17 Outpatient R JUAN [facility] [id number] Univers 08:30:00 08:30:00 GAVINO donatoy o [facility] 2021-08-15 2021-08-15 Outpatient R EZRA, [facility] [id number] Univers 12:45:00 13:45:59 MARCELLE ity o [facility] 2021-08-15 2021-08-15 Routine [facility] 1.2.901.885 [id number] Univers 12:45:00 13:45:59 Marcelel C GRINDER TENDER 350.1.13.10 ity of Visit REGIONAL 4.2.7.2.686 Erik as MATERNAL [id number] [facility] & CHILD [address] [place] [address] 2021-08-10 2021-08-10 Telephone [facility] 1.2.840.114 [id number] Univers 00:00:00 00:00:00 Marcelle C GRINDER TENDER 350.1.13.10 ity of REGIONAL 4.2.7.2.686 Erik as MATERNAL [id number] [facility] ical & CHILD [address] [place] [address] 2021-08-09 2021-08-09 Orders Doctor FRED 1.2.840.114 [id number] Univers 00:00:00 00:00:00 Only Unassigned, GARRETT 350.1.13.10 ity of [place] [facility] 4.2.7.2.686 Erik as [id number] [address] 2021-08-08 2021-08-08 Traffic Director Lab, [facility] 1.2.840. 114 [id number] Univers 07:45:00 07:53:43 Visit Gavino Martinez GRINDER TENDER 350.1.13.[address] [facility] 4.2.7.2.686 Erik as MATERNAL [id number] [facility] & CHILD [address] [place] [address] 2021-08-08 2021-08-08 Outpatient Eugenia MARTINEZ [facility] [id number] Univers 07:45:00 07:45:00 GAVINO lawler [facility] 2021-08-08 2021-08-08 Outpatient Eugenia MARTINEZ [facility] [id number] Univers 07:45:00 07:45:00 GAVINO lawler [facility] 2021-08-06 2021-08-06 Telephone [facility] 1.2.840.114 [id number] Univers 00:00:00 00:00:00 Marcelle Alcantar GRINDER TENDER 350.1.13.[address] [facility] 4.2.7.2.686 Erik as MATERNAL [phone] [facility] & CHILD [address] [place] [address] 2021-08-03 2021-08-03 [facility]phone [facility] 1.2.840.114 [id number] Univers 00:00:00 00:00:00 Marcelle Alcantar GRINDER TENDER 350.1.13.[address] [facility] 4.2.7.2.686 Erik as MATERNAL [phone] [facility] & CHILD [address] [place] [address] 2021-08-02 2021-08-02 Abstract [facility] [id number] Univers 00:00:00 00:00:00 Marcelle C GRINDER TENDER 350.1.13.10 ity of [facility] 4.2.7.2.686 Erik as MATERNAL [phone] [facility] & [address] 2021-08-01 2021-08-01 [facility] [id number] Univers 14:15:00 15:36:04 MARCELLE ity o f [facility] 2021-08-01 2021-08-01 Initial [facility] [id number] Univers 14:15:00 15:36:04 Marcelle Alcantar GRINDER TENDER 350.1.13.[address] [facility] 4.2.7.2.686 Erik as MATERNAL [phone] [facility] & [address] 2021-08-01 2021-08-01 Orders Doctor FRED [id number] Univers 00:00:00 00:00:00 Only Unassigned, GARRETT 350.1.13.10 ity of [facility] 4.2.7.2.686 Erik as [phone] [address] 2021-05-21 2021-05-21 Outpatient Eugenia [facility] [id number] Univers 16:00:00 16:44:38 CASTRO ity [facility] 2021-05-21 2021-05-21 Office SHERICE Gutiérrez [id number] [id number] Univers 16:00:00 16:44:38 Visit [facility] 350.1.13.10 ity of [place] 4[place] [phone] [facility] [address] 2021-05-21 2021-05-21 Orders Doctor FRED 1.2.840.114 [id number] Univers 00:00:00 00:00:00 Only Unassigned, GARRETT 350.1.13.10 ity of [facility] 4.2.7.2.686 Erik as [id number] [facility] [address] 2021-04-30 2021-04-30 Outpatient Eugenia GUTIÉRREZ [facility] [id number] Univers 16:00:00 16:00:00 CASTRO peres [facility] 2021-04-23 2021-04-23 Outpatient Eugenia GUTIÉRREZ [facility] [id number] Univers 14:00:00 14:00:00 CASTRO peres [facility] 2021-03-10 2021-03-10 Telephone [place], [facility] 1.2.840.114 [id number] Univers 00:00:00 00:00:00 [facility] HEALTH 350.1.13.10 it[place] of [place] [phone] [facility] [address] 2021-03-09 2021-03-09 Telephone [place], [facility] 1.2.840.114 [id number] Univers 00:00:00 00:00:00 Castro HEALTH 350.1.13.10 [place] [id number] [facility] [address] 2021-03-08 2021-03-08 Outpatient Eugenia GUTIÉRREZ [facility] NABIL [id number] Univers 05:23:00 11:27:00 CASTRO peres [facility] 2021-03-08 2021-03-08 Hospital TARAS Gutiérrez 1.2.840.114 [id number] Univers 05:23:00 11:27:00 Encounter Castro TUCKER 350.1.13.10 ity of HOSPITAL 4.2.7.2.686 Erik as [phone] [facility] [address] 2021-03-08 2021-03-08 Surgery TARAS Gutiérrez 1.2.840.114 [id number] Univers 07:15:00 09:57:00 Castro TUCKER 350.1.13.10 ity of HOSPITAL 4.2.7.2.686 Erik as [id number] [facility] [address] 2021-03-08 2021-03-08 Orders Doctor IBARRA 1.2.840.114 [id number] Univers 00:00:00 00:00:00 Only Unassigned, GARRETT 350.1.13.10 ity of [facility] 4.2.7.2.686 Erik as [phone] [facility] [address] 2021-03-05 2021-03-05 Laboratory Only, Adc Test [facility] 1.2.840. 114 [id number] Univers 16:15:00 16:30:00 Only Castro Gutiérrez [place] [address].1.13.[address] [facility] [place]2.7.[place] [id number] [facility] [address] 2021-03-05 2021-03-05 Outpatient R ZAIRE [facility] [id number] Univers 16:15:00 16:15:00 CASTRO peres [facility] 2021-02-12 2021-02-12 Outpatient Eugenia MARQUEZ [facility] [id number] Univers 08:00:00 08:00:00 VICKEY peres [facility] 2021-02-12 2021-02-12 Outpatient Eugenia MARQUEZ [facility] [id number] Univers 08:00:00 08:00:00 VICKEY peres [facility] 2021-02-11 2021-02-11 [facility] 1.2.941.063 [id number] Univers 00:00:00 00:00:00 Vickey Spangler GRINDER TENDER 350.1.13.[address] [facility] 4.2.7.2.686 Erik as MATERNAL [phone] Med ical & CHILD [address] [place] [address] 2021-02-05 2021-02-05 Office SHERICE Gutiérrez 1.2.348.807 [id number] Univers 14:15:00 14:30:00 Visit [facility] 350.1.13.10 ity [facility] [place].7.2.[place] [id number] [facility] [address] 2021-02-05 2021-02-05 Outpatient R ZAIRE [facility] [id number] Univers 14:15:00 14:15:00 CASTRO [facility] 2020-12-06 2020-12-06 Outpatient R JANEL [facility] [id number] Univers 15:00:00 15:00:00 ATTENDING [facility] 2020-12-06 2020-12-06 Urgent Laura Moses [facility] 1.2.840.114 [id number] Univers 14:38:30 14:58:30 Care Unknown, Attending Health 350.1.13.10 ity [facility] 4.2.7.2.686 Erik as Rai?Blea [phone] [facility] [address] Medical Office Building 2020-12-06 2020-12-06 Telephone [facility] 1.2.840.114 [id number] Univers 00:00:00 00:00:00 Vickey Spangler GRINDER TENDER 350.1.13.[address] [facility] 4.2.7.2.686 Erik as MATERNAL [id number] [facility] ical & CHILD [address] [place] [address] 2020-11-27 2020-11-27 Traffic Director Lab, [facility] 1.2.840. 114 [id number] Univers 07:58:15 08:13:12 Visit Gavino Martinez GRINDER TENDER 350.1.13.[address] [facility] 4.2.7.2.686 Erik as MATERNAL [id number] [facility] ical & CHILD [address] [place] [address] 2020-11-27 2020-11-27 Outpatient R [facility] [id number] Univers 07:45:00 07:45:00 ity [facility] 2020-11-22 2020-11-22 Office [facility] 1.2.967.811 [id number] Univers 13:24:49 14:16:05 Visit Vickey Spangler GRINDER TENDER 350.1.13.[address] [facility] 4.2.7.2.686 Erik as MATERNAL [id number] [facility] ical & CHILD [address] [place] [address] 2020-11-22 2020-11-22 [facility] [id number] Univers 13:15:00 13:15:00 VICKEY peres [facility] 2020-11-01 2020-11-01 [facility] [id number] Univers 13:30:00 13:30:00 MARCELLE peres o f [facility] 2020-10-17 2020-10-17 [facility] 1.2 .840.114 [id number] Univers 08:10:15 08:47:33 Visit Gavino Martinez Eugenia GRINDER TENDER 350.1.13.10 ity of REGIONAL 4.2.7.2.686 Erik as MATERNAL [id number] [facility] ical & CHILD [address] [place] [address] 2020-10-17 2020-10-17 Outpatient [facility] [id number] Univers 08:00:00 08:00:00 GAVINO ity o f [facility] 2020-10-12 2020-10-12 Telephone SHERICE Quach 1.2.840.114 [id number] Univers 00:00:00 00:00:00 Sada [facility] 350.1.13.10 i ty of CL[place]ICS [place] [id number] [facility] [address] 2020-10-08 2020-10-11 Hospital Viktor Neves 1.2.8 40.114 [id number] Univers 23:17:00 18:17:00 Encounter Tapan Calles 350.1.13.1 0 ity of HOSPITAL 4.2.7.2.686 Erik as [phone] [facility] [address] 2020-10-09 2020-10-09 Surgery FRED Calles 1.2.840.114 [id number] Univers 07:15:00 08:59:00 Tapan TUCKER 350.1.13.10 i ty of [facility] 4.2.7.2.686 Erik as [phone] [facility] [address] 2020-10-04 2020-10-04 Routine Risk, Hgv-Ixphr-Yr/High [facility] 1. 2.840.114 [id number] Univers 09:57:50 11:08:51 Melanie Alvarez GRINDER TENDER 350.1.13.10 ity of Visit REGIONAL 4.2.7.2.686 Erik as MATERNAL [phone] [facility] ical & CHILD [address] [place] [address] 2020-10-04 2020-10-04 Outpatient R [facility] [id number] Univers 10:15:00 10:15:00 ity of [facility] 2020-10-04 2020-10-04 Telephone Risk, [facility] 1.2.261.791 [id number] Univers 00:00:00 00:00:00 Ang-Rmchp-N GRINDER TENDER 350.1.13.10 ity of p/High REGIONAL 4.2.7.2.686 Erik as MATERNAL [phone] [facility] ical & CHILD [address] [place] [address] 2020-10-02 2020-10-02 Outpatient R JUAN [facility] [id number] Univers 14:45:00 14:45:00 GAVINO ity o f [facility] 2020-09-29 2020-09-29 Telephone FRED Cruz 1.2.840.114 [id number] Univers 00:00:00 00:00:00 Nely TUCKER 350.1.13.10 it y of [facility] 4.2.7.2.686 Erik as [phone] [address] 2020-09-27 2020-09-27 Routine Risk, Krc-Dyymf-Nq/High [facility] 1. 2.840.114 [id number] Univers 13:09:15 15:19:56 Melanie Alvarez GRINDER TENDER 350.1.13.10 ity of Visit REGIONAL 4.2.7.2.686 Erik as MATERNAL [id number] [facility] & CHILD [address] [place] [address] 2020-09-27 2020-09-27 Outpatient R [facility] [id number] Univers 13:30:00 13:30:00 ity [facility] 2020-09-25 2020-09-25 Traffic Director Ultrasound, [facility] 1.2 .840.114 [id number] Univers 15:37:36 15:51:23 Visit Jj Giraldo GRINDER TENDER 350.1. 13.[address] [facility] 4.2.7.2.686 Erik as MATERNAL [id number] [facility] ical & CHILD [address] [place] [address] 2020-09-25 2020-09-25 Outpatient P [facility] [id number] Univers 15:30:00 15:30:00 ity of [facility] 2020-09-20 2020-09-20 Routine Risk, Yyg-Phqum-Nh/High [facility] 1. 2.840.114 [id number] Univers 14:39:05 15:57:00 Melanie Alvarez GRINDER TENDER 350.1.13.[address] [facility] 4.2.7.2.686 Erik as MATERNAL [id number] [facility] & CHILD [address] [place] [address] 2020-09-20 2020-09-20 Outpatient R [facility] [id number] Univers 15:00:00 15:00:00 ity of [facility] 2020-09-19 2020-09-19 Telephone [facility] 1.2.840.114 [id number] Univers 00:00:00 00:00:00 Marcelle Alcantar GRINDER TENDER 350.1.13.[address] [facility] 4.2.7.2.686 Erik as MATERNAL [phone] [address] 2020-09-18 2020-09-18 Outpatient [facility] [id number] Univers 17:00:00 17:00:00 ROSJESSENDA ity o f [facility] 2020-09-18 2020-09-18 Routine [facility] 1.2.840.114 [id number] Univers 15:42:10 16:40:40 Gavino Bello GRINDER TENDER 350.1.13.[address] [facility] 4.2.7.2.686 Erik as MATERNAL [phone] [facility] & [address] 2020-09-18 2020-09-18 Orders Doctor IBARRA 1.2.840.114 [id number] Univers 00:00:00 00:00:00 Only Unassigned, GARRETT 350.1.13.10 ity of [place] [facility] 4.2.7.2.686 Erik as [phone] [address] 2020-09-13 2020-09-13 Routine Risk, Vpq-Hztbo-Fl/High [facility] 1. 2.840.114 [id number] Univers 14:06:47 15:34:24 Melanie Alvarez GRINDER TENDER 350.1.13.10 ity of Visit REGIONAL 4.2.7.2.686 Erik as MATERNAL [id number] [facility] & CHILD [address] [place] [address] 2020-09-13 2020-09-13 Outpatient R [facility] [id number] Univers 14:30:00 14:30:00 ity of [facility] 2020-09-11 2020-09-11 Outpatient R [facility] [id number] Univers 14:30:00 14:30:00 ROSHUNDA ity o f [facility] 2020-09-11 2020-09-11 Routine [facility] 1.2.840.114 [id number] Univers 14:10:04 14:25:04 Roshunda R GRINDER TENDER 350.1.13.10 ity of Visit REGIONAL 4.2.7.2.686 Erik as MATERNAL [phone] [facility] CHILD [address] [place] [address] 2020-09-06 2020-09-06 [facility]ine [facility] 1.2.840.114 [id number] Univers 14:36:08 15:34:54 Roshunda R GRINDER TENDER 350.1.13.10 ity of Visit REGIONAL 4.2.7.2.686 Erik as MATERNAL [phone] [facility] & [address] 2020-09-06 2020-09-06 Outpatient R [facility] [id number] Univers 13:45:00 13:45:00 ity of [facility] 2020-09-06 2020-09-06 Orders Doctor IBARRA 1.2.840.114 [id number] Univers 00:00:00 00:00:00 Only Unassigned, GARRETT 350.1.13.10 ity of [place] [facility] 4.2.7.2.686 Erik as [phone] [address] 2020-09-04 2020-09-04 Routine [facility] 1.2.840.114 [id number] Univers 13:56:43 14:48:59 Roshunda R GRINDER TENDER 350.1.13.10 ity of Visit REGIONAL 4.2.7.2.686 Erik as MATERNAL [phone] Med ical & CHILD [address] [place] [address] 2020-09-04 2020-09-04 Routine Juan [facility] 1.2.840.114 [id number] 13:56:43 14:48:59 Roshunda R GRINDER TENDER 350.1.13.10 Visit REGIONAL 4.2.7.2.686 MATERNAL [id number] & CHILD [address] [place] [address] 2020-09-04 2020-09-04 Outpatient R [facility] [id number] Univers 14:30:00 14:30:00 ity [facility] 2020-08-31 2020-08-31 Routine [facility] 1.2.840.114 [id number] Univers 09:12:31 10:08:45 Roshunda R GRINDER TENDER 350.1.13.10 ity of Visit REGIONAL 4.2.7.2.686 Erik as MATERNAL [id number] [address] 2020-08-31 2020-08-31 Outpatient R [facility] [id number] Univers 09:30:00 09:30:00 ity of [facility] 2020-08-29 2020-08-29 Routine [facility] 1.2.840.114 [id number] Univers 15:25:07 16:54:33 Roshunda R GRINDER TENDER 350.1.13.10 ity of Visit REGIONAL 4.2.7.2.686 Erik as MATERNAL [id number] [facility] & CHILD [address] [place] [address] 2020-08-29 2020-08-29 Outpatient R [facility] [id number] Univers 15:15:00 15:15:00 ity of [facility] 2020-08-29 2020-08-29 Orders Doctor FRED 1.2.840.114 [id number] Univers 00:00:00 00:00:00 Only Unassigned, GARRETT 350.1.13.10 ity of [place] [facility] 4.2.7.2.686 Erik as [id number] [address] 2020-08-28 2020-08-28 Telemedici Faculty, Salvador [facility] 1.2.840.114 [id number] Univers 07:33:56 16:19:14 ne Visit Jj Giraldo GRINDER TENDER 350.1 .13.10 ity of REGIONAL 4.2.7.2.686 Erik as MATERNAL [phone] [facility] & [address] 2020-08-28 2020-08-28 Outpatient R [facility] [id number] Univers 13:00:00 13:00:00 ity of [facility] 2020-08-23 2020-08-23 Abstract Juan [facility] 1.2.840.114 [id number] Univers 00:00:00 00:00:00 Rosjessenda R GRINDER TENDER 350.1.13.10 ity of REGIONAL 4.2.7.2.686 Erik as MATERNAL [phone] [address] 2020-08-22 2020-08-22 Traffic Director Ultrasound, [facility] 1.2 .840.114 [id number] Univers 14:34:23 15:44:34 Visit Pearl Nathalia GRINDER TENDER 350.1.13.10 ity of REGIONAL 4.2.7.2.686 Erik as MATERNAL [phone] [facility] & CHILD [address] [place] [address] 2020-08-22 2020-08-22 Outpatient P [facility] [id number] Univers 15:15:00 15:15:00 ity [facility] 2020-08-21 2020-08-21 Routine [facility] 1.2.840.114 [id number] Univers 13:42:20 13:57:20 Roshunda R GRINDER TENDER 350.1.13.10 ity of Visit REGIONAL 4.2.7.2.686 Erik as MATERNAL [id number] [address] 2020-08-21 2020-08-21 Outpatient R JUAN [facility] [id number] Univers 13:45:00 13:45:00 ROSHUNDA ity o f [facility] 2020-08-21 2020-08-21 Orders Doctor IBARRA 1.2.840.114 [id number] Univers 00:00:00 00:00:00 Only Unassigned, GARRETT 350.1.13.10 ity of [facility] 4.2.7.2.686 Erik as [id number] [address] 2020-08-09 2020-08-09 Routine Juan MDPATTY 1.2.840.114 [id number] Univers 16:01:37 16:51:41 Rosnda R GRINDER TENDER 350.1.13.10 ity of Visit REGIONAL 4.2.7.2.686 Erik as MATERNAL [id number] [facility] & CHILD [address] [place] [address] 2020-08-09 2020-08-09 Outpatient R JUAN [facility] [id number] Univers 16:00:00 16:00:00 GAVINO peres o [facility] 2020-08-09 2020-08-09 Outpatient R JUAN [facility] [id number] Univers 08:00:00 08:00:00 GAVINO peres o [facility] 2020-08-09 2020-08-09 Orders Doctor FRED 1.2.840.114 [id number] Univers 00:00:00 00:00:00 Only Unassigned, GARRETT 350.1.13.10 ity of [facility] 4.2.7.2.686 Erik as [id number] [address] 2020-08-01 2020-08-01 Nurse Visit, [facility] Nurse [facility] 1.2 .840.114 [id number] Univers 14:56:52 15:29:25 Visit Marcelle Munguia GRINDER TENDER 350.1.13. 10 ity of REGIONAL 4.2.7.2.686 Erik as MATERNAL [id number] [facility] & CHILD [address] [place] [address] 2020-08-01 2020-08-01 Outpatient R EZRA [facility] [id number] Univers 15:00:00 15:00:00 MARCELLE lawler [facility] 2020-08-01 2020-08-01 Telephone Juan [facility] 1.2.029.160 [id number] Univers 00:00:00 00:00:00 Raenda R GRINDER TENDER 350.1.13.10 ity of REGIONAL 4.2.7.2.686 Erik as MATERNAL [id number] [facility] & CHILD [address] [place] [address] 2020-07-31 2020-07-31 Telephone [facility] 1.2.509.795 [id number] Univers 00:00:00 00:00:00 Roshunda R GRINDER TENDER 350.1.13.10 ity of REGIONAL 4.2.7.2.686 Erik as MATERNAL [phone] [facility] & CHILD [address] [place] [address] 2020-07-31 2020-07-31 Telephone [facility] 1.2.535.042 [id number] Univers 00:00:00 00:00:00 Rosjessenda R GRINDER TENDER 350.1.13.10 ity of REGIONAL 4.2.7.2.686 Erik as MATERNAL [phone] [facility] & CHILD [address] [place] [address] 2020-07-28 2020-07-28 Traffic Director Lab, [facility] 1.2.840. 114 [id number] Univers 07:47:55 08:00:39 Visit Marcelle Munguia GRINDER TENDER 350.1.13. 10 ity of REGIONAL 4.2.7.2.686 Erik as MATERNAL [id number] [facility] & CHILD [address] [place] [address] 2020-07-28 2020-07-28 Outpatient R EZRA [facility] [id number] Univers 07:45:00 07:45:00 MARCELLE peres o f [facility] 2020-07-27 2020-07-27 Telephone [facility] 1.2.035.203 [id number] Univers 00:00:00 00:00:00 Lee Annjessenda R GRINDER TENDER 350.1.13.10 ity of REGIONAL 4.2.7.2.686 Erik as MATERNAL [id number] [facility] & CHILD [address] [place] [address] 2020-07-26 2020-07-26 Routine [facility] 1.2.840.114 [id number] Univers 10:01:56 10:59:57 Rosjessenda R GRINDER TENDER 350.1.13.10 ity of Visit REGIONAL 4.2.7.2.686 Erik as MATERNAL [id number] [facility] & [address] 2020-07-26 2020-07-26 Outpatient [facility] [id number] Univers 10:00:00 10:00:00 RAENDA ity o [facility] 2020-07-12 2020-07-12 Routine [facility] 1.2.840.114 [id number] Univers 10:39:50 11:01:17 Rosnda R GRINDER TENDER 350.1.13.[address] [facility] 4.2.7.2.686 Erik as MATERNAL [id number] [address] 2020-07-12 2020-07-12 Outpatient Eugenia [facility] [id number] Univers 10:45:00 10:45:00 LEE ANNCHRISSYA kingay o [facility] 2020-07-05 2020-07-05 Outpatient Eugenia [facility] [id number] Univers 13:45:00 13:45:00 LEE ANNNDA kingay o [facility] 2020-07-03 2020-07-03 Outpatient Eugenia [facility] [id number] Univers 13:00:00 13:00:00 LEE ANNNDA kingay o [facility] 2020-06-10 2020-06-10 Nurse Sylvia Wong 1.2.840.114 [id number] Univers 00:00:00 00:00:00 Triage GARRETT 350.1.13.10 it y of [facility] 4.2.7.2.686 Erik as [id number] [address] 2020-06-06 2020-06-06 Traffic Director Ultrasound, [facility] 1.2 .840.114 [id number] Univers 09:16:57 10:52:13 Visit Nehemiah Andrade R GRINDER TENDER 350.1.13.[address] [facility] 4.2.7.2.686 Erik as MATERNAL [id number] Med ical & CHILD [address] [facility] 2020-06-06 2020-06-06 Outpatient P [facility] [id number] Univers 09:30:00 09:30:00 ity of [facility] 2020-06-06 2020-06-06 Abstract Juan [facility] 1.2.840.114 [id number] Univers 00:00:00 00:00:00 Roshunda R GRINDER TENDER 350.1.13.10 ity of REGIONAL 4.2.7.2.686 Erik as MATERNAL [id number] Med ical & CHILD [address] [place] [address] 2020-06-05 2020-06-05 Routine [facility] 1.2.840.114 [id number] Univers 12:45:14 13:08:17 Roshunda R GRINDER TENDER 350.1.13.10 ity of Visit REGIONAL 4.2.7.2.686 Erik as MATERNAL [id number] [facility]ILD [address] [place] [address] 2020-06-05 2020-06-05 Outpatient R JUAN [facility] [id number] Univers 12:45:00 12:45:00 ROSHUNDA ity o f [facility] 2020-05-08 2020-05-08 Routine [facility] 1.2.840.114 [id number] Univers 12:52:02 13:41:54 Roshunda R GRINDER TENDER 350.1.13.10 ity of Visit REGIONAL 4.2.7.2.686 Erik as MATERNAL [id number] [facility] & CHILD [address] [place] [address] 2020-05-08 2020-05-08 Outpatient [facility] [id number] Univers 13:00:00 13:00:00 ROSHUNDA ity o f [facility] 2020-04-24 2020-04-24 Telephone [facility] 1.2.076.761 [id number] Univers 00:00:00 00:00:00 Roshunda R GRINDER TENDER 350.1.13.10 ity of REGIONAL 4.2.7.2.686 Erik as MATERNAL [id number] [facility] ical & CHILD [address] [place] [address] 2020-04-22 2020-04-22 Nurse FRED Umaña 1.2.479.674 [id number] Univers 00:00:00 00:00:00 Triage Navi TUCKER 350.1.13.10 it y of [facility] 4.2.7.2.686 Erik as [id number] [address] 2020-04-12 2020-04-12 Traffic Director Ultrasound, [facility] 1.2 .840.114 [id number] Univers 10:53:54 11:23:54 Visit Mirtha Jj Escamilla GRINDER TENDER 350.1. 13.[address] [facility] 4.2.7.2.686 Erik as MATERNAL [id number] [facility] ical & CHILD [address] [place] [address] 2020-04-12 2020-04-12 Outpatient P [facility] [id number] Univers 11:00:00 11:00:00 ity of [facility] 2020-04-12 2020-04-12 Abstract CADY Martinez 1.2.840.114 [id number] Univers 00:00:00 00:00:00 Roshunda R GRINDER TENDER 350.1.13.10 ity of REGIONAL 4.2.7.2.686 Erik as MATERNAL [id number] [facility] & CHILD [address] [place] [address] 2020-04-11 2020-04-11 Telephone CADY Martinez [id number] Univers 00:00:00 00:00:00 Roshunda R GRINDER TENDER 350.1.13.10 ity of REGIONAL 4.2.7.2.686 Erik as MATERNAL [phone] [facility] ical & CHILD [address] [place] [address] 2020-04-10 2020-04-10 Initial CADY Martinez 1.2.840.114 [id number] Univers 12:50:04 13:57:01 Roshunda R GRINDER TENDER 350.1.13.10 ity of Visit REGIONAL 4.2.7.2.686 Erik as MATERNAL [phone] [facility] ical & CHILD [address] [place] [address] 2020-04-10 2020-04-10 Outpatient R CADY MARTINEZ [facility] [id number] Univers 13:15:00 13:15:00 GAVINO peres o f [facility] 2020-04-10 2020-04-10 Orders Doctor FRED 1.2.840.114 [id number] Univers 00:00:00 00:00:00 Only Unassigned, GARRETT 350.1.13.10 ity of [place] [facility] 4.2.7.2.686 Erik as [phone] [facility] [address] 2020-03-22 2020-03-22 [facility] [id number] Univers 14:15:00 14:15:00 GAVINO edward [facility] 2020-03-22 2020-03-22 Telephone [facility] [id number] Univers 00:00:00 00:00:00 Gavino Bello GRINDER TENDER 350.1.13.[address] [facility] 4.2.7.2.686 Erik as MATERNAL [phone] Med ical & CHILD [address] [place] [address] 2020-03-19 2020-03-[address] [facility] [id number] Univers 18:03:00 21:52:00 Gilberto Hagen 350.1.13.10 i ty [facility] 4.2.7.2.686 [place] [facility] [id number] [facility] [address] 2019-12-13 2019-12-13 Outpatient R [facility] [id number] Univers 12:45:00 12:45:00 MARCELLE peres o f [facility] Results Test Description Test Time Test Comments Results Result Comments Source POCT URINALYSIS W SPECIFIC GRAVITY 2022-02-22 16:10:00 Test Item Value Reference Range Interpretation Comme nts POCT U SP GRAV (test code = 3255) * 1.005-1.025 POCT PH U (test code = 3254) * 5-8 POCT U LEUK EST (test code = 3263) * Negative - Negative POCT U NIT (test code = 3262) * Negative - Negative POCT U PROT (test code = 3259) trace Negative - Negative POCT U GLU (test code = 3256) negative Negative - Negative POCT U KETONE (test code = 3258) * Negative - Negative POCT U UROBILI (test code = 3260) * 0.2-1 POCT U BILI (test code = 3261) * Negative - Negative POCT U BLD (test code = 3257) * Negative - Negative POCT U COLOR (test code = 3266) POCT U APPEAR (test code = 3267) [facility] GLUCOSE (AUTOMATED)2022-02-18 16:53:36 Test Item Value Reference Range Interpretation Comments POCT GLU (test code = 8807929469) 121 mg/dL 70-110 H Lab Interpretation (test code = Abnormal 80944-1) [facility] GLUCOSE (AUTOMATED)2022-02-18 16:53:36 Test Item Value Reference Range Interpretation Comments POCT GLU (test code = 1039970572) 121 mg/dL 70-110 H Lab Interpretation (test code = Abnormal 71098-5) [facility] GLUCOSE (AUTOMATED)2022-02-18 12:10:34 Test Item Value Reference Range Interpretation Comments POCT GLU (test code = 6034544769) 88 mg/dL 70-110 Lab Interpretation (test code = Normal 49992-6) [facility] GLUCOSE (AUTOMATED)2022-02-18 12:10:34 Test Item Value Reference Range Interpretation Comments POCT GLU (test code = 3326660504) 88 mg/dL 70-110 Lab Interpretation (test code = Normal 80936-1) [facility] GLUCOSE (AUTOMATED)2022-02-18 03:51:03 Test Item Value Reference Range Interpretation Comments POCT GLU (test code = 2695447942) 80 mg/dL 70-110 Lab Interpretation (test code = Normal 52160-3) [facility] GLUCOSE (AUTOMATED)2022-02-18 03:51:03 Test Item Value Reference Range Interpretation Comments POCT GLU (test code = 9520189347) 80 mg/dL 70-110 Lab Interpretation (test code = Normal 11935-5) [facility] GLUCOSE (AUTOMATED)2022-02-18 01:44:29 Test Item Value Reference Range Interpretation Comments POCT GLU (test code = 1622105646) 101 mg/dL 70-110 Lab Interpretation (test code = Normal 97148-7) [facility] 01:44:29 Test Item Value Reference Range Interpretation Comments POCT GLU (test code = 7572645026) 101 mg/dL 70-110 Lab Interpretation (test code = Normal 95750-1) [facility]2022-02-17 21:05:17 Test Item Value Reference Range Interpretation Comments POCT GLU (test code = 7513440552) 104 mg/dL 70-110 Lab Interpretation (test code = Normal 56885-0) [facility]22-02-17 21:05:17 Test Item Value Reference Range Interpretation Comments POCT GLU (test code = 0576130738) 104 mg/dL 70-110 Lab Interpretation (test code = Normal 85066-4) [facility] GLUCOSE (AUTOMATED)2022-02-17 16:47:49 Test Item Value Reference Range Interpretation Comments POCT GLU (test code = 0304192988) 139 mg/dL 70-110 H Lab Interpretation (test code = Abnormal 92632-9) [facility]2022-02-17 16:47:49 Test Item Value Reference Range Interpretation Comments POCT GLU (test code = 5077063464) 139 mg/dL 70-110 H Lab Interpretation (test code = Abnormal 38069-1) [facility]2022-02-17 12:01:28 Test Item Value Reference Range Interpretation Comments POCT GLU (test code = 0194519771) 94 mg/dL 70-110 Lab Interpretation (test code = Normal 60886-2) [facility]22-02-17 12:01:28 Test Item Value Reference Range Interpretation Comments POCT GLU (test code = 5158724390) 94 mg/dL 70-110 Lab Interpretation (test code = Normal 77724-7) [facility]-02-17 04:25:48 Test Item Value Reference Range Interpretation Comments POCT GLU (test code = 8487135278) 107 mg/dL 70-110 Lab Interpretation (test code = Normal 90248-6) [facility] GLUCOSE (AUTOMATED)2022-02-17 04:25:48 Test Item Value Reference Range Interpretation Comments POCT GLU (test code = 0018116750) 107 mg/dL 70-110 Lab Interpretation (test code = Normal 26522-8) [facility] GLUCOSE (AUTOMATED)2022-02-16 22:04:25 Test Item Value Reference Range Interpretation Comments POCT GLU (test code = 4629407326) 118 mg/dL 70-110 H Lab Interpretation (test code = Abnormal 84912-8) [facility] GLUCOSE (AUTOMATED)2022-02-16 22:04:25 Test Item Value Reference Range Interpretation Comments POCT GLU (test code = 8526987778) 118 mg/dL 70-110 H Lab Interpretation (test code = Abnormal 23957-3) [facility] GLUCOSE (AUTOMATED)2022-02-16 14:23:28 Test Item Value Reference Range Interpretation Comments POCT GLU (test code = 4234019130) 110 mg/dL 70-110 Lab Interpretation (test code = Normal 92618-8) [facility] GLUCOSE (AUTOMATED)2022-02-16 14:23:28 Test Item Value Reference Range Interpretation Comments POCT GLU (test code = 9536792452) 110 mg/dL 70-110 Lab Interpretation (test code = Normal 74932-2) [facility] (D) IMMUNE [id number] 19:23:15 Test Item Value Reference Range Interpretation Comments RHIG CANDIDATE? No- see comment Patient i s not a (test code = candidate for R hIg- 5055) Patient is Rh Positive.Perfor med at [facility] Laboratory Services - [facility] Blood [address] [place] [address]Jpan Free: [phone] A No. [id number] [facility] (D) IMMUNE [id number] 19:23:15 Test Item Value Reference Range Interpretation Comments RHIG CANDIDATE? No- see comment Patient i s not a (test code = candidate for R hIg- 5055) Patient is Rh Positive.Perfor med at [facility] Laboratory Services - [facility] Blood [address] [place] [address]Cmmn Free: [phone] A No. [id number] [facility] ONLY - SYPHILIS [id number] 16:54:58 Test Item Value Reference Range Interpretation Comments Syphilis IgG/IgM (test Non-reactive Non-reactive code = 25150-3) KADE (test code = KADE) Non-reactive - No serologic evidence of T. pallidum infection. Cannot exclude incubating or early syphilis. Submit a second specimen in 2-4 weeks if syphilis is clinically suspected. Equivocal - Further testing to follow. Reactive - Further testing to follow. Lab Interpretation (test Normal code = 99422-2) [facility] ONLY - SYPHILIS [id number] 16:54:58 Test Item Value Reference Range Interpretation Comments Syphilis IgG/IgM (test Non-reactive Non-reactive code = 02038-8) KADE (test code = KADE) Non-reactive - No serologic evidence of T. pallidum infection. Cannot exclude incubating or early syphilis. Submit a second specimen in 2-4 weeks if syphilis is clinically suspected. Equivocal - Further testing to follow. Reactive - Further testing to follow. Lab Interpretation (test Normal code = 42934-8) [facility] Cord [id number] 15:42:26 Test Item Value Reference Range Interpretation Comments BASE EXCESS, CORD mEq/L (test code = 1992472678) AC PH, CORD (BEAKER) 7.18-7.38 (test code = 4727465925) PC02, CORD (test code See_Comment [Auto mated message] The = 9286097237) system which g enerated this result transmit lino reference range : 32 - 66 mmHg. The refer ence range was not used to interpret this result as normal/abnormal . PO2, CORD (test code See_Comment [Autom ated message] The = 6222988888) system which g enerated this result transmit lino reference range : 10 - 30 mmHg. The refer ence range was not used to interpret this result as normal/abnormal . BICARBONATE, CORD See_Comment [Automate d message] The (test code = system which ge nerated this 8560283960) result transmit lino reference range : 17 - 27 mEq/L. The refe rence range was not used to interpret this result as normal/abnormal . [facility] Cord [id number] 15:42:26 Test Item Value Reference Range Interpretation Comments BASE EXCESS, CORD mEq/L (test code = 0858483305) AC PH, CORD (BEAKER) 7.18-7.38 (test code = 6338790790) PC02, CORD (test code See_Comment [Auto mated message] The = 9210086832) system which g enerated this result transmit lino reference range : 32 - 66 mmHg. The refer ence range was not used to interpret this result as normal/abnormal . PO2, CORD (test code See_Comment [Autom ated message] The = 9814311018) system which g enerated this result transmit lino reference range : 10 - 30 mmHg. The refer ence range was not used to interpret this result as normal/abnormal . BICARBONATE, CORD See_Comment [Automate d message] The (test code = system which ge nerated this 0373484352) result transmit lino reference range : 17 - 27 mEq/L. The refe rence range was not used to interpret this result as normal/abnormal . [facility] Cord [id number] 15:40:00 Test Item Value Reference Range Interpretation Comments VENOUS BASE EXCESS, mEq/L CORD (test code = 5979715456) VENOUS PH, CORD (test 7.25-7.45 code = 0573007252) VENOUS PC02, CORD See_Comment [Automate d message] The (test code = system which ge nerated 1164759982) this result tra nsmitted reference range : 27 - 49 mmHg. The refer ence range was not used to interpret this result as normal/abnormal . VENOUS PO2, CORD (test See_Comment [Aut omated message] The code = 7215552990) system [facility] generated this result tra nsmitted reference range : 17 - 41 mmHg. The refer ence range was not used to interpret this result as normal/abnormal . VENOUS BICARBONATE, See_Comment [Automa lino message] The CORD (test code = system [facility] generated 0390930048) this result tra nsmitted reference range : 12 - 29 mEq/L. The refe rence range was not used to interpret this result as normal/abnormal . [facility] Cord [id number] 15:40:00 Test Item Value Reference Range Interpretation Comments VENOUS BASE EXCESS, mEq/L CORD (test code = 0752815532) VENOUS PH, CORD (test 7.25-7.45 code = 9016911771) VENOUS PC02, CORD See_Comment [Automate d message] The (test code = system which ge nerated 7314261847) this result tra nsmitted reference range : 27 - 49 mmHg. The refer ence range was not used to interpret this result as normal/abnormal . VENOUS PO2, CORD (test See_Comment [Aut omated message] The code = 3706952882) system wh ich generated this result tra nsmitted reference range : 17 - 41 mmHg. The refer ence range was not used to interpret this result as normal/abnormal . VENOUS BICARBONATE, See_Comment [Automa lino message] The CORD (test code = system whi ch generated 6692309496) this result tra nsmitted reference range : 12 - 29 mEq/L. The refe rence range was not used to interpret this result as normal/abnormal . [facility] [id number] 14:03:07 Test Item Value Reference Range Interpretation Comments HBsAg Semi-Quantitative (test code = Negative Negative 5195-3) [facility] [id number] 14:03:07 Test Item Value Reference Range Interpretation Comments HBsAg Semi-Quantitative (test code = Negative Negative 5195-3) [facility] and Screen - ONCE [id number] 13:31:04 Test Item Value Reference Range Interpretation Comments ABO & RH (test code O POSITIVE Performe d at [facility] = 20) Laboratory Serv [facility] Blood Bank3 [facility] s [address]Yvnc Free: [phone] A No. [id number] IAT (test code = Negative Performed a t [place] 1185) Laboratory Serv [facility] Blood [facility]3 [facility] s [address]Acbe Free: [phone] A No. [id number] [facility] and Screen - ONCE [id number] 13:31:04 Test Item Value Reference Range Interpretation Comments ABO & RH (test code O POSITIVE Performe d at [facility] = 20) Laboratory Serv [facility] Blood [facility]3 [address] [facility] s [address]Pgkj Free: [phone] A No. [id number] IAT (test code = Negative Performed a t [facility] 1185) Laboratory Serv [facility] Blood [facility] [place] [address] [place] [address]Ugqj Free: [phone] A No. [id number] [facility] with [id number] 12:58:46 Test Item Value Reference Range Interpretation Comments WBC (test code = See_Comment [Automated 6690-2) message] The sy stem which generated this result transmitted reference range : 4.30 - 11.10 10*3/?L. The reference range was not used to interpret this result as normal/abnormal . RBC (test code = See_Comment [Automated 789-8) message] The sy stem which generated this result transmitted reference range : 3.93 - 5.25 10*6/?L. The reference range was not used to interpret this result as normal/abnormal . HGB (test code = 11.0 g/dL 11.6-15.0 L 718-7) HCT (test code = 33.2 % 35.7-45.2 L 4544-3) MCV (test code = 82.0 fL 80.6-95.5 787-2) MCH (test code = 27.2 pg 25.9-32.8 785-6) MCHC (test code = 33.1 g/dL 31.6-35.1 786-4) RDW-SD (test code = 44.4 fL 39.0-49.9 57643-9) RDW-CV (test code = 14.9 % 12.0-15.5 788-0) PLT (test code = See_Comment [Automated 777-3) message] The sy stem which generated this result transmitted reference range : 166 - 358 10*3/ ?L. The reference r jaclyn was not used to interpret this result as normal/abnormal . MPV (test code = 9.2 fL 9.5-12.9 L 90480-7) NRBC/100 WBC (test See_Comment [Automat ed code = 8995194901) message] The system which generated this result transmitted reference range : 0.0 - 10.0 /100 WBCs. The refer ence range was not u sed to interpret th is result as normal/abnormal . NRBC x10^3 (test code See_Comment [Auto mated = 5051041523) message] The s ystem which generated this result transmitted reference range : 10*3/?L. The reference range was not used to interpret this result as normal/abnormal . GRAN MAT (NEUT) % 72.1 % (test code = 770-8) IMM GRAN % (test code 0.60 % = 9026835056) LYMPH % (test code = 18.8 % 736-9) MONO % (test code = 6.3 % 5905-5) EOS % (test code = 1.9 % 713-8) BASO % (test code = 0.3 % 706-2) GRAN MAT x10^3(ANC) 7.07 10*3/uL 1.88-7.09 (test code = 9505801624) IMM GRAN x10^3 (test 0.06 10*3/uL 0.00-0.06 code = 5876251829) LYMPH x10^3 (test code 1.85 10*3/uL 1.32-3.29 = 731-0) MONO x10^3 (test code 0.62 10*3/uL 0.33-0.92 = 742-7) EOS x10^3 (test code = 0.19 10*3/uL 0.03-0.39 711-2) BASO x10^3 (test code 0.03 10*3/uL 0.01-0.07 = 704-7) Lab Interpretation Abnormal (test code = 00025-5) [facility] with [id number] 12:58:46 Test Item Value Reference Range Interpretation Comments WBC (test code = See_Comment [Automated 7790-2) message] The sy stem which generated this result transmitted reference range : 4.30 - 11.10 10*3/?L. The reference range was not used to interpret this result as normal/abnormal . RBC (test code = See_Comment [Automated 019-8) message] The sy stem which generated this result transmitted reference range : 3.93 - 5.25 10*6/?L. The reference range was not used to interpret this result as normal/abnormal . HGB (test code = 11.0 g/dL 11.6-15.0 L 718-7) HCT (test code = 33.2 % 35.7-45.2 L 4544-3) MCV (test code = 82.0 fL 80.6-95.5 787-2) MCH (test code = 27.2 pg 25.9-32.8 785-6) MCHC (test code = 33.1 g/dL 31.6-35.1 786-4) RDW-SD (test code = 44.4 fL 39.0-49.9 33959-7) RDW-CV (test code = 14.9 % 12.0-15.5 788-0) PLT (test code = See_Comment [Automated 777-3) message] The sy stem which generated this result transmitted reference range : 166 - 358 10*3/ ?L. The reference r jaclyn was not used to interpret this result as normal/abnormal . MPV (test code = 9.2 fL 9.5-12.9 L 98333-7) NRBC/100 WBC (test See_Comment [Automat ed code = 7617699546) message] The system which generated this result transmitted reference range : 0.0 - 10.0 /100 WBCs. The refer ence range was not u sed to interpret th is result as normal/abnormal . NRBC x10^3 (test code See_Comment [Auto mated = 0679735606) message] The s ystem which generated this result transmitted reference range : 10*3/?L. The reference range was not used to interpret this result as normal/abnormal . GRAN MAT (NEUT) % 72.1 % (test code = 770-8) IMM GRAN % (test code 0.60 % = 8913519209) LYMPH % (test code = 18.8 % 736-9) MONO % (test code = 6.3 % 5905-5) EOS % (test code = 1.9 % 713-8) BASO % (test code = 0.3 % 706-2) GRAN MAT x10^3(ANC) 7.07 10*3/uL 1.88-7.09 (test code = 2917846324) IMM GRAN x10^3 (test 0.06 10*3/uL 0.00-0.06 code = 8727965271) LYMPH x10^3 (test code 1.85 10*3/uL 1.32-3.29 = 731-0) MONO x10^3 (test code 0.62 10*3/uL 0.33-0.92 = 742-7) EOS x10^3 (test code = 0.19 10*3/uL 0.03-0.39 711-2) BASO x10^3 (test code 0.03 10*3/uL 0.01-0.07 = 704-7) Lab Interpretation Abnormal (test code = 37660-8) [facility] GLUCOSE (AUTOMATED)2022-02-15 12:16:04 Test Item Value Reference Range Interpretation Comments POCT GLU (test code = 2703431213) 98 mg/dL 70-110 Lab Interpretation (test code = Normal 03937-9) [facility] GLUCOSE (AUTOMATED)2022-02-15 12:16:04 Test Item Value Reference Range Interpretation Comments POCT GLU (test code = 7623386536) 98 mg/dL 70-110 Lab Interpretation (test code = Normal 35287-7) [facility] URINALYSIS W SPECIFIC [id number] 21:04:00 Test Item Value Reference Range Interpretation Comments POCT U SP GRAV (test code = 3255) . 1.005-1.025 POCT PH U (test code = 3254) . 5-8 POCT U LEUK EST (test code = 3263) . Negative - Negative POCT U NIT (test code = 3262) . Negative - Negative POCT U PROT (test code = 3259) Trace Negative - Negative POCT U GLU (test code = 3256) Neg Negative - Negative POCT U KETONE (test code = 3258) . Negative - Negative POCT U UROBILI (test code = 3260) . 0.2-1 POCT U BILI (test code = 3261) . Negative - Negative POCT U BLD (test code = 3257) . Negative - Negative POCT U COLOR (test code = 3266) . POCT U APPEAR (test code = 3267) [facility] URINALYSIS W SPECIFIC [id number] 21:36:00 Test Item Value Reference Range Interpretation Comments POCT U SP GRAV (test code = 3255) . 1.005-1.025 POCT PH U (test code = 3254) 6 mg/dl 5-8 POCT U LEUK EST (test code = neg Negative - Negative 3263) POCT U NIT (test code = 3262) neg Negative - Negative POCT U PROT (test code = 3259) trace Negative - Negative POCT U GLU (test code = 3256) 2+ Negative - Negative POCT U KETONE (test code = 3258) neg Negative - Negative POCT U UROBILI (test code = 3260) . 0.2-1 POCT U BILI (test code = 3261) . Negative - Negative POCT U BLD (test code = 3257) neg Negative - Negative POCT U COLOR (test code = 3266) . POCT U APPEAR (test code = 3267) . [facility] URINALYSIS W SPECIFIC [id number] 20:58:00 Test Item Value Reference Range Interpretation Comments POCT U SP GRAV (test code = 3255) . 1.005-1.025 POCT PH U (test code = 3254) . 5-8 POCT U LEUK EST (test code = 3263) . Negative - Negative POCT U NIT (test code = 3262) . Negative - Negative POCT U PROT (test code = 3259) trace Negative - Negative POCT U GLU (test code = 3256) Negative - Negative POCT U KETONE (test code = 3258) . Negative - Negative POCT U UROBILI (test code = 3260) . 0.2-1 POCT U BILI (test code = 3261) . Negative - Negative POCT U BLD (test code = 3257) . Negative - Negative POCT U COLOR (test code = 3266) . POCT U APPEAR (test code = 3267) . [facility] URINALYSIS W SPECIFIC [id number] 15:31:00 Test Item Value Reference Range Interpretation Comments POCT U SP GRAV (test code = 3255) . 1.005-1.025 POCT PH U (test code = 3254) . 5-8 POCT U LEUK EST (test code = 3263) . Negative - Negative POCT U NIT (test code = 3262) . Negative - Negative POCT U PROT (test code = 3259) 1+ Negative - Negative POCT U GLU (test code = 3256) Neg Negative - Negative POCT U KETONE (test code = 3258) . Negative - Negative POCT U UROBILI (test code = 3260) . 0.2-1 POCT U BILI (test code = 3261) . Negative - Negative POCT U BLD (test code = 3257) . Negative - Negative POCT U COLOR (test code = 3266) . POCT U APPEAR (test code = 3267) . [facility] URINALYSIS W SPECIFIC [id number] 22:03:00 Test Item Value Reference Range Interpretation Comments POCT U SP GRAV (test code = . 1.005-1.025 3255) POCT PH U (test code = 3254) 6 mg/dl 5-8 POCT U LEUK EST (test code = negative Negative - Negative 3263) POCT U NIT (test code = 3262) negative Negative - Negative POCT U PROT (test code = 3259) normal Negative - Negative POCT U GLU (test code = 3256) negative Negative - Negative POCT U KETONE (test code = 3258) negative Negative - Negative POCT U UROBILI (test code = . 0.2-1 3260) POCT U BILI (test code = 3261) . Negative - Negative POCT U BLD (test code = 3257) negative Negative - Negative POCT U COLOR (test code = 3266) . POCT U APPEAR (test code = 3267) . [facility] URINALYSIS W SPECIFIC [id number] 14:19:00 Test Item Value Reference Range Interpretation Comments POCT U SP GRAV (test code = . 1.005-1.025 3255) POCT PH U (test code = 3254) . 5-8 POCT U LEUK EST (test code = . Negative - Negative 3263) POCT U NIT (test code = 3262) . Negative - Negative POCT U PROT (test code = 3259) trace Negative - Negative POCT U GLU (test code = 3256) negative Negative - Negative POCT U KETONE (test code = 3258) . Negative - Negative POCT U UROBILI (test code = . 0.2-1 3260) POCT U BILI (test code = 3261) . Negative - Negative POCT U BLD (test code = 3257) . Negative - Negative POCT U COLOR (test code = 3266) . POCT U APPEAR (test code = 3267) . [facility] URINALYSIS W SPECIFIC [id number] 14:19:00 Test Item Value Reference Range Interpretation Comments POCT U SP GRAV (test code = . 1.005-1.025 3255) POCT PH U (test code = 3254) . 5-8 POCT U LEUK EST (test code = . Negative - Negative 3263) POCT U NIT (test code = 3262) . Negative - Negative POCT U PROT (test code = 3259) trace Negative - Negative POCT U GLU (test code = 3256) negative Negative - Negative POCT U KETONE (test code = 3258) . Negative - Negative POCT U UROBILI (test code = . 0.2-1 3260) POCT U BILI (test code = 3261) . Negative - Negative POCT U BLD (test code = 3257) . Negative - Negative POCT U COLOR (test code = 3266) . POCT U APPEAR (test code = 3267) . [facility] URINALYSIS W SPECIFIC [id number] 14:27:00 Test Item Value Reference Range Interpretation Comments POCT U SP GRAV (test code = 3255) . 1.005-1.025 POCT PH U (test code = 3254) . 5-8 POCT U LEUK EST (test code = 3263) . Negative - Negative POCT U NIT (test code = 3262) . Negative - Negative POCT U PROT (test code = 3259) Trace Negative - Negative POCT U GLU (test code = 3256) Neg Negative - Negative POCT U KETONE (test code = 3258) . Negative - Negative POCT U UROBILI (test code = 3260) . 0.2-1 POCT U BILI (test code = 3261) . Negative - Negative POCT U BLD (test code = 3257) . Negative - Negative POCT U COLOR (test code = 3266) . POCT U APPEAR (test code = 3267) . [facility] URINALYSIS W SPECIFIC [id number] 14:27:00 Test Item Value Reference Range Interpretation Comments POCT U SP GRAV (test code = 3255) . 1.005-1.025 POCT PH U (test code = 3254) . 5-8 POCT U LEUK EST (test code = 3263) . Negative - Negative POCT U NIT (test code = 3262) . Negative - Negative POCT U PROT (test code = 3259) Trace Negative - Negative POCT U GLU (test code = 3256) Neg Negative - Negative POCT U KETONE (test code = 3258) . Negative - Negative POCT U UROBILI (test code = 3260) . 0.2-1 POCT U BILI (test code = 3261) . Negative - Negative POCT U BLD (test code = 3257) . Negative - Negative POCT U COLOR (test code = 3266) . POCT U APPEAR (test code = 3267) . [facility] URINALYSIS W SPECIFIC [id number] 14:27:00 Test Item Value Reference Range Interpretation Comments POCT U SP GRAV (test code = 3255) . 1.005-1.025 POCT PH U (test code = 3254) . 5-8 POCT U LEUK EST (test code = 3263) . Negative - Negative POCT U NIT (test code = 3262) . Negative - Negative POCT U PROT (test code = 3259) Trace Negative - Negative POCT U GLU (test code = 3256) Neg Negative - Negative POCT U KETONE (test code = 3258) . Negative - Negative POCT U UROBILI (test code = 3260) . 0.2-1 POCT U BILI (test code = 3261) . Negative - Negative POCT U BLD (test code = 3257) . Negative - Negative POCT U COLOR (test code = 3266) . POCT U APPEAR (test code = 3267) . [facility] URINALYSIS W SPECIFIC [id number] 14:27:00 Test Item Value Reference Range Interpretation Comments POCT U SP GRAV (test code = 3255) . 1.005-1.025 POCT PH U (test code = 3254) . 5-8 POCT U LEUK EST (test code = 3263) . Negative - Negative POCT U NIT (test code = 3262) . Negative - Negative POCT U PROT (test code = 3259) Trace Negative - Negative POCT U GLU (test code = 3256) Neg Negative - Negative POCT U KETONE (test code = 3258) . Negative - Negative POCT U UROBILI (test code = 3260) . 0.2-1 POCT U BILI (test code = 3261) . Negative - Negative POCT U BLD (test code = 3257) . Negative - Negative POCT U COLOR (test code = 3266) . POCT U APPEAR (test code = 3267) . [facility] URINALYSIS W SPECIFIC [id number] 14:27:00 Test Item Value Reference Range Interpretation Comments POCT U SP GRAV (test code = 3255) . 1.005-1.025 POCT PH U (test code = 3254) . 5-8 POCT U LEUK EST (test code = 3263) . Negative - Negative POCT U NIT (test code = 3262) . Negative - Negative POCT U PROT (test code = 3259) Trace Negative - Negative POCT U GLU (test code = 3256) Neg Negative - Negative POCT U KETONE (test code = 3258) . Negative - Negative POCT U UROBILI (test code = 3260) . 0.2-1 POCT U BILI (test code = 3261) . Negative - Negative POCT U BLD (test code = 3257) . Negative - Negative POCT U COLOR (test code = 3266) . POCT U APPEAR (test code = 3267) . [facility] URINALYSIS W SPECIFIC [id number] 14:27:00 Test Item Value Reference Range Interpretation Comments POCT U SP GRAV (test code = 3255) . 1.005-1.025 POCT PH U (test code = 3254) . 5-8 POCT U LEUK EST (test code = 3263) . Negative - Negative POCT U NIT (test code = 3262) . Negative - Negative POCT U PROT (test code = 3259) Trace Negative - Negative POCT U GLU (test code = 3256) Neg Negative - Negative POCT U KETONE (test code = 3258) . Negative - Negative POCT U UROBILI (test code = 3260) . 0.2-1 POCT U BILI (test code = 3261) . Negative - Negative POCT U BLD (test code = 3257) . Negative - Negative POCT U COLOR (test code = 3266) . POCT U APPEAR (test code = 3267) . [facility] URINALYSIS W SPECIFIC [id number] 14:27:00 Test Item Value Reference Range Interpretation Comments POCT U SP GRAV (test code = 3255) . 1.005-1.025 POCT PH U (test code = 3254) . 5-8 POCT U LEUK EST (test code = 3263) . Negative - Negative POCT U NIT (test code = 3262) . Negative - Negative POCT U PROT (test code = 3259) Trace Negative - Negative POCT U GLU (test code = 3256) Neg Negative - Negative POCT U KETONE (test code = 3258) . Negative - Negative POCT U UROBILI (test code = 3260) . 0.2-1 POCT U BILI (test code = 3261) . Negative - Negative POCT U BLD (test code = 3257) . Negative - Negative POCT U COLOR (test code = 3266) . POCT U APPEAR (test code = 3267) . [facility] URINALYSIS W SPECIFIC [id number] 14:27:00 Test Item Value Reference Range Interpretation Comments POCT U SP GRAV (test code = 3255) . 1.005-1.025 POCT PH U (test code = 3254) . 5-8 POCT U LEUK EST (test code = 3263) . Negative - Negative POCT U NIT (test code = 3262) . Negative - Negative POCT U PROT (test code = 3259) Trace Negative - Negative POCT U GLU (test code = 3256) Neg Negative - Negative POCT U KETONE (test code = 3258) . Negative - Negative POCT U UROBILI (test code = 3260) . 0.2-1 POCT U BILI (test code = 3261) . Negative - Negative POCT U BLD (test code = 3257) . Negative - Negative POCT U COLOR (test code = 3266) . POCT U APPEAR (test code = 3267) . [facility] URINALYSIS W SPECIFIC [id number] 18:59:00 Test Item Value Reference Range Interpretation Comments POCT U SP GRAV (test code = 3255) . 1.005-1.025 POCT PH U (test code = 3254) . 5-8 POCT U LEUK EST (test code = 3263) . Negative - Negative POCT U NIT (test code = 3262) . Negative - Negative POCT U PROT (test code = 3259) Trace Negative - Negative POCT U GLU (test code = 3256) Neg Negative - Negative POCT U KETONE (test code = 3258) . Negative - Negative POCT U UROBILI (test code = 3260) . 0.2-1 POCT U BILI (test code = 3261) . Negative - Negative POCT U BLD (test code = 3257) . Negative - Negative POCT U COLOR (test code = 3266) . POCT U APPEAR (test code = 3267) . [facility] URINALYSIS W SPECIFIC [id number] 18:59:00 Test Item Value Reference Range Interpretation Comments POCT U SP GRAV (test code = 3255) . 1.005-1.025 POCT PH U (test code = 3254) . 5-8 POCT U LEUK EST (test code = 3263) . Negative - Negative POCT U NIT (test code = 3262) . Negative - Negative POCT U PROT (test code = 3259) Trace Negative - Negative POCT U GLU (test code = 3256) Neg Negative - Negative POCT U KETONE (test code = 3258) . Negative - Negative POCT U UROBILI (test code = 3260) . 0.2-1 POCT U BILI (test code = 3261) . Negative - Negative POCT U BLD (test code = 3257) . Negative - Negative POCT U COLOR (test code = 3266) . POCT U APPEAR (test code = 3267) . [facility] URINALYSIS W SPECIFIC [id number] 18:59:00 Test Item Value Reference Range Interpretation Comments POCT U SP GRAV (test code = 3255) . 1.005-1.025 POCT PH U (test code = 3254) . 5-8 POCT U LEUK EST (test code = 3263) . Negative - Negative POCT U NIT (test code = 3262) . Negative - Negative POCT U PROT (test code = 3259) Trace Negative - Negative POCT U GLU (test code = 3256) Neg Negative - Negative POCT U KETONE (test code = 3258) . Negative - Negative POCT U UROBILI (test code = 3260) . 0.2-1 POCT U BILI (test code = 3261) . Negative - Negative POCT U BLD (test code = 3257) . Negative - Negative POCT U COLOR (test code = 3266) . POCT U APPEAR (test code = 3267) . [facility] URINALYSIS W SPECIFIC [id number] 21:22:00 Test Item Value Reference Range Interpretation Comments POCT U SP GRAV (test code = 3255) . 1.005-1.025 POCT PH U (test code = 3254) . 5-8 POCT U LEUK EST (test code = 3263) . Negative - Negative POCT U NIT (test code = 3262) . Negative - Negative POCT U PROT (test code = 3259) 1+ Negative - Negative POCT U GLU (test code = 3256) Neg Negative - Negative POCT U KETONE (test code = 3258) . Negative - Negative POCT U UROBILI (test code = 3260) . 0.2-1 POCT U BILI (test code = 3261) . Negative - Negative POCT U BLD (test code = 3257) . Negative - Negative POCT U COLOR (test code = 3266) POCT U APPEAR (test code = 3267) [facility] URINALYSIS W SPECIFIC [id number] 19:52:00 Test Item Value Reference Range Interpretation Comments POCT U SP GRAV (test code = * 1.005-1.025 3255) POCT PH U (test code = 3254) * 5-8 POCT U LEUK EST (test code = * Negative - Negative 3263) POCT U NIT (test code = 3262) * Negative - Negative POCT U PROT (test code = 3259) negative Negative - Negative POCT U GLU (test code = 3256) negative Negative - Negative POCT U KETONE (test code = 3258) * Negative - Negative POCT U UROBILI (test code = * 0.2-1 3260) POCT U BILI (test code = 3261) * Negative - Negative POCT U BLD (test code = 3257) * Negative - Negative POCT U COLOR (test code = 3266) * POCT U APPEAR (test code = 3267) [facility], [id number] 10:31:14SPECIMEN NUMBER: [id number] CULTURE, URINE SPECIMEN NUMBER: [id number] SPECIMEN COMMENT: URINE SOURCE:URINE REPORT STATUS: FINAL ISOLATE NUMBER 1: IDENTIFICATION: 07/27/2021 <10,000 CFU/ML BETA-STREPTOCOCCUS GROUP B ADDITIONAL OBSERVATIONS: PENICILLIN AND AMPICILLIN ARE DRUGS OF CHOICE FOR TREATMENTOF B-HEMOLYTIC STREPTOCOCCAL INFECTIONS. SUSCEPTIBILITY TESTING OF PENICILLIN AND OTHER B- LACTAMS APPROVED BY THE [place] [employer]OD AND DRUG [employer]ATION FOR TREATMENT OF B- HEMOLYTIC STREPTOCOCCAL INFECTIONS NEED NOT BE PERFORMED ROUTINELY. ADDITIONAL OBSERVATIONS: 07/27/2021 50-100,000 CFU/ML UROGENITAL RHETT PRESENT NO COMMON PATHOGENSHEMOGLOBIN [id number] 09:41:43 Test Item Value Reference Range Interpretation Comments HEMOGLOBIN A1 (test 97.7 % 95.0-98.5 code = 2575) HEMOGLOBIN A2 (test 2.3 % 1.6-3.7 code = 2576) HEMOGLOBIN F () 0.0 % 0.0-2.0 (test code = 2722) HEMOGLOBIN S (test NONE % NONE DETECTED code = 2724) HEMOGLOBIN C (test NONE % NONE DETECTED code = 2726) OTHER HEMOGLOBIN NONE DETEC % NONE DETECTED VARIANT (test code = 46593) PATHOLOGIST'S (NOTE) NO ABNORMAL INTERPRETATION (test HEMOGLO BINS code = 2577) IDENTIFIED. SYLVIE BRAND M.D. CT/NG, NAAT, [id number] 18:15:43 Test Item Value Reference Range Interpretation Comments GONORRHEA, NAAT NEGATIVE NEGATIVE IMPORTA NT NOTICE: SEE (test code = [place] [address]) [email or web address] Note: Assay methodology is nucleic acid amplification b y medical record transcriber m ediated amplification ( TMA) utilizing the A ptima Combo 2 Assay. CHLAMYDIA, NAAT NEGATIVE NEGATIVE IMPORTA NT NOTICE: SEE (test code = [place] [address]) [email or web address] Note: Assay methodology is nucleic acid amplification b y medical record transcriber m ediated amplification ( TMA) utilizing the A ptima Combo 2 Assay. VARICELLA ZOSTER [id number] 14:50:13 Test Item Value Reference Range Interpretation Comments VARICELLA ZOSTER IgG 270 INDEX SEE BELOW INTERP RETATION VZV IgG (test code = 18524) NEGATIVE . . . . . . . . . . . . INDEX < 135 EQUIVOCAL. . . . . . . . . . . . INDEX 1 35-164 NOTE: CONSIDER RETESTING IN A CLINICALLY SUITABLE PERIOD OF TIME, NO SOONER THAN 1-2 WEEKS. POSITIVE . . . . . . . . . . . . INDEX > =165 DRUG ABUSE SCREEN 10 REFLEX [id number] 06:16:03 Test Item Value Reference Range Interpretation Comments AMPHETAMINES (test NEGATIVE NEGATIVE code = 3201) BARBITURATES (test NEGATIVE NEGATIVE code = 3202) BENZODIAZEPINES (test NEGATIVE NEGATIVE code = 3203) CANNABINOIDS (test NEGATIVE NEGATIVE code = 3204) COCAINE METABOLITE NEGATIVE NEGATIVE (test code = 3205) OPIATES (test code = NEGATIVE NEGATIVE 3209) OXYCODONE (test code NEGATIVE NEGATIVE = 90459) PHENCYCLIDINE (test NEGATIVE NEGATIVE code = 3210) METHADONE (test code NEGATIVE NEGATIVE = 3207) BUPRENORPHINE (test NEGATIVE NEGATIVE code = 19994) SOURCE (test code = URINE SEE BELOW FOR 610541) THRESHOLDS AND IMPORTANT METHOD NOTES * ANALYTE SCREENING CUTOF F CONFIRMATORY CUTOFF AMPHETAMINES 50 0 NG/ML 100 NG/MLBARBIT URATES 200 NG/ML 100 NG/MLBENZODIAZE PINES 200 NG/ML 100 NG/MLCANNABINOI DS (THC) 20 NG/ML 15 NG/ MLCOCAINE METABOLITES 150 NG/ML 100 NG/MLOPIATE MET ABOLITES 300 NG/ML 100 NG/MLOXYCODONE 100 NG/ML 100 NG/MLPHENCY CLIDINE (PCP) 25 NG/ML 25 NG/MLMETHADONE 300 NG/ML 100 NG/MLBUPREN ORPHINE 5 NG/ML 5 NG/ML N OTE: Screening metho dology is qualitative Enz yme [...] contact the lab oratory within specimen stability toforward for confirmatory te sting. This test is sp ecified for medicalpurp oses only. It is not valid for forensic use. GLUCOSE, 1 HR, GESTATIONAL SCREEN, 50 GM [id number] 06:09:04 Test Item Value Reference Range Interpretation Comments GLUCOSE 1 HR POST 197 MG/DL <140 H UNLESS OT HERWISE 50 GM (test code = INDICATED , ALL TESTING 2005) PER[facility]MED [facility] [address] [place] [id number] [place] [address] DIRECTOR: RAJAN SPRINGER M.D. CLIA NUMBER [id number] CAP ACCREDITATION N O. [id number] OBSTETRIC PANEL + [id number] 03:35:02 Test Item Value Reference Range Interpretation [...] 1036) NUCLEATED RBCS 0.0 /100 WBC'S See_Comment [Automated message] (test code = 1065) The syste m which generated this result [...] RBCS 0.00 K/UL 0.00-0.11 (test code = 55844) BLOOD TYPE AND RH O POSITIVE A HISTORI ALBERTINA RECORD (test code = 3901) CHECK FOR PREVIOUS RESULTS IS NOT PERFORMED.THESE RESULTS SHOULD BE CORRELATED WITH RESULTS OF PRIO R BLOODTYPING AND ANTIBODY SCREEN STUDIES. ANTIBODY SCREEN NEGATIVE NEGATIVE A HISTORICA L RECORD (test code = 3902) CHECK FOR PREVIOUS RESULTS IS NOT PERFORMED.THESE RESULTS SHOULD BE CORRELATED WITH RESULTS OF PRIO R BLOODTYPING AND ANTIBODY SCREEN STUDIES. RUBELLA ANTIBODY 43 IU/ML SEE BELOW INTERPRETA TION SCREEN (test code = RUBELLA IgG 4600) NON-REACTIVE/NO N-IMM UNE . . . . . . . IU/ML <10 REACTIVE/IMMUNE . . . . . . . . . . . IU/ML >=10 RUBELLA IgG INTERP REACTIVE REACTIVE (test code = 43058) HEPATITIS B SURF AG NON-REACTIVE NON-REACTIVE (test code = 2739) RPR (test code = NON-REACTIVE NON-REACTIVE 01262) RPR TITER (test NOT INDIC. NOT INDIC. code = 3500) TITER HIV 1/2 4TH GEN, NON-REACTIVE NON-REACTIVE RFLX CONF (test code = 3514) HEPATITIS C REFLEX [id number] 03:35:02 Test Item Value Reference Range Interpretation Comments HEPATITIS C ANTIBODY (test code NON-REACTIVE NON-REACTIVE = 4675) [id number] 03:31:45 Test Item Value Reference Range Interpretation Comments RPR RESULT (test code = NON-REACTIVE NON-REACTIVE 3501) RPR TITER (test code = 3500) NOT INDIC. TITER NOT INDIC. COMPREHENSIVE METABOLIC [id number] 02:50:58 Test Item Value Reference Range Interpretation Comments GLUCOSE (test code = 192 MG/DL 70-99 H 2216) BUN (test code = 9 MG/DL 6-20 2207) CREATININE (test 0.63 MG/DL 0.60-1.30 code = 2214) eGFR (2020 CKD-EPI) 125 >60 (test code = 81665) ML/MIN/1.73 CALC BUN/CREAT (test 14 RATIO 6-28 code = 2235) SODIUM (test code = 138 MEQ/L 929-127 3954) POTASSIUM (test code 4.0 MEQ/L 3.5-5.4 = 2227) CHLORIDE (test code 103 MEQ/L 95-107 = 5) CARBON DIOXIDE (test 23 MEQ/L 19-31 code [...] PHOSPHATASE 107 U/L 40-112 (test code = 2204) AST (test code = 12 U/L -2217) ALT (test code = 18 U/L -40 2218) SARS-CoV-2 (COVID-19), RT-PCR/[id number] 09:38:11 Test Item Value Reference Interpretation Comments Range SARS-CoV-2 NEGATIVE SEE NOTE SARS-CoV-2 RNA NOT INTERPRETATION DETECTEDNegat crystal (test code = 84051) results do not preclude SARS-CoV-2 infe ction [...] code = [place]IF[place]: [place] [address]) Roma Fredy Judith l-Time RT-PCR. The exp ected result or refer ence range is NEGATI VE (Not Detected). For more information reg arding COVID-19 testin g to include clinicalinforma tion, methodology det ail, intended use, F DA authorization andrecommended fact sheets for leroy ents or healthcare prov iders, see NewTest Announcement: SARS-CoV-2 (COV ID-19) by NAAT at URL below (note,fact shee ts are provided by met hod given in report:[email or web address] Alternatively, see downloadable PD F fact sheet at:https://www. [employer]. Push[employer]/COVID-19-RT -PCR UNLESS OTHERWIS E INDICATED, ALL TESTING PERFORMED [facility], [facility]. [address] [place] [address], [place] [address] [address] LABORATORY DIRE CTOR: RAJAN BOWDEN M.D. CLIA NUMBER [id number] [place] [id number] SARS-CoV-2 (COVID-19), RT-PCR/[id number] 09:22:51 Test Item Value Reference Interpretation Comments Range SARS-CoV-2 NEGATIVE SEE NOTE SARS-CoV-2 RNA NOT INTERPRETATION DETECTEDNegat crystal (test code = 18651) results do not preclude SARS-C oV-2 infection and s hould notbe used as t he sole basis for patie nt management deci sions. Negativeresults must be combined wit h clinical observ ations, patient history ,and epidemiological information. Op timum specimen types and timingfor peak viral levels during infections caus ed by SARS-CoV-2 have notbeen determi lake. Collection of m ultiple specimens or ty pes ofspecimens may be necessary to de tect virus. Improper specimencollect ion and handling, seque nce variability und er primers/probes, or organism presen t below the limit of de tection may lead to falsenegative r esults. Positive and ne gative predictive valu es oftesting are h ighly dependent on prevalence. Fal se negative testre sults are more likely when prevalence is h igh. SOURCE (test code = NASOPHARYNGEAL Note: [place] [address]) Roma Fredy Judith l-Time RT-PCR. The exp ected result or refer ence range is NEGATI VE (Not Detected). For more information reg arding COVID-19 testin g to include clinicalinforma tion, methodology det ail, intended use, F DA authorization andrecommended fact sheets for leroy ents or healthcare prov iders, see NewTest Announcement: SARS-CoV-2 (COV ID-19) by NAAT at URL below (note,fact shee ts are provided by met hod given in report:https:// [email or web address] [email or web address]/ Alternatively, see downloadable PD F fact sheet at:https://www. [employer] .PushCoin/COVID-19-R T-PCR UNLESS OTHERWIS E INDICATED, ALL TESTING PERFORMED [facility], [place]. [address] [place] [address] JOVANA MANRIQUE DIRECTOR: RAJAN SPRINGER M.D. CLIA NUMBER [id number] CAP ACCREDITATION N O. [id number]
[2022-03-30] MEDS ORDERED: ACETAMINOPHEN 500 MG TAB ONE (20:26)
[2022-03-30] MEDS ORDERED: LIDOCAINE 1% MPF 30 ML VIAL ONE (20:33)
--- NOTE | 2022-03-30 22:48 | ER ---
Nurse's [facility] Name: Rasheeda Alfonso Age: 26 yrs Sex: Female : 1995 Arrival Date: 03/30/2022 Time: 19:21 Bed 13 Private MD: Diagnosis: Cutaneous abscess of buttock Presentation: 03/30 19:26 Chief complaint: Patient states: "I have had a recurrent boil on my bottom and it's as6 gotten really bit and I can't sit down, it hurts. I had a fever at home". Coronavirus screen: At this time, the client does not indicate any symptoms associated with coronavirus-19. Ebola Screen: No symptoms or risks identified at this time. Initial Sepsis Screen: Does the patient meet any 2 criteria? Temp <36.0*C (96.8*F)) or > 38.3*C (100.9*F). HR > 90 bpm. Yes Does the patient have a suspected source of infection? Yes: Skin breakdown/wound. Risk Assessment: Do you want to hurt yourself or someone else? Patient reports no desire to harm self or others. Onset of symptoms was March 28, 2022. 19:26 Method Of Arrival: Ambulatory as6 19:26 Acuity: RILEY 2 as6 Triage Assessment: 20:00 General: Appears in no apparent distress. Behavior is appropriate for age. Pain: ke1 Complains of pain in buttocks. Historical: - Allergies: 19:32 No Known Allergies; as6 - PMHx: 19:32 GALLSTONES; gestational diabetes; as6 - PSHx: 19:32 section; as6 19:32 Cholecystectomy; as6 - Immunization history:: Client reports receiving the 2nd dose of the Covid vaccine, pfizer . - Social history:: Smoking status: Patient denies any tobacco usage or history of. Screenin:35 [facility] ED Fall Risk Assessment (Adult) History of falling in the last 3 months, ke1 including since admission No falls in past 3 months (0 pts) Confusion or Disorientation No (0 pts) Intoxicated or Sedated No (0 pts) Impaired Gait No (0 pts) Mobility Assist Device Used No (0 pt) Altered Elimination No (0 pt) Score/Fall Risk Level 0 - 2 = Low Risk. Abuse screen: Denies threats or abuse. Nutritional screening: No deficits noted. Tuberculosis screening: No symptoms or risk factors identified. Assessment: 22:56 Reassessment: Patient is alert, oriented x 3, equal unlabored respirations, skin ke1 warm/dry/pink. 23:10 Reassessment: Patient states feeling better. Patient states symptoms have improved. ke1 Vital Signs: 19:26 BP 108 / 72; Pulse 128; Resp 18 S; Temp 101.3(O); Pulse Ox 98% on R/A; Weight 99.79 kg as6 (R); Height 5 ft. 4 in. (162.56 cm) (R); Pain 8/10; 22:56 BP 112 / 64; Pulse 103; Resp 17; Temp 101.1; Pulse Ox 94% on R/A; Pain 5/10; ke1 19:26 Body Mass Index 37.76 (99.79 kg, 162.56 cm) as6 ED Course: 19:21 Patient arrived in ED. am2 19:31 Triage completed. as6 19:32 Arm band placed on. as6 19:38 [facility] Pinto [facility]C [facility] kb 19:38 Lyly Carlos MD is Attending Physician. kb 20:00 Bed in low position. Call light in reach. ke1 20:08 Frantz Kirkland, RN is Primary Nurse. ke1 23:32 No provider procedures requiring assistance completed. Patient did not have IV access ke1 during this emergency room visit. Administered Medications: 20:29 Drug: Tylenol 500 mg Route: PO; ke1 21:20 Follow up: Response: No adverse reaction ke1 22:50 Drug: Lidocaine (1 %) 1 vials {Note: bY Shonda marino.} Volume: 5 ml; Route: Infiltration; ke1 23:08 Drug: KeFLEX (cephalexin) 500 mg Route: PO; ke1 23:31 Follow up: Response: Medication administered at discharge. ke1 23:08 Drug: Ibuprofen 600 mg Route: PO; ke1 23:31 Follow up: Response: Medication administered at discharge. ke1 Medication: 23:32 VIS not applicable for this client. ke1 Outcome: 22:48 Discharge ordered by . kb 23:32 Discharged to home ambulatory. ke1 23:32 Condition: good 23:32 Discharge instructions given to patient. 23:33 Patient left the ED. ke1 Signatures: Mary Pinto, [employer] OFFICER-Lisa Wilson am2 Dwight Engel RN RN as6 Frantz Kirkland RN RN ke1
--- NOTE | 2022-03-30 22:48 | EDPHYS ---
Physician Documentation [facility] Name: Rasheeda Alfonso Age: 26 yrs Sex: Female : 1995 Arrival Date: 03/30/2022 Time: 19:21 Bed 13 Private MD: ED Physician Lyly Carlos HPI: 03/30 22:53 This 26 yrs old Female presents to ER via Ambulatory with complaints of Boil, kb Fever. 22:53 The patient presents with an abscess of the gluteal cleft. kb 22:55 Description: erythematous, fluctuant, swollen. kb 22:55 Onset: The symptoms/episode began/occurred 2 day(s) ago. Possible cause(s): unknown. kb Associated signs and symptoms: Pertinent positives: erythema, fever, swelling, Pertinent negatives: discharge, drainage, foreign body sensation, headache, nausea, shortness of breath, vomiting. Modifying factors: the symptoms are alleviated by nothing, the symptoms are aggravated by walking, pressure, sitting, squeezing the lesion and expressing the contents, touching. Severity of symptoms: At their worst the symptoms were moderate, in the emergency department the symptoms are unchanged. The patient has experienced similar episodes in the past, a few times. The patient has not recently seen a physician. Historical: - Allergies: 19:32 No Known Allergies; as6 - PMHx: 19:32 GALLSTONES; gestational diabetes; as6 - PSHx: 19:32 section; as6 19:32 Cholecystectomy; as6 - Immunization history:: Client reports receiving the 2nd dose of the Covid vaccine, pfizer . - Social history:: Smoking status: Patient denies any tobacco usage or history of. ROS: 22:55 Abdomen/GI: Negative for abdominal pain, nausea, vomiting, diarrhea, and constipation. kb 22:55 Constitutional: Positive for fever. 22:55 Skin: Positive for abscess, of the gluteal cleft. 22:55 All other systems are negative. Exam: 22:55 Constitutional: This is a well developed, well nourished patient who is awake, alert, kb and in no acute distress. Head/Face: Normocephalic, atraumatic. ENT: Moist Mucous membranes Cardiovascular: Regular rate and rhythm with a normal S1 and S2. No gallops, murmurs, or rubs. No pulse deficits. Respiratory: Respirations even and unlabored. No increased work of breathing. Talking in full sentences Abdomen/GI: Soft, non-tender. No distention MS/ Extremity: Pulses equal, no cyanosis. Neurovascular intact. Full, normal range of motion. Neuro: Awake and alert, GCS 15, oriented to person, place, time, and situation. Moves all extremities. Normal gait. 22:55 Skin: abscess, that is moderate sized, of the gluteal cleft, with fluctuance, that is moderate. Vital Signs: 19:26 BP 108 / 72; Pulse 128; Resp 18 S; Temp 101.3(O); Pulse Ox 98% on R/A; Weight 99.79 kg as6 (R); Height 5 ft. 4 in. (162.56 cm) (R); Pain 8/10; 22:56 BP 112 / 64; Pulse 103; Resp 17; Temp 101.1; Pulse Ox 94% on R/A; Pain 5/10; ke1 19:26 Body Mass Index 37.76 (99.79 kg, 162.56 cm) as6 Procedures: 22:47 I \T\ D: Incision and drainage was performed for an abscess of the gluteal cleft Prepped kb with Betadine, Anesthetized with 3 ml's 1% Lidocaine. Incised with #11 blade. Drained large amount purulent fluid. Loculations removed. Abscess cavity explored. Packed with iodoform gauze, Dressing: sterile 4x4 gauze, the patient tolerated the procedure well. MDM: 19:38 Patient medically screened. kb 22:53 Data reviewed: vital signs, nurses notes. kb 22:55 Differential diagnosis: abscess, cellulitis. Counseling: I had a detailed discussion kb with the patient and/or guardian regarding: the historical points, exam findings, and any diagnostic results supporting the discharge/admit diagnosis, the need for outpatient follow up, a family practitioner, a general surgeon, to return to the emergency department if symptoms worsen or persist or if there are any questions or concerns that arise at home. ED course: Patient is a 26-year-old female who presents with an abscess to gluteal cleft on right side that started 2 days ago and fever that started today. Denies any other symptoms. On exam, abscess noted with fluctuance. No surrounding cellulitis. 1% lidocaine used to numb the area, approximately 1 cm incision made with 11 blade, large amount of purulent drainage expressed. Iodoform packing inserted. Patient tolerated procedure well. Patient educated to follow-up with general surgery for continued treatment. Patient has seen Dr. Weber in the past for a pilonidal cyst removal and plans to follow-up with him next week. We will prescribe Keflex, patient is currently breast-feeding. Patient educated on return precautions. Verbal understanding received.. 03/30 19:43 Order name: I\T\D Setup; Complete Time: 20:58 kb 03/30 22:46 Order name: Vital Signs; Complete Time: 23:10 kb Administered Medications: 20:29 Drug: Tylenol 500 mg Route: PO; ke1 21:20 Follow up: Response: No adverse reaction ke1 22:50 Drug: Lidocaine (1 %) 1 vials {Note: bY Shonda marino.} Volume: 5 ml; Route: Infiltration; ke1 23:08 Drug: KeFLEX (cephalexin) 500 mg Route: PO; ke1 23:31 Follow up: Response: Medication administered at discharge. ke1 23:08 Drug: Ibuprofen 600 mg Route: PO; ke1 23:31 Follow up: Response: Medication administered at discharge. ke1 Disposition Summary: 03/30/22 22:48 Discharge Ordered Location: Home kb Condition: Stable kb Diagnosis - Cutaneous abscess of buttock kb Followup: kb - With: Emergency Department - When: As needed - Reason: Worsening of condition Followup: kb - With: Private Physician - When: 2 - 3 days - Reason: Recheck today's complaints, Continuance of care, Re-evaluation by your physician Discharge Instructions: - Discharge Summary Sheet kb - Skin Abscess, [id number] kb - Incision and Drainage, Care After kb Forms: - Medication Reconciliation Form kb - Thank You Letter kb - Antibiotic Education kb - Prescription Opioid Use kb Prescriptions: - Cephalexin 500 mg Oral Capsule - take 1 capsule by ORAL route every 8 hours for 10 days; 30 capsule; Refills: 0, kb Product Selection Permitted Signatures: Mary Pinto FNP-C FNP-Ckb Slawson, Ashby RN RN as6 Frantz Kirkland RN RN ke1
[2022-03-30] MEDS ORDERED: IBUPROFEN 200 MG TAB PO ONE (23:03)
[2022-03-30] MEDS ORDERED: IBUPROFEN 400 MG TAB ONE ×2 (23:04→23:08)
[2022-03-30] MEDS ORDERED: CEPHALEXIN 250 MG CAP ONE (23:04)
[2022-03-31 00:51] VITALS: BP 112/64; TEMP 101.1; O2SAT 94
== END 2022-03-30 23:33 | disposition home or self-care (01) ==
LOC: ER 19:19
PROC: 0H98XZZ Drainage of Buttock Skin, External Approach (ICD-10-PCS; principal; 2022-03-30)
DX: L02.31 Cutaneous abscess of buttock (principal)
CPT/HCPCS: 99283; 10060; J2001

== ENCOUNTER 2023-08-19 14:26 | Emergency (ER) | payer OTHER, SELFPAY ==
--- OUTSIDE RECORDS SUMMARY | 2023-08-19 14:35 | XMS REPORT | Continuity of Care Document ---
Author Name Unknown Address [address] [facility]. [address] [place] [address] [facility] thconnect Address [address] [facility] [address] [place] [address] Care Team Providers Care Geriatric Personal Care Aide Name Role Phone Marcelle García Primary Care Physicia n CASTRO TAI Attending Clinician Unavailable GC_GCBZW_Kadiyala_S Attending Clinician Marcelle Mcfadden Attending Clinician + Doctor Unassigned, [place] Attending Clinician U navailKAROLINE Sloan Attending Clinician Malini ugarte Provider, Nikkialberto Temp Attending Clinician Diana vailable Karoline Greenfield CNM Attending Clinician [phone] [facility], [facility]ending [facility]ician Unava ilMARCELLE Fam Attending Clinician Unavail able VIKTOR NEVES Attending Clinician Unavaileric Saenz MD, Barber Rocah Attending Clinician + Viktor Neves MD Attending Clinician [phone] OMKAR GILBERT Attending Clinician UnavailGRADY Stovall Attending Clinician Unavailable Risk, Gqu-Pminb-Wo/High Attending Clinician Unav ailGrady Arreola Attending Clinician [phone] Ultrasound, Ang-Mfm Attending Clinician Unavaila torito Escamilla MD, Jj Attending Clinician + JJ HUI Attending Clinician Dianav bennett VIEIRA, FABIENNE Attending Clinician Edgardo VIEIRA, FABIENNE Attending Clinician Edgardo Gomez MD, Trudy Miranda Attending Clinician + TRUDY GOMEZ Attending Clinician UnaMINERVA Acuña Attending Clinician Unavailable Tuan MERCADO, Rc Attending Clinician + [phone] Abiel MERCADO, Minerva Mcnulty Attending Clinician [phone] Judith LOPEZ, Sylvia Membreno Attending Clinician Unavailable Gabe MERCADO, Nathalia Attending Clinician [phone] NATHALIA BERNAL Attending Clinician Unavailable NATHALIA BERNAL Attending Clinician Unavailable Lab, Ang-Rmchp Attending Clinician Unavailable Juan EXTERMINATION SUPERVISOR, Raenda R Attending Clinician + [phone] DEBBIE MARTINEZA R Attending Clinician Unavailab mario Tai MD, Castro Attending Clinician [phone] Only, Adc Test Attending Clinician Unavailable VICKEY MARQUEZ Attending Clinician Unavailabl shruthi Marquez EXTERMINATION SUPERVISOR, Vickey Spangler Attending Clinician [phone] UNKNOWN, ATTENDING Attending Clinician Unavailab mario GRAVES, Laura Attending Clinician [phone] Unknown, Attending Attending Clinician Unavailab mario Quach MD, Sada Attending Clinician + [phone] Stevan MERCADO, Tapan Membreno Attending Clinician + [phone] Melanie Hutchison Attending Clinician [phone] Nancy MERCADO, Nely Attending Clinician + [phone] Ultrasound, Sug-Mfm Attending Clinician Unavaila torito Faculty, Ang Rmchp Mfm Attending Clinician Nehemiah Riggs MD Attending Clinician [phone] Leeroy LOPEZ, Navi Attending Clinician Unavailab mario Smith EXTERMINATION SUPERVISOR, Gilberto Bello Attending Clinician [phone] MINERVA BEEBE Admitting Clinician Unavailable CASTRO TAI Admitting Clinician Unavailable BARBER SAENZ Admitting Clinician Unavailable GC_GCBZW_Kadiyala_S Admitting Clinician UnavailVIKTOR Cat Admitting Clinician Unavaila torito Neves MD, Viktor Espinal Admitting Clinician [phone] FABIENNE VIEIRA Admitting Clinician Edgardo Beebe MD, Minerva Mcnulty Admitting Clinician [phone] Zaire MERCADO, Castro Admitting Clinician [phone] Stevan MERCADO, Tapan Membreno Admitting Clinician [phone] Payers Payer Name Policy Type Policy Number Effective Date Expirati on Date Source [facility] [id number] 2020 00:00:00 AURA MICHAEL [id number] 00:00:00 Problems Condition Name Condition Details Condition Category Status Onset Date Resolution Date Last Treatment Date Treating Clinician Comments Source Anemia, Anemia, Disease Active 2-03 00:00: 00 [facility] S/P section S/P section Disease Active 1-17 00:00: 00 [facility] 36 weeks gestation of 36 weeks gestation of Disease Active 1-06 00:00: 00 [facility] Abdominal pain affecting Abdominal pain affecting Disease Active 2021-02 00:00: 00 [facility] Diet controlled gestationa l diabetes mellitus (GDM) Diet controlled gestationa l diabetes mellitus (GDM) Disease Active 2021-02 00:00: 00 [facility] Pregestati onal diabetes mellitus, modified White class B Pregestati onal diabetes mellitus, modified White class B Disease Active 2021-02 00:00: 00 [facility] Abscess of right buttock Abscess of right buttock Disease Active 11-05 00:00: 00 [facility] Right buttock pain Right buttock pain Disease Active -22 00:00: 00 [facility] UTI in UTI in Disease Active 9-19 00:00: 00 Overview: Formattin g of this note might be different from the original. pending bhavin [facility] Boil of buttock Boil of buttock Disease Active 8-24 00:00: 00 [facility] GBS (group B streptococ cus) UTI complicati ng GBS (group B streptococ cus) UTI complicati ng Disease Active 627 00:00: 00 Overview: Formattin g of this note might be different from the original. pending bhavin [facility] Abnormal maternal glucose tolerance, antepartum Abnormal maternal glucose tolerance, antepartum Disease Active 08-03 00:00: 00 Overview: Formattin g of this note might be different from the original. See outside records failed 1hr gtt 197mgdl, passed early 3hr gtt [facility] History of section History of section Disease Active 08-01 00:00: 00 Overview: Formattin g of this note might be different from the original. x3 [facility] Multiparit y Multiparit y Disease Active 08-01 00:00: 00 [facility] Short interval between pregnancie s affecting , antepartum Short interval between pregnancie s affecting , antepartum Disease Active 08-01 00:00: 00 [facility] Supervisio n of high-risk Supervisio n of high-risk Disease Active 08-01 00:00: 00 [facility] Vaginal bleeding in Vaginal bleeding in Disease Active 08-01 00:00: 00 Overview: Formattin g of this note might be different from the original. Reports seen at ER on07/28/21 , reports resolved [facility] History of cholecyste ctomy History of cholecyste ctomy Disease Active 08-01 00:00: 00 Overview: Formattin g of this note might be different from the original. Reports 02/2021 [facility] Diarrhea during Diarrhea during Disease Active 08-01 00:00: 00 [facility] Obesity during Obesity during Disease Active 1-24 00:00: 00 [facility] History of gestationa l diabetes History of gestationa l diabetes Disease Active 2020-02 0 00:00: 00 Overview: Formattin g of this note might be different from the original. With 2nd and 4th [facility] Obesity (BMI 30-39.9) Obesity (BMI 30-39.9) Disease Active 11-04 00:00: 00 [facility] Acute cholecysti tis Acute cholecysti tis Disease Active 05-11 00:00: 00 [facility] Allergies, Adverse Reactions, Alerts Allergy Name Allergy Type Status Severity Reaction(s) Onset Date Inactive Date Treating Clinician Comments Source NO KNOWN ALLERGIE S Drug Class Active [facility] Social History Social Habit Start Date Stop Date Quantity Comments Source ASSERTION 2021-06-22 00:00:00 [facility] History of tobacco use Passive smoker [facility] Exposure to SARS-CoV-2 (event) 2022-03-26 00:00:00 2022-04-05 08:26:00 Not sure [facility] History of Social function 2021-12-12 00:00:00 2021-12-12 00:00:00 [facility] Alcohol intake 2020-07-12 00:00:00 2020-07-12 00:00:00 0 /d [facility] Tobacco use and exposure 2014-05-17 00:00:00 2014-05-17 00:00:00 Smokeless tobacco non-user [facility] Sex Assigned At 1995 00:00:00 1995 00:00:00 [facility] Smoking Status Start Date Stop Date Source Never smoked tobacco [facility] Medications Ordered Medication Name Filled Medication Name Start Date Stop Date Current Medication? Ordering Clinician Indication Dosage Frequency Signature (SIG) Comments Components Source etonogestre L (NEXPLANON) implant 68 mg 04-05 15:00: 00 04-05 15:45 :00 No [id number] 68mg [facility] cephALEXin 500 mg capsule 03-31 00:00: 00 Yes TAKE 1 CAPSULE BY MOUTH EVERY 8 HOURS FOR 10 DAYS [facility] metFORMIN (GLUCOPHAGE ) tablet 500 mg 02-16 14:00: 00 Yes 500mg 500 mg, Oral, BID MEALS, First dose on 02/16/22 at 0800, Until Discontinu ed, Routine [facility] No known medications 02-16 00:36: 04 No No known medication s [facility] vitamin w/FA tablet 02-16 00:00: 00 Yes [id number] 1{tbl} Take 1 tablet by mouth in the morning. [facility] docusate 100 mg capsule 02-16 00:00: 00 Yes [id number] 200mg Take 2 capsules by mouth once daily as needed for Constipati on. [facility] ferrous sulfate 325 mg (65 mg iron) tablet 02-16 00:00: 00 Yes [id number] 325mg Take 1 tablet by mouth in the morning and 1 tablet in the evening. [facility] foLIC acid 1 mg tablet 02-16 00:00: 00 Yes [id number] 1mg Take 1 tablet by mouth in the morning. [facility] ibuprofen 600 mg tablet 02-16 00:00: 00 04-05 00:00 :00 No [id number] 600mg Take 1 tablet by mouth every 6 (six) hours as needed (Pain). Take with food or milk. [facility] ascorbic acid, vitamin C, (VITAMIN C) 500 mg tablet 02-16 00:00: 00 04-05 00:00 :00 No [id number] 500mg Take 1 tablet by mouth in the morning. [facility] metFORMIN 500 mg tablet 02-16 00:00: 00 04-03 05:59 :00 No [id number] 500mg Take 1 tablet by mouth in the morning and 1 tablet in the evening. Take with meals. Do all this for 45 days. [facility] HYDROcodone -acetaminop hen 5-325 mg tablet 02-16 00:00: 00 02-24 05:59 :00 No [id number] 1{tbl} Take 1 tablet by mouth every 6 (six) hours as needed for Pain (scale 4-6) or Pain (scale 7-10) (Pain scale above 4) for up to 7 days. Do not exceed 3 grams of acetaminop hen in 24 hours. Indication s: acute pain [facility] rho(D) immune globulin (RHOGAM) syringe 300 mcg 02-15 19:17: 57 Yes 300ug 300 mcg, Intramuscu lar, ONCE, For 1 dose, Conditiona l, Routine [facility] HYDROcodone -acetaminop hen (NORCO 5) 5-325 mg tablet 2 tablet 02-15 19:17: 53 Yes 2{tbl} 2 tablet, Oral, Q6HPRN, Starting on Fri02/15/22 at 1317, Until Discontinu ed, Routine, Pain (scale 7-10), Alternate with Ibuprofen [facility] HYDROcodone -acetaminop hen (NORCO 5) 5-325 mg tablet 1 tablet 02-15 19:17: 53 Yes 1{tbl} 1 tablet, Oral, Q6HPRN, Starting on Fri02/15/22 at 1317, Until Discontinu ed, Routine, Pain (scale 4-6), Alternate with Ibuprofen [facility] ibuprofen (IBU) tablet 600 mg 02-15 19:17: 53 Yes 600mg 600 mg, Oral, Q6HPRN, Starting on Fri02/15/22 at 1317, Until Discontinu ed, Routine, Pain (scale 1-3) [facility] diphenhydrA MINE (BENADRYL) injection 25 mg 02-15 19:17: 53 Yes 25mg 25 mg, Slow IV Push, Q6HPRN, Starting on Fri02/15/22 at 1317, Until Discontinu ed, Routine, Itching [facility] diphenhydrA MINE (BENADRYL) tablet 25 mg 02-15 19:17: 53 Yes 25mg 25 mg, Oral, Q6HPRN, Starting on Fri02/15/22 at 1317, Until Discontinu ed, Routine, Sleep, Itching [facility] ondansetron (ZOFRAN (PF)) injection 4 mg 02-15 19:17: 53 Yes 4mg 4 mg, Slow IV Push, Q8HPRN, Starting on Fri02/15/22 at 1317, Until Discontinu ed, Routine, Nausea and Vomiting (N/V) [facility] bisacodyL (DULCOLAX) suppository 10 mg 02-15 19:17: 53 Yes 10mg 10 mg, Rectal, QDAILYPRN, Starting on Fri02/15/22 at 1317, Until Discontinu ed, Routine, Constipati on [facility] simethicone (GAS RELIEF (SIMETHICON E)) chewable tablet 160 mg 02-15 19:17: 53 Yes 160mg 160 mg, Oral, PC+HSPRN, Starting on Fri02/15/22 at 1317, Until Discontinu ed, Routine, Gas [facility] docusate (COLACE) capsule 200 mg 02-15 19:17: 53 Yes 200mg 200 mg, Oral, QDAILYPRN, Starting on Fri02/15/22 at 1317, Until Discontinu ed, Routine, Constipati on [facility] magnesium hydroxide (MILK OF MAGNESIA) 400 mg/5 mL suspension 30 mL 02-15 19:17: 53 Yes 30mL 30 mL, Oral, QDAILYPRN, Starting on Fri02/15/22 at 1317, Until Discontinu ed, Routine, Constipati on [facility] lactated ringers IV infusion 1,000 mL 02-15 19:17: 53 Yes 1000mL at 125 mL/hr, 1,000 mL, IV Infusion, PRN, 1 dose, Starting on Fri02/15/22 at 1317, Until Discontinu ed, Routine [facility] FENTanyl PF (SUBLIMAZE (PF)) injection 25 mcg 02-15 16:50: 58 Yes 25ug 25 mcg, Slow IV Push, Q5MIN PRN, 4 doses, Starting on Fri02/15/22 at 1050, Until Discontinu ed, Routine, Pain (scale 4-6), PACU [facility] nalbuphine (NUBAIN) injection 5 mg 02-15 16:50: 58 Yes 5mg 5 mg, Intravenou s, PRN, 1 dose, Starting on Fri02/15/22 at 1050, Until Discontinu ed, Routine, itching, PACU [facility] HYDROcodone -acetaminop hen (NORCO) 10-325 mg tablet 1 tablet 02-15 13:43: 31 02-16 14:14 :00 No 1{tbl} 1 tablet, Oral, Q6HPRN, 1 dose, Starting on Fri02/15/22 at 0743, Until Discontinu ed, Routine, Pain (scale 7-10) [facility] HYDROcodone -acetaminop hen (NORCO 5) 5-325 mg tablet 1 tablet 02-15 13:43: 30 Yes 1{tbl} 1 tablet, Oral, Q6HPRN, 1 dose, Starting on Fri02/15/22 at 0743, Until Discontinu ed, Routine, Pain (scale 4-6) [facility] ibuprofen (IBU) tablet 600 mg 02-15 13:43: 28 Yes 600mg 600 mg, Oral, Q6HPRN, Starting on Fri02/15/22 at 0743, Until Discontinu ed, Routine, Pain (scale 1-3) [facility] oxytocin (PITOCIN) 30 units in NS 500 mL IV infusion 02-15 13:43: 14 Yes 600mL/h 600 mL/hr, IV Infusion, PRN, For post delivery uterine atony., Starting on Fri02/15/[address] at 600 mL/hr for 1 hr then 150 mL/hr for 1 hr.
[facility] oxytocin (PITOCIN) 30 units in NS 500 mL IV infusion 02-15 13:43: 14 Yes 300mL/h 300 mL/hr, IV Infusion, SEE-INSTRU CTIONS, Starting on Fri02/15/[address] art at 300 mL/hr for 1 hr then 150 mL/hr for 1 hr. & nbsp; For post delivery uterotonic
[facility] lactated ringers IV infusion 1,000 mL 02-15 12:15: 00 Yes 1000mL at 125 mL/hr, 1,000 mL, IV Infusion, CONTINUOUS , Starting on Fri02/15/22 at 0615, Until Discontinu ed, Routine [facility] acetaminoph en (TYLENOL) tablet 650 mg 02-15 12:15: 00 02-15 13:59 :00 No 650mg 650 mg, Oral, ONCE, 1 dose, On Fri02/15/22 at 0615, Routine [facility] ceFAZolin (ANCEF) 2,000 mg in NaCl 0.9% (NS) 100 mL MINI-BAG 02-15 12:05: 06 02-16 12:04 :06 No 2000mg 2,000 mg, IV Piggyback, O.R. HOLDING ONCE, Starting on Fri02/15/22 at 0605, Until 02/16/22 at 0604, Administer over 30 Minutes, 100 mL
Reas on for Anti-Infec tive: Surgical Prophylaxi s
Muñoz rgical Prophylaxi s: TOOLROOM CHECKER
Duration of therapy: within 24 hours of surgery [facility] sodium citrate-cit rex acid (BICITRA) 500-334 mg/5 mL solution 30 mL - 12:05: 06 02-15 14:16 :00 No 30mL 30 mL, Oral, PRE-PROCED URE ONCE, 1 dose, Starting on Fri02/15/22 at 0605, Until 02/17/22 at 2359, Routine, Surgery/Pr ocedure [facility] metFORMIN 500 mg tablet 2021-02 2-15 00:00: 00 03-26 05:59 :00 No [id number] Take 1 tablet by mouth daily with breakfast AND 1 tablet at bedtime. Do all this for 60 days. [facility] lancets (FREESTYLE LANCETS) 28 gauge Misc 2021-02 00:00: 00 02-16 00:00 :00 No [id number] Check blood glucose 4x daily [facility] Blood-Gluco se Meter (FREESTYLE LITE METER) Kit 2021-02 00:00: 00 02-16 00:00 :00 No [id number] Check blood glucose 4x daily [facility] blood sugar diagnostic (FREESTYLE LITE STRIPS) strip 2021-02 00:00: 00 02-16 00:00 :00 No [id number] Check blood glucose 4x daily [facility] PNV 112-iron-FA -om-3s-dha- epa (VITAFOL GUMMIES) 3.33 mg iron- 0.33 mg Chew 2021-02 00:00: 00 02-16 00:00 :00 No [id number] 3{tbl} Take 3 tablets by mouth daily. [facility] acetaminoph en (TYLENOL) tablet 650 mg 11-02 00:51: 55 11-02 00:54 :00 No 650mg 650 mg, Oral, Q6HPRN, 1 dose, Starting on Libby 11/01/21 at 1950, Until Fri11/01/21 at 1953, Routine, Pain (scale 4-6) [facility] guaifenesin (MUCINEX ORAL) 11-01 20:01: 10 11-01 00:00 :00 No Take by mouth. [facility] amoxicillin -pot clavulanate 500 mg (AUGMENTIN) 500-125 mg tablet 11-01 00:00: 00 02-16 00:00 :00 No [id number] 500mg Take 1 tablet by mouth in the morning and 1 tablet at noon and 1 tablet in the evening. [facility] Nitrofurant oin&Nit. Macrocryst (MACROBID) 100 mg capsule 10-29 00:00: 00 02-16 00:00 :00 No [id number] 100mg Take 1 capsule by mouth in the morning and 1 capsule in the evening. [facility] guaifenesin (MUCINEX ORAL) 08-01 14:25: 11 Yes Take by mouth. [facility] multivitami n ( VITAMIN) tablet 08-01 00:00: 00 02-16 00:00 :00 No [id number] 1{tbl} Take 1 tablet by mouth daily. [facility] norethindro ne 0.35 mg tablet 2020-02 0-13 00:00: 00 11-01 00:00 :00 No [id number] 1{tbl} Take 1 tablet by mouth daily. [facility] dicloxacill in 500 mg capsule 2020-02 005 00:00: 00 11-01 00:00 :00 No [facility] vitamin w/FA tablet 10-11 00:00: 00 11-01 00:00 :00 No [id number] 1{tbl} Take 1 tablet by mouth daily. [facility] docusate calcium 240 mg capsule 10-11 00:00: 00 11-01 00:00 :00 No [id number] 240mg Take 1 capsule by mouth once daily as needed for Constipati on. [facility] ferrous sulfate 325 mg (65 mg iron) tablet 10-11 00:00: 00 11-01 00:00 :00 No [id number] 325mg Take 1 tablet by mouth 2 (two) times daily. [facility] vitamin w/FA tablet 10-11 00:00: 00 11-01 00:00 :00 No [id number] 1{tbl} Take 1 tablet by mouth daily. [facility] ibuprofen 600 mg tablet 10-11 00:00: 00 03-08 00:00 :00 No [id number] 600mg Take 1 tablet by mouth every 6 (six) hours as needed (Pain). Take with food or milk. [facility] amoxicillin 250 mg/5 mL suspension 825 00:00: 00 10-11 00:00 :00 No [id number] 500mg Take 10 mL by mouth 3 (three) times daily for 5 days. [facility] metroNIDAZO LE 50 mg/ml 8-25 00:00: 00 10-11 00:00 :00 No [id number] 500mg Take 10 mL by mouth 2 (two) times daily for 5 days. [facility] ondansetron 4 mg disintegrat ing tablet 8-11 00:00: 00 10-11 00:00 :00 No [id number] 4mg Take 1 tablet by mouth every 8 (eight) hours as needed for Nausea and Vomiting (N/V). [facility] pantoprazol e (PROTONIX) 40 mg EC tablet 8-04 00:00: 00 10-11 00:00 :00 No [id number] 40mg Take 1 tablet by mouth daily. [facility] metFORMIN 500 mg tablet 7-19 00:00: 00 10-11 00:00 :00 No [id number] 500mg Take 1 tablet by mouth 2 (two) times daily with meals. [facility] lancets 17 gauge Misc 07-31 00:00: 00 10-11 00:00 :00 No [id number] Use as directed [facility] Blood-Gluco se Meter (FREESTYLE FREEDOM LITE) Kit 07-31 00:00: 00 10-11 00:00 :00 No [id number] Use as directed [facility] blood sugar diagnostic (FREESTYLE LITE STRIPS) strip 07-31 00:00: 00 10-11 00:00 :00 No [id number] Use as directed [facility] FREESTYLE LANCETS 28 gauge Misc 6 00:00: 00 10-11 00:00 :00 No 10mg Take 10 mg by mouth. [facility] vit 33-iron-fol ic-dha (SELECT-OB + DHA) 29 mg iron-1 mg -250 mg combo pack 3-01 00:00: 00 10-11 00:00 :00 No [id number] 1{packe t} Take 1 Packet by mouth daily. [facility] proMETHazin e 25 mg tablet 9-27 00:00: 00 09-20 00:00 :00 No 25mg Take 1 tablet by mouth every 6 (six) hours as needed for Nausea and Vomiting (N/V). [facility] Immunizations Ordered Immunization Name Filled Immunization Name Date Status Comments Source TDAP 2021-12-28 00:00:00 Completed [facility] TDAP 2021-12-28 00:00:00 Completed [facility] TDAP 2021-12-28 00:00:00 Completed [facility] TDAP 2021-12-28 00:00:00 Completed [facility] TDAP 2021-12-28 00:00:00 Completed [facility] TDAP 2021-12-28 00:00:00 Completed [facility] TDAP 2021-12-28 00:00:00 Completed [facility] TDAP 2021-12-28 00:00:00 Completed [facility] TDAP 2021-12-28 00:00:00 Completed [facility] TDAP 2021-12-28 00:00:00 Completed [facility] TDAP 2021-12-28 00:00:00 Completed [facility] TDAP 2021-12-28 00:00:00 Completed [facility] TDAP 2021-12-28 00:00:00 Completed [facility] TDAP 2021-12-28 00:00:00 Completed [facility] TDAP 2021-12-28 00:00:00 Completed [facility] TDAP 2021-12-28 00:00:00 Completed [facility] TDAP 2021-12-28 00:00:00 Completed [facility] TDAP 2021-12-28 00:00:00 Completed [facility] TDAP 2021-12-28 00:00:00 Completed [facility] TDAP 2021-12-28 00:00:00 Completed [facility] TDAP 2021-12-28 00:00:00 Completed [facility] TDAP 2021-12-28 00:00:00 Completed [facility] TDAP 2021-12-28 00:00:00 Completed [facility] TDAP 2021-12-28 00:00:00 Completed [facility] TDAP 2021-12-28 00:00:00 Completed [facility] TDAP 2021-12-28 00:00:00 Completed [facility] TDAP 2021-12-28 00:00:00 Completed [facility] TDAP 2021-12-28 00:00:00 Completed [facility] TDAP 2021-12-28 00:00:00 Completed [facility] TDAP 2021-12-28 00:00:00 Completed [facility] TDAP 2021-12-28 00:00:00 Completed [facility] TDAP 2021-12-28 00:00:00 Completed [facility] TDAP 2021-12-28 00:00:00 Completed [facility] TDAP 2021-12-28 00:00:00 Completed [facility] HPV9 2020-11-22 00:00:00 Completed [facility] Influenza Virus Vaccine Quad IM, Preserv and ABX Free 6 MO-64 YRS 2020-11-22 00:00:00 Completed [facility] HPV9 2020-11-22 00:00:00 Completed [facility] Influenza Virus Vaccine Quad IM, Preserv and ABX Free 6 MO-64 YRS 2020-11-22 00:00:00 Completed [facility] HPV9 2020-11-22 00:00:00 Completed [facility] Influenza Virus Vaccine Quad IM, Preserv and ABX Free 6 MO-64 YRS 2020-11-22 00:00:00 Completed [facility] HPV9 2020-11-22 00:00:00 Completed [facility] Influenza Virus Vaccine Quad IM, Preserv and ABX Free 6 MO-64 YRS 2020-11-22 00:00:00 Completed [facility] HPV9 2020-11-22 00:00:00 Completed [facility] Influenza Virus Vaccine Quad IM, Preserv and ABX Free 6 MO-64 YRS 2020-11-22 00:00:00 Completed [facility] HPV9 2020-11-22 00:00:00 Completed [facility] Influenza Virus Vaccine Quad IM, Preserv and ABX Free 6 MO-64 YRS 2020-11-22 00:00:00 Completed [facility] HPV9 2020-11-22 00:00:00 Completed [facility] Influenza Virus Vaccine Quad IM, Preserv and ABX Free 6 MO-64 YRS 2020-11-22 00:00:00 Completed [facility] HPV9 2020-11-22 00:00:00 Completed [facility] Influenza Virus Vaccine Quad IM, Preserv and ABX Free 6 MO-64 YRS 2020-11-22 00:00:00 Completed [facility] HPV9 2020-11-22 00:00:00 Completed [facility] Influenza Virus Vaccine Quad IM, Preserv and ABX Free 6 MO-64 YRS 2020-11-22 00:00:00 Completed [facility] HPV9 2020-11-22 00:00:00 Completed [facility] Influenza Virus Vaccine Quad IM, Preserv and ABX Free 6 MO-64 YRS 2020-11-22 00:00:00 Completed [facility] HPV9 2020-11-22 00:00:00 Completed [facility] Influenza Virus Vaccine Quad IM, Preserv and ABX Free 6 MO-64 YRS 2020-11-22 00:00:00 Completed [facility] HPV9 2020-11-22 00:00:00 Completed [facility] Influenza Virus Vaccine Quad IM, Preserv and ABX Free 6 MO-64 YRS 2020-11-22 00:00:00 Completed [facility] HPV9 2020-11-22 00:00:00 Completed [facility] Influenza Virus Vaccine Quad IM, Preserv and ABX Free 6 MO-64 YRS 2020-11-22 00:00:00 Completed [facility] HPV9 2020-11-22 00:00:00 Completed [facility] Influenza Virus Vaccine Quad IM, Preserv and ABX Free 6 MO-64 YRS 2020-11-22 00:00:00 Completed [facility] HPV9 2020-11-22 00:00:00 Completed [facility] Influenza Virus Vaccine Quad IM, Preserv and ABX Free 6 MO-64 YRS 2020-11-22 00:00:00 Completed [facility] HPV9 2020-11-22 00:00:00 Completed [facility] Influenza Virus Vaccine Quad IM, Preserv and ABX Free 6 MO-64 YRS 2020-11-22 00:00:00 Completed [facility] HPV9 2020-11-22 00:00:00 Completed [facility] Influenza Virus Vaccine Quad IM, Preserv and ABX Free 6 MO-64 YRS 2020-11-22 00:00:00 Completed [facility] HPV9 2020-11-22 00:00:00 Completed [facility] Influenza Virus Vaccine Quad IM, Preserv and ABX Free 6 MO-64 YRS 2020-11-22 00:00:00 Completed [facility] HPV9 2020-11-22 00:00:00 Completed [facility] Influenza Virus Vaccine Quad IM, Preserv and ABX Free 6 MO-64 YRS 2020-11-22 00:00:00 Completed [facility] HPV9 2020-11-22 00:00:00 Completed [facility] Influenza Virus Vaccine Quad IM, Preserv and ABX Free 6 MO-64 YRS 2020-11-22 00:00:00 Completed [facility] HPV9 2020-11-22 00:00:00 Completed [facility] Influenza Virus Vaccine Quad IM, Preserv and ABX Free 6 MO-64 YRS 2020-11-22 00:00:00 Completed [facility] HPV9 2020-11-22 00:00:00 Completed [facility] Influenza Virus Vaccine Quad IM, Preserv and ABX Free 6 MO-64 YRS 2020-11-22 00:00:00 Completed [facility] HPV9 2020-11-22 00:00:00 Completed [facility] Influenza Virus Vaccine Quad IM, Preserv and ABX Free 6 MO-64 YRS 2020-11-22 00:00:00 Completed [facility] HPV9 2020-11-22 00:00:00 Completed [facility] Influenza Virus Vaccine Quad IM, Preserv and ABX Free 6 MO-64 YRS 2020-11-22 00:00:00 Completed [facility] HPV9 2020-11-22 00:00:00 Completed [facility] Influenza Virus Vaccine Quad IM, Preserv and ABX Free 6 MO-64 YRS 2020-11-22 00:00:00 Completed [facility] HPV9 2020-11-22 00:00:00 Completed [facility] Influenza Virus Vaccine Quad IM, Preserv and ABX Free 6 MO-64 YRS 2020-11-22 00:00:00 Completed [facility] HPV9 2020-11-22 00:00:00 Completed [facility] Influenza Virus Vaccine Quad IM, Preserv and ABX Free 6 MO-64 YRS 2020-11-22 00:00:00 Completed [facility] HPV9 2020-11-22 00:00:00 Completed [facility] Influenza Virus Vaccine Quad IM, Preserv and ABX Free 6 MO-64 YRS 2020-11-22 00:00:00 Completed [facility] HPV9 2020-11-22 00:00:00 Completed [facility] Influenza Virus Vaccine Quad IM, Preserv and ABX Free 6 MO-64 YRS 2020-11-22 00:00:00 Completed [facility] HPV9 2020-11-22 00:00:00 Completed [facility] Influenza Virus Vaccine Quad IM, Preserv and ABX Free 6 MO-64 YRS 2020-11-22 00:00:00 Completed [facility] HPV9 2020-11-22 00:00:00 Completed [facility] Influenza Virus Vaccine Quad IM, Preserv and ABX Free 6 MO-64 YRS 2020-11-22 00:00:00 Completed [facility] HPV9 2020-11-22 00:00:00 Completed [facility] Influenza Virus Vaccine Quad IM, Preserv and ABX Free 6 MO-64 YRS 2020-11-22 00:00:00 Completed [facility] HPV9 2020-11-22 00:00:00 Completed [facility] Influenza Virus Vaccine Quad IM, Preserv and ABX Free 6 MO-64 YRS 2020-11-22 00:00:00 Completed [facility] HPV9 2020-11-22 00:00:00 Completed [facility] Influenza Virus Vaccine Quad IM, Preserv and ABX Free 6 MO-64 YRS 2020-11-22 00:00:00 Completed [facility] HPV9 2020-11-22 00:00:00 Completed [facility] Influenza Virus Vaccine Quad IM, Preserv and ABX Free 6 MO-64 YRS 2020-11-22 00:00:00 Completed [facility] HPV9 2020-11-22 00:00:00 Completed [facility] Influenza Virus Vaccine Quad IM, Preserv and ABX Free 6 MO-64 YRS 2020-11-22 00:00:00 Completed [facility] HPV9 2020-11-22 00:00:00 Completed [facility] Influenza Virus Vaccine Quad IM, Preserv and ABX Free 6 MO-64 YRS 2020-11-22 00:00:00 Completed [facility] HPV9 2020-11-22 00:00:00 Completed [facility] Influenza Virus Vaccine Quad IM, Preserv and ABX Free 6 MO-64 YRS 2020-11-22 00:00:00 Completed [facility] HPV9 2020-11-22 00:00:00 Completed [facility] Influenza Virus Vaccine Quad IM, Preserv and ABX Free 6 MO-64 YRS 2020-11-22 00:00:00 Completed [facility] HPV9 2020-11-22 00:00:00 Completed [facility] Influenza Virus Vaccine Quad IM, Preserv and ABX Free 6 MO-64 YRS 2020-11-22 00:00:00 Completed [facility] HPV9 2020-11-22 00:00:00 Completed [facility] Influenza Virus Vaccine Quad IM, Preserv and ABX Free 6 MO-64 YRS 2020-11-22 00:00:00 Completed [facility] HPV9 2020-11-22 00:00:00 Completed [facility] Influenza Virus Vaccine Quad IM, Preserv and ABX Free 6 MO-64 YRS 2020-11-22 00:00:00 Completed [facility] HPV9 2020-11-22 00:00:00 Completed [facility] Influenza Virus Vaccine Quad IM, Preserv and ABX Free 6 MO-64 YRS 2020-11-22 00:00:00 Completed [facility] HPV9 2020-11-22 00:00:00 Completed [facility] Influenza Virus Vaccine Quad IM, Preserv and ABX Free 6 MO-64 YRS 2020-11-22 00:00:00 Completed [facility] HPV9 2020-11-22 00:00:00 Completed [facility] Influenza Virus Vaccine Quad IM, Preserv and ABX Free 6 MO-64 YRS 2020-11-22 00:00:00 Completed [facility] HPV9 2020-11-22 00:00:00 Completed [facility] Influenza Virus Vaccine Quad IM, Preserv and ABX Free 6 MO-64 YRS 2020-11-22 00:00:00 Completed [facility] HPV9 2020-11-22 00:00:00 Completed [facility] Influenza Virus Vaccine Quad IM, Preserv and ABX Free 6 MO-64 YRS 2020-11-22 00:00:00 Completed [facility] SARS-COV-2 COVID-19 PFIZER VACCINE 2020-10-08 00:00:00 Completed [facility] SARS-COV-2 COVID-19 PFIZER VACCINE 2020-10-08 00:00:00 Completed [facility] SARS-COV-2 COVID-19 PFIZER VACCINE 2020-10-08 00:00:00 Completed [facility] SARS-COV-2 COVID-19 PFIZER VACCINE 2020-10-08 00:00:00 Completed [facility] SARS-COV-2 COVID-19 PFIZER VACCINE 2020-10-08 00:00:00 Completed [facility] SARS-COV-2 COVID-19 PFIZER VACCINE 2020-10-08 00:00:00 Completed [facility] SARS-COV-2 COVID-19 PFIZER VACCINE 2020-10-08 00:00:00 Completed [facility] SARS-COV-2 COVID-19 PFIZER VACCINE 2020-10-08 00:00:00 Completed [facility] SARS-COV-2 COVID-19 PFIZER VACCINE 2020-10-08 00:00:00 Completed [facility] SARS-COV-2 COVID-19 PFIZER VACCINE 2020-10-08 00:00:00 Completed [facility] SARS-COV-2 COVID-19 PFIZER VACCINE 2020-10-08 00:00:00 Completed [facility] SARS-COV-2 COVID-19 PFIZER VACCINE 2020-10-08 00:00:00 Completed [facility] SARS-COV-2 COVID-19 PFIZER VACCINE 2020-10-08 00:00:00 Completed [facility] SARS-COV-2 COVID-19 PFIZER VACCINE 2020-10-08 00:00:00 Completed [facility] SARS-COV-2 COVID-19 PFIZER VACCINE 2020-10-08 00:00:00 Completed [facility] SARS-COV-2 COVID-19 PFIZER VACCINE 2020-10-08 00:00:00 Completed [facility] SARS-COV-2 COVID-19 PFIZER VACCINE 2020-10-08 00:00:00 Completed [facility] SARS-COV-2 COVID-19 PFIZER VACCINE 2020-10-08 00:00:00 Completed [facility] SARS-COV-2 COVID-19 PFIZER VACCINE 2020-10-08 00:00:00 Completed [facility] SARS-COV-2 COVID-19 PFIZER VACCINE 2020-10-08 00:00:00 Completed [facility] SARS-COV-2 COVID-19 PFIZER VACCINE 2020-10-08 00:00:00 Completed [facility] SARS-COV-2 COVID-19 PFIZER VACCINE 2020-10-08 00:00:00 Completed [facility] SARS-COV-2 COVID-19 PFIZER VACCINE 2020-10-08 00:00:00 Completed [facility] SARS-COV-2 COVID-19 PFIZER VACCINE 2020-10-08 00:00:00 Completed [facility] SARS-COV-2 COVID-19 PFIZER VACCINE 2020-10-08 00:00:00 Completed [facility] SARS-COV-2 COVID-19 PFIZER VACCINE 2020-10-08 00:00:00 Completed [facility] SARS-COV-2 COVID-19 PFIZER VACCINE 2020-10-08 00:00:00 Completed [facility] SARS-COV-2 COVID-19 PFIZER VACCINE 2020-10-08 00:00:00 Completed [facility] SARS-COV-2 COVID-19 PFIZER VACCINE 2020-10-08 00:00:00 Completed [facility] SARS-COV-2 COVID-19 PFIZER VACCINE 2020-10-08 00:00:00 Completed [facility] SARS-COV-2 COVID-19 PFIZER VACCINE 2020-10-08 00:00:00 Completed [facility] SARS-COV-2 COVID-19 PFIZER VACCINE 2020-10-08 00:00:00 Completed [facility] SARS-COV-2 COVID-19 PFIZER VACCINE 2020-10-08 00:00:00 Completed [facility] SARS-COV-2 COVID-19 PFIZER VACCINE 2020-10-08 00:00:00 Completed [facility] SARS-COV-2 COVID-19 PFIZER VACCINE 2020-10-08 00:00:00 Completed [facility] SARS-COV-2 COVID-19 PFIZER VACCINE 2020-10-08 00:00:00 Completed [facility] SARS-COV-2 COVID-19 PFIZER VACCINE 2020-10-08 00:00:00 Completed [facility] SARS-COV-2 COVID-19 PFIZER VACCINE 2020-10-08 00:00:00 Completed [facility] SARS-COV-2 COVID-19 PFIZER VACCINE 2020-10-08 00:00:00 Completed [facility] SARS-COV-2 COVID-19 PFIZER VACCINE 2020-10-08 00:00:00 Completed [facility] SARS-COV-2 COVID-19 PFIZER VACCINE 2020-10-08 00:00:00 Completed [facility] SARS-COV-2 COVID-19 PFIZER VACCINE 2020-10-08 00:00:00 Completed [facility] SARS-COV-2 COVID-19 PFIZER VACCINE 2020-10-08 00:00:00 Completed [facility] SARS-COV-2 COVID-19 PFIZER VACCINE 2020-10-08 00:00:00 Completed [facility] SARS-COV-2 COVID-19 PFIZER VACCINE 2020-10-08 00:00:00 Completed [facility] SARS-COV-2 COVID-19 PFIZER VACCINE 2020-10-08 00:00:00 Completed [facility] SARS-COV-2 COVID-19 PFIZER VACCINE 2020-10-08 00:00:00 Completed [facility] SARS-COV-2 COVID-19 PFIZER VACCINE 2020-09-16 00:00:00 Completed [facility] SARS-COV-2 COVID-19 PFIZER VACCINE 2020-09-16 00:00:00 Completed [facility] SARS-COV-2 COVID-19 PFIZER VACCINE 2020-09-16 00:00:00 Completed [facility] SARS-COV-2 COVID-19 PFIZER VACCINE 2020-09-16 00:00:00 Completed [facility] SARS-COV-2 COVID-19 PFIZER VACCINE 2020-09-16 00:00:00 Completed [facility] SARS-COV-2 COVID-19 PFIZER VACCINE 2020-09-16 00:00:00 Completed [facility] SARS-COV-2 COVID-19 PFIZER VACCINE 2020-09-16 00:00:00 Completed [facility] SARS-COV-2 COVID-19 PFIZER VACCINE 2020-09-16 00:00:00 Completed [facility] SARS-COV-2 COVID-19 PFIZER VACCINE 2020-09-16 00:00:00 Completed [facility] SARS-COV-2 COVID-19 PFIZER VACCINE 2020-09-16 00:00:00 Completed [facility] SARS-COV-2 COVID-19 PFIZER VACCINE 2020-09-16 00:00:00 Completed [facility] SARS-COV-2 COVID-19 PFIZER VACCINE 2020-09-16 00:00:00 Completed [facility] SARS-COV-2 COVID-19 PFIZER VACCINE 2020-09-16 00:00:00 Completed [facility] SARS-COV-2 COVID-19 PFIZER VACCINE 2020-09-16 00:00:00 Completed [facility] SARS-COV-2 COVID-19 PFIZER VACCINE 2020-09-16 00:00:00 Completed [facility] SARS-COV-2 COVID-19 PFIZER VACCINE 2020-09-16 00:00:00 Completed [facility] SARS-COV-2 COVID-19 PFIZER VACCINE 2020-09-16 00:00:00 Completed [facility] SARS-COV-2 COVID-19 PFIZER VACCINE 2020-09-16 00:00:00 Completed [facility] SARS-COV-2 COVID-19 PFIZER VACCINE 2020-09-16 00:00:00 Completed [facility] SARS-COV-2 COVID-19 PFIZER VACCINE 2020-09-16 00:00:00 Completed [facility] SARS-COV-2 COVID-19 PFIZER VACCINE 2020-09-16 00:00:00 Completed [facility] SARS-COV-2 COVID-19 PFIZER VACCINE 2020-09-16 00:00:00 Completed [facility] SARS-COV-2 COVID-19 PFIZER VACCINE 2020-09-16 00:00:00 Completed [facility] SARS-COV-2 COVID-19 PFIZER VACCINE 2020-09-16 00:00:00 Completed [facility] SARS-COV-2 COVID-19 PFIZER VACCINE 2020-09-16 00:00:00 Completed [facility] SARS-COV-2 COVID-19 PFIZER VACCINE 2020-09-16 00:00:00 Completed [facility] SARS-COV-2 COVID-19 PFIZER VACCINE 2020-09-16 00:00:00 Completed [facility] SARS-COV-2 COVID-19 PFIZER VACCINE 2020-09-16 00:00:00 Completed [facility] SARS-COV-2 COVID-19 PFIZER VACCINE 2020-09-16 00:00:00 Completed [facility] SARS-COV-2 COVID-19 PFIZER VACCINE 2020-09-16 00:00:00 Completed [facility] SARS-COV-2 COVID-19 PFIZER VACCINE 2020-09-16 00:00:00 Completed [facility] SARS-COV-2 COVID-19 PFIZER VACCINE 2020-09-16 00:00:00 Completed [facility] SARS-COV-2 COVID-19 PFIZER VACCINE 2020-09-16 00:00:00 Completed [facility] SARS-COV-2 COVID-19 PFIZER VACCINE 2020-09-16 00:00:00 Completed [facility] SARS-COV-2 COVID-19 PFIZER VACCINE 2020-09-16 00:00:00 Completed [facility] SARS-COV-2 COVID-19 PFIZER VACCINE 2020-09-16 00:00:00 Completed [facility] SARS-COV-2 COVID-19 PFIZER VACCINE 2020-09-16 00:00:00 Completed [facility] SARS-COV-2 COVID-19 PFIZER VACCINE 2020-09-16 00:00:00 Completed [facility] SARS-COV-2 COVID-19 PFIZER VACCINE 2020-09-16 00:00:00 Completed [facility] SARS-COV-2 COVID-19 PFIZER VACCINE 2020-09-16 00:00:00 Completed [facility] SARS-COV-2 COVID-19 PFIZER VACCINE 2020-09-16 00:00:00 Completed [facility] SARS-COV-2 COVID-19 PFIZER VACCINE 2020-09-16 00:00:00 Completed [facility] SARS-COV-2 COVID-19 PFIZER VACCINE 2020-09-16 00:00:00 Completed [facility] SARS-COV-2 COVID-19 PFIZER VACCINE 2020-09-16 00:00:00 Completed [facility] SARS-COV-2 COVID-19 PFIZER VACCINE 2020-09-16 00:00:00 Completed [facility] SARS-COV-2 COVID-19 PFIZER VACCINE 2020-09-16 00:00:00 Completed [facility] SARS-COV-2 COVID-19 PFIZER VACCINE 2020-09-16 00:00:00 Completed [facility] TDAP 2020-08-09 00:00:00 Completed [facility] TDAP 2020-08-09 00:00:00 Completed [facility] TDAP 2020-08-09 00:00:00 Completed [facility] TDAP 2020-08-09 00:00:00 Completed [facility] TDAP 2020-08-09 00:00:00 Completed [facility] TDAP 2020-08-09 00:00:00 Completed [facility] TDAP 2020-08-09 00:00:00 Completed [facility] TDAP 2020-08-09 00:00:00 Completed [facility] TDAP 2020-08-09 00:00:00 Completed [facility] TDAP 2020-08-09 00:00:00 Completed [facility] TDAP 2020-08-09 00:00:00 Completed [facility] TDAP 2020-08-09 00:00:00 Completed [facility] TDAP 2020-08-09 00:00:00 Completed [facility] TDAP 2020-08-09 00:00:00 Completed [facility] TDAP 2020-08-09 00:00:00 Completed [facility] TDAP 2020-08-09 00:00:00 Completed [facility] TDAP 2020-08-09 00:00:00 Completed [facility] TDAP 2020-08-09 00:00:00 Completed [facility] TDAP 2020-08-09 00:00:00 Completed [facility] TDAP 2020-08-09 00:00:00 Completed [facility] TDAP 2020-08-09 00:00:00 Completed [facility] TDAP 2020-08-09 00:00:00 Completed [facility] TDAP 2020-08-09 00:00:00 Completed [facility] TDAP 2020-08-09 00:00:00 Completed [facility] TDAP 2020-08-09 00:00:00 Completed [facility] TDAP 2020-08-09 00:00:00 Completed [facility] TDAP 2020-08-09 00:00:00 Completed [facility] TDAP 2020-08-09 00:00:00 Completed [facility] TDAP 2020-08-09 00:00:00 Completed [facility] TDAP 2020-08-09 00:00:00 Completed [facility] TDAP 2020-08-09 00:00:00 Completed [facility] TDAP 2020-08-09 00:00:00 Completed [facility] TDAP 2020-08-09 00:00:00 Completed [facility] TDAP 2020-08-09 00:00:00 Completed [facility] TDAP 2020-08-09 00:00:00 Completed [facility] TDAP 2020-08-09 00:00:00 Completed [facility] TDAP 2020-08-09 00:00:00 Completed [facility] TDAP 2020-08-09 00:00:00 Completed [facility] TDAP 2020-08-09 00:00:00 Completed [facility] TDAP 2020-08-09 00:00:00 Completed [facility] TDAP 2020-08-09 00:00:00 Completed [facility] TDAP 2020-08-09 00:00:00 Completed [facility] TDAP 2020-08-09 00:00:00 Completed [facility] TDAP 2020-08-09 00:00:00 Completed [facility] TDAP 2020-08-09 00:00:00 Completed [facility] TDAP 2020-08-09 00:00:00 Completed [facility] TDAP 2020-08-09 00:00:00 Completed [facility] HPV9 2017-09-24 00:00:00 Completed [facility] HPV9 2017-09-24 00:00:00 Completed [facility] HPV9 2017-09-24 00:00:00 Completed [facility] HPV9 2017-09-24 00:00:00 Completed [facility] HPV9 2017-09-24 00:00:00 Completed [facility] HPV9 2017-09-24 00:00:00 Completed [facility] HPV9 2017-09-24 00:00:00 Completed [facility] HPV9 2017-09-24 00:00:00 Completed [facility] HPV9 2017-09-24 00:00:00 Completed [facility] HPV9 2017-09-24 00:00:00 Completed [facility] HPV9 2017-09-24 00:00:00 Completed [facility] HPV9 2017-09-24 00:00:00 Completed [facility] HPV9 2017-09-24 00:00:00 Completed [facility] HPV9 2017-09-24 00:00:00 Completed [facility] HPV9 2017-09-24 00:00:00 Completed [facility] HPV9 2017-09-24 00:00:00 Completed [facility] HPV9 2017-09-24 00:00:00 Completed [facility] HPV9 2017-09-24 00:00:00 Completed [facility] HPV9 2017-09-24 00:00:00 Completed [facility] HPV9 2017-09-24 00:00:00 Completed [facility] HPV9 2017-09-24 00:00:00 Completed [facility] HPV9 2017-09-24 00:00:00 Completed [facility] HPV9 2017-09-24 00:00:00 Completed [facility] HPV9 2017-09-24 00:00:00 Completed [facility] HPV9 2017-09-24 00:00:00 Completed [facility] HPV9 2017-09-24 00:00:00 Completed [facility] HPV9 2017-09-24 00:00:00 Completed [facility] HPV9 2017-09-24 00:00:00 Completed [facility] HPV9 2017-09-24 00:00:00 Completed [facility] HPV9 2017-09-24 00:00:00 Completed [facility] HPV9 2017-09-24 00:00:00 Completed [facility] HPV9 2017-09-24 00:00:00 Completed [facility] HPV9 2017-09-24 00:00:00 Completed [facility] HPV9 2017-09-24 00:00:00 Completed [facility] HPV9 2017-09-24 00:00:00 Completed [facility] HPV9 2017-09-24 00:00:00 Completed [facility] HPV9 2017-09-24 00:00:00 Completed [facility] HPV9 2017-09-24 00:00:00 Completed [facility] HPV9 2017-09-24 00:00:00 Completed [facility] HPV9 2017-09-24 00:00:00 Completed [facility] HPV9 2017-09-24 00:00:00 Completed [facility] HPV9 2017-09-24 00:00:00 Completed [facility] HPV9 2017-09-24 00:00:00 Completed [facility] HPV9 2017-09-24 00:00:00 Completed [facility] HPV9 2017-09-24 00:00:00 Completed [facility] HPV9 2017-09-24 00:00:00 Completed [facility] HPV9 2017-09-24 00:00:00 Completed [facility] TDAP 2017-07-09 00:00:00 Completed [facility] TDAP 2017-07-09 00:00:00 Completed [facility] TDAP 2017-07-09 00:00:00 Completed [facility] TDAP 2017-07-09 00:00:00 Completed [facility] TDAP 2017-07-09 00:00:00 Completed [facility] TDAP 2017-07-09 00:00:00 Completed [facility] TDAP 2017-07-09 00:00:00 Completed [facility] TDAP 2017-07-09 00:00:00 Completed [facility] TDAP 2017-07-09 00:00:00 Completed [facility] TDAP 2017-07-09 00:00:00 Completed [facility] TDAP 2017-07-09 00:00:00 Completed [facility] TDAP 2017-07-09 00:00:00 Completed [facility] TDAP 2017-07-09 00:00:00 Completed [facility] TDAP 2017-07-09 00:00:00 Completed [facility] TDAP 2017-07-09 00:00:00 Completed [facility] TDAP 2017-07-09 00:00:00 Completed [facility] TDAP 2017-07-09 00:00:00 Completed [facility] TDAP 2017-07-09 00:00:00 Completed [facility] TDAP 2017-07-09 00:00:00 Completed [facility] TDAP 2017-07-09 00:00:00 Completed [facility] TDAP 2017-07-09 00:00:00 Completed [facility] TDAP 2017-07-09 00:00:00 Completed [facility] TDAP 2017-07-09 00:00:00 Completed [facility] TDAP 2017-07-09 00:00:00 Completed [facility] TDAP 2017-07-09 00:00:00 Completed [facility] TDAP 2017-07-09 00:00:00 Completed [facility] TDAP 2017-07-09 00:00:00 Completed [facility] TDAP 2017-07-09 00:00:00 Completed [facility] TDAP 2017-07-09 00:00:00 Completed [facility] TDAP 2017-07-09 00:00:00 Completed [facility] TDAP 2017-07-09 00:00:00 Completed [facility] TDAP 2017-07-09 00:00:00 Completed [facility] TDAP 2017-07-09 00:00:00 Completed [facility] TDAP 2017-07-09 00:00:00 Completed [facility] TDAP 2017-07-09 00:00:00 Completed [facility] TDAP 2017-07-09 00:00:00 Completed [facility] TDAP 2017-07-09 00:00:00 Completed [facility] TDAP 2017-07-09 00:00:00 Completed [facility] TDAP 2017-07-09 00:00:00 Completed [facility] TDAP 2017-07-09 00:00:00 Completed [facility] TDAP 2017-07-09 00:00:00 Completed [facility] TDAP 2017-07-09 00:00:00 Completed [facility] TDAP 2017-07-09 00:00:00 Completed [facility] TDAP 2017-07-09 00:00:00 Completed [facility] TDAP 2017-07-09 00:00:00 Completed [facility] TDAP 2017-07-09 00:00:00 Completed [facility] TDAP 2017-07-09 00:00:00 Completed [facility] Influenza Virus Vaccine Quad IM 3+ YRS 2017-01-21 00:00:00 Completed [facility] Influenza Virus Vaccine Quad IM 3+ YRS 2017-01-21 00:00:00 Completed [facility] Influenza Virus Vaccine Quad IM 3+ YRS 2017-01-21 00:00:00 Completed [facility] Influenza Virus Vaccine Quad IM 3+ YRS 2017-01-21 00:00:00 Completed [facility] Influenza Virus Vaccine Quad IM 3+ YRS 2017-01-21 00:00:00 Completed [facility] Influenza Virus Vaccine Quad IM 3+ YRS 2017-01-21 00:00:00 Completed [facility] Influenza Virus Vaccine Quad IM 3+ YRS 2017-01-21 00:00:00 Completed [facility] Influenza Virus Vaccine Quad IM 3+ YRS 2017-01-21 00:00:00 Completed [facility] Influenza Virus Vaccine Quad IM 3+ YRS 2017-01-21 00:00:00 Completed [facility] Influenza Virus Vaccine Quad IM 3+ YRS 2017-01-21 00:00:00 Completed [facility] Influenza Virus Vaccine Quad IM 3+ YRS 2017-01-21 00:00:00 Completed [facility] Influenza Virus Vaccine Quad IM 3+ YRS 2017-01-21 00:00:00 Completed [facility] Influenza Virus Vaccine Quad IM 3+ YRS 2017-01-21 00:00:00 Completed [facility] Influenza Virus Vaccine Quad IM 3+ YRS 2017-01-21 00:00:00 Completed [facility] Influenza Virus Vaccine Quad IM 3+ YRS 2017-01-21 00:00:00 Completed [facility] Influenza Virus Vaccine Quad IM 3+ YRS 2017-01-21 00:00:00 Completed [facility] Influenza Virus Vaccine Quad IM 3+ YRS 2017-01-21 00:00:00 Completed [facility] Influenza Virus Vaccine Quad IM 3+ YRS 2017-01-21 00:00:00 Completed [facility] Influenza Virus Vaccine Quad IM 3+ YRS 2017-01-21 00:00:00 Completed [facility] Influenza Virus Vaccine Quad IM 3+ YRS 2017-01-21 00:00:00 Completed [facility] Influenza Virus Vaccine Quad IM 3+ YRS 2017-01-21 00:00:00 Completed [facility] Influenza Virus Vaccine Quad IM 3+ YRS 2017-01-21 00:00:00 Completed [facility] Influenza Virus Vaccine Quad IM 3+ YRS 2017-01-21 00:00:00 Completed [facility] Influenza Virus Vaccine Quad IM 3+ YRS 2017-01-21 00:00:00 Completed [facility] Influenza Virus Vaccine Quad IM 3+ YRS 2017-01-21 00:00:00 Completed [facility] Influenza Virus Vaccine Quad IM 3+ YRS 2017-01-21 00:00:00 Completed [facility] Influenza Virus Vaccine Quad IM 3+ YRS 2017-01-21 00:00:00 Completed [facility] Influenza Virus Vaccine Quad IM 3+ YRS 2017-01-21 00:00:00 Completed [facility] Influenza Virus Vaccine Quad IM 3+ YRS 2017-01-21 00:00:00 Completed [facility] Influenza Virus Vaccine Quad IM 3+ YRS 2017-01-21 00:00:00 Completed [facility] Influenza Virus Vaccine Quad IM 3+ YRS 2017-01-21 00:00:00 Completed [facility] Influenza Virus Vaccine Quad IM 3+ YRS 2017-01-21 00:00:00 Completed [facility] Influenza Virus Vaccine Quad IM 3+ YRS 2017-01-21 00:00:00 Completed [facility] Influenza Virus Vaccine Quad IM 3+ YRS 2017-01-21 00:00:00 Completed [facility] Influenza Virus Vaccine Quad IM 3+ YRS 2017-01-21 00:00:00 Completed [facility] Influenza Virus Vaccine Quad IM 3+ YRS 2017-01-21 00:00:00 Completed [facility] Influenza Virus Vaccine Quad IM 3+ YRS 2017-01-21 00:00:00 Completed [facility] Influenza Virus Vaccine Quad IM 3+ YRS 2017-01-21 00:00:00 Completed [facility] Influenza Virus Vaccine Quad IM 3+ YRS 2017-01-21 00:00:00 Completed [facility] Influenza Virus Vaccine Quad IM 3+ YRS 2017-01-21 00:00:00 Completed [facility] Influenza Virus Vaccine Quad IM 3+ YRS 2017-01-21 00:00:00 Completed [facility] Influenza Virus Vaccine Quad IM 3+ YRS 2017-01-21 00:00:00 Completed [facility] Influenza Virus Vaccine Quad IM 3+ YRS 2017-01-21 00:00:00 Completed [facility] Influenza Virus Vaccine Quad IM 3+ YRS 2017-01-21 00:00:00 Completed [facility] Influenza Virus Vaccine Quad IM 3+ YRS 2017-01-21 00:00:00 Completed [facility] Influenza Virus Vaccine Quad IM 3+ YRS 2017-01-21 00:00:00 Completed [facility] Influenza Virus Vaccine Quad IM 3+ YRS 2017-01-21 00:00:00 Completed [facility] HPV9 2016-11-06 00:00:00 Completed [facility] HPV9 2016-11-06 00:00:00 Completed [facility] HPV9 2016-11-06 00:00:00 Completed [facility] HPV9 2016-11-06 00:00:00 Completed [facility] HPV9 2016-11-06 00:00:00 Completed [facility] HPV9 2016-11-06 00:00:00 Completed [facility] HPV9 2016-11-06 00:00:00 Completed [facility] HPV9 2016-11-06 00:00:00 Completed [facility] HPV9 2016-11-06 00:00:00 Completed [facility] HPV9 2016-11-06 00:00:00 Completed [facility] HPV9 2016-11-06 00:00:00 Completed [facility] HPV9 2016-11-06 00:00:00 Completed [facility] HPV9 2016-11-06 00:00:00 Completed [facility] HPV9 2016-11-06 00:00:00 Completed [facility] HPV9 2016-11-06 00:00:00 Completed [facility] HPV9 2016-11-06 00:00:00 Completed [facility] HPV9 2016-11-06 00:00:00 Completed [facility] HPV9 2016-11-06 00:00:00 Completed [facility] HPV9 2016-11-06 00:00:00 Completed [facility] HPV9 2016-11-06 00:00:00 Completed [facility] HPV9 2016-11-06 00:00:00 Completed [facility] HPV9 2016-11-06 00:00:00 Completed [facility] HPV9 2016-11-06 00:00:00 Completed [facility] HPV9 2016-11-06 00:00:00 Completed [facility] HPV9 2016-11-06 00:00:00 Completed [facility] HPV9 2016-11-06 00:00:00 Completed [facility] HPV9 2016-11-06 00:00:00 Completed [facility] HPV9 2016-11-06 00:00:00 Completed [facility] HPV9 2016-11-06 00:00:00 Completed [facility] HPV9 2016-11-06 00:00:00 Completed [facility] HPV9 2016-11-06 00:00:00 Completed [facility] HPV9 2016-11-06 00:00:00 Completed [facility] HPV9 2016-11-06 00:00:00 Completed [facility] HPV9 2016-11-06 00:00:00 Completed [facility] HPV9 2016-11-06 00:00:00 Completed [facility] HPV9 2016-11-06 00:00:00 Completed [facility] HPV9 2016-11-06 00:00:00 Completed [facility] HPV9 2016-11-06 00:00:00 Completed [facility] HPV9 2016-11-06 00:00:00 Completed [facility] HPV9 2016-11-06 00:00:00 Completed [facility] HPV9 2016-11-06 00:00:00 Completed [facility] HPV9 2016-11-06 00:00:00 Completed [facility] HPV9 2016-11-06 00:00:00 Completed [facility] HPV9 2016-11-06 00:00:00 Completed [facility] HPV9 2016-11-06 00:00:00 Completed [facility] HPV9 2016-11-06 00:00:00 Completed [facility] HPV9 2016-11-06 00:00:00 Completed [facility] TDAP 2015-05-16 00:00:00 Completed [facility] TDAP 2015-05-16 00:00:00 Completed [facility] TDAP 2015-05-16 00:00:00 Completed [facility] TDAP 2015-05-16 00:00:00 Completed [facility] TDAP 2015-05-16 00:00:00 Completed [facility] TDAP 2015-05-16 00:00:00 Completed [facility] TDAP 2015-05-16 00:00:00 Completed [facility] TDAP 2015-05-16 00:00:00 Completed [facility] TDAP 2015-05-16 00:00:00 Completed [facility] TDAP 2015-05-16 00:00:00 Completed [facility] TDAP 2015-05-16 00:00:00 Completed [facility] TDAP 2015-05-16 00:00:00 Completed [facility] TDAP 2015-05-16 00:00:00 Completed [facility] TDAP 2015-05-16 00:00:00 Completed [facility] TDAP 2015-05-16 00:00:00 Completed [facility] TDAP 2015-05-16 00:00:00 Completed [facility] TDAP 2015-05-16 00:00:00 Completed [facility] TDAP 2015-05-16 00:00:00 Completed [facility] TDAP 2015-05-16 00:00:00 Completed [facility] TDAP 2015-05-16 00:00:00 Completed [facility] TDAP 2015-05-16 00:00:00 Completed [facility] TDAP 2015-05-16 00:00:00 Completed [facility] TDAP 2015-05-16 00:00:00 Completed [facility] TDAP 2015-05-16 00:00:00 Completed [facility] TDAP 2015-05-16 00:00:00 Completed [facility] TDAP 2015-05-16 00:00:00 Completed [facility] TDAP 2015-05-16 00:00:00 Completed [facility] TDAP 2015-05-16 00:00:00 Completed [facility] TDAP 2015-05-16 00:00:00 Completed [facility] TDAP 2015-05-16 00:00:00 Completed [facility] TDAP 2015-05-16 00:00:00 Completed [facility] TDAP 2015-05-16 00:00:00 Completed [facility] TDAP 2015-05-16 00:00:00 Completed [facility] TDAP 2015-05-16 00:00:00 Completed [facility] TDAP 2015-05-16 00:00:00 Completed [facility] TDAP 2015-05-16 00:00:00 Completed [facility] TDAP 2015-05-16 00:00:00 Completed [facility] TDAP 2015-05-16 00:00:00 Completed [facility] TDAP 2015-05-16 00:00:00 Completed [facility] TDAP 2015-05-16 00:00:00 Completed [facility] TDAP 2015-05-16 00:00:00 Completed [facility] TDAP 2015-05-16 00:00:00 Completed [facility] TDAP 2015-05-16 00:00:00 Completed [facility] TDAP 2015-05-16 00:00:00 Completed [facility] TDAP 2015-05-16 00:00:00 Completed [facility] TDAP 2015-05-16 00:00:00 Completed [facility] TDAP 2015-05-16 00:00:00 Completed [facility] Influenza Virus Vaccine Quad IM 3+ YRS 2014-12-05 00:00:00 Completed [facility] Influenza Virus Vaccine Quad IM 3+ YRS 2014-12-05 00:00:00 Completed [facility] Influenza Virus Vaccine Quad IM 3+ YRS 2014-12-05 00:00:00 Completed [facility] Influenza Virus Vaccine Quad IM 3+ YRS 2014-12-05 00:00:00 Completed [facility] Influenza Virus Vaccine Quad IM 3+ YRS 2014-12-05 00:00:00 Completed [facility] Influenza Virus Vaccine Quad IM 3+ YRS 2014-12-05 00:00:00 Completed [facility] Influenza Virus Vaccine Quad IM 3+ YRS 2014-12-05 00:00:00 Completed [facility] Influenza Virus Vaccine Quad IM 3+ YRS 2014-12-05 00:00:00 Completed [facility] Influenza Virus Vaccine Quad IM 3+ YRS 2014-12-05 00:00:00 Completed [facility] Influenza Virus Vaccine Quad IM 3+ YRS 2014-12-05 00:00:00 Completed [facility] Influenza Virus Vaccine Quad IM 3+ YRS 2014-12-05 00:00:00 Completed [facility] Influenza Virus Vaccine Quad IM 3+ YRS 2014-12-05 00:00:00 Completed [facility] Influenza Virus Vaccine Quad IM 3+ YRS 2014-12-05 00:00:00 Completed [facility] Influenza Virus Vaccine Quad IM 3+ YRS 2014-12-05 00:00:00 Completed [facility] Influenza Virus Vaccine Quad IM 3+ YRS 2014-12-05 00:00:00 Completed [facility] Influenza Virus Vaccine Quad IM 3+ YRS 2014-12-05 00:00:00 Completed [facility] Influenza Virus Vaccine Quad IM 3+ YRS 2014-12-05 00:00:00 Completed [facility] Influenza Virus Vaccine Quad IM 3+ YRS 2014-12-05 00:00:00 Completed [facility] Influenza Virus Vaccine Quad IM 3+ YRS 2014-12-05 00:00:00 Completed [facility] Influenza Virus Vaccine Quad IM 3+ YRS 2014-12-05 00:00:00 Completed [facility] Influenza Virus Vaccine Quad IM 3+ YRS 2014-12-05 00:00:00 Completed [facility] Influenza Virus Vaccine Quad IM 3+ YRS 2014-12-05 00:00:00 Completed [facility] Influenza Virus Vaccine Quad IM 3+ YRS 2014-12-05 00:00:00 Completed [facility] Influenza Virus Vaccine Quad IM 3+ YRS 2014-12-05 00:00:00 Completed [facility] Influenza Virus Vaccine Quad IM 3+ YRS 2014-12-05 00:00:00 Completed [facility] Influenza Virus Vaccine Quad IM 3+ YRS 2014-12-05 00:00:00 Completed [facility] Influenza Virus Vaccine Quad IM 3+ YRS 2014-12-05 00:00:00 Completed [facility] Influenza Virus Vaccine Quad IM 3+ YRS 2014-12-05 00:00:00 Completed [facility] Influenza Virus Vaccine Quad IM 3+ YRS 2014-12-05 00:00:00 Completed [facility] Influenza Virus Vaccine Quad IM 3+ YRS 2014-12-05 00:00:00 Completed [facility] Influenza Virus Vaccine Quad IM 3+ YRS 2014-12-05 00:00:00 Completed [facility] Influenza Virus Vaccine Quad IM 3+ YRS 2014-12-05 00:00:00 Completed [facility] Influenza Virus Vaccine Quad IM 3+ YRS 2014-12-05 00:00:00 Completed [facility] Influenza Virus Vaccine Quad IM 3+ YRS 2014-12-05 00:00:00 Completed [facility] Influenza Virus Vaccine Quad IM 3+ YRS 2014-12-05 00:00:00 Completed [facility] Influenza Virus Vaccine Quad IM 3+ YRS 2014-12-05 00:00:00 Completed [facility] Influenza Virus Vaccine Quad IM 3+ YRS 2014-12-05 00:00:00 Completed [facility] Influenza Virus Vaccine Quad IM 3+ YRS 2014-12-05 00:00:00 Completed [facility] Influenza Virus Vaccine Quad IM 3+ YRS 2014-12-05 00:00:00 Completed [facility] Influenza Virus Vaccine Quad IM 3+ YRS 2014-12-05 00:00:00 Completed [facility] Influenza Virus Vaccine Quad IM 3+ YRS 2014-12-05 00:00:00 Completed [facility] Influenza Virus Vaccine Quad IM 3+ YRS 2014-12-05 00:00:00 Completed [facility] Influenza Virus Vaccine Quad IM 3+ YRS 2014-12-05 00:00:00 Completed [facility] Influenza Virus Vaccine Quad IM 3+ YRS 2014-12-05 00:00:00 Completed [facility] Influenza Virus Vaccine Quad IM 3+ YRS 2014-12-05 00:00:00 Completed [facility] Influenza Virus Vaccine Quad IM 3+ YRS 2014-12-05 00:00:00 Completed [facility] Influenza Virus Vaccine Quad IM 3+ YRS 2014-12-05 00:00:00 Completed [facility] TDAP 2009-02-10 00:00:00 Completed [facility] TDAP 2009-02-10 00:00:00 Completed [facility] TDAP 2009-02-10 00:00:00 Completed [facility] TDAP 2009-02-10 00:00:00 Completed [facility] TDAP 2009-02-10 00:00:00 Completed [facility] TDAP 2009-02-10 00:00:00 Completed [facility] TDAP 2009-02-10 00:00:00 Completed [facility] TDAP 2009-02-10 00:00:00 Completed [facility] TDAP 2009-02-10 00:00:00 Completed [facility] TDAP 2009-02-10 00:00:00 Completed [facility] TDAP 2009-02-10 00:00:00 Completed [facility] TDAP 2009-02-10 00:00:00 Completed [facility] TDAP 2009-02-10 00:00:00 Completed [facility] TDAP 2009-02-10 00:00:00 Completed [facility] TDAP 2009-02-10 00:00:00 Completed [facility] TDAP 2009-02-10 00:00:00 Completed [facility] TDAP 2009-02-10 00:00:00 Completed [facility] TDAP 2009-02-10 00:00:00 Completed [facility] TDAP 2009-02-10 00:00:00 Completed [facility] TDAP 2009-02-10 00:00:00 Completed [facility] TDAP 2009-02-10 00:00:00 Completed [facility] TDAP 2009-02-10 00:00:00 Completed [facility] TDAP 2009-02-10 00:00:00 Completed [facility] TDAP 2009-02-10 00:00:00 Completed [facility] TDAP 2009-02-10 00:00:00 Completed [facility] TDAP 2009-02-10 00:00:00 Completed [facility] TDAP 2009-02-10 00:00:00 Completed [facility] TDAP 2009-02-10 00:00:00 Completed [facility] [facility] TDAP 2009-02-10 00:00:00 Completed [facility] TDAP 2009-02-10 00:00:00 Completed [facility] TDAP 2009-02-10 00:00:00 Completed [facility] TDAP 2009-02-10 00:00:00 Completed [facility] TDAP 2009-02-10 00:00:00 Completed [facility] TDAP 2009-02-10 00:00:00 Completed [facility] TDAP 2009-02-10 00:00:00 Completed [facility] TDAP 2009-02-10 00:00:00 Completed [facility] TDAP 2009-02-10 00:00:00 Completed [facility] TDAP 2009-02-10 00:00:00 Completed [facility] TDAP 2009-02-10 00:00:00 Completed [facility] TDAP 2009-02-10 00:00:00 Completed [facility] TDAP 2009-02-10 00:00:00 Completed [facility] TDAP 2009-02-10 00:00:00 Completed [facility] TDAP 2009-02-10 00:00:00 Completed [facility] TDAP 2009-02-10 00:00:00 Completed [facility] TDAP 2009-02-10 00:00:00 Completed [facility] TDAP 2009-02-10 00:00:00 Completed [facility] TDAP 2009-02-10 00:00:00 Completed [facility] TDAP Unknown Completed [facility] Influenza Virus Vaccine Quad IM 3+ YRS Unknown Completed [facility] TDAP Unknown Completed [facility] HPV9 Unknown Completed [facility] Influenza Virus Vaccine Quad IM 3+ YRS Unknown Completed [facility] TDAP Unknown Completed [facility] HPV9 Unknown Completed [facility] TDAP Unknown Completed [facility] SARS-COV-2 COVID-19 PFIZER VACCINE Unknown Completed [facility] SARS-COV-2 COVID-19 PFIZER VACCINE Unknown Completed [facility] TDAP Unknown Completed [facility] Influenza Virus Vaccine Quad IM 3+ YRS Unknown Completed [facility] TDAP Unknown Completed [facility] HPV9 Unknown Completed [facility] Influenza Virus Vaccine Quad IM 3+ YRS Unknown Completed [facility] TDAP Unknown Completed [facility] HPV9 Unknown Completed [facility] TDAP Unknown Completed [facility] SARS-COV-2 COVID-19 PFIZER VACCINE Unknown Completed [facility] TDAP Unknown Completed [facility] Influenza Virus Vaccine Quad IM 3+ YRS Unknown Completed [facility] TDAP Unknown Completed [facility] HPV9 Unknown Completed [facility] Influenza Virus Vaccine Quad IM 3+ YRS Unknown Completed [facility] TDAP Unknown Completed [facility] HPV9 Unknown Completed [facility] TDAP Unknown Completed [facility] Influenza Virus Vaccine Quad IM 3+ YRS Unknown Completed [facility] TDAP Unknown Completed [facility] HPV9 Unknown Completed [facility] Influenza Virus Vaccine Quad IM 3+ YRS Unknown Completed [facility] TDAP Unknown Completed [facility] HPV9 Unknown Completed [facility] TDAP Unknown Completed [facility] Influenza Virus Vaccine Quad IM 3+ YRS Unknown Completed [facility] TDAP Unknown Completed [facility] HPV9 Unknown Completed [facility] Influenza Virus Vaccine Quad IM 3+ YRS Unknown Completed [facility] TDAP Unknown Completed [facility] HPV9 Unknown Completed [facility] Vital Signs Vital Name Observation Time Observation Value Comments S ource Systolic blood pressure 2022-04-05 14:26:00 118 mm[Hg] [facility] Diastolic blood pressure 2022-04-05 14:26:00 73 mm[Hg] [facility] acute hospital Heart rate 2022-04-05 14:26:00 74 /min [facility] Body temperature 2022-04-05 14:26:00 36.22 Samina [facility] Respiratory rate 2022-04-05 14:26:00 18 /min [facility] Body height 2022-04-05 14:26:00 157.5 cm [facility] Body weight 2022-04-05 14:26:00 98.657 kg [facility] BMI 2022-04-05 14:26:00 39.78 kg/m2 [facility] Systolic blood pressure 2022-03-15 16:38:00 114 mm[Hg] [facility] acute hospital Diastolic blood pressure 2022-03-15 16:38:00 62 mm[Hg] General acute hospital Heart rate 2022-03-15 16:38:00 84 /min [facility] Body temperature 2022-03-15 16:38:00 36.56 Samina [facility] Respiratory rate 2022-03-15 16:38:00 18 /min [facility] Body height 2022-03-15 16:38:00 157.5 cm [facility] Body weight 2022-03-15 16:38:00 100.018 kg [facility] BMI 2022-03-15 16:38:00 40.33 kg/m2 [facility] Systolic blood pressure 2022-02-18 13:25:00 102 mm[Hg] [facility] acute hospital Diastolic blood pressure 2022-02-18 13:25:00 66 mm[Hg] General acute hospital Heart rate 2022-02-18 13:25:00 95 /min [facility] Body temperature 2022-02-18 13:25:00 36.78 Samina [facility] Respiratory rate 2022-02-18 13:25:00 18 /min [facility] Oxygen saturation in Arterial blood by Pulse oximetry 2022-02-18 13:25:00 99 /min [facility] Body height 2022-02-15 12:00:00 157.5 cm [facility] Body weight 2022-02-15 12:00:00 108.41 kg [facility] BMI 2022-02-15 12:00:00 43.71 kg/m2 [facility] Systolic blood pressure 2022-02-15 14:00:00 104 mm[Hg] [facility] acute hospital Diastolic blood pressure 2022-02-15 14:00:00 52 mm[Hg] General acute hospital Heart rate 2022-02-15 14:00:00 79 /min [facility] Respiratory rate 2022-02-15 14:00:00 17 /min [facility] Oxygen saturation in Arterial blood by Pulse oximetry 2022-02-15 14:00:00 100 /min [facility] Body temperature 2022-02-15 13:00:00 36.33 Samina [facility] Body height 2022-02-15 12:00:00 157.5 cm [facility] Body weight 2022-02-15 12:00:00 108.41 kg [facility] BMI 2022-02-15 12:00:00 43.71 kg/m2 [facility] Systolic blood pressure 2022-02-11 21:03:00 111 mm[Hg] General acute hospital Diastolic blood pressure 2022-02-11 21:03:00 74 mm[Hg] General acute hospital Heart rate 2022-02-11 21:03:00 99 /min [facility] Body temperature 2022-02-11 21:03:00 36.11 Samina [facility] Respiratory rate 2022-02-11 21:03:00 18 /min [facility] Body height 2022-02-11 21:03:00 157.5 cm [facility] Body weight 2022-02-11 21:03:00 107.673 kg [facility] BMI 2022-02-11 21:03:00 43.42 kg/m2 [facility] Systolic blood pressure 2022-02-07 22:37:00 129 mm[Hg] [facility] acute hospital Diastolic blood pressure 2022-02-07 22:37:00 79 mm[Hg] [facility] Body height 2022-02-07 22:37:00 157.5 cm [facility] Body weight 2022-02-07 22:37:00 108.863 kg [facility] BMI 2022-02-07 22:37:00 43.90 kg/m2 [facility] Systolic blood pressure 2022-01-31 20:45:00 134 mm[Hg] [facility] acute hospital Diastolic blood pressure 2022-01-31 20:45:00 71 mm[Hg] General acute hospital Heart rate 2022-01-31 20:45:00 107 /min [facility] Body temperature 2022-01-31 20:45:00 36.44 Samina [facility] Respiratory rate 2022-01-31 20:45:00 18 /min [facility] Body height 2022-01-31 20:45:00 157.5 cm [facility] Body weight 2022-01-31 20:45:00 109.634 kg [facility] BMI 2022-01-31 20:45:00 44.21 kg/m2 [facility] Systolic blood pressure 2022-01-28 15:28:00 118 mm[Hg] [facility] acute hospital Diastolic blood pressure 2022-01-28 15:28:00 61 mm[Hg] General acute hospital Heart rate 2022-01-28 15:28:00 97 /min [facility] Body temperature 2022-01-28 15:28:00 36.67 Samina [facility] Respiratory rate 2022-01-28 15:28:00 18 /min [facility] Body height 2022-01-28 15:28:00 157.5 cm [facility] Body weight 2022-01-28 15:28:00 109.374 kg [facility] BMI 2022-01-28 15:28:00 44.10 kg/m2 [facility] Systolic blood pressure 2022-01-24 22:01:00 124 mm[Hg] [facility] acute hospital Diastolic blood pressure 2022-01-24 22:01:00 78 mm[Hg] General acute hospital Heart rate 2022-01-24 22:01:00 97 /min [facility] Body temperature 2022-01-24 22:01:00 36.39 Samina [facility] Respiratory rate 2022-01-24 22:01:00 17 /min [facility] Body height 2022-01-24 22:01:00 157.5 cm [facility] Body weight 2022-01-24 22:01:00 109.045 kg [facility] BMI 2022-01-24 22:01:00 43.97 kg/m2 [facility] Systolic blood pressure 2022-01-17 14:17:00 102 mm[Hg] [facility] acute hospital Diastolic blood pressure 2022-01-17 14:17:00 65 mm[Hg] General acute hospital Heart rate 2022-01-17 14:17:00 90 /min [facility] Body temperature 2022-01-17 14:17:00 36.5 Samina [facility] Respiratory rate 2022-01-17 14:17:00 20 /min [facility] Body height 2022-01-17 14:17:00 157.5 cm [facility] Body weight 2022-01-17 14:17:00 108.319 kg [facility] BMI 2022-01-17 14:17:00 43.68 kg/m2 [facility] Heart rate 2022-01-06 15:30:00 90 /min [facility] Oxygen saturation in Arterial blood by Pulse oximetry 2022-01-06 15:30:00 100 /min [facility] Systolic blood pressure 2022-01-06 14:59:00 113 mm[Hg] sitting up [facility] Diastolic blood pressure 2022-01-06 14:59:00 71 mm[Hg] sitting up [facility] Respiratory rate 2022-01-06 14:59:00 18 /min [facility] Body temperature 2022-01-06 14:34:00 36.61 Samina [facility] Body height 2022-01-06 14:34:00 160 cm [facility] Body weight 2022-01-06 14:34:00 108.863 kg [facility] BMI 2022-01-06 14:34:00 42.52 kg/m2 [facility] Systolic blood pressure 2021-12-28 14:25:00 139 mm[Hg] [facility] acute hospital Diastolic blood pressure 2021-12-28 14:25:00 81 mm[Hg] General acute hospital Heart rate 2021-12-28 14:25:00 104 /min [facility] Body temperature 2021-12-28 14:25:00 36.5 Samina [facility] Respiratory rate 2021-12-28 14:25:00 16 /min [facility] Body height 2021-12-28 14:25:00 162.6 cm [facility] Body weight 2021-12-28 14:25:00 109.317 kg [facility] BMI 2021-12-28 14:25:00 41.37 kg/m2 [facility] Systolic blood pressure 2021-12-12 18:58:00 139 mm[Hg] [facility] Diastolic blood pressure 2021-12-12 18:58:00 78 mm[Hg] General acute hospital Heart rate 2021-12-12 18:58:00 101 /min [facility] Body temperature 2021-12-12 18:58:00 36.5 Samina [facility] Respiratory rate 2021-12-12 18:58:00 18 /min [facility] Body height 2021-12-12 18:58:00 162.6 cm [facility] Body weight 2021-12-12 18:58:00 107.077 kg [facility] BMI 2021-12-12 18:58:00 40.52 kg/m2 [facility] Systolic blood pressure 2021-11-05 21:20:00 120 mm[Hg] [facility] acute hospital Diastolic blood pressure 2021-11-05 21:20:00 71 mm[Hg] General acute hospital Heart rate 2021-11-05 21:20:00 101 /min [facility] Body temperature 2021-11-05 21:20:00 36.5 Samina [facility] Respiratory rate 2021-11-05 21:20:00 20 /min [facility] Body height 2021-11-05 21:20:00 162.6 cm [facility] Body weight 2021-11-05 21:20:00 105.291 kg [facility] BMI 2021-11-05 21:20:00 39.84 kg/m2 [facility] Heart rate 2021-11-02 00:45:00 96 /min [facility] Oxygen saturation in Arterial blood by Pulse oximetry 2021-11-02 00:45:00 100 /min [facility] Systolic blood pressure 2021-11-02 00:15:00 123 mm[Hg] [facility] acute hospital Diastolic blood pressure 2021-11-02 00:15:00 64 mm[Hg] [facility] acute hospital Body temperature 2021-11-02 00:12:00 36.72 Samina [facility] Respiratory rate 2021-11-02 00:12:00 18 /min [facility] Body height 2021-11-01 22:23:00 162.6 cm [facility] Body weight 2021-11-01 22:23:00 107.049 kg [facility] BMI 2021-11-01 22:23:00 40.51 kg/m2 [facility] Systolic blood pressure 2021-10-25 19:51:00 125 mm[Hg] [facility] acute hospital Diastolic blood pressure 2021-10-25 19:51:00 79 mm[Hg] General acute hospital Heart rate 2021-10-25 19:51:00 96 /min [facility] Body temperature 2021-10-25 19:51:00 36.5 Samina [facility] Respiratory rate 2021-10-25 19:51:00 18 /min [facility] Body weight 2021-10-25 19:51:00 109.272 kg [facility] BMI 2021-10-25 19:51:00 41.35 kg/m2 [facility] Procedures Procedure Date / Time Performed Performing Clinician Source MEDICATION CORRESPONDENCE 2022-04-11 06:01:00 Do ctor [place], [place] [facility] POCT TEST 2022-04-05 14:27:00 Whitley Greenfield [facility] CONSENT FOR CONTRACEPTION 2022-04-05 06:01:00 Do ctor [place]ass[place], [place] [facility] POCT URINALYSIS 2022-02-22 16:10:00 Marcelle Munguia [facility] POCT GLUCOSE (AUTOMATED) 2022-02-18 16:52:00 Viktor Neves [facility] POCT GLUCOSE (AUTOMATED) 2022-02-18 16:52:00 Viktor Neves [facility] POCT GLUCOSE (AUTOMATED) 2022-02-18 12:08:00 Neves, [facility] POCT GLUCOSE (AUTOMATED) 2022-02-18 12:08:00 Neves, [facility] POCT GLUCOSE (AUTOMATED) 2022-02-18 03:44:00 Neves [facility] POCT GLUCOSE (AUTOMATED) 2022-02-18 03:44:00 Neves, [facility] POCT GLUCOSE (AUTOMATED) 2022-02-18 01:41:00 Neves [facility] POCT GLUCOSE (AUTOMATED) 2022-02-18 01:41:00 Neves [facility] POCT GLUCOSE (AUTOMATED) 2022-02-17 21:04:00 Neves [facility] POCT GLUCOSE (AUTOMATED) 2022-02-17 21:04:00 Neves, [facility] POCT GLUCOSE (AUTOMATED) 2022-02-17 16:46:00 Neves [facility] POCT GLUCOSE (AUTOMATED) 2022-02-17 16:46:00 Neves [facility] POCT GLUCOSE (AUTOMATED) 2022-02-17 11:59:00 Neves [facility] POCT GLUCOSE (AUTOMATED) 2022-02-17 11:59:00 Neves [facility] POCT GLUCOSE (AUTOMATED) 2022-02-17 04:24:00 Neves [facility] POCT GLUCOSE (AUTOMATED) 2022-02-17 04:24:00 Neves [facility] POCT GLUCOSE (AUTOMATED) 2022-02-16 22:02:00 Neves [facility] POCT GLUCOSE (AUTOMATED) 2022-02-16 22:02:00 Neves [facility] POCT GLUCOSE (AUTOMATED) 2022-02-16 14:22:00 Neves [facility] POCT GLUCOSE (AUTOMATED) 2022-02-16 14:22:00 NevesViktor [facility] CBC WITH DIFF 2022-02-16 07:22:00 Jenusaitis, [facility] CBC WITH DIFF 2022-02-16 07:22:00 Jenusaitis, Vasiliy [facility] VENOUS CORD GAS 2022-02-15 15:17:00 Chaljub Noelle [facility] VENOUS CORD GAS 2022-02-15 15:17:00 Noelle Contreras [facility] SECTION 2022-02-15 14:07:[address] [facility] SECTION 2022-02-15 14:07:00 Neves, Viktor [facility] CBC WITH DIFF 2022-02-15 12:26:00 Noelle Contreras [facility] HEPATITIS B SURFACE ANTIGEN 2022-02-15 12:26:00 [facility] GALV ONLY - SYPHILIS IGG/IGM 2022-02-15 12:26:00 [facility] CBC WITH DIFF 2022-02-15 12:26:00 Noelle Contreras [facility] HEPATITIS B SURFACE ANTIGEN 2022-02-15 12:26:00 [facility] GALV ONLY - SYPHILIS IGG/IGM 2022-02-15 12:26:00 Diane [facility] POCT GLUCOSE (AUTOMATED) 2022-02-15 12:15:00 Neves [facility] POCT GLUCOSE (AUTOMATED) 2022-02-15 12:15:00 Neves [facility] HB ABO GROUPING 2022-02-15 12:10:00 Noelle Contreras [facility] RHO (D) IMMUNE GLOBULIN 2022-02-15 12:10:00 Jenusaalan [facility] HB ABO GROUPING 2022-02-15 12:10:00 Noelle Contreras [facility] RHO (D) IMMUNE GLOBULIN 2022-02-15 12:10:00 Vasiliy Morton [facility] NON-STRESS TEST 2022-02-11 21:46:44 Antonio Munguia [facility] POCT URINALYSIS 2022-02-11 21:04:00 Marcelle Munguia [facility] DIABETES TESTING REPORTS 2022-02-11 06:01:00 Doc chapo [place] [facility] NON-STRESS TEST 2022-02-07 22:37:14 Zohra Marie sa [facility] POCT URINALYSIS 2022-02-07 21:36:00 Marcelle Munguia [facility] NON-STRESS TEST 2022-01-31 21:49:50 Antonio Munguia [facility] POCT URINALYSIS 2022-01-31 00:00:00 Marcelle Munguia [facility] NON-STRESS TEST 2022-01-28 16:02:49 Antonio Munguia [facility] POCT URINALYSIS 2022-01-28 15:31:00 Marcelle Munguia [facility] DIABETES TESTING REPORTS 2022-01-28 06:01:00 Federico cowan Unassigned, [place] [facility] NON-STRESS TEST 2022-01-24 22:41:09 Zohra Marie sa [facility] POCT URINALYSIS 2022-01-24 00:00:00 Marcelle Munguia [facility] ASSIGNMENT OF BENEFITS 2022-01-17 13:56:35 Docto r [place]ass[place], [place] [facility] POCT URINALYSIS 2022-01-17 00:00:00 Marcelle Munguia [facility] CONSENT/REFUSAL FOR DIAGNOSIS AND TREATMENT 2022-01-06 13:49:04 Doctor [place]assigned, [place] [facility] L&D VISIT (NON-DELIVERED) 2022-01-06 06:01:00 Do ctor [place]ass[place], [place] [facility] L&D VISIT (NON-DELIVERED) 2022-01-06 06:01:00 Do ctor [place]ass[place], [place] [facility] TDAP VACCINE, >11 YRS, IM 2021-12-28 14:30:37 Marcelle Munguia [facility] POCT URINALYSIS 2021-12-28 14:27:00 Marcelle Munguia [facility] STERILIZATION CONSENT FORM 2021-12-28 06:01:00 Doctor Unassigned, [place] [facility] POCT URINALYSIS 2021-12-12 18:59:00 Marcelle Munguia [facility] POCT URINALYSIS 2021-11-05 21:22:00 Marcelle Munguia [facility] CBC WITH DIFF 2021-11-02 01:46:00 Minerva Beebe [facility] NOTICE OF PRIVACY PRACTICES 2021-11-01 21:51:20 Doctor Unassigned, [place] [facility] CONSENT/REFUSAL FOR DIAGNOSIS AND TREATMENT 2021-11-01 21:50:26 Doctor Unassigned, [place] [facility] POCT URINALYSIS 2021-10-25 19:52:00 Marcelel Munguia [facility] Encounters Start Date/Time End Date/Time Encounter Type Admission Type Attending Clinicians Care Facility Care Department Encounter ID Source 2021-11-01 21:40:41 Outpatient X RUST CHEPE [id number] [facility] 2021-02-06 07:22:09 Outpatient CASTRO TAI RUST NABIL [id number] [facility] 2020-12-11 16:35:44 Outpatient P RUST CHEEP [id number] [facility] 2020-12-11 16:34:50 Outpatient [facility] [id number] [facility] 2020-12-09 22:21:37 Emergency [facility] [id number] [facility] 2022-12-10 00:00:00 2022-12-10 00:00:00 Outpatient [email or web address] [facility] [id number] [facility] 2022-09-12 16:47:51 2022-09-12 16:47:51 Outpatient SFA MARGUERITE [id number] Fausto Mcfarland 2022-04-26 00:00:00 2022-04-26 00:00:00 Telephone Marcelle Munguia [facility] [employer] [id number] [facility] 2022-04-11 00:00:00 2022-04-11 00:00:00 Orders Only Doctor [place]ass[place], [place] [facility] [id number] [facility] 2022-04-05 08:15:00 2022-04-05 09:29:46 Outpatient KAROLINE GIRALDO [facility] [id number] [facility] 2022-04-05 08:15:00 2022-04-05 09:29:46 Office Visit Provider, Karoline Mitchell [facility] 1..840.114 [id number] [id number] [facility] 2022-04-05 00:00:00 2022-04-05 00:00:00 Orders Only Doctor Unassigned, [place] [facility] [id number] [facility] 2022-03-15 10:15:00 2022-03-15 11:12:51 Outpatient KAROLINE GIRALDO [facility] [id number] [facility] 2022-03-15 10:15:00 2022-03-15 11:12:51 Routine Visit Provider, Karoline Mitchell [facility] [id number] [facility] 2022-02-22 10:00:00 2022-02-22 10:15:00 Nurse Visit Visit, Ang-Rmchp Nurse Marcelle Munguia [employer] [facility] [id number] [facility] 2022-02-22 10:00:00 2022-02-22 10:00:00 Outpatient MARCELLE WASHBURN [facility] [id number] [facility] 2022-02-20 13:45:00 2022-02-20 13:45:00 Outpatient P [facility] [id number] [facility] 2022-02-15 05:43:00 2022-02-18 13:57:00 Inpatient X [facility] [facility] [id number] [facility] 2022-02-15 05:43:00 2022-02-18 13:57:00 Hospital Encounter Barber Saenz [facility] 1.2.840.114 350.1.13.10 4.2.7.2.686 [id number] [facility] 2022-02-15 07:15:00 2022-02-15 09:01:00 Surgery [facility] 1.2.840.114 350.1.13.10 4.2.7.2.686 [id number] [facility] 2022-02-14 15:00:00 2022-02-14 15:00:00 Outpatient R OMKAR GILBERT [facility] [id number] [facility] 2022-02-11 15:15:00 2022-02-11 15:41:15 Outpatient R MARCELLE MUNGUIA [facility] [id number] [facility] 2022-02-11 15:15:00 2022-02-11 15:41:15 Routine Visit Marcelle Munguia [employer] [facility] 1..114 350.1.13.10 4.2.7.2.686 [id number] [facility] 2022-02-11 00:00:00 2022-02-11 00:00:00 Orders Only Doctor Unassigned, [place] [facility] 1.114 350.1.13.10 4.2.7.2.686 [id number] [facility] 2022-02-07 15:15:00 2022-02-07 16:26:37 Outpatient R GRADY MARIE [facility] [id number] [facility] 2022-02-07 15:15:00 2022-02-07 16:26:37 Routine Visit Risk, Ang-Rmchp-N p/High Grady Marie [employer] [facility]ILD [facility] 1..114 350.1.13.10 4.2.7.2.686 [id number] [facility] 2022-02-05 14:30:00 2022-02-05 14:30:00 Outpatient R MARCELLE MUNGUIA [facility] [id number] [facility] 2022-01-31 14:00:00 2022-01-31 15:43:41 Outpatient R MARCELLE MUNGUIA [facility] [id number] [facility] 2022-01-31 14:00:00 2022-01-31 15:43:41 Routine Visit Marcelle Munguia [employer] [facility] 1..114 350.1.13.10 4.2.7.2.686 [id number] [facility] 2022-01-31 15:15:00 2022-01-31 15:15:00 Outpatient R GILBERTOMKAR [facility] [id number] [facility] 2022-01-28 09:45:00 2022-01-28 10:03:15 Outpatient R EZRA MARCELLE [facility] [id number] [facility] 2022-01-28 09:45:00 2022-01-28 10:03:15 Routine Visit EzraKarynMarcelle Katharine [employer]ER [facility] 1..114 350.1.13.10 4.2.7.2.686 [id number] [facility] 2022-01-28 00:00:00 2022-01-28 00:00:00 Orders Only Doctor Unassigned, [place] [facility] 1..114 350.1.13.10 4.2.7.2.686 [id number] [facility] 2022-01-24 15:00:00 2022-01-24 16:29:32 Outpatient R GRADY MARIE [facility] [id number] [facility] 2022-01-24 15:00:00 2022-01-24 16:29:32 Routine Visit Risk, Salvador-Rmchp-N p/High Karoline Greenfield Teresa K [employer]ER [facility] 1..114 350.1.13.10 4.2.7.2.686 [id number] [facility] 2022-01-22 15:15:00 2022-01-22 16:00:00 Car Unloader Visit Ultrasound, Jj Trujillo [employer] [facility] 1.0.114 350.1.13.10 4.2.7.2.686 [id number] [facility] 2022-01-22 15:15:00 2022-01-22 15:15:00 Outpatient P MIRTHA JAMESGENET JJ Melton [facility] [id number] [facility] 2022-01-17 08:00:00 2022-01-17 09:32:18 Outpatient R MARCELLE MUNGUIA [facility] [id number] [facility] 2022-01-17 08:00:00 2022-01-17 09:32:18 Routine Visit Marcelle Munguia [employer] [facility] 1.840.114 350.1.13.10 4.2.7.2.686 [id number] [facility] 2022-01-17 00:00:00 2022-01-17 00:00:00 Orders Only Doctor Unassigned, [place] [facility] 1.840.114 350.1.13.10 4.2.7.2.686 [id number] [facility] 2022-01-09 15:45:00 2022-01-09 15:45:00 Outpatient R ROBELLIOTT MARCELLE [facility] [id number] [facility] 2022-01-07 13:00:00 2022-01-07 13:00:00 Outpatient P [facility] [id number] [facility] 2022-01-06 08:03:00 2022-01-06 09:45:00 Outpatient X POZO-JOSIANE S, FABIENNE POZO-JOSIANE S, FABIENNE [place] [id number] [facility] 2022-01-06 08:03:00 2022-01-06 09:45:00 Emergency Pozo-Josiane s, Fabienne [facility] 1.840.114 350.1.13.10 4.2.7.2.686 [id number] [facility] 2022-01-06 00:00:00 2022-01-06 00:00:00 Orders Only Doctor Unassigned, [place] [facility] 1.0.114 350.1.13.10 4.2.7.2.686 [id number] [facility] 2022-01-01 00:00:00 2022-01-01 00:00:00 Telephone Marcelle Munguia [employer] [facility] 1.0.114 350.1.13.10 4.2.7.2.686 [id number] [facility] 2021-12-28 08:00:00 2021-12-28 09:14:56 Outpatient R MARCELLE MUNGUIA [facility] [id number] [facility] 2021-12-28 08:00:00 2021-12-28 09:14:56 Routine Visit Marcelle Munguai [employer] [facility] 1.0.114 350.1.13.10 4.2.7.2.686 [id number] [facility] 2021-12-28 00:00:00 2021-12-28 00:00:00 Orders Only Doctor Unassigned, [place] [facility] 1.0.114 350.1.13.10 4.2.7.2.686 [id number] [facility] 2021-12-12 14:00:00 2021-12-12 14:22:22 Outpatient R MARCELLE MUNGUIA [facility] [id number] [facility] 2021-12-12 14:00:00 2021-12-12 14:22:22 Routine Visit Marcelle Munguia [employer] [facility] 1.0.114 350.1.13.10 4.2.7.2.686 [id number] 107 [id number] [facility] 2021-12-06 14:45:00 2021-12-06 16:00:00 Car Unloader Visit Ultrasound, Juli Trudy Gomez Ruben [employer] [facility] .840.114 350.1.13.10 4.2.7.2.686 [id number] [facility] 2021-12-06 14:45:00 2021-12-06 14:45:00 Outpatient P TRUDY GOMEZ [facility] [id number] [facility] 2021-12-06 00:00:00 2021-12-06 00:00:00 Abstract Marcelle [facility]ung[facility] .840.114 350.1.13.10 4.2.7.2.686 [id number] 107 [id number] [facility] 2021-11-28 16:00:00 2021-11-28 16:00:00 Outpatient R MARCELLE MUNGUIA [facility] [id number] [facility] 2021-11-21 14:45:00 2021-11-21 14:45:00 Outpatient P [facility] [id number] [facility] 2021-11-07 14:00:00 2021-11-07 14:00:00 Outpatient R MARCELLE MUNGUIA [facility] [id number] [facility] 2021-11-05 16:00:00 2021-11-05 16:50:27 Outpatient R MARCELLE MUNGUIA [facility] [id number] [facility] 2021-11-05 16:00:00 2021-11-05 16:50:27 Routine Visit Marcelle Munguia [employer] [facility] .840.114 350.1.13.10 4.2.7.2.686 [id number] 107 [id number] [facility] 2021-11-01 17:03:00 2021-11-01 21:17:00 Outpatient X MINERVA BEEBE [facility] [id number] [facility] 2021-11-01 17:03:00 2021-11-01 21:17:00 Emergency Rc Dickerson, Minerva L [facility] 1..114 350.1.13.10 4.2.7.2.686 [id number] [facility] 2021-11-01 00:00:00 2021-11-01 00:00:00 Orders Only Doctor Unassigned, [place] [facility] 1..114 350.1.13.10 4.2.7.2.686 [id number] [facility] 2021-10-31 13:00:00 2021-10-31 13:00:00 Outpatient P [facility] [id number] [facility] 2021-10-29 00:00:00 2021-10-29 00:00:00 Telephone Marcelle Munguia [employer] [facility] 1..114 350.1.13.10 4.2.7.2.686 [id number] [facility] 2021-10-28 00:00:00 2021-10-28 00:00:00 Nurse Triage Sylvia Wong [facility] 1..114 350.1.13.10 4.2.7.2.686 [id number] [facility] 2021-10-25 15:00:00 2021-10-25 15:15:11 Routine Visit Marcelle Munguia Teresa K [employer] [facility] 1..114 350.1.13.10 4.2.7.2.686 [id number] [facility] 2021-10-25 15:00:00 2021-10-25 15:15:11 Outpatient R MARCELLE MUNGUIA [facility] [id number] [facility] 2021-10-25 15:00:00 2021-10-25 15:00:00 Outpatient R ROBELLIOTTMARCELLE [facility] [id number] [facility] 2021-10-25 15:00:00 2021-10-25 15:00:00 Outpatient R ROBELLIOTTMARCELLE [facility] [id number] [facility] 2021-10-18 15:00:00 2021-10-18 15:00:00 Outpatient R GRADY MARIE [facility] [id number] [facility] 2021-10-17 13:00:00 2021-10-17 13:00:00 Outpatient R ROBELLIOTTMARCELLE [facility] [id number] [facility] 2021-10-03 09:45:00 2021-10-03 11:05:02 Outpatient R ROBELLIOTTMARCELLE [facility] [id number] [facility] 2021-10-03 09:45:00 2021-10-03 11:05:02 Routine Visit Ezra Marcelle Katharine [employer] [facility] ..840.114 350.1.13.10 4.2.7.2.686 [id number] [facility] 2021-09-12 13:00:00 2021-09-12 13:56:10 Outpatient R ROBELLIOTTMARCELLE [facility] [id number] [facility] 2021-09-12 13:00:00 2021-09-12 13:56:10 Routine Visit Ezra Marcelle Katharine [employer] [facility] ..840.114 350.1.13.10 4.2.7.2.686 [id number] [facility] 2021-08-29 08:00:00 2021-08-29 08:30:00 Car Unloader Visit Ultrasound, NikkiMfNathalia Eubanks [employer] [facility] 1.2.840.114 350.1.13.10 4.2.7.2.686 [id number] [facility] 2021-08-29 08:00:00 2021-08-29 08:00:00 Outpatient NATHALIA CHAVEZ SANGEETA [facility] [id number] [facility] 2021-08-22 10:45:00 2021-08-22 10:45:00 Outpatient MARCELLE WASHBURN [facility] [id number] [facility] 2021-08-21 00:00:00 2021-08-21 00:00:00 Telephone Marcelle Munguia [employer] [facility] 1..840.114 350.1.13.10 4.2.7.2.686 [id number] 107 [id number] [facility] 2021-08-17 08:30:00 2021-08-17 08:45:00 Car Unloader Visit Lab, Salvador-Rmchp Gavino Martinez [employer] [facility] 1..840.114 350.1.13.10 4.2.7.2.686 [id number] 107 [id number] [facility] 2021-08-17 08:30:00 2021-08-17 08:30:00 Outpatient GAVINO HO [facility] [id number] [facility] 2021-08-15 12:45:00 2021-08-15 13:45:59 Outpatient R MARCELLE MUNGUIA [facility] [id number] [facility] 2021-08-15 12:45:00 2021-08-15 13:45:59 Routine Visit Marcelle Munguia [employer] [facility] 1.840.114 350.1.13.10 4.2.7.2.686 [id number] [facility] 2021-08-10 00:00:00 2021-08-10 00:00:00 Telephone Marcelle Munguia [employer]ER [facility] 1.2840.114 350.1.13.10 4.2.7.2.686 [id number] [facility] 2021-08-09 00:00:00 2021-08-09 00:00:00 Orders Only Doctor Unassigned, [place] [facility] 1.2840.114 350.1.13.10 4.2.7.2.686 [id number] [facility] 2021-08-08 07:45:00 2021-08-08 07:53:43 Car Unloader Visit Lab, Ang-Rmchp Gavino Martinez [employer]ER [facility] 1.0.114 350.1.13.10 4.2.7.2.686 [id number] 107 [id number] [facility] 2021-08-08 07:45:00 2021-08-08 07:45:00 Outpatient GAVINO HO [facility] [id number] [facility] 2021-08-08 07:45:00 2021-08-08 07:45:00 Outpatient GAVINO HO [facility] [id number] [facility] 2021-08-06 00:00:00 2021-08-06 00:00:00 Telephone Marcelle Munguia [employer] [facility] 1.840.114 350.1.13.10 4.2.7.2.686 [id number] [facility] 2021-08-03 00:00:00 2021-08-03 00:00:00 Telephone Marcelle Munguia Katharine [employer] [facility] 1.840.114 350.1.13.10 4.2.7.2.686 [id number] [facility] 2021-08-02 00:00:00 2021-08-02 00:00:00 Abstract Marcelle Munguia Katharine [employer] [facility] 1.840.114 350.1.13.10 4.2.7.2.686 [id number] [facility] 2021-08-01 14:15:00 2021-08-01 15:36:04 Outpatient R MARCELLE MUNGUIA [facility] [id number] [facility] 2021-08-01 14:15:00 2021-08-01 15:36:04 Initial Visit Marcelle Munguia [employer] [facility] 1.0.114 350.1.13.10 4.2.7.2.686 [id number] [facility] 2021-08-01 00:00:00 2021-08-01 00:00:00 Orders Only Doctor Unassigned, [place] [facility] 1..114 350.1.13.10 4.2.7.2.686 [id number] [facility] 2021-05-21 16:00:00 2021-05-21 16:44:38 Outpatient R CASTRO TAI [facility] [id number] [facility] 2021-05-21 16:00:00 2021-05-21 16:44:38 Office Visit Castro Tai [facility] 1..114 350.1.13.10 4.2.7.2.686 [id number] [facility] 2021-05-21 00:00:00 2021-05-21 00:00:00 Orders Only Doctor Unassigned, [place] [facility] 1.2840.114 350.1.13.10 4.2.7.2.686 [id number] [facility] 2021-04-30 16:00:00 2021-04-30 16:00:00 Outpatient CASTRO NUÑEZ [facility] [id number] [facility] 2021-04-23 14:00:00 2021-04-23 14:00:00 Outpatient CASTRO NUÑEZ [facility] [id number] [facility] 2021-03-10 00:00:00 2021-03-10 [facility]:00[facility]40.114 350.1.13.10 4.2.7.2.686 [id number] [facility] 2021-03-09 00:00:00 2021-03-09 00:00:00 [facility] 1.2840.114 350.1.13.10 4.2.7.2.686 [id number] [facility] 2021-03-08 05:23:00 2021-03-08 11:27:00 Outpatient CASTRO NUÑEZ [facility] [id number] [facility] 2021-03-08 05:23:00 2021-03-08 11:27:00 Hospital Encounter [facility] 1.2840.114 350.1.13.10 4.2.7.2.686 [id number] [facility] 2021-03-08 07:15:00 2021-03-08 09:57:00 Surgery [facility] 1.2.840.114 350.1.13.10 4.2.7.2.686 [id number] [facility] 2021-03-08 00:00:2021-03-08 00:00:00 Orders Only Doctor Unassigned, [place] [facility] 1..114 350.1.13.10 4.2.7.2.686 [id number] [facility] 2021-03-05 16:15:00 2021-03-05 16:30:00 Laboratory Only Only, Adc Test Castro Tai [facility] 1..114 350.1.13.10 4.2.7.2.686 [id number] [facility] 2021-03-05 16:15:00 2021-03-05 16:15:00 Outpatient CASTRO NUÑEZ [facility] [id number] [facility] 2021-02-12 08:00:00 2021-02-12 08:00:00 Outpatient VICKEY DOMINGO [facility] [id number] [facility] 2021-02-12 08:00:00 2021-02-12 08:00:00 Outpatient VICKEY DOMINGO [facility] [id number] [facility] 2021-02-11 00:00:00 2021-02-11 00:00:00 Vickey Joyce [employer] [facility] 1..114 350.1.13.10 4.2.7.2.686 [id number] [facility] 2021-02-05 14:15:00 2021-02-05 14:30:00 Office Visit Castro Tai [facility] 1..114 350.1.13.10 4.2.7.2.686 [id number] [facility] 2021-02-05 14:15:00 2021-02-05 14:15:00 Outpatient CASTRO NUÑEZ [facility] [id number] [facility] 2020-12-06 15:00:00 2020-12-06 15:00:00 Outpatient R JANEL, TARA [facility] [id number] [facility] 2020-12-06 14:38:30 2020-12-06 14:58:30 Urgent Care Laura Moses Unknown, Attending [facility] Rai?[facility] 1..840.114 350.1.13.10 4.2.7.2.686 [id number] [facility] 2020-12-06 00:00:00 2020-12-06 00:00:00 Telephone Vickey Marquez [employer] [facility] 1..840.114 350.1.13.10 4.2.7.2.686 [id number] [facility] 2020-11-27 07:58:15 2020-11-27 08:13:12 Car Unloader Visit Lab, [facility] Gavino Martinez [employer] [facility] 1..840.114 350.1.13.10 4.2.7.2.686 [id number] [facility] 2020-11-27 07:45:00 2020-11-27 07:45:00 Outpatient R [facility] [id number] [facility] 2020-11-22 13:24:49 2020-11-22 14:16:05 Office Visit Vickey Marquez [employer] [facility] 1..840.114 350.1.13.10 4.2.7.2.686 [id number] [facility] 2020-11-22 13:15:00 2020-11-22 13:15:00 Outpatient R VICKEY MARQUEZ [facility] [id number] [facility] 2020-11-01 13:30:00 2020-11-01 13:30:00 Outpatient R MARCELLE MUNGUIA [facility] [id number] [facility] 2020-10-26 00:00:00 2020-10-26 00:00:00 Patient Secure Msg Doctor Unassigned, [place] [facility] 1.2840.114 350.1.13.10 4.2.7.2.686 [id number] [facility] 2020-10-17 08:10:15 2020-10-17 08:47:33 [facility] Gavino Martinez [employer] [facility] 1.0.114 350.1.13.10 4.2.7.2.686 [id number] [facility] 2020-10-17 08:00:00 2020-10-17 08:00:00 Outpatient R GAVINO MARTINEZ [facility] [id number] [facility] 2020-10-12 00:00:00 2020-10-12 00:00:00 Telephone Sada Quach [facility] 1..114 350.1.13.10 4.2.7.2.686 [id number] [facility] 2020-10-08 23:17:00 2020-10-11 18:17:00 Hospital Encounter Viktor Neves [facility] 1.0.114 350.1.13.10 4.2.7.2.686 [id number] [facility] 2020-10-09 07:15:00 2020-10-09 08:59:00 Surgery [facility] 1.2840.114 350.1.13.10 4.2.7.2.686 [id number] [facility] 2020-10-06 00:00:00 2020-10-06 00:00:00 Patient Secure Msg Doctor Unassigned, [place] [facility] 1.20.114 350.1.13.10 4.2.7.2.686 [id number] [facility] 2020-10-04 09:57:50 2020-10-04 11:08:51 Routine Visit Risk, Ang-Rmchp-N p/High Melanie Alvarez [employer] [facility] 1..114 350.1.13.10 4.2.7.2.686 [id number] [facility] 2020-10-04 10:15:00 2020-10-04 10:15:00 Outpatient R [facility] [id number] [facility] 2020-10-04 00:00:00 2020-10-04 00:00:00 [facility] [employer] [facility] & CHILD [facility] 1.0.114 350.1.13.10 4.2.7.2.686 [id number] [facility] 2020-10-02 14:45:00 2020-10-02 14:45:00 Outpatient R GAVINO MARTINEZ [facility] [id number] [facility] 2020-09-29 00:00:00 2020-09-29 00:00:00 Telephone Nancy [facility] 1.114 350.1.13.10 4.2.7.2.686 [id number] [facility] 2020-09-27 13:09:15 2020-09-27 15:19:56 Routine Visit Risk, Ang-Rmchp-N p/High Melanie Alvarez [employer] [facility] 1..114 350.1.13.10 4.2.7.2.686 [id number] [facility] 2020-09-27 13:30:00 2020-09-27 13:30:00 Outpatient R [facility] [id number] [facility] 2020-09-25 15:37:36 2020-09-25 15:51:23 Car Unloader Visit Ultrasound, Jj Villagomez [employer] [facility] 1..840.114 350.1.13.10 4.2.7.2.686 [id number] [facility] 2020-09-25 15:30:00 2020-09-25 15:30:00 Outpatient P [facility] [id number] [facility] 2020-09-20 14:39:05 2020-09-20 15:57:00 Routine Visit Risk, Ang-Rmchp-N p/High Melanie Alvarez [employer] [facility] 1..840.114 350.1.13.10 4.2.7.2.686 [id number] [facility] 2020-09-20 15:00:00 2020-09-20 15:00:00 Outpatient R [facility] [id number] [facility] 2020-09-19 00:00:00 2020-09-19 00:00:00 Telephone Marcelle Munguia [facility] [facility] 1..840.114 350.1.13.10 4.2.7.2.686 [id number] [facility] 2020-09-18 17:00:00 2020-09-18 17:00:00 Outpatient R GAVINO MARTINEZ [facility] [id number] [facility] 2020-09-18 15:42:10 2020-09-18 16:40:40 Routine Visit Gavino Martinez [employer] [facility] 1..840.114 350.1.13.10 4.2.7.2.686 [id number] 107 [id number] [facility] 2020-09-18 00:00:00 2020-09-18 00:00:00 Orders Only Doctor Unassigned, [place] [facility] 1.2840.114 350.1.13.10 4.2.7.2.686 [id number] [facility] 2020-09-13 14:06:47 2020-09-13 15:34:24 Routine Visit Risk, Ang-Rmchp-N p/High Melanie Alvarez [employer] [facility] 1.84.114 350.1.13.10 4.2.7.2.686 [id number] 107 [id number] [facility] 2020-09-13 14:30:00 2020-09-13 14:30:00 Outpatient R [facility] [id number] [facility] 2020-09-11 14:30:00 2020-09-11 14:30:00 Outpatient R MARTINEZ, ROSALBAN [facility] [id number] [facility] 2020-09-11 14:10:04 2020-09-11 14:25:04 Routine Visit Juan Lee Annalban [facility] TOOLROOM CHECKER [facility] 1.284.114 350.1.13.10 4.2.7.2.686 [id number] 107 [id number] [facility] 2020-09-06 14:36:08 2020-09-06 15:34:54 Routine Visit Gavino Martinez [facility] TOOLROOM CHECKER [facility] 1.284.114 350.1.13.10 4.2.7.2.686 [id number] 107 [id number] [facility] 2020-09-06 13:45:00 2020-09-06 13:45:00 Outpatient R [facility] [id number] [facility] 2020-09-06 00:00:00 2020-09-06 00:00:00 Orders Only Doctor Unassigned, [place] [facility] 1.2840.114 350.1.13.10 4.2.7.2.686 [id number] [facility] 2020-09-04 13:56:43 2020-09-04 14:48:59 Routine Visit Gavino Martinez Eugenia [employer] [facility] & CHILD [facility] 1.2840.114 350.1.13.10 4.2.7.2.686 [id number] [facility] 2020-09-04 13:56:43 2020-09-04 14:48:59 Routine Visit Debbei Martinezeric Bello [employer] [facility] & CHILD [facility] 1.2840.114 350.1.13.10 4.2.7.2.686 [id number] 107 [id number] 2020-09-04 14:30:00 2020-09-04 14:30:00 Outpatient R [facility] [id number] [facility] 2020-08-31 09:12:31 2020-08-31 10:08:45 Routine Visit Debbie Martinezeric [facility] TOOLROOM CHECKER [facility] & CHILD [facility] 1.2840.114 350.1.13.10 4.2.7.2.686 [id number] [facility] 2020-08-31 09:30:00 2020-08-31 09:30:00 Outpatient R [facility] [id number] [facility] 2020-08-29 15:25:07 2020-08-29 16:54:33 Routine Visit Debbie Martinezeric [facility] TOOLROOM CHECKER [facility] & CHILD [facility] 1.2840.114 350.1.13.10 4.2.7.2.686 [id number] 107 [id number] [facility] 2020-08-29 15:15:00 2020-08-29 15:15:00 Outpatient R [facility] [id number] [facility] 2020-08-29 00:00:00 2020-08-29 00:00:00 Orders Only Doctor Unassigned, [place] [facility] 1.2.840.114 350.1.13.10 4.2.7.2.686 [id number] [facility] 2020-08-28 07:33:56 2020-08-28 16:19:14 Telemedici ne Visit Faculty, Salvador Buschtran [facility] Jj Hay [employer] [facility] & CHILD [facility] 1.2.840.114 350.1.13.10 4.2.7.2.686 [id number] [facility] 2020-08-28 13:00:00 2020-08-28 13:00:00 Outpatient R [facility] [id number] [facility] 2020-08-23 00:00:00 2020-08-23 00:00:00 Abstract Gavino Martinez [employer] [facility] & CHILD [facility] 1.2.840.114 350.1.13.10 4.2.7.2.686 [id number] [facility] 2020-08-22 14:34:23 2020-08-22 15:44:34 Car Unloader Visit Ultrasound, Olga-[facility] Nathalia Bernal [employer] [facility] 1.2.840.114 350.1.13.10 4.2.7.2.686 [id number] [facility] 2020-08-22 15:15:00 2020-08-22 15:15:00 Outpatient P [facility] [id number] [facility] 2020-08-21 13:42:20 2020-08-21 13:57:20 Routine Visit Gavino Martinez [employer] [facility] CHILD [facility] 1.114 350.1.13.10 4.2.7.2.686 [id number] [facility] 2020-08-21 13:45:00 2020-08-21 13:45:00 [facility] [id number] [facility] 2020-08-21 00:00:00 2020-08-21 00:00:00 Orders Only Doctor Unassigned, [place] [facility] 1..114 350.1.13.10 4.2.7.2.686 [id number] [facility] 2020-08-09 16:01:37 2020-08-09 16:51:41 Routine Visit Juan Gavino [facility]..114 350.1.13.10 4.2.7.2.686 [id number] 107 [id number] [facility] 2020-08-09 16:00:00 2020-08-09 16:00:00 Outpatient LEE [facility] [id number] [facility] 2020-08-09 08:00:00 2020-08-09 08:00:00 Outpatient Eugenia [facility] [id number] [facility] 2020-08-09 00:00:00 2020-08-09 00:00:00 Orders Only Doctor Unassigned, [place] [facility] 1.114 350.1.13.10 4.2.7.2.686 [id number] [facility] 2020-08-01 14:56:52 2020-08-01 15:29:25 Nurse Visit Visit, [facility]-Rmchp Nurse Marcelle Munguia [facility] 1.2.840.114 350.1.13.10 4.2.7.2.686 [id number] 107 [id number] [facility] 2020-08-01 15:00:00 2020-08-01 15:00:00 Outpatient R MARCELLE MUNGUIA [facility] [id number] [facility] 2020-08-01 00:00:00 2020-08-01 00:00:00 Telephone Gavino Martinez [employer] [facility] CHILD [facility] 1.840.114 350.1.13.10 4.2.7.2.686 [id number] 107 [id number] [facility] 2020-07-31 00:00:00 2020-07-31 00:00:00 Telephone Gavino Martinez [employer] [facility] 1.840.114 350.1.13.10 4.2.7.2.686 [id number] [facility] 2020-07-31 00:00:00 2020-07-31 00:00:00 Telephone JuanGavino [employer] [facility] 1.0.114 350.1.13.10 4.2.7.2.686 [id number] [facility] 2020-07-31 00:00:00 2020-07-31 00:00:00 Patient Secure Msg Doctor Unassigned, [place] [facility] CHILD [facility] 1.2840.114 350.1.13.10 4.2.7.2.686 [id number] 107 [id number] [facility] 2020-07-28 07:47:55 2020-07-28 08:00:39 Car Unloader Visit Lab, Ang-Rmchp Marcelle Munguia [employer] [facility] CHILD [facility] 1.840.114 350.1.13.10 4.2.7.2.686 [id number] 107 [id number] [facility] 2020-07-28 07:45:00 2020-07-28 07:45:00 Outpatient R MARCELLE MUNGUIA [facility] [id number] [facility] 2020-07-27 00:00:00 2020-07-27 00:00:00 Telephone Lee Ann Martinezalban Bello [employer] [facility] & CHILD [facility] 1..114 350.1.13.10 4.2.7.2.686 [id number] 107 [id number] [facility] 2020-07-26 10:01:56 2020-07-26 10:59:57 Routine Visit MartinezGavino [employer] [facility] & CHILD [facility] 1..114 350.1.13.10 4.2.7.2.686 [id number] 107 [id number] [facility] 2020-07-26 10:00:00 2020-07-26 10:00:00 Outpatient R LEE ANN MARTINEZALBAN [facility] [id number] [facility] 2020-07-13 00:00:00 2020-07-13 00:00:00 Patient Secure Msg Doctor Unassigned, [place] [facility]114 350.1.13.10 4.2.7.2.686 [id number] 107 [id number] [facility] 2020-07-13 00:00:00 2020-07-13 00:00:00 Patient Secure Msg Doctor Unassigned, [place] [facility] ..114 350.1.13.10 4.2.7.2.686 [id number] [facility] 2020-07-12 10:39:50 2020-07-12 11:01:17 Routine Visit JuanGavino [facility] TOOLROOM CHECKER [facility] & CHILD [facility] 1.0.114 350.1.13.10 4.2.7.2.686 [id number] 107 [id number] [facility] 2020-07-12 10:45:00 2020-07-12 10:45:00 Outpatient R MARTINEZ, GAVINO [facility] [id number] [facility] 2020-07-05 13:45:00 2020-07-05 13:45:00 Outpatient R MARTINEZGAVINO [facility] [id number] [facility] 2020-07-03 13:00:00 2020-07-03 13:00:00 Outpatient R [facility]LE[facility] [id number] [facility] 2020-06-10 00:00:00 2020-06-10 00:00:00 Nurse Triage Sylvia Wong [facility] 1.840.114 350.1.13.10 4.2.7.2.686 [id number] [facility] 2020-06-06 09:16:57 2020-06-06 10:52:13 Car Unloader Visit Ultrasound, Nehemiah Stephen [employer] [facility] 1..840.114 350.1.13.10 4.2.7.2.686 [id number] [facility] 2020-06-06 09:30:00 2020-06-06 09:30:00 Outpatient P [facility] [id number] [facility] 2020-06-06 00:00:00 2020-06-06 00:00:00 Abstract Gavino Martinez [facility] TOOLROOM CHECKER [facility] & CHILD [facility] 1.840.114 350.1.13.10 4.2.7.2.686 [id number] [facility] 2020-06-05 12:45:14 2020-06-05 13:08:17 Routine Visit Gavino Martinez [employer] [facility] 1.2.840.114 350.1.13.10 4.2.7.2.686 [id number] [facility] 2020-06-05 12:45:00 2020-06-05 12:45:00 Outpatient R GAVINO MARTINEZ [facility] [id number] [facility] 2020-05-08 12:52:02 2020-05-08 13:41:54 Routine Visit Gavino Martinez [employer] [facility] & CHILD [facility] 1.2.840.114 350.1.13.10 4.2.7.2.686 [id number] [facility] 2020-05-08 13:00:00 2020-05-08 13:00:00 Outpatient R GAVINO MARTINEZ [facility] [id number] [facility] 2020-04-24 00:00:00 2020-04-24 00:00:00 Telephone Gavino Martinez [facility] TOOLROOM CHECKER [facility] & CHILD [facility] 1.2.840.114 350.1.13.10 4.2.7.2.686 [id number] 107 [id number] [facility] 2020-04-22 00:00:00 2020-04-22 00:00:00 Nurse Triage Navi Umaña [facility] 1.2.840.114 350.1.13.10 4.2.7.2.686 [id number] [facility] 2020-04-12 10:53:54 2020-04-12 11:23:54 Car Unloader Visit Ultrasound, Jj Trujillo [employer] [facility] 1.2.840.114 350.1.13.10 4.2.7.2.686 [id number] [facility] 2020-04-12 11:00:00 2020-04-12 11:00:00 Outpatient P [facility] [id number] [facility] 2020-04-12 00:00:00 2020-04-12 00:00:00 Abstract Lee Ann Martinezalban Bello [employer] [facility] 1.2.840.114 350.1.13.10 4.2.7.2.686 [id number] [facility] 2020-04-11 00:00:00 2020-04-11 00:00:00 Telephone Juan Gavino Bello [employer] [facility] 1.2.840.114 350.1.13.10 4.2.7.2.686 [id number] [facility] 2020-04-10 12:50:04 2020-04-10 13:57:01 Initial Visit Juan Gavino Bello [employer] [facility] 1.2.840.114 350.1.13.10 4.2.7.2.686 [id number] 107 [id number] [facility] 2020-04-10 13:15:00 2020-04-10 13:15:00 Outpatient R JUAN GAVINO [facility] [id number] [facility] 2020-04-10 00:00:00 2020-04-10 00:00:00 Orders Only Doctor Unassigned, [place] [facility] 1.2.840.114 350.1.13.10 4.2.7.2.686 [id number] [facility] 2020-03-22 14:15:00 2020-03-22 14:15:00 Outpatient R MARTINEZGAVINO [facility] [id number] [facility] 2020-03-22 00:00:00 2020-03-22 00:00:00 Telephone Gavino Martinez [facility] TOOLROOM CHECK[facility] 1.2.840.114 350.1.13.10 4.2.7.2.686 [id number] [facility] 2020-03-19 18:03:00 2020-03-19 21:52:00 Emergency Gilberto Smith [facility] 1.2.840.114 350.1.13.10 4.2.7.2.686 [id number] [facility] 2019-12-13 12:45:00 2019-12-13 12:45:00 Outpatient R ROBELLIOTTKARYNMARCELLE [facility] [id number] [facility] Results Test Description Test Time Test Comments Results Result Co mments Source [facility] [id number] 14:27:00* Test Item Value Reference Range Interpretation Comme nts POCT PREG (test code = 1605) Negative On board controls acceptable with C Line (test code = 3574) Yes POCT PREG LOT # (test code = 3575) POCT PREG TEST DATE ( test code = 3576) [facility] [id number] 14:27:00* Test Item Value Reference Range Interpretation Comme nts POCT PREG (test code = 1605) Negative On board controls acceptable with C Line (test code = 3574) Yes POCT PREG LOT # (test code = 3575) POCT PREG TEST DATE ( test code = 3576) [facility] UR[facility] W SPECIFIC [id number] 16:10:00* Test Item Value Reference Range Interpretation Comme nts POCT U SP GRAV (test code = 3255) * 1.005-1.025 POCT PH U (test code = 3254) * 5-8 POCT U LEUK EST (test code = 3263) * Negative - Negative POCT U NIT (test code = 3262) * Negative - Negati ve POCT U PROT (test code = 3259) trace Negative - Negat crystal POCT U GLU (test code = 3256) negative Negative - Negati ve POCT U KETONE (test code = 3258) * Negative - Neg ative POCT U UROBILI (test code = 3260) * 0.2-1 POCT U BILI (test code = 3261) * Negative - Negat crystal POCT U BLD (test code = 3257) * Negative - Negati ve POCT U COLOR (test code = 3266) POCT U APPEAR (test code = 3267) General acute hospital GLUCOSE (AUTOMATED)2022-02-18 16:53:36* Test Item Value Reference Range Interpretation Comme nts POCT GLU (test code = 3746144495) 121 mg/dL 70-110 H Lab Interpretation (test cod e = 46908-1) Abnormal General acute hospital GLUCOSE (AUTOMATED)2022-02-18 16:53:36* Test Item Value Reference Range Interpretation Comme nts POCT GLU (test code = 6316732693) 121 mg/dL 70-110 H Lab Interpretation (test cod e = 23425-1) Abnormal General acute hospital GLUCOSE (AUTOMATED)2022-02-18 12:10:34* Test Item Value Reference Range Interpretation Comme nts POCT GLU (test code = 2864223332) 88 mg/dL 70-110 Lab Interpretation (test cod e = 54397-0) Normal General acute hospital GLUCOSE (AUTOMATED)2022-02-18 12:10:34* Test Item Value Reference Range Interpretation Comme nts POCT GLU (test code = 2157987744) 88 mg/dL 70-110 Lab Interpretation (test cod e = 37215-6) Normal General acute hospital GLUCOSE (AUTOMATED)2022-02-18 03:51:03* Test Item Value Reference Range Interpretation Comme nts POCT GLU (test code = 1777255527) 80 mg/dL 70-110 Lab Interpretation (test cod e = 99556-9) Normal General acute hospital GLUCOSE (AUTOMATED)2022-02-18 03:51:03* Test Item Value Reference Range Interpretation Comme nts POCT GLU (test code = 0461284603) 80 mg/dL 70-110 Lab Interpretation (test cod e = 78709-6) Normal General acute hospital GLUCOSE (AUTOMATED)2022-02-18 01:44:29* Test Item Value Reference Range Interpretation Comme nts POCT GLU (test code = 4748847292) 101 mg/dL 70-110 Lab Interpretation (test cod e = 91586-1) Normal General acute hospital GLUCOSE (AUTOMATED)2022-02-18 01:44:29* Test Item Value Reference Range Interpretation Comme nts POCT GLU (test code = 9146390666) 101 mg/dL 70-110 Lab Interpretation (test cod e = 41353-9) Normal General acute hospital GLUCOSE (AUTOMATED)2022-02-17 21:05:17* Test Item Value Reference Range Interpretation Comme nts POCT GLU (test code = 7064518368) 104 mg/dL 70-110 Lab Interpretation (test cod e = 97900-8) Normal General acute hospital GLUCOSE (AUTOMATED)2022-02-17 21:05:17* Test Item Value Reference Range Interpretation Comme nts POCT GLU (test code = 3554840692) 104 mg/dL 70-110 Lab Interpretation (test cod e = 99468-3) Normal General acute hospital GLUCOSE (AUTOMATED)2022-02-17 16:47:49* Test Item Value Reference Range Interpretation Comme nts POCT GLU (test code = 3913765895) 139 mg/dL 70-110 H Lab Interpretation (test cod e = 45763-3) Abnormal General acute hospital GLUCOSE (AUTOMATED)2022-02-17 16:47:49* Test Item Value Reference Range Interpretation Comme nts POCT GLU (test code = 6705207985) 139 mg/dL 70-110 H Lab Interpretation (test cod e = 03952-2) Abnormal General acute hospital GLUCOSE (AUTOMATED)2022-02-17 12:01:28* Test Item Value Reference Range Interpretation Comme nts POCT GLU (test code = 4125939643) 94 mg/dL 70-110 Lab Interpretation (test cod e = 78868-0) Normal General acute hospital GLUCOSE (AUTOMATED)2022-02-17 12:01:28* Test Item Value Reference Range Interpretation Comme nts POCT GLU (test code = 0725001094) 94 mg/dL 70-110 Lab Interpretation (test cod e = 27479-6) Normal General acute hospital GLUCOSE (AUTOMATED)2022-02-17 04:25:48* Test Item Value Reference Range Interpretation Comme nts POCT GLU (test code = 9648288284) 107 mg/dL 70-110 Lab Interpretation (test cod e = 89029-6) Normal General acute hospital GLUCOSE (AUTOMATED)2022-02-17 04:25:48* Test Item Value Reference Range Interpretation Comme nts POCT GLU (test code = 3441098218) 107 mg/dL 70-110 Lab Interpretation (test cod e = 68906-5) Normal General acute hospital GLUCOSE (AUTOMATED)2022-02-16 22:04:25* Test Item Value Reference Range Interpretation Comme nts POCT GLU (test code = 8812388218) 118 mg/dL 70-110 H Lab Interpretation (test cod e = 37257-6) Abnormal General acute hospital GLUCOSE (AUTOMATED)2022-02-16 22:04:25* Test Item Value Reference Range Interpretation Comme nts POCT GLU (test code = 2580271491) 118 mg/dL 70-110 H Lab Interpretation (test cod e = 89535-8) Abnormal General acute hospital GLUCOSE (AUTOMATED)2022-02-16 14:23:28* Test Item Value Reference Range Interpretation Comme nts POCT GLU (test code = 6485376127) 110 mg/dL 70-110 Lab Interpretation (test cod e = 83399-6) Normal General acute hospital GLUCOSE (AUTOMATED)2022-02-16 14:23:28* Test Item Value Reference Range Interpretation Comme nts POCT GLU (test code = 6032688868) 110 mg/dL 70-110 Lab Interpretation (test cod e = 58929-9) Normal [facility] (D) IMMUNE [id number] 19:23:15* Test Item Value Reference Range Interpretation Comme nts RHIG CANDIDATE? (test code = 5055) No- see comment Patient is not a candidate for RhIg- Patient is Rh Positive.Performed at [facility] Blood [address] [place] [address]Wevz Free: [phone] No. [id number] [facility] (D) IMMUNE [id number] 19:23:15* Test Item Value Reference Range Interpretation Comme nts RHIG CANDIDATE? (test code = 5055) No- see comment Patient is not a candidate for RhIg- Patient is Rh Positive.Performed at [facility] Blood [address] [address]Novi Free: [phone] No. [id number] [facility] ONLY - SYPHILIS [id number] 16:54:58* Test Item Value Reference Range Interpretation Comme nts Syphilis IgG/IgM (test code = 43917-9) Non-reactive Non-reactive KADE (test code = KADE) Non-reactive - No serologic evidence of T. pallidum infection. Cannot exclude incubating or early syphilis. Submit a second specimen in 2-4 weeks if syphilis is clinically suspected. Equivocal - Further testing to follow. Reactive - Further testing to follow. Lab Interpretation (test code = 58951-1) Normal [facility] ONLY - SYPHILIS [id number] 16:54:58* Test Item Value Reference Range Interpretation Comme nts Syphilis IgG/IgM (test code = 38019-9) Non-reactive Non-reactive KADE (test code = KADE) Non-reactive - No serologic evidence of T. pallidum infection. Cannot exclude incubating or early syphilis. Submit a second specimen in 2-4 weeks if syphilis is clinically suspected. Equivocal - Further testing to follow. Reactive - Further testing to follow. Lab Interpretation (test code = 38150-8) Normal [facility] [id number] 15:42:26* Test Item Value Reference Range Interpretation Comme nts BASE EXCESS, CORD (test code = 5211130475) mEq/L AC PH, CORD (BEAKER) (test code = 2167499495) 7.18-7.38 PC02, CORD (test code = [id number]) See_Comment [Automated messa ge] The system which generated this result transmitted reference range: 32 - 66 mmHg. The reference range was not used to interpret this result as normal/abnormal. PO2, CORD (test code = [id number]) See_Comment [Automated messa ge] The system which generated this result transmitted reference range: 10 - 30 mmHg. The reference range was not used to interpret this result as normal/abnormal. BICARBONATE, CORD (test code = [id number]) See_Comment [Automated messa ge] The system which generated this result transmitted reference range: 17 - 27 mEq/L. The reference range was not used to interpret this result as normal/abnormal. [place] [facility] Cord [id number] 15:42:26* Test Item Value Reference Range Interpretation Comme nts BASE EXCESS, CORD (test code = 5633981365) mEq/L AC PH, CORD (BEAKER) (test code = 0374040266) 7.18-7.38 PC02, CORD (test code = 5686349225) See_Comment [Automated messa ge] The system which generated this result transmitted reference range: 32 - 66 mmHg. The reference range was not used to interpret this result as normal/abnormal. PO2, CORD (test code = 9445113773) See_Comment [Automated messa ge] The system which generated this result transmitted reference range: 10 - 30 mmHg. The reference range was not used to interpret this result as normal/abnormal. BICARBONATE, CORD (test code = 7893594231) See_Comment [Automated messa ge] The system which generated this result transmitted reference range: 17 - 27 mEq/L. The reference range was not used to interpret this result as normal/abnormal. [facility] Cord [id number] 15:40:00* Test Item Value Reference Range Interpretation Comme nts VENOUS BASE EXCESS, CORD (test code = 7964925437) mEq/L VENOUS PH, CORD (test code = 5464308442) 7.25-7.45 VENOUS PC02, CORD (test code = 8930922794) See_Comment [Automated messa ge] The system which generated this result transmitted reference range: 27 - 49 mmHg. The reference range was not used to interpret this result as normal/abnormal. VENOUS PO2, CORD (test code = 8656886409) See_Comment [Automated me ssage] The system which generated this result transmitted reference range: 17 - 41 mmHg. The reference range was not used to interpret this result as normal/abnormal. VENOUS BICARBONATE, CORD (test code = 8578409316) See_Comment [Automated messa ge] The system which generated this result transmitted reference range: 12 - 29 mEq/L. The reference range was not used to interpret this result as normal/abnormal. [facility] Cord [id number] 15:40:00* Test Item Value Reference Range Interpretation Comme nts VENOUS BASE EXCESS, CORD (test code = 4924861160) mEq/L VENOUS PH, CORD (test code = 8847443074) 7.25-7.45 VENOUS PC02, CORD (test code = 8745174686) See_Comment [Automated messa ge] The system which generated this result transmitted reference range: 27 - 49 mmHg. The reference range was not used to interpret this result as normal/abnormal. VENOUS PO2, CORD (test code = 8157515595) See_Comment [Automated me ssage] The system which generated this result transmitted reference range: 17 - 41 mmHg. The reference range was not used to interpret this result as normal/abnormal. VENOUS BICARBONATE, CORD (test code = 3712475352) See_Comment [Automated messa ge] The system which generated this result transmitted reference range: 12 - 29 mEq/L. The reference range was not used to interpret this result as normal/abnormal. [facility] B Surface [id number] 14:03:07 * Test Item Value Reference Range Interpretation Comme nts HBsAg Semi-Quantitative (rupali t code = 5195-3) Negative Negative [facility] B Surface [id number] 14:03:07 * Test Item Value Reference Range Interpretation Comme nts HBsAg Semi-Quantitative (rupali t code = 5195-3) Negative Negative [facility] - ONCE Wpmrajz7775-34-09 13:31:04* Test Item Value Reference Range Interpretation Comme nts ABO & RH (test code = 20) O POSITIVE Performed at [facility] Laboratory [facility] Blood [address] Free: [phone] No. [id number] IAT (test code = 1185) Negative Performed at [facility] Blood [address] Free: [phone] No. [id number] [facility] - ONCE [id number] 13:31:04* Test Item Value Reference Range Interpretation Comme nts ABO & RH (test code = 20) O POSITIVE Performed at [facility], [place], [place] [address] Free: [phone] No. [id number] IAT (test code = 1185) Negative Performed at [facility] Laboratory Services - [facility] Blood [place] [id number] Free: [phone] No. [id number] [facility] Jbborjfnpjku5866-00-48 12:58:46* Test Item Value Reference Range Interpretation Comme nts WBC (test code = 6690-2) See_Comment [Automated messa ge] The system which generated this result transmitted reference range: 4.30 - 11.10 10*3/?L. The reference range was not used to interpret this result as normal/abnormal. RBC (test code = 789-8) See_Comment [Automated messa ge] The system which generated this result transmitted reference range: 3.93 - 5.25 10*6/?L. The reference range was not used to interpret this result as normal/abnormal. HGB (test code = 718-7) 11.0 g/dL 11.6-15.0 L HCT (test code = 4544-3) 33.2 % 35.7-45.2 L MCV (test code = 787-2) 82.0 fL 80.6-95.5 MCH (test code = 785-6) 27.2 pg 25.9-32.8 MCHC (test code = 786-4) 33.1 g/dL 31.6-35.1 RDW-SD (test code = 48648-8) 44.4 fL 39.0-49.9 RDW-CV (test code = 788-0) 14.9 % 12.0-15.5 PLT (test code = 777-3) See_Comment [Automated messa ge] The system which generated this result transmitted reference range: 166 - 358 10*3/?L. The reference range was not used to interpret this result as normal/abnormal. MPV (test code = 16305-4) 9.2 fL 9.5-12.9 L NRBC/100 WBC (test code = 2645592311) See_Comment [Automated me ssage] The system which generated this result transmitted reference range: 0.0 - 10.0 /100 WBCs. The reference range was not used to interpret this result as normal/abnormal. NRBC x10^3 (test code = 7920841047) See_Comment [Automated messa ge] The system which generated this result transmitted reference range: 10*3/?L. The reference range was not used to interpret this result as normal/abnormal. GRAN MAT (NEUT) % (test code = 770-8) 72.1 % IMM GRAN % (test code = 4656183298) 0.60 % LYMPH % (test code = 736-9) 18.8 % MONO % (test code = 5905-5) 6.3 % EOS % (test code = 713-8) 1.9 % BASO % (test code = 706-2) 0.3 % GRAN MAT x10^3(ANC) (test code = 2947175024) 7.07 10*3/uL 1.88-7.09 IMM GRAN x10^3 (test code = 8713898283) 0.06 10*3/uL 0.00-0.06 LYMPH x10^3 (test code = 731-0) 1.85 10*3/uL 1.32-3.29 MONO x10^3 (test code = 742-7) 0.62 10*3/uL 0.33-0.92 EOS x10^3 (test code = 711-2) 0.19 10*3/uL 0.03-0.39 BASO x10^3 (test code = 704-7) 0.03 10*3/uL 0.01-0.07 Lab Interpretation (test code = 81739-9) Abnormal [facility] with Mgckhbwzggqh2629-19-30 12:58:46* Test Item Value Reference Range Interpretation Comme nts WBC (test code = 6690-2) See_Comment [Automated messa ge] The system which generated this result transmitted reference range: 4.30 - 11.10 10*3/?L. The reference range was not used to interpret this result as normal/abnormal. RBC (test code = 789-8) See_Comment [Automated messa ge] The system which generated this result transmitted reference range: 3.93 - 5.25 10*6/?L. The reference range was not used to interpret this result as normal/abnormal. HGB (test code = 718-7) 11.0 g/dL 11.6-15.0 L HCT (test code = 4544-3) 33.2 % 35.7-45.2 L MCV (test code = 787-2) 82.0 fL 80.6-95.5 MCH (test code = 785-6) 27.2 pg 25.9-32.8 MCHC (test code = 786-4) 33.1 g/dL 31.6-35.1 RDW-SD (test code = 30225-0) 44.4 fL 39.0-49.9 RDW-CV (test code = 788-0) 14.9 % 12.0-15.5 PLT (test code = 777-3) See_Comment [Automated messa ge] The system which generated this result transmitted reference range: 166 - 358 10*3/?L. The reference range was not used to interpret this result as normal/abnormal. MPV (test code = 11157-6) 9.2 fL 9.5-12.9 L NRBC/100 WBC (test code = 8479567953) See_Comment [Automated [employer] ssage] The system which generated this result transmitted reference range: 0.0 - 10.0 /100 WBCs. The reference range was not used to interpret this result as normal/abnormal. NRBC x10^3 (test code = 2618867442) See_Comment [Automated messa ge] The system which generated this result transmitted reference range: 10*3/?L. The reference range was not used to interpret this result as normal/abnormal. GRAN MAT (NEUT) % (test code = 770-8) 72.1 % IMM GRAN % (test code = 6164964682) 0.60 % LYMPH % (test code = 736-9) 18.8 % MONO % (test code = 5905-5) 6.3 % EOS % (test code = 713-8) 1.9 % BASO % (test code = 706-2) 0.3 % GRAN MAT x10^3(ANC) (test code = 7691345919) 7.07 10*3/uL 1.88-7.09 IMM GRAN x10^3 (test code = 3496462659) 0.06 10*3/uL 0.00-0.06 LYMPH x10^3 (test code = 731-0) 1.85 10*3/uL 1.32-3.29 MONO x10^3 (test code = 742-7) 0.62 10*3/uL 0.33-0.92 EOS x10^3 (test code = 711-2) 0.19 10*3/uL 0.03-0.39 BASO x10^3 (test code = 704-7) 0.03 10*3/uL 0.01-0.07 Lab Interpretation (test code = 61659-1) Abnormal [facility] acute hospital GLUCOSE (AUTOMATED)2022-02-15 12:16:04* Test Item Value Reference Range Interpretation Comme nts POCT GLU (test code = 0389583657) 98 mg/dL 70-110 Lab Interpretation (test cod e = 88587-5) Normal [facility] acute hospital GLUCOSE (AUTOMATED)2022-02-15 12:16:04* Test Item Value Reference Range Interpretation Comme nts POCT GLU (test code = 9925371206) 98 mg/dL 70-110 Lab Interpretation (test cod e = 38461-5) Normal [facility] acute hospital URINALYSIS W SPECIFIC [id number] 21:04:00* Test Item Value Reference Range Interpretation Comme nts POCT U SP GRAV (test code = 3255) . 1.005-1.025 POCT PH U (test code = 3254) . 5-8 POCT U LEUK EST (test code = 3263) . Negative - N egative POCT U NIT (test code = 3262) . Negative - Negati ve POCT U PROT (test code = 3259) Trace Negative - Negat crystal POCT U GLU (test code = 3256) Neg Negative - Negati ve POCT U KETONE (test code = 3258) . Negative - Neg ative POCT U UROBILI (test code = 3260) . 0.2-1 POCT U BILI (test code = 3261) . Negative - Negat crystal POCT U BLD (test code = 3257) . Negative - Negati ve POCT U COLOR (test code = 3266) . POCT U APPEAR (test code = 3267) General acute hospital URINALYSIS W SPECIFIC [id number] 21:36:00* Test Item Value Reference Range Interpretation Comme nts POCT U SP GRAV (test code = 3255) . 1.005-1.025 POCT PH U (test code = 3254) 6 mg/dl 5-8 POCT U LEUK EST (test code = 3263) neg Negative - Negative POCT U NIT (test code = 3262) neg Negative - Negati ve POCT U PROT (test code = 3259) trace Negative - Negat crystal POCT U GLU (test code = 3256) 2+ Negative - Negati ve POCT U KETONE (test code = 3258) neg Negative - Neg ative POCT U UROBILI (test code = 3260) . 0.2-1 POCT U BILI (test code = 3261) . Negative - Negat crystal POCT U BLD (test code = 3257) neg Negative - Negati ve POCT U COLOR (test code = 3266) . POCT U APPEAR (test code = 3267) . General acute hospital URINALYSIS W SPECIFIC [id number] 20:58:00* Test Item Value Reference Range Interpretation Comme nts POCT U SP GRAV (test code = 3255) . 1.005-1.025 POCT PH U (test code = 3254) . 5-8 POCT U LEUK EST (test code = 3263) . Negative - N egative POCT U NIT (test code = 3262) . Negative - Negati ve POCT U PROT (test code = 3259) trace Negative - Negat crystal POCT U GLU (test code = 3256) Negative - Negati ve POCT U KETONE (test code = 3258) . Negative - Neg ative POCT U UROBILI (test code = 3260) . 0.2-1 POCT U BILI (test code = 3261) . Negative - Negat crystal POCT U BLD (test code = 3257) . Negative - Negati ve POCT U COLOR (test code = 3266) . POCT U APPEAR (test code = 3267) . General acute hospital URINALYSIS W SPECIFIC [id number] 15:31:00* Test Item Value Reference Range Interpretation Comme nts POCT U SP GRAV (test code = 3255) . 1.005-1.025 POCT PH U (test code = 3254) . 5-8 POCT U LEUK EST (test code = 3263) . Negative - N egative POCT U NIT (test code = 3262) . Negative - Negati ve POCT U PROT (test code = 3259) 1+ Negative - Negat crystal POCT U GLU (test code = 3256) Neg Negative - Negati ve POCT U KETONE (test code = 3258) . Negative - Neg ative POCT U UROBILI (test code = 3260) . 0.2-1 POCT U BILI (test code = 3261) . Negative - Negat crystal POCT U BLD (test code = 3257) . Negative - Negati ve POCT U COLOR (test code = 3266) . POCT U APPEAR (test code = 3267) . General acute hospital URINALYSIS W SPECIFIC [id number] 22:03:00* Test Item Value Reference Range Interpretation Comme nts POCT U SP GRAV (test code = 3255) . 1.005-1.025 POCT PH U (test code = 3254) 6 mg/dl 5-8 POCT U LEUK EST (test code = 3263) negative Negative - Negative POCT U NIT (test code = 3262) negative Negative - Negati ve POCT U PROT (test code = 3259) normal Negative - Negat crystal POCT U GLU (test code = 3256) negative Negative - Negati ve POCT U KETONE (test code = 3258) negative Negative - Neg ative POCT U UROBILI (test code = 3260) . 0.2-1 POCT U BILI (test code = 3261) . Negative - Negat crystal POCT U BLD (test code = 3257) negative Negative - Negati ve POCT U COLOR (test code = 3266) . POCT U APPEAR (test code = 3267) . General acute hospital URINALYSIS W SPECIFIC [id number] 14:19:00* Test Item Value Reference Range Interpretation Comme nts POCT U SP GRAV (test code = 3255) . 1.005-1.025 POCT PH U (test code = 3254) . 5-8 POCT U LEUK EST (test code = 3263) . Negative - Negative POCT U NIT (test code = 3262) . Negative - Negati ve POCT U PROT (test code = 3259) trace Negative - Negat crystal POCT U GLU (test code = 3256) negative Negative - Negati ve POCT U KETONE (test code = 3258) . Negative - Neg ative POCT U UROBILI (test code = 3260) . 0.2-1 POCT U BILI (test code = 3261) . Negative - Negat crystal POCT U BLD (test code = 3257) . Negative - Negati ve POCT U COLOR (test code = 3266) . POCT U APPEAR (test code = 3267) . General acute hospital URINALYSIS W SPECIFIC [id number] 14:19:00* Test Item Value Reference Range Interpretation Comme nts POCT U SP GRAV (test code = 3255) . 1.005-1.025 POCT PH U (test code = 3254) . 5-8 POCT U LEUK EST (test code = 3263) . Negative - Negative POCT U NIT (test code = 3262) . Negative - Negati ve POCT U PROT (test code = 3259) trace Negative - Negat crystal POCT U GLU (test code = 3256) negative Negative - Negati ve POCT U KETONE (test code = 3258) . Negative - Neg ative POCT U UROBILI (test code = 3260) . 0.2-1 POCT U BILI (test code = 3261) . Negative - Negat crystal POCT U BLD (test code = 3257) . Negative - Negati ve POCT U COLOR (test code = 3266) . POCT U APPEAR (test code = 3267) . General acute hospital URINALYSIS W SPECIFIC [id number] 14:27:00* Test Item Value Reference Range Interpretation Comme nts POCT U SP GRAV (test code = 3255) . 1.005-1.025 POCT PH U (test code = 3254) . 5-8 POCT U LEUK EST (test code = 3263) . Negative - N egative POCT U NIT (test code = 3262) . Negative - Negati ve POCT U PROT (test code = 3259) Trace Negative - Negat crystal POCT U GLU (test code = 3256) Neg Negative - Negati ve POCT U KETONE (test code = 3258) . Negative - Neg ative POCT U UROBILI (test code = 3260) . 0.2-1 POCT U BILI (test code = 3261) . Negative - Negat crystal POCT U BLD (test code = 3257) . Negative - Negati ve POCT U COLOR (test code = 3266) . POCT U APPEAR (test code = 3267) . General acute hospital URINALYSIS W SPECIFIC [id number] 14:27:00* Test Item Value Reference Range Interpretation Comme nts POCT U SP GRAV (test code = 3255) . 1.005-1.025 POCT PH U (test code = 3254) . 5-8 POCT U LEUK EST (test code = 3263) . Negative - N egative POCT U NIT (test code = 3262) . Negative - Negati ve POCT U PROT (test code = 3259) Trace Negative - Negat crystal POCT U GLU (test code = 3256) Neg Negative - Negati ve POCT U KETONE (test code = 3258) . Negative - Neg ative POCT U UROBILI (test code = 3260) . 0.2-1 POCT U BILI (test code = 3261) . Negative - Negat crystal POCT U BLD (test code = 3257) . Negative - Negati ve POCT U COLOR (test code = 3266) . POCT U APPEAR (test code = 3267) . General acute hospital URINALYSIS W SPECIFIC [id number] 14:27:00* Test Item Value Reference Range Interpretation Comme nts POCT U SP GRAV (test code = 3255) . 1.005-1.025 POCT PH U (test code = 3254) . 5-8 POCT U LEUK EST (test code = 3263) . Negative - N egative POCT U NIT (test code = 3262) . Negative - Negati ve POCT U PROT (test code = 3259) Trace Negative - Negat crystal POCT U GLU (test code = 3256) Neg Negative - Negati ve POCT U KETONE (test code = 3258) . Negative - Neg ative POCT U UROBILI (test code = 3260) . 0.2-1 POCT U BILI (test code = 3261) . Negative - Negat crystal POCT U BLD (test code = 3257) . Negative - Negati ve POCT U COLOR (test code = 3266) . POCT U APPEAR (test code = 3267) . General acute hospital URINALYSIS W SPECIFIC [id number] 14:27:00* Test Item Value Reference Range Interpretation Comme nts POCT U SP GRAV (test code = 3255) . 1.005-1.025 POCT PH U (test code = 3254) . 5-8 POCT U LEUK EST (test code = 3263) . Negative - N egative POCT U NIT (test code = 3262) . Negative - Negati ve POCT U PROT (test code = 3259) Trace Negative - Negat crystal POCT U GLU (test code = 3256) Neg Negative - Negati ve POCT U KETONE (test code = 3258) . Negative - Neg ative POCT U UROBILI (test code = 3260) . 0.2-1 POCT U BILI (test code = 3261) . Negative - Negat crystal POCT U BLD (test code = 3257) . Negative - Negati ve POCT U COLOR (test code = 3266) . POCT U APPEAR (test code = 3267) . General acute hospital URINALYSIS W SPECIFIC [id number] 14:27:00* Test Item Value Reference Range Interpretation Comme nts POCT U SP GRAV (test code = 3255) . 1.005-1.025 POCT PH U (test code = 3254) . 5-8 POCT U LEUK EST (test code = 3263) . Negative - N egative POCT U NIT (test code = 3262) . Negative - Negati ve POCT U PROT (test code = 3259) Trace Negative - Negat crystal POCT U GLU (test code = 3256) Neg Negative - Negati ve POCT U KETONE (test code = 3258) . Negative - Neg ative POCT U UROBILI (test code = 3260) . 0.2-1 POCT U BILI (test code = 3261) . Negative - Negat crystal POCT U BLD (test code = 3257) . Negative - Negati ve POCT U COLOR (test code = 3266) . POCT U APPEAR (test code = 3267) . General acute hospital URINALYSIS W SPECIFIC [id number] 14:27:00* Test Item Value Reference Range Interpretation Comme nts POCT U SP GRAV (test code = 3255) . 1.005-1.025 POCT PH U (test code = 3254) . 5-8 POCT U LEUK EST (test code = 3263) . Negative - N egative POCT U NIT (test code = 3262) . Negative - Negati ve POCT U PROT (test code = 3259) Trace Negative - Negat crystal POCT U GLU (test code = 3256) Neg Negative - Negati ve POCT U KETONE (test code = 3258) . Negative - Neg ative POCT U UROBILI (test code = 3260) . 0.2-1 POCT U BILI (test code = 3261) . Negative - Negat crystal POCT U BLD (test code = 3257) . Negative - Negati ve POCT U COLOR (test code = 3266) . POCT U APPEAR (test code = 3267) . General acute hospital URINALYSIS W SPECIFIC [id number] 14:27:00* Test Item Value Reference Range Interpretation Comme nts POCT U SP GRAV (test code = 3255) . 1.005-1.025 POCT PH U (test code = 3254) . 5-8 POCT U LEUK EST (test code = 3263) . Negative - N egative POCT U NIT (test code = 3262) . Negative - Negati ve POCT U PROT (test code = 3259) Trace Negative - Negat crystal POCT U GLU (test code = 3256) Neg Negative - Negati ve POCT U KETONE (test code = 3258) . Negative - Neg ative POCT U UROBILI (test code = 3260) . 0.2-1 POCT U BILI (test code = 3261) . Negative - Negat crystal POCT U BLD (test code = 3257) . Negative - Negati ve POCT U COLOR (test code = 3266) . POCT U APPEAR (test code = 3267) . General acute hospital URINALYSIS W SPECIFIC [id number] 14:27:00* Test Item Value Reference Range Interpretation Comme nts POCT U SP GRAV (test code = 3255) . 1.005-1.025 POCT PH U (test code = 3254) . 5-8 POCT U LEUK EST (test code = 3263) . Negative - N egative POCT U NIT (test code = 3262) . Negative - Negati ve POCT U PROT (test code = 3259) Trace Negative - Negat crystal POCT U GLU (test code = 3256) Neg Negative - Negati ve POCT U KETONE (test code = 3258) . Negative - Neg ative POCT U UROBILI (test code = 3260) . 0.2-1 POCT U BILI (test code = 3261) . Negative - Negat crystal POCT U BLD (test code = 3257) . Negative - Negati ve POCT U COLOR (test code = 3266) . POCT U APPEAR (test code = 3267) . General acute hospital URINALYSIS W SPECIFIC [id number] 18:59:00* Test Item Value Reference Range Interpretation Comme nts POCT U SP GRAV (test code = 3255) . 1.005-1.025 POCT PH U (test code = 3254) . 5-8 POCT U LEUK EST (test code = 3263) . Negative - N egative POCT U NIT (test code = 3262) . Negative - Negati ve POCT U PROT (test code = 3259) Trace Negative - Negat crystal POCT U GLU (test code = 3256) Neg Negative - Negati ve POCT U KETONE (test code = 3258) . Negative - Neg ative POCT U UROBILI (test code = 3260) . 0.2-1 POCT U BILI (test code = 3261) . Negative - Negat crystal POCT U BLD (test code = 3257) . Negative - Negati ve POCT U COLOR (test code = 3266) . POCT U APPEAR (test code = 3267) . General acute hospital URINALYSIS W SPECIFIC [id number] 18:59:00* Test Item Value Reference Range Interpretation Comme nts POCT U SP GRAV (test code = 3255) . 1.005-1.025 POCT PH U (test code = 3254) . 5-8 POCT U LEUK EST (test code = 3263) . Negative - N egative POCT U NIT (test code = 3262) . Negative - Negati ve POCT U PROT (test code = 3259) Trace Negative - Negat crystal POCT U GLU (test code = 3256) Neg Negative - Negati ve POCT U KETONE (test code = 3258) . Negative - Neg ative POCT U UROBILI (test code = 3260) . 0.2-1 POCT U BILI (test code = 3261) . Negative - Negat crystal POCT U BLD (test code = 3257) . Negative - Negati ve POCT U COLOR (test code = 3266) . POCT U APPEAR (test code = 3267) . General acute hospital URINALYSIS W SPECIFIC [id number] 18:59:00* Test Item Value Reference Range Interpretation Comme nts POCT U SP GRAV (test code = 3255) . 1.005-1.025 POCT PH U (test code = 3254) . 5-8 POCT U LEUK EST (test code = 3263) . Negative - N egative POCT U NIT (test code = 3262) . Negative - Negati ve POCT U PROT (test code = 3259) Trace Negative - Negat crystal POCT U GLU (test code = 3256) Neg Negative - Negati ve POCT U KETONE (test code = 3258) . Negative - Neg ative POCT U UROBILI (test code = 3260) . 0.2-1 POCT U BILI (test code = 3261) . Negative - Negat crystal POCT U BLD (test code = 3257) . Negative - Negati ve POCT U COLOR (test code = 3266) . POCT U APPEAR (test code = 3267) . General acute hospital URINALYSIS W SPECIFIC [id number] 21:22:00* Test Item Value Reference Range Interpretation Comme nts POCT U SP GRAV (test code = 3255) . 1.005-1.025 POCT PH U (test code = 3254) . 5-8 POCT U LEUK EST (test code = 3263) . Negative - N egative POCT U NIT (test code = 3262) . Negative - Negati ve POCT U PROT (test code = 3259) 1+ Negative - Negat crystal POCT U GLU (test code = 3256) Neg Negative - Negati ve POCT U KETONE (test code = 3258) . Negative - Neg ative POCT U UROBILI (test code = 3260) . 0.2-1 POCT U BILI (test code = 3261) . Negative - Negat crystal POCT U BLD (test code = 3257) . Negative - Negati ve POCT U COLOR (test code = 3266) POCT U APPEAR (test code = 3267) General acute hospital URINALYSIS W SPECIFIC [id number] 19:52:00* Test Item Value Reference Range Interpretation Comme nts POCT U SP GRAV (test code = 3255) * 1.005-1.025 POCT PH U (test code = 3254) * 5-8 POCT U LEUK EST (test code = 3263) * Negative - Negative POCT U NIT (test code = 3262) * Negative - Negati ve POCT U PROT (test code = 3259) negative Negative - Negat crystal POCT U GLU (test code = 3256) negative Negative - Negati ve POCT U KETONE (test code = 3258) * Negative - Neg ative POCT U UROBILI (test code = 3260) * 0.2-1 POCT U BILI (test code = 3261) * Negative - Negat crystal POCT U BLD (test code = 3257) * Negative - Negati ve POCT U COLOR (test code = 3266) * POCT U APPEAR (test code = 3267) [facility], [id number] 10:31:14SPECIMEN NUMBER: [id number] CULTURE, URINE SPECIMEN NUMBER: [id number] SPECIMEN COMMENT: URINE SOURCE: URINE REPORT STATUS: [...] CFU/ML UROGENITAL RHETT PRESENT NO COMMON PATHOGENSHEMOGLOBIN [id number] 09:41:43* Test Item Value Reference Range Interpretation Comme nts HEMOGLOBIN A1 (test code = 2575) 97.7 % 95.0-98.5 HEMOGLOBIN A2 (test code = 2576) 2.3 % 1.6-3.7 HEMOGLOBIN F () (test code = 2722) 0.0 % 0.0-2.0 HEMOGLOBIN S (test code = 2724) NONE % NONE DETECTED HEMOGLOBIN C (test code = 2726) NONE % NONE DETECTED OTHER HEMOGLOBIN VARIANT (test code = 36069) NONE DETEC % NONE DETECTED PATHOLOGIST'S INTERPRETATION (test code = 2577) (NOTE) NO ABNORMAL HEMOGLOBINS IDENTIFIED. SYLVIE BARND M.D. CT/NG, NAAT, [id number] 18:15:43* Test Item Value Reference Range Interpretation Comme nts GONORRHEA, NAAT (test code = 19888) NEGATIVE NEGATIVE IMPORTANT NO PORTILLO: SEE ANNOUNCEMENT AT [email or web address] Note: Assay methodology is nucleic acid amplification by commercial sewing instructor mediated amplification (TMA) utilizing the Aptima Combo 2 Assay. CHLAMYDIA, NAAT (test code = 04226) NEGATIVE NEGATIVE IMPORTANT NO PORTILLO: SEE ANNOUNCEMENT AT [email or web address] Note: Assay methodology is nucleic acid amplification by commercial sewing instructor mediated amplification (TMA) utilizing the Aptima Combo 2 Assay. VARICELLA ZOSTER [id number] 14:50:13* Test Item Value Reference Range Interpretation Comme nts VARICELLA ZOSTER IgG (test code = 57017) 270 INDEX SEE BELOW INTERPRETATI ON VZV IgG NEGATIVE . . . . . . . . . . . . INDEX <135 EQUIVOCAL. . . . . . . . . . . . INDEX 135-164 NOTE: CONSIDER RETESTING IN A CLINICALLY SUITABLE PERIOD OF TIME, NO SOONER THAN 1-2 WEEKS. POSITIVE . . . . . . . . . . . . INDEX >=165 DRUG ABUSE SCREEN 10 REFLEX [id number] 06:16:03* Test Item Value Reference Range Interpretation Comme nts AMPHETAMINES (test code = 3201) NEGATIVE NEGATIVE BARBITURATES (test code = 3202) NEGATIVE NEGATIVE BENZODIAZEPINES (test code = 3203) NEGATIVE NEGATIVE CANNABINOIDS (test code = 3204) NEGATIVE NEGATIVE COCAINE METABOLITE (test code = 3205) NEGATIVE NEGATIVE OPIATES (test code = 3209) NEGATIVE NEGATIVE OXYCODONE (test code = 35071) NEGATIVE NEGATIVE PHENCYCLIDINE (test code = 3210) NEGATIVE NEGATIVE METHADONE (test code = 3207) NEGATIVE NEGATIVE BUPRENORPHINE (test code = 52634) NEGATIVE NEGATIVE SOURCE (test code = 850019) URINE SEE BELOW FO R THRESHOLDS AND IMPORTANT METHOD NOTES ANALYTE SCREENING CUTOFF CONFIRMATORY CUTOFF AMPHETAMINES 500 NG/ML 100 NG/MLBARBITURATES 200 NG/ML 100 NG/MLBENZODIAZEPINES 200 NG/ML 100 NG/MLCANNABINOIDS (THC) 20 NG/ML 15 NG/MLCOCAINE METABOLITES 150 NG/ML 100 NG/MLOPIATE METABOLITES 300 NG/ML 100 NG/MLOXYCODONE 100 NG/ML 100 NG/MLPHENCYCLIDINE (PCP) 25 NG/ML 25 NG/MLMETHADONE 300 NG/ML 100 NG/MLBUPRENORPHINE 5 NG/ML 5 NG/ML NOTE: Screening methodology is qualitative Enzyme Immunoassay.The screening method may be less sensitive for certain medicationsincluding clonazepam and lorazepam in the benzodiazepine assay andtramadol or fentanyl in the opiate assay, amongst others. Patientcompliance, hydration status, timing and dose of medications, drugabsorption and specimen quality may affect screening assay.For clinical discrepancies, consider directed testing for specificcompounds or contact the laboratory within specimen stability toforward for confirmatory testing. This test is specified for medicalpurposes only. It is not valid for forensic use. GLUCOSE, 1 HR, GESTATIONAL SCREEN, 50 GM [id number] 06:09:04* Test Item Value Reference Range Interpretation Comme nts GLUCOSE 1 HR POST 50 GM (test code = 2005) 197 MG/DL <140 H UNLESS OTHERWISE INDICATED, ALL TESTING PERFORMED [facility] [address] [place] [address] COILED TUBING SUPERVISOR: RAJAN SPRINGER M.D. CLIA NUMBER [id number] [facility] [place]. [id number] OBSTETRIC PANEL + [id number] 03:35:02* Test Item Value Reference Range Interpretation Comme nts WBC (test code = 1001) 9.4 K/UL 3.5-11.0 RBC (test code = 1002) 4.32 M/UL 3.80-5.40 HEMOGLOBIN (test code = 1003) 12.3 G/DL 11.5-15.5 HEMATOCRIT (test code = 1004) 36.4 % 34.0-45.0 MCV (test code = 1005) 84.3 fL 80.0-99.0 MCH (test code = 1006) 28.5 PG 25.0-33.0 MCHC (test code = 1007) 33.8 G/DL 31.0-36.0 RDW (test code = 1038) 13.0 % 11.5-15.0 NEUTROPHILS (test code = 1008) 81.1 % LYMPHOCYTES (test code = 1010) 13.6 % MONOCYTES (test code = 1011) 3.6 % EOSINOPHILS (test code = 1012) 1.1 % BASOPHILS (test code = 1013) 0.3 % IMMATURE GRANULOCYTES (test code = 1036) 0.3 % NUCLEATED RBCS (test code = 1065) 0.0 /100 WBC'S See_Comment [Automated me ssage] The system which generated this result transmitted reference range: 0.0. The reference range was not used to interpret this result as normal/abnormal. PLATELET COUNT (test code = 1015) 338 K/UL 130-400 ABSOLUTE NEUTROPHILS (test code = 1066) 7.60 K/UL 1.50-7.50 H ABSOLUTE LYMPHOCYTES (test code = 1067) 1.27 K/UL 1.00-4.00 ABSOLUTE MONOCYTES (test code = 1068) 0.34 K/UL 0.20-1.00 ABSOLUTE EOSINOPHILS (test code = 1040) 0.10 K/UL 0.00-0.50 ABSOLUTE BASOPHILS (test code = 1069) 0.03 K/UL 0.00-0.20 ABS IMMATURE GRANULOCYTES (test code = 1020) 0.03 K/UL 0.00-0.10 ABS NUCLEATED RBCS (test code = 07474) 0.00 K/UL 0.00-0.11 BLOOD TYPE AND RH (test code = 3901) O POSITIVE A HISTORICAL RECORD CHECK FOR PREVIOUS RESULTS IS NOT PERFORMED.THESE RESULTS SHOULD BE CORRELATED WITH RESULTS OF PRIOR BLOODTYPING AND ANTIBODY SCREEN STUDIES. ANTIBODY SCREEN (test code = 3902) NEGATIVE NEGATIVE A HISTORICAL RECORD CHECK FOR PREVIOUS RESULTS IS NOT PERFORMED.THESE RESULTS SHOULD BE CORRELATED WITH RESULTS OF PRIOR BLOODTYPING AND ANTIBODY SCREEN STUDIES. RUBELLA ANTIBODY SCREEN (test code = 4600) 43 IU/ML SEE BELOW INTERPRETATION RUBELLA IgG NON-REACTIVE/NON-IMM UNE . . . . . . . IU/ML <10 REACTIVE/IMMUNE . . . . . . . . . . . IU/ML >=10 RUBELLA IgG INTERP (test code = 03538) REACTIVE REACTIVE HEPATITIS B SURF AG (test code = 2739) NON-REACTIVE NON-REACTIVE RPR (test code = 76195) NON-REACTIVE NON-REACTIVE RPR TITER (test code = 3500) NOT INDIC. TITER NOT INDIC. HIV 1/2 4TH GEN, RFLX CONF (test code = 3514) NON-REACTIVE NON-REACTIVE HEPATITIS C REFLEX [id number] 03:35:02* Test Item Value Reference Range Interpretation Comme nts HEPATITIS C ANTIBODY (test c ode = 4675) NON-REACTIVE NON-REACTIVE [id number] 03:31:45* Test Item Value Reference Range Interpretation Comme nts RPR RESULT (test code = 3501) NON-REACTIVE NON-REACTIVE RPR TITER (test code = 3500) NOT INDIC. TITER NOT INDIC. COMPREHENSIVE METABOLIC [id number] 02:50:58* Test Item Value Reference Range Interpretation Comme nts GLUCOSE (test code = 2216) 192 MG/DL 70-99 H BUN (test code = 2207) 9 MG/DL 6-20 CREATININE (test code = 2213) 0.63 MG/DL 0.60-1.30 eGFR (2020 CKD-EPI) (test code = 27014) 125 ML/MIN/1.73 >60 CALC BUN/CREAT (test code = 2234) 14 RATIO 6-28 SODIUM (test code = 2230) 138 MEQ/L 133-146 POTASSIUM (test code = 2227) 4.0 MEQ/L 3.5-5.4 CHLORIDE (test code = 2214) 103 MEQ/L 95-107 CARBON DIOXIDE (test code = 2205) 23 MEQ/L 19-31 CALCIUM (test code = 2208) 8.6 MG/DL 8.5-10.5 PROTEIN, TOTAL (test code = 2228) 7.4 G/DL 6.1-8.3 ALBUMIN (test code = 2200) 4.0 G/DL 3.5-5.2 CALC GLOBULIN (test code = 2239) 3.4 G/DL 1.9-3.7 CALC A/G RATIO (test code = 2233) 1.2 RATIO 1.0-2.6 BILIRUBIN, TOTAL (test code = 2206) 0.3 MG/DL See_Comment [Automated me ssage] The system which generated this result transmitted reference range: <=1.2. The reference range was not used to interpret this result as normal/abnormal. ALKALINE PHOSPHATASE (test code = 2203) 107 U/L 40-112 AST (test code = 2217) 12 U/L 9-40 ALT (test code = 2218) 18 U/L 5-40 SARS-CoV-2 (COVID-19), RT-PCR/[id number] 09:38:11* Test Item Value Reference Range Interpretation Comments SARS-CoV-2 INTERPRETATION (test code = 59750) NEGATIVE SEE NOTE SARS-CoV-2 R NA NOT DETECTEDNegative results do not preclude SARS-CoV-2 infection and should notbe used as the sole basis for patient management decisions. Negativeresults must be combined with clinical observations, patient history,and epidemiological information. Optimum specimen types and timingfor peak viral levels during infections caused by SARS-CoV-2 have notbeen determined. Collection of multiple specimens or types ofspecimens may be necessary to detect virus. Improper specimencollection and handling, sequence variability under primers/probes,or organism present below the limit of detection may lead to falsenegative results. Positive and negative predictive values oftesting are highly dependent on prevalence. False negative testresults are more likely when prevalence is high. SOURCE (test code = 64247) NOT SPECIFIED Note: Methodolog y is Roma Fredy Real-Time RT-PCR. The expected result or reference range is NEGATIVE (Not Detected). For more information regarding COVID-19 testing to include clinicalinformation, methodology detail, intended use, FDA authorization andrecommended fact sheets for patients or healthcare providers, see One Month Announcement: SARS-CoV-2 (COVID-19) by NAAT at URL below (note,fact sheets are provided by method given in report:[email or web address] Alternatively, see downloadable PDF fact sheet at:[email or web address]/[email or web address] UNLESS OTHERWISE INDICATED, ALL TESTING PERFORMED [facility], [facility]. [address] [place] [address] COILED TUBING SUPERVISOR: RAJAN SPRINGER M.D. [place] NUMBER [id number] [facility] [place]. [id number] SARS-CoV-2 (COVID-19), RT-PCR/[id number] 09:22:51* Test Item Value Reference Range Interpretation Comments SARS-CoV-2 INTERPRETATION (test code = 79621) NEGATIVE SEE NOTE SARS-CoV-2 R NA NOT DETECTEDNegative results do not preclude SARS-CoV-2 infection and should notbe used as the sole basis for patient management decisions. Negativeresults must be combined with clinical observations, patient history,and epidemiological information. Optimum specimen types and timingfor peak viral levels during infections caused by SARS-CoV-2 have notbeen determined. Collection of multiple specimens or types ofspecimens may be necessary to detect virus. Improper specimencollection and handling, sequence variability under primers/probes,or organism present below the limit of detection may lead to falsenegative results. Positive and negative predictive values oftesting are highly dependent on prevalence. False negative testresults are more likely when prevalence is high. SOURCE (test code = 97923) NASOPHARYNGEAL Note: Methodolog y is Roma Fredy Real-Time RT-PCR. The expected result or reference range is NEGATIVE (Not Detected). For more information regarding COVID-19 testing to include clinicalinformation, methodology detail, intended use, FDA authorization andrecommended fact sheets for patients or healthcare providers, see One Month Announcement: SARS-CoV-2 (COVID-19) by NAAT at URL below (note,fact sheets are provided by method given in report:[email or web address] Alternatively, see downloadable PDF fact sheet at:https://www.[email or web address]-PCR UNLESS OTHERWISE INDICATED, ALL TESTING PERFORMED [facility] [address] [place] [address] COILED TUBING SUPERVISOR: RAJAN SPRINGER M.D. CLIA NUMBER [id number] [facility] [place]. [id number]
[2023-08-19] MEDS ORDERED: KETOROLAC 30 MG/ML INJ ONE (15:36)
[2023-08-19] MEDS ORDERED: HYDROCODONE/APAP 10/325 TAB ONE (15:36)
--- NOTE | 2023-08-19 21:04 | EDPHYS ---
Physician Documentation [facility] Name: Rasheeda Alfonso Age: 27 yrs Sex: Female : 1995 Arrival Date: 08/19/2023 Time: 14:26 Bed 9 Private MD: ED Physician Raz Benites HPI: 08/18 18:04 This 27 yrs old Female presents to ER via Ambulatory with complaints of dental rn pain. 18:04 Chart completed on paper chart, done during downtime.. 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 - Infectious Disease History:: Denies. - Social history:: Smoking status: Patient denies any tobacco usage or history of. Vital Signs: 14:47 BP 141 / 72; Pulse 76; Resp 18; Temp 98.2; Pulse Ox 99% ; Weight 104.33 kg; Height 5 as6 ft. 4 in. ; Pain 10/10; 14:47 Body Mass Index 39.48 (104.33 kg, 162.56 cm) as6 14:47 Pain Scale: Adult as6 MDM: 14:36 Patient medically screened. rn Administered Medications: 15:46 Drug: Ketorolac IM 30 mg IM once Route: IM; Site: right deltoid; al5 18:10 Follow up: Response: No adverse reaction al5 15:46 Drug: Munday PO 10 mg-325 mg 1 tabs PO once Route: PO; al5 18:10 Follow up: Response: No adverse reaction al5 15:46 Drug: Clindamycin PO 300 mg PO once Route: PO; al5 18:10 Follow up: Response: No adverse reaction al5 Disposition Summary: 08/19/23 18:06 Discharge Ordered Notes: Location: Home rn Problem: new rn Symptoms: have improved rn Condition: Stable rn Diagnosis - Dentalgia rn Followup: rn - With: Private Physician - When: As needed - Reason: Recheck today's complaints, Re-evaluation by your physician Discharge Instructions: - Discharge Summary Sheet rn - Dental Pain rn Forms: - Medication Reconciliation Form rn - Antibiotic contracts intern - Prescription Opioid Use rn - Patient Portal Instructions rn - Leadership Thank You Letter rn Signatures: Raz Benites MD MD rn Slawson, Ashby RN RN as6 Lisa Echeverria RN RN al5
--- NOTE | 2023-08-19 21:04 | ER ---
Nurse's Notes [facility] Name: Rasheeda Alfonso Age: 27 yrs Sex: Female : 1995 Arrival Date: 08/19/2023 Time: 14:26 Bed 9 Private MD: Diagnosis: Dentalgia Presentation: 08/18 14:47 Chief complaint: Patient states: dental pain to left upper mouth. Coronavirus screen: as6 At this time, the client does not indicate any symptoms associated with coronavirus-19. Ebola Screen: No symptoms or risks identified at this time. Initial Sepsis Screen: Does the patient meet any 2 criteria? No. Patient's initial sepsis screen is negative. Does the patient have a suspected source of infection? No. Patient's initial sepsis screen is negative. Risk Assessment: Do you want to hurt yourself or someone else? Patient reports no desire to harm self or others. Onset of symptoms was August 19, 2023. 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 - Infectious Disease History:: Denies. - Social history:: Smoking status: Patient denies any tobacco usage or history of. Screenin:49 [facility] ED Fall Risk Assessment (Adult) History of falling in the last 3 months, al5 including since admission No falls in past 3 months (0 pts) Confusion or Disorientation No (0 pts) Intoxicated or Sedated No (0 pts) Impaired Gait No (0 pts) Mobility Assist Device Used No (0 pt) Altered Elimination No (0 pt) Score/Fall Risk Level 0 - 2 = Low Risk Oriented to surroundings, Maintained a safe environment, Hourly rounding (assess needs \T\ fall precautionary measures) done. Abuse screen: Denies threats or abuse. Denies injuries from another. Nutritional screening: No deficits noted. Tuberculosis screening: No symptoms or risk factors identified. Assessment: 15:48 General: Appears in no apparent distress. uncomfortable, Behavior is calm, cooperative. al5 Pain: Complains of pain in L upper jaw Pain currently is 10 out of 10 on a pain scale. Is continuous. Neuro: No deficits noted. Level of Consciousness is awake, alert, obeys commands, Oriented to person, place, time, situation, Speech is normal, Facial symmetry appears normal. Cardiovascular: Capillary refill < 3 seconds Patient's skin is warm and dry. Respiratory: No deficits noted. Airway is patent Trachea midline Respiratory effort is even, unlabored, Respiratory pattern is regular, symmetrical. GI: No deficits noted. No signs and/or symptoms were reported involving the gastrointestinal system. : No deficits noted. No signs and/or symptoms were reported regarding the genitourinary system. EENT: Reports tooth pain L upper side 10/10 pain. Derm: No deficits noted. No signs and/or symptoms reported regarding the dermatologic system. Skin is intact, Skin is pink, warm \T\ dry. normal. Musculoskeletal: No deficits noted. No signs and/or symptoms reported regarding the musculoskeletal system. Vital Signs: 14:47 BP 141 / 72; Pulse 76; Resp 18; Temp 98.2; Pulse Ox 99% ; Weight 104.33 kg; Height 5 as6 ft. 4 in. ; Pain 10/10; 14:47 Body Mass Index 39.48 (104.33 kg, 162.56 cm) as6 14:47 Pain Scale: Adult as6 ED Course: 14:28 Patient arrived in ED. mg5 14:36 Raz Benites MD is Attending Physician. rn 14:48 Triage completed. as6 14:48 Arm band placed on. as6 15:33 Lisa Echeverria, JESSICA is Primary Nurse. al5 15:49 Patient has correct armband on for positive identification. Bed in low position. Call al5 light in reach. Side rails up X 1. Provided Education on: processes and procedures, medications. 15:50 No provider procedures requiring assistance completed. Patient did not have IV access al5 during this emergency room visit. Administered Medications: 15:46 Drug: Ketorolac IM 30 mg IM once Route: IM; Site: right deltoid; al5 18:10 Follow up: Response: No adverse reaction al5 15:46 Drug: [place] PO 10 mg-325 mg 1 tabs PO once Route: PO; al5 18:10 Follow up: Response: No adverse reaction al5 15:46 Drug: Clindamycin PO 300 mg PO once Route: PO; al5 18:10 Follow up: Response: No adverse reaction al5 Medication: 18:11 VIS not applicable for this client. al5 Outcome: 18:06 Discharge ordered by . rn 18:11 Discharged to home ambulatory, with significant other, al5 18:11 Condition: good 18:11 Discharge instructions given to patient, Instructed on discharge instructions, follow up and referral plans. medication usage, Demonstrated understanding of instructions, follow-up care, medications, 18:11 Patient left the ED. al5 Signatures: Raz Benites MD MD rn Slawson, Ashby, RN RN as6 [place] Bee 5 Lisa Echeverria RN RN al5
[2023-08-19 21:34] VITALS: BP 141/72; TEMP 98.2; O2SAT 99
== END 2023-08-19 18:11 | disposition home or self-care (01) ==
LOC: ER 14:26
DX: K08.89 Other specified disorders of teeth and supporting structures (principal)
CPT/HCPCS: 96372; 99284

== ENCOUNTER 2024-03-07 23:29 | Inpatient (IN) | payer SELFPAY ==
--- OUTSIDE RECORDS SUMMARY | 2024-03-07 23:36 | XMS REPORT | Continuity of Care Document ---
Author Name Unknown Address [address] [facility] [place] [address] [facility] thconnect Address [address] [facility] [address] [place] [address] Care Team Providers Care 4 H Youth Development Specialist Name Role Phone Marcelle García Primary Care Physicia n CASTRO TAI Attending Clinician Unavailable GC_GCBZW_Kamis_S Attending Clinician Marcelle Mcfadden Attending Clinician + Doctor Unassigned, [place] Attending Clinician U KAROLINE Martinez Attending Clinician Malini ugarte Provider, Jerry Temp Attending Clinician Diana vailaKaroline Henry CNM Attending Clinician [phone] Visit, Nikkialberto Nurse Attending Clinician Unava ilMARCELLE Fam Attending Clinician Unavail able VIKTOR NEVES Attending Clinician UnavailBarber Huerta MD Attending Clinician [phone] Viktor Neves MD Attending Clinician [phone] OMKAR GILBERT Attending Clinician UnavailGRADY Stovall Attending Clinician Unavailable Risk, Aoh-Obzqt-Gk/High Attending Clinician Unav ailGrady Arreola Attending Clinician + [phone] Ultrasound, Ang-Mfm Attending Clinician Unavaila torito Escamilla MD, Jj Attending Clinician + JJ HUI Attending Clinician Unav ailbarb VIEIRA, FABIENNE Attending Clinician Edgardo VIEIRA, FABIENNE Attending Clinician Edgardo Gomez MD, Trudy Miranda Attending Clinician + TRUDY GOMEZ Attending Clinician Unav MINERVA Marquez Attending Clinician Unavailable Tuan MERCADO, Rc Attending Clinician [phone] Abiel MERCADO, Minerva Mcnulty Attending Clinician +[phone] Judith LOPEZ, Sylvia Conte Attending Clinician Unavailable Gabe MERCADO, Nathalia Attending Clinician [phone] NATHALIA PEARL Attending Clinician Unavailable NATHALIA PEARL Attending Clinician Unavailable Lab, Ang-Rmchp Attending Clinician Unavailable Juan UTILITIES MANAGER, Raenda R Attending Clinician + [phone] LEE ANN MARTINEZHUNDA R Attending Clinician Unavailab Castro Duncan MD Attending Clinician + [phone] Only, Adc Test Attending Clinician Unavailable VICKEY MARQUEZ Attending Clinician Unavailakahs Marquez UTILITIES MANAGER, Vickey Spangler Attending Clinician [phone] UNKNOWN, ATTENDING Attending Clinician Unavailab mario GRAVES, Laura Attending Clinician [phone] Unknown, Attending Attending Clinician Unavailab Sada Hawley MD Attending Clinician [phone] Tapan Calles MD Attending Clinician + [phone] Kim [facility], Melanie Mcnulty Attending Clinician [phone] Nely Cruz MD Attending Clinician [phone] Ultrasound, Sug-Mfm Attending Clinician Unavaila torito Faculty, [facility]ending [facility]ician Nehemiah Riggs MD Attending Clinician [phone] Navi Umaña RN Attending Clinician Unavailab mario Smith UTILITIES MANAGER, Gilberto R Attending Clinician [phone] MINERVA BEEBE Admitting Clinician Unavailable CASTRO TAI Admitting Clinician Unavailable BARBER SAENZ Admitting Clinician Unavailable GC_GCBZW_Kadiyala_S Admitting Clinician UnavailVIKTOR Cat Admitting Clinician Unavailrafael Neves MD, Viktor Espinal Admitting Clinician [phone] FABIENNE VIEIRA Admitting Clinician Edgardo Beebe MD, Minerva Mcnulty Admitting Clinician [phone] Zaire MERCADO, Castro Admitting Clinician +[phone] Tapan Calles MD Admitting Clinician [phone] Payers Payer Name Policy Type Policy Number Effective Date Expirati on Date Source [facility] [id number] 2020 00:00:00 AURA RODRIGUEZ [id number] 00:00:00 Problems Condition Name Condition Details Condition Category Status Onset Date Resolution Date Last Treatment Date Treating Clinician Comments Source Anemia, Anemia, Disease Active 2-03 00:00: 00 [facility] S/P section S/P section Disease Active 1-17 00:00: 00 [facility] 36 weeks gestation of 36 weeks gestation of Disease Active 1-06 00:00: 00 [facility] Abdominal pain affecting Abdominal pain affecting Disease Active 2021-02 00:00: 00 [facility] Diet controlled gestationa l diabetes mellitus (GDM) Diet controlled gestationa l diabetes mellitus (GDM) Disease Active 2021-02 00:00: 00 [facility] Pregestati onal diabetes mellitus, modified White class B Pregestati onal diabetes mellitus, modified White class B Disease Active 2021-02 00:00: 00 [facility] Abscess of right buttock Abscess of right buttock Disease Active 11-05 00:00: 00 [facility] Right buttock pain Right buttock pain Disease Active 11-01 00:00: 00 [facility] UTI in UTI in Disease Active 9-19 00:00: 00 Overview: Formattin g of this note might be different from the original. pending bhavin [facility] Boil of buttock Boil of buttock Disease Active 8-24 00:00: 00 [facility] GBS (group B streptococ cus) UTI complicati ng GBS (group B streptococ cus) UTI complicati ng Disease Active 08-06 00:00: 00 Overview: Formattin g of this note might be different from the original. pending bhavin [facility] Abnormal maternal glucose tolerance, antepartum Abnormal maternal glucose tolerance, antepartum Disease Active 08-03 00:00: 00 Overview: Formattin g of this note might be different from the original. See outside records failed 1hr gtt 197mgdl, passed early 3hr gtt [facility] History of section History of section Disease Active 08-01 00:00: 00 Overview: Formattin g of this note might be different from the original. x3 [facility] Multiparit y Multiparit y Disease Active 08-01 00:00: 00 [facility] Short interval between pregnancie s affecting , antepartum Short interval between pregnancie s affecting , antepartum Disease Active 08-01 00:00: 00 [facility] Supervisio n of high-risk Supervisio n of high-risk Disease Active 08-01 00:00: 00 [facility] Vaginal bleeding in Vaginal bleeding in Disease Active 08-01 00:00: 00 Overview: Formattin g of this note might be different from the original. Reports seen at ER on07/28/21 , reports resolved [facility] History of cholecyste ctomy History of cholecyste ctomy Disease Active 08-01 00:00: 00 Overview: Formattin g of this note might be different from the original. Reports 02/2021 [facility] Diarrhea during Diarrhea during Disease Active 6- 00:00: 00 [facility] Obesity during Obesity during Disease Active 1-24 00:00: 00 [facility] History of gestationa l diabetes History of gestationa l diabetes Disease Active 2020-02 0 00:00: 00 Overview: Formattin g of this note might be different from the original. With 2nd and 4th [facility] Obesity (BMI 30-39.9) Obesity (BMI 30-39.9) Disease Active 9 00:00: 00 [facility] Acute cholecysti tis Acute cholecysti tis Disease Active 05-11 00:00: 00 [facility] Allergies, Adverse Reactions, Alerts Allergy Name Allergy Type Status Severity Reaction(s) Onset Date Inactive Date Treating Clinician Comments Source NO KNOWN ALLERGIE S Drug Class Active [facility] Social History Social Habit Start Date Stop Date Quantity Comments Source ASSERTION 2021-06-22 00:00:00 [facility] History of tobacco use Passive smoker [facility] to SARS-CoV-2 (event) 2022-03-26 00:00:00 2022-04-05 08:26:00 Not sure [facility] History of Social function 2021-12-12 00:00:00 2021-12-12 00:00:00 [facility] Alcohol intake 2020-07-12 00:00:00 2020-07-12 00:00:00 0 /d [facility] Tobacco use and exposure 2014-05-17 00:00:00 2014-05-17 00:00:00 Smokeless tobacco non-user [facility] Sex Assigned At 1995 00:00:00 1995 00:00:00 [facility] Smoking Status Start Date Stop Date Source Never smoked tobacco [facility] Medications Ordered Medication Name Filled Medication Name Start Date Stop Date Current Medication? Ordering Clinician Indication Dosage Frequency Signature (SIG) Comments Components Source etonogestre L (NEXPLANON) implant 68 mg 2 15:00: 04-05 15:45 :00 No [id number] 68mg [facility] cephALEXin 500 mg capsule 03-31 00:00: 00 Yes TAKE 1 CAPSULE BY MOUTH EVERY 8 HOURS FOR 10 DAYS [facility] metFORMIN (GLUCOPHAGE ) tablet 500 mg 02-16 14:00: 00 Yes 500mg 500 mg, Oral, BID MEALS, First dose on 02/16/22 at 0800, Until Discontinu ed, Routine [facility] No known medications 02-16 00:36: 04 No No known medication s [facility] vitamin w/FA tablet 02-16 00:00: 00 Yes [id number] 1{tbl} Take 1 tablet by mouth in the morning. [facility] docusate 100 mg capsule 02-16 00:00: 00 Yes [id number] 200mg Take 2 capsules by mouth once daily as needed for Constipati on. [facility] ferrous sulfate 325 mg (65 mg iron) tablet 02-16 00:00: 00 Yes [id number] 325mg Take 1 tablet by mouth in the morning and 1 tablet in the evening. [facility] foLIC acid 1 mg tablet 02-16 00:00: 00 Yes [id number] 1mg Take 1 tablet by mouth in the morning. [facility] ibuprofen 600 mg tablet 02-16 00:00: 00 04-05 00:00 :00 No [id number] 600mg Take 1 tablet by mouth every 6 (six) hours as needed (Pain). Take with food or milk. [facility] ascorbic acid, vitamin C, (VITAMIN C) 500 mg tablet 02-16 00:00: 00 04-05 00:00 :00 No [id number] 500mg Take 1 tablet by mouth in the morning. [facility] metFORMIN 500 mg tablet 02-16 00:00: 00 04-03 05:59 :00 No [id number] 500mg Take 1 tablet by mouth in the morning and 1 tablet in the evening. Take with meals. Do all this for 45 days. [facility] HYDROcodone -acetaminop hen 5-325 mg tablet 02-16 00:00: 00 02-24 05:59 :00 No [id number] 1{tbl} Take 1 tablet by mouth every 6 (six) hours as needed for Pain (scale 4-6) or Pain (scale 7-10) (Pain scale above 4) for up to 7 days. Do not exceed 3 grams of acetaminop hen in 24 hours. Indication s: acute pain [facility] rho(D) immune globulin (RHOGAM) syringe 300 mcg 02-15 19:17: 57 Yes 300ug 300 mcg, Intramuscu lar, ONCE, For 1 dose, Conditiona l, Routine [facility] HYDROcodone -acetaminop hen (NORCO 5) 5-325 mg tablet 2 tablet 02-15 19:17: 53 Yes 2{tbl} 2 tablet, Oral, Q6HPRN, Starting on Fri02/15/22 at 1317, Until Discontinu ed, Routine, Pain (scale 7-10), Alternate with Ibuprofen [facility] HYDROcodone -acetaminop hen (NORCO 5) 5-325 mg tablet 1 tablet 02-15 19:17: 53 Yes 1{tbl} 1 tablet, Oral, Q6HPRN, Starting on Fri02/15/22 at 1317, Until Discontinu ed, Routine, Pain (scale 4-6), Alternate with Ibuprofen [facility] ibuprofen (IBU) tablet 600 mg 02-15 19:17: 53 Yes 600mg 600 mg, Oral, Q6HPRN, Starting on Fri02/15/22 at 1317, Until Discontinu ed, Routine, Pain (scale 1-3) [facility] diphenhydrA MINE (BENADRYL) injection 25 mg 02-15 19:17: 53 Yes 25mg 25 mg, Slow IV Push, Q6HPRN, Starting on Fri02/15/22 at 1317, Until Discontinu ed, Routine, Itching [facility] diphenhydrA MINE (BENADRYL) tablet 25 mg 02-15 19:17: 53 Yes 25mg 25 mg, Oral, Q6HPRN, Starting on Fri02/15/22 at 1317, Until Discontinu ed, Routine, Sleep, Itching [facility] ondansetron (ZOFRAN (PF)) injection 4 mg 02-15 19:17: 53 Yes 4mg 4 mg, Slow IV Push, Q8HPRN, Starting on Fri02/15/22 at 1317, Until Discontinu ed, Routine, Nausea and Vomiting (N/V) [facility] bisacodyL (DULCOLAX) suppository 10 mg 02-15 19:17: 53 Yes 10mg 10 mg, Rectal, QDAILYPRN, Starting on Fri02/15/22 at 1317, Until Discontinu ed, Routine, Constipati on [facility] simethicone (GAS RELIEF (SIMETHICON E)) chewable tablet 160 mg 02-15 19:17: 53 Yes 160mg 160 mg, Oral, PC+HSPRN, Starting on Fri02/15/22 at 1317, Until Discontinu ed, Routine, Gas [facility] docusate (COLACE) capsule 200 mg 02-15 19:17: 53 Yes 200mg 200 mg, Oral, QDAILYPRN, Starting on Fri02/15/22 at 1317, Until Discontinu ed, Routine, Constipati on [facility] magnesium hydroxide (MILK OF MAGNESIA) 400 mg/5 mL suspension 30 mL 02-15 19:17: 53 Yes 30mL 30 mL, Oral, QDAILYPRN, Starting on Fri02/15/22 at 1317, Until Discontinu ed, Routine, Constipati on [facility] lactated ringers IV infusion 1,000 mL 02-15 19:17: 53 Yes 1000mL at 125 mL/hr, 1,000 mL, IV Infusion, PRN, 1 dose, Starting on Fri02/15/22 at 1317, Until Discontinu ed, Routine [facility] FENTanyl PF (SUBLIMAZE (PF)) injection 25 mcg 02-15 16:50: 58 Yes 25ug 25 mcg, Slow IV Push, Q5MIN PRN, 4 doses, Starting on Fri02/15/22 at 1050, Until Discontinu ed, Routine, Pain (scale 4-6), PACU [facility] nalbuphine (NUBAIN) injection 5 mg 02-15 16:50: 58 Yes 5mg 5 mg, Intravenou s, PRN, 1 dose, Starting on Fri02/15/22 at 1050, Until Discontinu ed, Routine, itching, PACU [facility] HYDROcodone -acetaminop hen (NORCO) 10-325 mg tablet 1 tablet 02-15 13:43: 31 02-16 14:14 :00 No 1{tbl} 1 tablet, Oral, Q6HPRN, 1 dose, Starting on Fri02/15/22 at 0743, Until Discontinu ed, Routine, Pain (scale 7-10) [facility] HYDROcodone -acetaminop hen (NORCO 5) 5-325 mg tablet 1 tablet 02-15 13:43: 30 Yes 1{tbl} 1 tablet, Oral, Q6HPRN, 1 dose, Starting on Fri02/15/22 at 0743, Until Discontinu ed, Routine, Pain (scale 4-6) [facility] ibuprofen (IBU) tablet 600 mg 02-15 13:43: 28 Yes 600mg 600 mg, Oral, Q6HPRN, Starting on Fri02/15/22 at 0743, Until Discontinu ed, Routine, Pain (scale 1-3) [facility] oxytocin (PITOCIN) 30 units in NS 500 mL IV infusion 02-15 13:43: 14 Yes 600mL/h 600 mL/hr, IV Infusion, PRN, For post delivery uterine atony., Starting on Fri02/15/[address] at 600 mL/hr for 1 hr then 150 mL/hr for 1 hr.
[facility] oxytocin (PITOCIN) 30 units in NS 500 mL IV infusion 02-15 13:43: 14 Yes 300mL/h 300 mL/hr, IV Infusion, SEE-INSTRU CTIONS, Starting on Fri02/15/[address] at 300 mL/hr for 1 hr then 150 mL/hr for 1 hr. & nbsp; For post delivery uterotonic
[facility] lactated ringers IV infusion 1,000 mL 02-15 12:15: 00 Yes 1000mL at 125 mL/hr, 1,000 mL, IV Infusion, CONTINUOUS , Starting on Fri02/15/22 at 0615, Until Discontinu ed, Routine [facility] acetaminoph en (TYLENOL) tablet 650 mg 02-15 12:15: 00 02-15 13:59 :00 No 650mg 650 mg, Oral, ONCE, 1 dose, On Fri02/15/22 at 0615, Routine [facility] ceFAZolin (ANCEF) 2,000 mg in NaCl 0.9% (NS) 100 mL MINI-BAG 02-15 12:05: 06 02-16 12:04 :06 No 2000mg 2,000 mg, IV Piggyback, O.R. HOLDING ONCE, Starting on Fri02/15/22 at 0605, Until 02/16/22 at 0604, Administer over 30 Minutes, 100 mL
Reas on for Anti-Infec tive: Surgical Prophylaxi s
Muñoz rgical Prophylaxi s: PRESSURISED CONTAINER FILLER
Duration of therapy: within 24 hours of surgery [facility] sodium citrate-cit rex acid (BICITRA) 500-334 mg/5 mL solution 30 mL 02-15 12:05: 06 02-15 14:16 :00 No 30mL 30 mL, Oral, PRE-PROCED URE ONCE, 1 dose, Starting on Fri02/15/22 at 0605, Until 02/17/22 at 2359, Routine, Surgery/Pr ocedure [facility] metFORMIN 500 mg tablet 2021-02 2-15 00:00: 00 03-26 05:59 :00 No [id number] Take 1 tablet by mouth daily with breakfast AND 1 tablet at bedtime. Do all this for 60 days. [facility] lancets (FREESTYLE LANCETS) 28 gauge Misc 2021-02 00:00: 00 02-16 00:00 :00 No [id number] Check blood glucose 4x daily [facility] Blood-Gluco se Meter (FREESTYLE LITE METER) Kit 2021-02 00:00: 00 02-16 00:00 :00 No [id number] Check blood glucose 4x daily [facility] blood sugar diagnostic (FREESTYLE LITE STRIPS) strip 2021-02 00:00: 00 02-16 00:00 :00 No [id number] Check blood glucose 4x daily [facility] PNV 112-iron-FA -om-3s-dha- epa (VITAFOL GUMMIES) 3.33 mg iron- 0.33 mg Chew 2021-02 00:00: 00 02-16 00:00 :00 No [id number] 3{tbl} Take 3 tablets by mouth daily. [facility] acetaminoph en (TYLENOL) tablet 650 mg 11-02 00:51: 55 11-02 00:54 :00 No 650mg 650 mg, Oral, Q6HPRN, 1 dose, Starting on Libby 11/01/21 at 1950, Until Libby 11/01/21 at 1953, Routine, Pain (scale 4-6) [facility] guaifenesin (MUCINEX ORAL) 11-01 20:01: 10 11-01 00:00 :00 No Take by mouth. [facility] amoxicillin -pot clavulanate 500 mg (AUGMENTIN) 500-125 mg tablet 11-01 00:00: 00 02-16 00:00 :00 No [id number] 500mg Take 1 tablet by mouth in the morning and 1 tablet at noon and 1 tablet in the evening. [facility] Nitrofurant oin&Nit. Macrocryst (MACROBID) 100 mg capsule 10-29 00:00: 00 02-16 00:00 :00 No [id number] 100mg Take 1 capsule by mouth in the morning and 1 capsule in the evening. [facility] guaifenesin (MUCINEX ORAL) 08-01 14:25: 11 Yes Take by mouth. [facility] multivitami n ( VITAMIN) tablet 08-01 00:00: 00 02-16 00:00 :00 No [id number] 1{tbl} Take 1 tablet by mouth daily. [facility] norethindro ne 0.35 mg tablet 2020-02 0-13 00:00: 00 11-01 00:00 :00 No [id number] 1{tbl} Take 1 tablet by mouth daily. [facility] dicloxacill in 500 mg capsule 2020-02 0-05 00:00: 00 11-01 00:00 :00 No [facility] vitamin w/FA tablet 10-11 00:00: 00 11-01 00:00 :00 No [id number] 1{tbl} Take 1 tablet by mouth daily. [facility] docusate calcium 240 mg capsule 10-11 00:00: 00 11-01 00:00 :00 No [id number] 240mg Take 1 capsule by mouth once daily as needed for Constipati on. [facility] ferrous sulfate 325 mg (65 mg iron) tablet 10-11 00:00: 00 11-01 00:00 :00 No [id number] 325mg Take 1 tablet by mouth 2 (two) times daily. [facility] vitamin w/FA tablet 10-11 00:00: 00 11-01 00:00 :00 No [id number] 1{tbl} Take 1 tablet by mouth daily. [facility] ibuprofen 600 mg tablet 10-11 00:00: 00 03-08 00:00 :00 No [id number] 600mg Take 1 tablet by mouth every 6 (six) hours as needed (Pain). Take with food or milk. [facility] amoxicillin 250 mg/5 mL suspension 8-25 00:00: 00 10-11 00:00 :00 No [id number] 500mg Take 10 mL by mouth 3 (three) times daily for 5 days. [facility] metroNIDAZO LE 50 mg/ml 8-25 00:00: 00 10-11 00:00 :00 No [id number] 500mg Take 10 mL by mouth 2 (two) times daily for 5 days. [facility] ondansetron 4 mg disintegrat ing tablet 8-11 00:00: 00 10-11 00:00 :00 No [id number] 4mg Take 1 tablet by mouth every 8 (eight) hours as needed for Nausea and Vomiting (N/V). [facility] pantoprazol e (PROTONIX) 40 mg EC tablet 8-04 00:00: 00 10-11 00:00 :00 No [id number] 40mg Take 1 tablet by mouth daily. [facility] metFORMIN 500 mg tablet 7-19 00:00: 00 10-11 00:00 :00 No [id number] 500mg Take 1 tablet by mouth 2 (two) times daily with meals. [facility] lancets 17 gauge Mis 07-31 00:00: 00 10-11 00:00 :00 No [id number] Use as directed [facility] Blood-Gluco se Meter (FREESTYLE FREEDOM LITE) Kit 07-31 00:00: 00 10-11 00:00 :00 No [id number] Use as directed [facility] blood sugar diagnostic (FREESTYLE LITE STRIPS) strip 07-31 00:00: 00 10-11 00:00 :00 No [id number] Use as directed [facility] FREESTYLE LANCETS 28 gauge Misc 6-21 00:00: 00 10-11 00:00 :00 No 10mg Take 10 mg by mouth. [facility] vit 33-iron-fol ic-dha (SELECT-OB + DHA) 29 mg iron-1 mg -250 mg combo pack 3-01 00:00: 00 10-11 00:00 :00 No [id number] 1{packe t} Take 1 Packet by mouth daily. [facility] proMETHazin e 25 mg tablet 9-27 00:00: 00 09-20 00:00 :00 No 25mg Take 1 tablet by mouth every 6 (six) hours as needed for Nausea and Vomiting (N/V). [facility] Immunizations Ordered Immunization Name Filled Immunization Name Date Status Comments Source TDAP 2021-12-28 00:00:00 Completed [facility] TDAP 2021-12-28 00:00:00 Completed [facility] TDAP 2021-12-28 00:00:00 Completed [facility] TDAP 2021-12-28 00:00:00 Completed [facility] TDAP 2021-12-28 00:00:00 Completed [facility] TDAP 2021-12-28 00:00:00 Completed [facility] TDAP 2021-12-28 00:00:00 Completed [facility] TDAP 2021-12-28 00:00:00 Completed [facility] TDAP 2021-12-28 00:00:00 Completed [facility] TDAP 2021-12-28 00:00:00 Completed [facility] TDAP 2021-12-28 00:00:00 Completed [facility] TDAP 2021-12-28 00:00:00 Completed [facility] TDAP 2021-12-28 00:00:00 Completed [facility] TDAP 2021-12-28 00:00:00 Completed [facility] TDAP 2021-12-28 00:00:00 Completed [facility] TDAP 2021-12-28 00:00:00 Completed [facility] TDAP 2021-12-28 00:00:00 Completed [facility] TDAP 2021-12-28 00:00:00 Completed [facility] TDAP 2021-12-28 00:00:00 Completed [facility] TDAP 2021-12-28 00:00:00 Completed [facility] TDAP 2021-12-28 00:00:00 Completed [facility] TDAP 2021-12-28 00:00:00 Completed [facility] TDAP 2021-12-28 00:00:00 Completed [facility] Influenza Virus Vaccine Quad IM, Preserv and ABX Free 6 MO-64 YRS 2020-11-22 00:00:00 Completed [facility] HPV9 2020-11-22 00:00:00 Completed [facility] Influenza Virus Vaccine Quad IM, Preserv and ABX Free 6 MO-64 YRS 2020-11-22 00:00:00 Completed [facility] HPV9 2020-11-22 00:00:00 Completed [facility] Influenza Virus Vaccine Quad IM, Preserv and ABX Free 6 MO-64 YRS 2020-11-22 00:00:00 Completed [facility] HPV9 2020-11-22 00:00:00 Completed [facility] Influenza Virus Vaccine Quad IM, Preserv and ABX Free 6 MO-64 YRS 2020-11-22 00:00:00 Completed [facility] HPV9 2020-11-22 00:00:00 Completed [facility] Influenza Virus Vaccine Quad IM, Preserv and ABX Free 6 MO-64 YRS 2020-11-22 00:00:00 Completed [facility] HPV9 2020-11-22 00:00:00 Completed [facility] Influenza Virus Vaccine Quad IM, Preserv and ABX Free 6 MO-64 YRS 2020-11-22 00:00:00 Completed [facility] HPV9 2020-11-22 00:00:00 Completed [facility] Influenza Virus Vaccine Quad IM, Preserv and ABX Free 6 MO-64 YRS 2020-11-22 00:00:00 Completed [facility] HPV9 2020-11-22 00:00:00 Completed [facility] Influenza Virus Vaccine Quad IM, Preserv and ABX Free 6 MO-64 YRS 2020-11-22 00:00:00 Completed [facility] HPV9 2020-11-22 00:00:00 Completed [facility] Influenza Virus Vaccine Quad IM, Preserv and ABX Free 6 MO-64 YRS 2020-11-22 00:00:00 Completed [facility] HPV9 2020-11-22 00:00:00 Completed [facility] Influenza Virus Vaccine Quad IM, Preserv and ABX Free 6 MO-64 YRS 2020-11-22 00:00:00 Completed [facility] HPV9 2020-11-22 00:00:00 Completed [facility] Influenza Virus Vaccine Quad IM, Preserv and ABX Free 6 MO-64 YRS 2020-11-22 00:00:00 Completed [facility] HPV9 2020-11-22 00:00:00 Completed [facility] Influenza Virus Vaccine Quad IM, Preserv and ABX Free 6 MO-64 YRS 2020-11-22 00:00:00 Completed [facility] HPV9 2020-11-22 00:00:00 Completed [facility] Influenza Virus Vaccine Quad IM, Preserv and ABX Free 6 MO-64 YRS 2020-11-22 00:00:00 Completed [facility] HPV9 2020-11-22 00:00:00 Completed [facility] Influenza Virus Vaccine Quad IM, Preserv and ABX Free 6 MO-64 YRS 2020-11-22 00:00:00 Completed [facility] 9 2020-11-22 00:00:00 Completed [facility] Influenza Virus Vaccine Quad IM, Preserv and ABX Free 6 MO-64 YRS 2020-11-22 00:00:00 Completed [facility] HPV9 2020-11-22 00:00:00 Completed [facility] Influenza Virus Vaccine Quad IM, Preserv and ABX Free 6 MO-64 YRS 2020-11-22 00:00:00 Completed [facility] HPV9 2020-11-22 00:00:00 Completed [facility] Influenza Virus Vaccine Quad IM, Preserv and ABX Free 6 MO-64 YRS 2020-11-22 00:00:00 Completed [facility] HPV9 2020-11-22 00:00:00 Completed [facility] Influenza Virus Vaccine Quad IM, Preserv and ABX Free 6 MO-64 YRS 2020-11-22 00:00:00 Completed [facility] HPV9 2020-11-22 00:00:00 Completed [facility] Influenza Virus Vaccine Quad IM, Preserv and ABX Free 6 MO-64 YRS 2020-11-22 00:00:00 Completed [facility] HPV9 2020-11-22 00:00:00 Completed [facility] Influenza Virus Vaccine Quad IM, Preserv and ABX Free 6 MO-64 YRS 2020-11-22 00:00:00 Completed [facility] HPV9 2020-11-22 00:00:00 Completed [facility] Influenza Virus Vaccine Quad IM, Preserv and ABX Free 6 MO-64 YRS 2020-11-22 00:00:00 Completed [facility] HPV9 2020-11-22 00:00:00 Completed [facility] Influenza Virus Vaccine Quad IM, Preserv and ABX Free 6 MO-64 YRS 2020-11-22 00:00:00 Completed [facility] HPV9 2020-11-22 00:00:00 Completed [facility] Influenza Virus Vaccine Quad IM, Preserv and ABX Free 6 MO-64 YRS 2020-11-22 00:00:00 Completed [facility] HPV9 2020-11-22 00:00:00 Completed [facility] Influenza Virus Vaccine Quad IM, Preserv and ABX Free 6 MO-64 YRS 2020-11-22 00:00:00 Completed [facility] HPV9 2020-11-22 00:00:00 Completed [facility] Influenza Virus Vaccine Quad IM, Preserv and ABX Free 6 MO-64 YRS 2020-11-22 00:00:00 Completed [facility] HPV9 2020-11-22 00:00:00 Completed [facility] Influenza Virus Vaccine Quad IM, Preserv and ABX Free 6 MO-64 YRS 2020-11-22 00:00:00 Completed [facility] HPV9 2020-11-22 00:00:00 Completed [facility] Influenza Virus Vaccine Quad IM, Preserv and ABX Free 6 MO-64 YRS 2020-11-22 00:00:00 Completed [facility] HPV9 2020-11-22 00:00:00 Completed [facility] Influenza Virus Vaccine Quad IM, Preserv and ABX Free 6 MO-64 YRS 2020-11-22 00:00:00 Completed [facility] HPV9 2020-11-22 00:00:00 Completed [facility] Influenza Virus Vaccine Quad IM, Preserv and ABX Free 6 MO-64 YRS 2020-11-22 00:00:00 Completed [facility] HPV9 2020-11-22 00:00:00 Completed [facility] Influenza Virus Vaccine Quad IM, Preserv and ABX Free 6 MO-64 YRS 2020-11-22 00:00:00 Completed [facility] HPV9 2020-11-22 00:00:00 Completed [facility] Influenza Virus Vaccine Quad IM, Preserv and ABX Free 6 MO-64 YRS 2020-11-22 00:00:00 Completed [facility] HPV9 2020-11-22 00:00:00 Completed [facility] Influenza Virus Vaccine Quad IM, Preserv and ABX Free 6 MO-64 YRS 2020-11-22 00:00:00 Completed [facility] HPV9 2020-11-22 00:00:00 Completed [facility] SARS-COV-2 COVID-19 PFIZER VACCINE 2020-10-08 00:00:00 Completed [facility] SARS-COV-2 COVID-19 PFIZER VACCINE 2020-10-08 00:00:00 Completed [facility] SARS-COV-2 COVID-19 PFIZER VACCINE 2020-10-08 00:00:00 Completed [facility] SARS-COV-2 COVID-19 PFIZER VACCINE 2020-10-08 00:00:00 Completed [facility] SARS-COV-2 COVID-19 PFIZER VACCINE 2020-10-08 00:00:00 Completed [facility] SARS-COV-2 COVID-19 PFIZER VACCINE 2020-10-08 00:00:00 Completed [facility] SARS-COV-2 COVID-19 PFIZER VACCINE 2020-10-08 00:00:00 Completed [facility] SARS-COV-2 COVID-19 PFIZER VACCINE 2020-10-08 00:00:00 Completed [facility] SARS-COV-2 COVID-19 PFIZER VACCINE 2020-10-08 00:00:00 Completed [facility] SARS-COV-2 COVID-19 PFIZER VACCINE 2020-10-08 00:00:00 Completed [facility] SARS-COV-2 COVID-19 PFIZER VACCINE 2020-10-08 00:00:00 Completed [facility] SARS-COV-2 COVID-19 PFIZER VACCINE 2020-10-08 00:00:00 Completed [facility] SARS-COV-2 COVID-19 PFIZER VACCINE 2020-10-08 00:00:00 Completed [facility] SARS-COV-2 COVID-19 PFIZER VACCINE 2020-10-08 00:00:00 Completed [facility] SARS-COV-2 COVID-19 PFIZER VACCINE 2020-10-08 00:00:00 Completed [facility] SARS-COV-2 COVID-19 PFIZER VACCINE 2020-10-08 00:00:00 Completed [facility] SARS-COV-2 COVID-19 PFIZER VACCINE 2020-10-08 00:00:00 Completed [facility] SARS-COV-2 COVID-19 PFIZER VACCINE 2020-10-08 00:00:00 Completed [facility] SARS-COV-2 COVID-19 PFIZER VACCINE 2020-10-08 00:00:00 Completed [facility] SARS-COV-2 COVID-19 PFIZER VACCINE 2020-10-08 00:00:00 Completed [facility] SARS-COV-2 COVID-19 PFIZER VACCINE 2020-10-08 00:00:00 Completed [facility] SARS-COV-2 COVID-19 PFIZER VACCINE 2020-10-08 00:00:00 Completed [facility] SARS-COV-2 COVID-19 PFIZER VACCINE 2020-10-08 00:00:00 Completed [facility] SARS-COV-2 COVID-19 PFIZER VACCINE 2020-10-08 00:00:00 Completed [facility] SARS-COV-2 COVID-19 PFIZER VACCINE 2020-10-08 00:00:00 Completed [facility] SARS-COV-2 COVID-19 PFIZER VACCINE 2020-10-08 00:00:00 Completed [facility] SARS-COV-2 COVID-19 PFIZER VACCINE 2020-10-08 00:00:00 Completed [facility] SARS-COV-2 COVID-19 PFIZER VACCINE 2020-10-08 00:00:00 Completed [facility] SARS-COV-2 COVID-19 PFIZER VACCINE 2020-10-08 00:00:00 Completed [facility] SARS-COV-2 COVID-19 PFIZER VACCINE 2020-10-08 00:00:00 Completed [facility] SARS-COV-2 COVID-19 PFIZER VACCINE 2020-10-08 00:00:00 Completed [facility] SARS-COV-2 COVID-19 PFIZER VACCINE 2020-10-08 00:00:00 Completed [facility] SARS-COV-2 COVID-19 PFIZER VACCINE 2020-09-16 00:00:00 Completed [facility] SARS-COV-2 COVID-19 PFIZER VACCINE 2020-09-16 00:00:00 Completed [facility] SARS-COV-2 COVID-19 PFIZER VACCINE 2020-09-16 00:00:00 Completed [facility] SARS-COV-2 COVID-19 PFIZER VACCINE 2020-09-16 00:00:00 Completed [facility] SARS-COV-2 COVID-19 PFIZER VACCINE 2020-09-16 00:00:00 Completed [facility] SARS-COV-2 COVID-19 PFIZER VACCINE 2020-09-16 00:00:00 Completed [facility] SARS-COV-2 COVID-19 PFIZER VACCINE 2020-09-16 00:00:00 Completed [facility] SARS-COV-2 COVID-19 PFIZER VACCINE 2020-09-16 00:00:00 Completed [facility] SARS-COV-2 COVID-19 PFIZER VACCINE 2020-09-16 00:00:00 Completed [facility] SARS-COV-2 COVID-19 PFIZER VACCINE 2020-09-16 00:00:00 Completed [facility] SARS-COV-2 COVID-19 PFIZER VACCINE 2020-09-16 00:00:00 Completed [facility] SARS-COV-2 COVID-19 PFIZER VACCINE 2020-09-16 00:00:00 Completed [facility] SARS-COV-2 COVID-19 PFIZER VACCINE 2020-09-16 00:00:00 Completed [facility] SARS-COV-2 COVID-19 PFIZER VACCINE 2020-09-16 00:00:00 Completed [facility] SARS-COV-2 COVID-19 PFIZER VACCINE 2020-09-16 00:00:00 Completed [facility] SARS-COV-2 COVID-19 PFIZER VACCINE 2020-09-16 00:00:00 Completed [facility] SARS-COV-2 COVID-19 PFIZER VACCINE 2020-09-16 00:00:00 Completed [facility] SARS-COV-2 COVID-19 PFIZER VACCINE 2020-09-16 00:00:00 Completed [facility] SARS-COV-2 COVID-19 PFIZER VACCINE 2020-09-16 00:00:00 Completed [facility] SARS-COV-2 COVID-19 PFIZER VACCINE 2020-09-16 00:00:00 Completed [facility] SARS-COV-2 COVID-19 PFIZER VACCINE 2020-09-16 00:00:00 Completed [facility] SARS-COV-2 COVID-19 PFIZER VACCINE 2020-09-16 00:00:00 Completed [facility] SARS-COV-2 COVID-19 PFIZER VACCINE 2020-09-16 00:00:00 Completed [facility] SARS-COV-2 COVID-19 PFIZER VACCINE 2020-09-16 00:00:00 Completed [facility] SARS-COV-2 COVID-19 PFIZER VACCINE 2020-09-16 00:00:00 Completed [facility] SARS-COV-2 COVID-19 PFIZER VACCINE 2020-09-16 00:00:00 Completed [facility] SARS-COV-2 COVID-19 PFIZER VACCINE 2020-09-16 00:00:00 Completed [facility] SARS-COV-2 COVID-19 PFIZER VACCINE 2020-09-16 00:00:00 Completed [facility] SARS-COV-2 COVID-19 PFIZER VACCINE 2020-09-16 00:00:00 Completed [facility] SARS-COV-2 COVID-19 PFIZER VACCINE 2020-09-16 00:00:00 Completed [facility] SARS-COV-2 COVID-19 PFIZER VACCINE 2020-09-16 00:00:00 Completed [facility] SARS-COV-2 COVID-19 PFIZER VACCINE 2020-09-16 00:00:00 Completed [facility] TDAP 2020-08-09 00:00:00 Completed [facility] TDAP 2020-08-09 00:00:00 Completed [facility] TDAP 2020-08-09 00:00:00 Completed [facility] TDAP 2020-08-09 00:00:00 Completed [facility] TDAP 2020-08-09 00:00:00 Completed [facility] TDAP 2020-08-09 00:00:00 Completed [facility] TDAP 2020-08-09 00:00:00 Completed [facility] TDAP 2020-08-09 00:00:00 Completed [facility] TDAP 2020-08-09 00:00:00 Completed [facility] TDAP 2020-08-09 00:00:00 Completed [facility] TDAP 2020-08-09 00:00:00 Completed [facility] TDAP 2020-08-09 00:00:00 Completed [facility] TDAP 2020-08-09 00:00:00 Completed [facility] TDAP 2020-08-09 00:00:00 Completed [facility] TDAP 2020-08-09 00:00:00 Completed [facility] TDAP 2020-08-09 00:00:00 Completed [facility] TDAP 2020-08-09 00:00:00 Completed [facility] TDAP 2020-08-09 00:00:00 Completed [facility] TDAP 2020-08-09 00:00:00 Completed [facility] TDAP 2020-08-09 00:00:00 Completed [facility] TDAP 2020-08-09 00:00:00 Completed [facility] TDAP 2020-08-09 00:00:00 Completed [facility] TDAP 2020-08-09 00:00:00 Completed [facility] TDAP 2020-08-09 00:00:00 Completed [facility] TDAP 2020-08-09 00:00:00 Completed [facility] TDAP 2020-08-09 00:00:00 Completed [facility] TDAP 2020-08-09 00:00:00 Completed [facility] TDAP 2020-08-09 00:00:00 Completed [facility] TDAP 2020-08-09 00:00:00 Completed [facility] TDAP 2020-08-09 00:00:00 Completed [facility] TDAP 2020-08-09 00:00:00 Completed [facility] TDAP 2020-08-09 00:00:00 Completed [facility] HPV9 2017-09-24 00:00:00 Completed [facility] HPV9 2017-09-24 00:00:00 Completed [facility] HPV9 2017-09-24 00:00:00 Completed [facility] HPV9 2017-09-24 00:00:00 Completed [facility] HPV9 2017-09-24 00:00:00 Completed [facility] HPV9 2017-09-24 00:00:00 Completed [facility] HPV9 2017-09-24 00:00:00 Completed [facility] HPV9 2017-09-24 00:00:00 Completed [facility] HPV9 2017-09-24 00:00:00 Completed [facility] HPV9 2017-09-24 00:00:00 Completed [facility] HPV9 2017-09-24 00:00:00 Completed [facility] HPV9 2017-09-24 00:00:00 Completed [facility] HPV9 2017-09-24 00:00:00 Completed [facility] HPV9 2017-09-24 00:00:00 Completed [facility] HPV9 2017-09-24 00:00:00 Completed [facility] HPV9 2017-09-24 00:00:00 Completed [facility] HPV9 2017-09-24 00:00:00 Completed [facility] HPV9 2017-09-24 00:00:00 Completed [facility] HPV9 2017-09-24 00:00:00 Completed [facility] HPV9 2017-09-24 00:00:00 Completed [facility] HPV9 2017-09-24 00:00:00 Completed [facility] HPV9 2017-09-24 00:00:00 Completed [facility] HPV9 2017-09-24 00:00:00 Completed [facility] HPV9 2017-09-24 00:00:00 Completed [facility] HPV9 2017-09-24 00:00:00 Completed [facility] HPV9 2017-09-24 00:00:00 Completed [facility] HPV9 2017-09-24 00:00:00 Completed [facility] HPV9 2017-09-24 00:00:00 Completed [facility] HPV9 2017-09-24 00:00:00 Completed [facility] HPV9 2017-09-24 00:00:00 Completed [facility] HPV9 2017-09-24 00:00:00 Completed [facility] HPV9 2017-09-24 00:00:00 Completed [facility] TDAP 2017-07-09 00:00:00 Completed [facility] TDAP 2017-07-09 00:00:00 Completed [facility] TDAP 2017-07-09 00:00:00 Completed [facility] TDAP 2017-07-09 00:00:00 Completed [facility] TDAP 2017-07-09 00:00:00 Completed [facility] TDAP 2017-07-09 00:00:00 Completed [facility] TDAP 2017-07-09 00:00:00 Completed [facility] TDAP 2017-07-09 00:00:00 Completed [facility] TDAP 2017-07-09 00:00:00 Completed [facility] TDAP 2017-07-09 00:00:00 Completed [facility] TDAP 2017-07-09 00:00:00 Completed [facility] TDAP 2017-07-09 00:00:00 Completed [facility] TDAP 2017-07-09 00:00:00 Completed [facility] TDAP 2017-07-09 00:00:00 Completed [facility] TDAP 2017-07-09 00:00:00 Completed [facility] TDAP 2017-07-09 00:00:00 Completed [facility] TDAP 2017-07-09 00:00:00 Completed [facility] TDAP 2017-07-09 00:00:00 Completed [facility] TDAP 2017-07-09 00:00:00 Completed [facility] TDAP 2017-07-09 00:00:00 Completed [facility] TDAP 2017-07-09 00:00:00 Completed [facility] TDAP 2017-07-09 00:00:00 Completed [facility] TDAP 2017-07-09 00:00:00 Completed [facility] TDAP 2017-07-09 00:00:00 Completed [facility] TDAP 2017-07-09 00:00:00 Completed [facility] TDAP 2017-07-09 00:00:00 Completed [facility] TDAP 2017-07-09 00:00:00 Completed [facility] TDAP 2017-07-09 00:00:00 Completed [facility] TDAP 2017-07-09 00:00:00 Completed [facility] TDAP 2017-07-09 00:00:00 Completed [facility] TDAP 2017-07-09 00:00:00 Completed [facility] TDAP 2017-07-09 00:00:00 Completed [facility] Influenza Virus Vaccine Quad IM 3+ YRS 2017-01-21 00:00:00 Completed [facility] Influenza Virus Vaccine Quad IM 3+ YRS 2017-01-21 00:00:00 Completed [facility] Influenza Virus Vaccine Quad IM 3+ YRS 2017-01-21 00:00:00 Completed [facility] Influenza Virus Vaccine Quad IM 3+ YRS 2017-01-21 00:00:00 Completed [facility] Influenza Virus Vaccine Quad IM 3+ YRS 2017-01-21 00:00:00 Completed [facility] Influenza Virus Vaccine Quad IM 3+ YRS 2017-01-21 00:00:00 Completed [facility] Influenza Virus Vaccine Quad IM 3+ YRS 2017-01-21 00:00:00 Completed [facility] Influenza Virus Vaccine Quad IM 3+ YRS 2017-01-21 00:00:00 Completed [facility] Influenza Virus Vaccine Quad IM 3+ YRS 2017-01-21 00:00:00 Completed [facility] Influenza Virus Vaccine Quad IM 3+ YRS 2017-01-21 00:00:00 Completed [facility] Influenza Virus Vaccine Quad IM 3+ YRS 2017-01-21 00:00:00 Completed [facility] Influenza Virus Vaccine Quad IM 3+ YRS 2017-01-21 00:00:00 Completed [facility] Influenza Virus Vaccine Quad IM 3+ YRS 2017-01-21 00:00:00 Completed [facility] Influenza Virus Vaccine Quad IM 3+ YRS 2017-01-21 00:00:00 Completed [facility] Influenza Virus Vaccine Quad IM 3+ YRS 2017-01-21 00:00:00 Completed [facility] Influenza Virus Vaccine Quad IM 3+ YRS 2017-01-21 00:00:00 Completed [facility] Influenza Virus Vaccine Quad IM 3+ YRS 2017-01-21 00:00:00 Completed [facility] Influenza Virus Vaccine Quad IM 3+ YRS 2017-01-21 00:00:00 Completed [facility] Influenza Virus Vaccine Quad IM 3+ YRS 2017-01-21 00:00:00 Completed [facility] Influenza Virus Vaccine Quad IM 3+ YRS 2017-01-21 00:00:00 Completed [facility] Influenza Virus Vaccine Quad IM 3+ YRS 2017-01-21 00:00:00 Completed [facility] Influenza Virus Vaccine Quad IM 3+ YRS 2017-01-21 00:00:00 Completed [facility] Influenza Virus Vaccine Quad IM 3+ YRS 2017-01-21 00:00:00 Completed [facility] Influenza Virus Vaccine Quad IM 3+ YRS 2017-01-21 00:00:00 Completed [facility] Influenza Virus Vaccine Quad IM 3+ YRS 2017-01-21 00:00:00 Completed [facility] Influenza Virus Vaccine Quad IM 3+ YRS 2017-01-21 00:00:00 Completed [facility] Influenza Virus Vaccine Quad IM 3+ YRS 2017-01-21 00:00:00 Completed [facility] Influenza Virus Vaccine Quad IM 3+ YRS 2017-01-21 00:00:00 Completed [facility] Influenza Virus Vaccine Quad IM 3+ YRS 2017-01-21 00:00:00 Completed [facility] Influenza Virus Vaccine Quad IM 3+ YRS 2017-01-21 00:00:00 Completed [facility] Influenza Virus Vaccine Quad IM 3+ YRS 2017-01-21 00:00:00 Completed [facility] Influenza Virus Vaccine Quad IM 3+ YRS 2017-01-21 00:00:00 Completed [facility] HPV9 2016-11-06 00:00:00 Completed [facility] HPV9 2016-11-06 00:00:00 Completed [facility] HPV9 2016-11-06 00:00:00 Completed [facility] HPV9 2016-11-06 00:00:00 Completed [facility] HPV9 2016-11-06 00:00:00 Completed [facility] HPV9 2016-11-06 00:00:00 Completed [facility] HPV9 2016-11-06 00:00:00 Completed [facility] HPV9 2016-11-06 00:00:00 Completed [facility] HPV9 2016-11-06 00:00:00 Completed [facility] HPV9 2016-11-06 00:00:00 Completed [facility] HPV9 2016-11-06 00:00:00 Completed [facility] HPV9 2016-11-06 00:00:00 Completed [facility] HPV9 2016-11-06 00:00:00 Completed [facility] HPV9 2016-11-06 00:00:00 Completed [facility] HPV9 2016-11-06 00:00:00 Completed [facility] HPV9 2016-11-06 00:00:00 Completed [facility] HPV9 2016-11-06 00:00:00 Completed [facility] HPV9 2016-11-06 00:00:00 Completed [facility] HPV9 2016-11-06 00:00:00 Completed [facility] HPV9 2016-11-06 00:00:00 Completed [facility] HPV9 2016-11-06 00:00:00 Completed [facility] HPV9 2016-11-06 00:00:00 Completed [facility] HPV9 2016-11-06 00:00:00 Completed [facility] HPV9 2016-11-06 00:00:00 Completed [facility] HPV9 2016-11-06 00:00:00 Completed [facility] HPV9 2016-11-06 00:00:00 Completed [facility] HPV9 2016-11-06 00:00:00 Completed [facility] HPV9 2016-11-06 00:00:00 Completed [facility] HPV9 2016-11-06 00:00:00 Completed [facility] HPV9 2016-11-06 00:00:00 Completed [facility] HPV9 2016-11-06 00:00:00 Completed [facility] HPV9 2016-11-06 00:00:00 Completed [facility] TDAP 2015-05-16 00:00:00 Completed [facility] TDAP 2015-05-16 00:00:00 Completed [facility] TDAP 2015-05-16 00:00:00 Completed [facility] TDAP 2015-05-16 00:00:00 Completed [facility] TDAP 2015-05-16 00:00:00 Completed [facility] TDAP 2015-05-16 00:00:00 Completed [facility] TDAP 2015-05-16 00:00:00 Completed [facility] TDAP 2015-05-16 00:00:00 Completed [facility] TDAP 2015-05-16 00:00:00 Completed [facility] TDAP 2015-05-16 00:00:00 Completed [facility] TDAP 2015-05-16 00:00:00 Completed [facility] TDAP 2015-05-16 00:00:00 Completed [facility] TDAP 2015-05-16 00:00:00 Completed [facility] TDAP 2015-05-16 00:00:00 Completed [facility] TDAP 2015-05-16 00:00:00 Completed [facility] TDAP 2015-05-16 00:00:00 Completed [facility] TDAP 2015-05-16 00:00:00 Completed [facility] TDAP 2015-05-16 00:00:00 Completed [facility] TDAP 2015-05-16 00:00:00 Completed [facility] TDAP 2015-05-16 00:00:00 Completed [facility] TDAP 2015-05-16 00:00:00 Completed [facility] TDAP 2015-05-16 00:00:00 Completed [facility] TDAP 2015-05-16 00:00:00 Completed [facility] TDAP 2015-05-16 00:00:00 Completed [facility] TDAP 2015-05-16 00:00:00 Completed [facility] TDAP 2015-05-16 00:00:00 Completed [facility] TDAP 2015-05-16 00:00:00 Completed [facility] TDAP 2015-05-16 00:00:00 Completed [facility] TDAP 2015-05-16 00:00:00 Completed [facility] TDAP 2015-05-16 00:00:00 Completed [facility] TDAP 2015-05-16 00:00:00 Completed [facility] TDAP 2015-05-16 00:00:00 Completed [facility] Influenza Virus Vaccine Quad IM 3+ YRS 2014-12-05 00:00:00 Completed [facility] Influenza Virus Vaccine Quad IM 3+ YRS 2014-12-05 00:00:00 Completed [facility] Influenza Virus Vaccine Quad IM 3+ YRS 2014-12-05 00:00:00 Completed [facility] Influenza Virus Vaccine Quad IM 3+ YRS 2014-12-05 00:00:00 Completed [facility] Influenza Virus Vaccine Quad IM 3+ YRS 2014-12-05 00:00:00 Completed [facility] Influenza Virus Vaccine Quad IM 3+ YRS 2014-12-05 00:00:00 Completed [facility] Influenza Virus Vaccine Quad IM 3+ YRS 2014-12-05 00:00:00 Completed [facility] Influenza Virus Vaccine Quad IM 3+ YRS 2014-12-05 00:00:00 Completed [facility] Influenza Virus Vaccine Quad IM 3+ YRS 2014-12-05 00:00:00 Completed [facility] Influenza Virus Vaccine Quad IM 3+ YRS 2014-12-05 00:00:00 Completed [facility] Influenza Virus Vaccine Quad IM 3+ YRS 2014-12-05 00:00:00 Completed [facility] Influenza Virus Vaccine Quad IM 3+ YRS 2014-12-05 00:00:00 Completed [facility] Influenza Virus Vaccine Quad IM 3+ YRS 2014-12-05 00:00:00 Completed [facility] Influenza Virus Vaccine Quad IM 3+ YRS 2014-12-05 00:00:00 Completed [facility] Influenza Virus Vaccine Quad IM 3+ YRS 2014-12-05 00:00:00 Completed [facility] Influenza Virus Vaccine Quad IM 3+ YRS 2014-12-05 00:00:00 Completed [facility] Influenza Virus Vaccine Quad IM 3+ YRS 2014-12-05 00:00:00 Completed [facility] Influenza Virus Vaccine Quad IM 3+ YRS 2014-12-05 00:00:00 Completed [facility] Influenza Virus Vaccine Quad IM 3+ YRS 2014-12-05 00:00:00 Completed [facility] Influenza Virus Vaccine Quad IM 3+ YRS 2014-12-05 00:00:00 Completed [facility] Influenza Virus Vaccine Quad IM 3+ YRS 2014-12-05 00:00:00 Completed [facility] Influenza Virus Vaccine Quad IM 3+ YRS 2014-12-05 00:00:00 Completed [facility] Influenza Virus Vaccine Quad IM 3+ YRS 2014-12-05 00:00:00 Completed [facility] Influenza Virus Vaccine Quad IM 3+ YRS 2014-12-05 00:00:00 Completed [facility] Influenza Virus Vaccine Quad IM 3+ YRS 2014-12-05 00:00:00 Completed [facility] Influenza Virus Vaccine Quad IM 3+ YRS 2014-12-05 00:00:00 Completed [facility] Influenza Virus Vaccine Quad IM 3+ YRS 2014-12-05 00:00:00 Completed [facility] Influenza Virus Vaccine Quad IM 3+ YRS 2014-12-05 00:00:00 Completed [facility] Influenza Virus Vaccine Quad IM 3+ YRS 2014-12-05 00:00:00 Completed [facility] Influenza Virus Vaccine Quad IM 3+ YRS 2014-12-05 00:00:00 Completed [facility] Influenza Virus Vaccine Quad IM 3+ YRS 2014-12-05 00:00:00 Completed [facility] Influenza Virus Vaccine Quad IM 3+ YRS 2014-12-05 00:00:00 Completed [facility] TDAP 2009-02-10 00:00:00 Completed [facility] TDAP 2009-02-10 00:00:00 Completed [facility] TDAP 2009-02-10 00:00:00 Completed [facility] TDAP 2009-02-10 00:00:00 Completed [facility] TDAP 2009-02-10 00:00:00 Completed [facility] TDAP 2009-02-10 00:00:00 Completed [facility] TDAP 2009-02-10 00:00:00 Completed [facility] TDAP 2009-02-10 00:00:00 Completed [facility] TDAP 2009-02-10 00:00:00 Completed [facility] TDAP 2009-02-10 00:00:00 Completed [facility] TDAP 2009-02-10 00:00:00 Completed [facility] TDAP 2009-02-10 00:00:00 Completed [facility] TDAP 2009-02-10 00:00:00 Completed [facility] TDAP 2009-02-10 00:00:00 Completed [facility] TDAP 2009-02-10 00:00:00 Completed [facility] TDAP 2009-02-10 00:00:00 Completed [facility] TDAP 2009-02-10 00:00:00 Completed [facility] TDAP 2009-02-10 00:00:00 Completed [facility] TDAP 2009-02-10 00:00:00 Completed [facility] TDAP 2009-02-10 00:00:00 Completed [facility] TDAP 2009-02-10 00:00:00 Completed [facility] TDAP 2009-02-10 00:00:00 Completed [facility] TDAP 2009-02-10 00:00:00 Completed [facility] TDAP 2009-02-10 00:00:00 Completed [facility] TDAP 2009-02-10 00:00:00 Completed [facility] TDAP 2009-02-10 00:00:00 Completed [facility] TDAP 2009-02-10 00:00:00 Completed [facility] TDAP 2009-02-10 00:00:00 Completed [facility] TDAP 2009-02-10 00:00:00 Completed [facility] TDAP 2009-02-10 00:00:00 Completed [facility] TDAP 2009-02-10 00:00:00 Completed [facility] TDAP 2009-02-10 00:00:00 Completed [facility] Influenza Virus Vaccine Quad IM 3+ YRS Unknown Completed [facility] HPV9 Unknown Completed [facility] TDAP Unknown Completed [facility] SARS-COV-2 COVID-19 PFIZER VACCINE Unknown Completed [facility] Influenza Virus Vaccine Quad IM 3+ YRS Unknown Completed [facility] HPV9 Unknown Completed [facility] TDAP Unknown Completed [facility] SARS-COV-2 COVID-19 PFIZER VACCINE Unknown Completed [facility] Influenza Virus Vaccine Quad IM 3+ YRS Unknown Completed [facility] HPV9 Unknown Completed [facility] TDAP Unknown Completed [facility] Influenza Virus Vaccine Quad IM 3+ YRS Unknown Completed [facility] HPV9 Unknown Completed [facility] TDAP Unknown Completed [facility] Influenza Virus Vaccine Quad IM 3+ YRS Unknown Completed [facility] HPV9 Unknown Completed [facility] TDAP Unknown Completed [facility] Vital Signs Vital Name Observation Time Observation Value Comments S ource Systolic blood pressure 2022-04-05 14:26:00 118 mm[Hg] [facility] Diastolic blood pressure 2022-04-05 14:26:00 73 mm[Hg] [facility] Heart rate 2022-04-05 14:26:00 74 /min [facility] Body temperature 2022-04-05 14:26:00 36.22 Samina [facility] Respiratory rate 2022-04-05 14:26:00 18 /min [facility] Body height 2022-04-05 14:26:00 157.5 cm [facility] Body weight 2022-04-05 14:26:00 98.657 kg [facility] BMI 2022-04-05 14:26:00 39.78 kg/m2 [facility] Systolic blood pressure 2022-03-15 16:38:00 114 mm[Hg] [facility] Diastolic blood pressure 2022-03-15 16:38:00 62 mm[Hg] [facility] Heart rate 2022-03-15 16:38:00 84 /min [facility] Body temperature 2022-03-15 16:38:00 36.56 Samina [facility] Respiratory rate 2022-03-15 16:38:00 18 /min [facility] Body height 2022-03-15 16:38:00 157.5 cm [facility] Body weight 2022-03-15 16:38:00 100.018 kg [facility] BMI 2022-03-15 16:38:00 40.33 kg/m2 [facility] Systolic blood pressure 2022-02-18 13:25:00 102 mm[Hg] [facility] Diastolic blood pressure 2022-02-18 13:25:00 66 mm[Hg] [facility] Heart rate 2022-02-18 13:25:00 95 /min [facility] Body temperature 2022-02-18 13:25:00 36.78 Samina [facility] Respiratory rate 2022-02-18 13:25:00 18 /min [facility] Oxygen saturation in Arterial blood by Pulse oximetry 2022-02-18 13:25:00 99 /min [facility] Body height 2022-02-15 12:00:00 157.5 cm [facility] Body weight 2022-02-15 12:00:00 108.41 kg [facility] BMI 2022-02-15 12:00:00 43.71 kg/m2 [facility] Systolic blood pressure 2022-02-15 14:00:00 104 mm[Hg] [facility] Diastolic blood pressure 2022-02-15 14:00:00 52 mm[Hg] [facility] Heart rate 2022-02-15 14:00:00 79 /min [facility] Respiratory rate 2022-02-15 14:00:00 17 /min [facility] Oxygen saturation in Arterial blood by Pulse oximetry 2022-02-15 14:00:00 100 /min [facility] Body temperature 2022-02-15 13:00:00 36.33 Samina [facility] Body height 2022-02-15 12:00:00 157.5 cm [facility] Body weight 2022-02-15 12:00:00 108.41 kg [facility] BMI 2022-02-15 12:00:00 43.71 kg/m2 [facility] Systolic blood pressure 2022-02-11 21:03:00 111 mm[Hg] [facility] Diastolic blood pressure 2022-02-11 21:03:00 74 mm[Hg] [facility] Heart rate 2022-02-11 21:03:00 99 /[facility] 2022-02-11 21:03:00 36.11 Samina [facility] Respiratory rate 2022-02-11 21:03:00 18 /min [facility] Body height 2022-02-11 21:03:00 157.5 cm [facility] Body weight 2022-02-11 21:03:00 107.673 kg [facility] BMI 2022-02-11 21:03:00 43.42 kg/m2 [facility] Systolic blood pressure 2022-02-07 22:37:00 129 mm[Hg] [facility] Diastolic blood pressure 2022-02-07 22:37:00 79 mm[Hg] [facility] Body height 2022-02-07 22:37:00 157.5 cm [facility] Body weight 2022-02-07 22:37:00 108.863 kg [facility] BMI 2022-02-07 22:37:00 43.90 kg/m2 [facility] Systolic blood pressure 2022-01-31 20:45:00 134 mm[Hg] [facility] Diastolic blood pressure 2022-01-31 20:45:00 71 mm[Hg] [facility] Heart rate 2022-01-31 20:45:00 107 /min [facility] 2022-01-31 20:45:00 36.44 Samina [facility] Respiratory rate 2022-01-31 20:45:00 18 /min [facility] Body height 2022-01-31 20:45:00 157.5 cm [facility] weight 2022-01-31 20:45:00 109.634 kg [facility] BMI 2022-01-31 20:45:00 44.21 kg/m2 [facility] Systolic blood pressure 2022-01-28 15:28:00 118 mm[Hg] [facility] Diastolic blood pressure 2022-01-28 15:28:00 61 mm[Hg] [facility] Heart rate 2022-01-28 15:28:00 97 /min [facility] Body temperature 2022-01-28 15:28:00 36.67 Samina [facility] Respiratory rate 2022-01-28 15:28:00 18 /min [facility] Body height 2022-01-28 15:28:00 157.5 cm [facility] Body weight 2022-01-28 15:28:00 109.374 kg [facility] BMI 2022-01-28 15:28:00 44.10 kg/m2 [facility] Systolic blood pressure 2022-01-24 22:01:00 124 mm[Hg] [facility] Diastolic blood pressure 2022-01-24 22:01:00 78 mm[Hg] [facility] Heart rate 2022-01-24 22:01:00 97 /min [facility] Body temperature 2022-01-24 22:01:00 36.39 Samina [facility] Respiratory rate 2022-01-24 22:01:00 17 /min [facility] Body height 2022-01-24 22:01:00 157.5 cm [facility] Body weight 2022-01-24 22:01:00 109.045 kg [facility] BMI 2022-01-24 22:01:00 43.97 kg/m2 [facility] Systolic blood pressure 2022-01-17 14:17:00 102 mm[Hg] [facility] Diastolic blood pressure 2022-01-17 14:17:00 65 mm[Hg] [facility] Heart rate 2022-01-17 14:17:00 90 /min [facility] Body temperature 2022-01-17 14:17:00 36.5 Samina [facility] Respiratory rate 2022-01-17 14:17:00 20 /min [facility] Body height 2022-01-17 14:17:00 157.5 cm [facility] Body weight 2022-01-17 14:17:00 108.319 kg [facility] BMI 2022-01-17 14:17:00 43.68 kg/m2 [facility] Heart rate 2022-01-06 15:30:00 90 /min [facility] Oxygen saturation in Arterial blood by Pulse oximetry 2022-01-06 15:30:00 100 /min [facility] Systolic blood pressure 2022-01-06 14:59:00 113 mm[Hg] sitting up [facility] Diastolic blood pressure 2022-01-06 14:59:00 71 mm[Hg] sitting up [facility] Respiratory rate 2022-01-06 14:59:00 18 /min [facility] Body temperature 2022-01-06 14:34:00 36.61 Samina [facility] Body height 2022-01-06 14:34:00 160 cm [facility] Body weight 2022-01-06 14:34:00 108.863 kg [facility] BMI 2022-01-06 14:34:00 42.52 kg/m2 [facility] Systolic blood pressure 2021-12-28 14:25:00 139 mm[Hg] [facility] Diastolic blood pressure 2021-12-28 14:25:00 81 mm[Hg] [facility] Heart rate 2021-12-28 14:25:00 104 /[facility] Body temperature 2021-12-28 14:25:00 36.5 Samina [facility] Respiratory rate 2021-12-28 14:25:00 16 /min [facility] Body height 2021-12-28 14:25:00 162.6 cm [facility] Body weight 2021-12-28 14:25:00 109.317 kg [facility] BMI 2021-12-28 14:25:00 41.37 kg/m2 [facility] Systolic blood pressure 2021-12-12 18:58:00 139 mm[Hg] [facility] Diastolic blood pressure 2021-12-12 18:58:00 78 mm[Hg] [facility] Heart rate 2021-12-12 18:58:00 101 /min [facility] Body temperature 2021-12-12 18:58:00 36.5 Samina [facility] Respiratory rate 2021-12-12 18:58:00 18 /min [facility] Body height 2021-12-12 18:58:00 162.6 cm [facility] Body weight 2021-12-12 18:58:00 107.077 kg [facility] BMI 2021-12-12 18:58:00 40.52 kg/m2 [facility] Systolic blood pressure 2021-11-05 21:20:00 120 mm[Hg] [facility] Diastolic blood pressure 2021-11-05 21:20:00 71 mm[Hg] [facility] Heart rate 2021-11-05 21:20:00 101 /min [facility] Body temperature 2021-11-05 21:20:00 36.5 Samina [facility] Respiratory rate 2021-11-05 21:20:00 20 /min [facility] Body height 2021-11-05 21:20:00 162.6 cm [facility] Body weight 2021-11-05 21:20:00 105.291 kg [facility] BMI 2021-11-05 21:20:00 39.84 kg/m2 [facility] Heart rate 2021-11-02 00:45:00 96 /min [facility] Oxygen saturation in Arterial blood by Pulse oximetry 2021-11-02 00:45:00 100 /min [facility] Systolic blood pressure 2021-11-02 00:15:00 123 mm[Hg] [facility] Diastolic blood pressure 2021-11-02 00:15:00 64 mm[Hg] [facility] Body temperature 2021-11-02 00:12:00 36.72 Samina [facility] Respiratory rate 2021-11-02 00:12:00 18 /min [facility] Body height 2021-11-01 22:23:00 162.6 cm [facility] Body weight 2021-11-01 22:23:00 107.049 kg [facility] BMI 2021-11-01 22:23:00 40.51 kg/m2 [facility] Systolic blood pressure 2021-10-25 19:51:00 125 mm[Hg] [facility] Diastolic blood pressure 2021-10-25 19:51:00 79 mm[Hg] [facility] Heart rate 2021-10-25 19:51:00 96 /min [facility] Body temperature 2021-10-25 19:51:00 36.5 Samina [facility] Respiratory rate 2021-10-25 19:51:00 18 /min [facility] Body weight 2021-10-25 19:51:00 109.272 kg [facility] BMI 2021-10-25 19:51:00 41.35 kg/m2 [facility] Procedures Procedure Date / Time Performed Performing Clinician Source MEDICATION CORRESPONDENCE 2022-04-11 06:01:00 Do ctor Unassigned, [place] [facility] POCT TEST 2022-04-05 14:27:00 Whitley Greenfield [facility] CONSENT FOR CONTRACEPTION 2022-04-05 06:01:00 Do ctor Unassigned, [place] [facility] POCT URINALYSIS 2022-02-22 16:10:00 Marcelle Munguia [facility] POCT GLUCOSE (AUTOMATED) 2022-02-18 16:52:00 Neves, [facility] POCT GLUCOSE (AUTOMATED) 2022-02-18 16:52:00 Neves, [facility] POCT GLUCOSE (AUTOMATED) 2022-02-18 12:08:00 Neves [facility] POCT GLUCOSE (AUTOMATED) 2022-02-18 12:08:00 Neves [facility] POCT GLUCOSE (AUTOMATED) 2022-02-18 03:44:00 Neves [facility] POCT GLUCOSE (AUTOMATED) 2022-02-18 03:44:00 Neves, [facility] POCT GLUCOSE (AUTOMATED) 2022-02-18 01:41:00 Neves [facility] POCT GLUCOSE (AUTOMATED) 2022-02-18 01:41:00 Neves, [facility] POCT GLUCOSE (AUTOMATED) 2022-02-17 21:04:00 Neves [facility] POCT GLUCOSE (AUTOMATED) 2022-02-17 21:04:00 Neves [facility] POCT GLUCOSE (AUTOMATED) 2022-02-17 16:46:00 Neves [facility] POCT GLUCOSE (AUTOMATED) 2022-02-17 16:46:00 Neves [facility] POCT GLUCOSE (AUTOMATED) 2022-02-17 11:59:00 Neves [facility] POCT GLUCOSE (AUTOMATED) 2022-02-17 11:59:00 Neves [facility] POCT GLUCOSE (AUTOMATED) 2022-02-17 04:24:00 Neves [facility] POCT GLUCOSE (AUTOMATED) 2022-02-17 04:24:00 Neves [facility] POCT GLUCOSE (AUTOMATED) 2022-02-16 22:02:00 Neves [facility] POCT GLUCOSE (AUTOMATED) 2022-02-16 22:02:00 Neves, [facility] POCT GLUCOSE (AUTOMATED) 2022-02-16 14:22:00 Neves, [facility] POCT GLUCOSE (AUTOMATED) 2022-02-16 14:22:00 Neves, [facility] CBC WITH DIFF 2022-02-16 07:22:00 Jenusaitis, [facility] CBC WITH DIFF 2022-02-16 07:22:00 Jenusaitis, Vasiliy [facility] VENOUS CORD GAS 2022-02-15 15:17:00 Chaljub Noelle [facility] VENOUS CORD GAS 2022-02-15 15:17:00 Noelle Contreras [facility] SECTION 2022-02-15 14:07:00 NevesViktor jj [facility] SECTION 2022-02-15 14:07:00 Neves, Viktor [facility] CBC WITH DIFF 2022-02-15 12:26:00 Noelle Contreras [facility] HEPATITIS B SURFACE ANTIGEN 2022-02-15 12:26:00 [facility] GALV ONLY - SYPHILIS IGG/IGM 2022-02-15 12:26:00 [facility] CBC WITH DIFF 2022-02-15 12:26:00 Noelle Contreras [facility] HEPATITIS B SURFACE ANTIGEN 2022-02-15 12:26:00 [facility] GALV ONLY - SYPHILIS IGG/IGM 2022-02-15 12:26:00 [facility] POCT GLUCOSE (AUTOMATED) 2022-02-15 12:15:00 Neves, [facility] POCT GLUCOSE (AUTOMATED) 2022-02-15 12:15:00 [facility] HB ABO GROUPING 2022-02-15 12:10:00 Noelle Contreras [facility] RHO (D) IMMUNE GLOBULIN 2022-02-15 12:10:[address] [facility] HB ABO GROUPING 2022-02-15 12:10:00 Noelle Contreras [facility] RHO (D) IMMUNE GLOBULIN 2022-02-15 12:10:00 Praveen vanessa [facility] NON-STRESS TEST 2022-02-11 21:46:44 Antonio Munguia [facility] POCT URINALYSIS 2022-02-11 21:04:00 Marcelle Munguia [facility] DIABETES TESTING REPORTS 2022-02-11 06:01:00 Federico cowan Unassigned, [place] [facility] NON-STRESS TEST 2022-02-07 22:37:14 Zohra Marie sa [facility] POCT URINALYSIS 2022-02-07 21:36:00 Marcelle Munguia [facility] NON-STRESS TEST 2022-01-31 21:49:50 Antonio Munguia [facility] POCT URINALYSIS 2022-01-31 00:00:00 Marcelle Munguia [facility] NON-STRESS TEST 2022-01-28 16:02:49 Antonio Munguia [facility] POCT URINALYSIS 2022-01-28 15:31:00 Marcelle Munguia [facility] DIABETES TESTING REPORTS 2022-01-28 06:01:00 Federico cowan Unassigned, [place] [facility] NON-STRESS TEST 2022-01-24 22:41:09 Zohra Marie sa [facility] POCT URINALYSIS 2022-01-24 00:00:00 Marcelle Munguia [facility] ASSIGNMENT OF BENEFITS 2022-01-17 13:56:35 Corrina bello Unassigned, [place] [facility] POCT URINALYSIS 2022-01-17 00:00:00 Marcelle Munguia [facility] CONSENT/REFUSAL FOR DIAGNOSIS AND TREATMENT 2022-01-06 13:49:04 Doctor Unassigned, [place] [facility] L&D VISIT (NON-DELIVERED) 2022-01-06 06:01:00 Do ctor Unassigned, [place] [facility] L&D VISIT (NON-DELIVERED) 2022-01-06 06:01:00 Do ctor Unassigned, [place] [facility] TDAP VACCINE, >11 YRS, IM 2021-12-28 14:30:37 Marcelle Munguia [facility] POCT URINALYSIS 2021-12-28 14:27:00 Marcelle Munguia [facility] STERILIZATION CONSENT FORM 2021-12-28 06:01:00 Doctor Unassigned, [place] [facility] POCT URINALYSIS 2021-12-12 18:59:00 Marcelle Munguia [facility] POCT URINALYSIS 2021-11-05 21:22:00 Marcelle Munguia [facility] CBC WITH DIFF 2021-11-02 01:46:00 Minerva Beebe [facility] NOTICE OF PRIVACY PRACTICES 2021-11-01 21:51:20 Doctor Unassigned, [place] [facility] CONSENT/REFUSAL FOR DIAGNOSIS AND TREATMENT 2021-11-01 21:50:26 Doctor Unassigned, [place] [facility] POCT URINALYSIS 2021-10-25 19:52:00 Marcelle Munguia [facility] Encounters Start Date/Time End Date/Time Encounter Type Admission Type Attending Clinicians Care Facility Care Department Encounter ID Source 2021-11-01 21:40:41 Outpatient X [facility] CHEPE [id number] [facility] 2021-02-06 07:22:09 Outpatient ZAIRE CASTRO [facility] NABIL [id number] [facility] 2020-12-11 16:35:44 Outpatient P [facility] [id number] [facility] 2020-12-11 16:34:50 Outpatient [facility] [id number] [facility] 2020-12-09 22:21:37 Emergency [facility] [id number] [facility] 2022-12-10 00:00:00 2022-12-10 00:00:00 Outpatient [id number] [facility] [id number] [facility] 2022-09-12 16:47:51 2022-09-12 16:47:51 Outpatient [facility] [id number] Fausto Mcfarland 2022-04-26 00:00:00 2022-04-26 00:00:00 Telephone Marcelle Munguia [facility] PRESSURISED CONTAINER [facility] MATERNAL & CHILD [facility] .[id number] [id number] [facility] 2022-04-11 00:00:00 2022-04-11 00:00:00 Orders Only Doctor Unassigned, [place] [facility] .[id number] [facility] 2022-04-05 08:15:00 2022-04-05 09:29:46 Outpatient KAROLINE GIRALDO [facility] [id number] [facility] 2022-04-05 08:15:00 2022-04-05 09:29:46 Office Visit Provider, Salvador-Rmchp Karoline Del Toro [id number] [facility] 2022-04-05 00:00:00 2022-04-05 00:00:00 Orders Only Doctor Unassigned, [place] [facility] 1..114 [id number] [facility] 2022-03-15 10:15:00 2022-03-15 11:12:51 Outpatient KAROLINE GIRALDO [facility] [id number] [facility] 2022-03-15 10:15:00 2022-03-15 11:12:51 Routine Visit Provider, Karoline Mitchell [facility] PRESSURISED CONTAINER [facility] MATERNAL & CH[facility] [id number] [facility] 2022-02-22 10:00:00 2022-02-22 10:15:00 Nurse Visit Visit, Jerry Nurse Marcelle Munguia [facility] PRESSURISED CONTAINER [facility] & CHILD [facility] [id number] [facility] 2022-02-22 10:00:00 2022-02-22 10:00:00 Outpatient R MARCELLE MUNGUIA [facility] [facility] [place] [id number] [facility] 2022-02-20 13:45:00 2022-02-20 13:45:00 Outpatient P [facility] [place] [id number] [facility] 2022-02-15 05:43:00 2022-02-18 13:57:00 Inpatient X NEVES VIKTOR [facility] [id number] [facility] 2022-02-15 05:43:00 2022-02-18 13:57:00 Hospital Encounter Barber Saenz [facility] 1.2.840.114 350.1.13.10 4.2.7.2.686 [id number] [facility] 2022-02-15 07:15:00 2022-02-15 09:01:00 Surgery [facility] 1.2.840.114 350.1.13.10 4.2.7.2.686 [id number] [facility] 2022-02-14 15:00:00 2022-02-14 15:00:00 Outpatient R YISSEL GILBERTDY [facility] [place] [id number] [facility] 2022-02-11 15:15:00 2022-02-11 15:41:15 Outpatient R MARCELLE MUNGUAI [facility] [place] [id number] [facility] 2022-02-11 15:15:00 2022-02-11 15:41:15 Routine Visit Marcelle Munguia [facility] PRESSURISED CONTAINER [facility] MATERNAL & CHILD [facility] 1..840.114 350.1.13.10 4.2.7.2.686 [id number] 107 [id number] [facility] 2022-02-11 00:00:00 2022-02-11 00:00:00 Orders Only Doctor Unassigned, [place] [facility] 1..840.114 350.1.13.10 4.2.7.2.686 [id number] [facility] 2022-02-07 15:15:00 2022-02-07 16:26:37 Outpatient R GRADY MARIE [facility] [place] [id number] [facility] 2022-02-07 15:15:00 2022-02-07 16:26:37 Routine Visit Risk, Ang-Rmchp-N p/High Grady Marie [facility] PRESSURISED CONTAINER [facility] MATERNAL & CHILD [facility] ..840.114 350.1.13.10 4.2.7.2.686 [id number] 107 [id number] [facility] 2022-02-05 14:30:00 2022-02-05 14:30:00 Outpatient R MARCELLE MUNGUIA [facility] [place] [id number] [facility] 2022-01-31 14:00:00 2022-01-31 15:43:41 Outpatient R MARCELLE MUNGUIA [facility] [place] [id number] [facility] 2022-01-31 14:00:00 2022-01-31 15:43:41 Routine Visit Marcelle Munguia [facility] PRESSURISED CONTAINER [facility] & CHILD [facility] 1.840.114 350.1.13.10 4.2.7.2.686 [id number] 107 [id number] [facility] 2022-01-31 15:15:00 2022-01-31 15:15:00 Outpatient R OMKAR GILBERT [facility] [place] [id number] [facility] 2022-01-28 09:45:00 2022-01-28 10:03:15 Outpatient R MARCELLE MUNGUIA [facility] [place] [id number] [facility] 2022-01-28 09:45:00 2022-01-28 10:03:15 Routine Visit TaMarcelle garcia [facility] PRESSURISED CONTAINER [facility] & CHILD [facility] 1.840.114 350.1.13.10 4.2.7.2.686 [id number] 107 [id number] [facility] 2022-01-28 00:00:00 2022-01-28 00:00:00 Orders Only Doctor Unassigned, [place] [facility] 1.84.114 350.1.13.10 4.2.7.2.686 [id number] [facility] 2022-01-24 15:00:00 2022-01-24 16:29:32 Outpatient R GRADY MARIE [facility] [place] [id number] [facility] 2022-01-24 15:00:00 2022-01-24 16:29:32 Routine Visit Risk, Ang-Rmchp-N p/High Karoline Greenfield Teresa K [facility] PRESSURISED CONTAINER [facility] & CHILD [facility] 1.840.114 350.1.13.10 4.2.7.2.686 [id number] 107 [id number] [facility] 2022-01-22 15:15:00 2022-01-22 16:00:00 Family And Consumer Education Teacher Visit Ultrasound, Ang-Mfm Jj Welsh [facility] PRESSURISED CONTAINER [facility] MATERNAL & CHILD HEALTH [facility] [place] 1..840.114 350.1.13.10 4.2.7.2.686 [id number] [facility] 2022-01-22 15:15:00 2022-01-22 15:15:00 Outpatient P JJ WELSH [facility] [place] [id number] [facility] 2022-01-17 08:00:00 2022-01-17 09:32:18 Outpatient R MARCELLE MUNGUIA [facility] [place] [id number] [facility] 2022-01-17 08:00:00 2022-01-17 09:32:18 Routine Visit Marcelle Munguia [facility] PRESSURISED CONTAINER [facility] MATERNAL & CHILD [facility] 1..840.114 350.1.13.10 4.2.7.2.686 [id number] 107 [id number] [facility] 2022-01-17 00:00:00 2022-01-17 00:00:00 Orders Only Doctor Unassigned, [place] [facility] 1..840.114 350.1.13.10 4.2.7.2.686 [id number] [id number] [facility] 2022-01-09 15:45:00 2022-01-09 15:45:00 Outpatient R MARCELLE MUNGUIA [facility] [place] [id number] [facility] 2022-01-07 13:00:00 2022-01-07 13:00:00 Outpatient P [facility] [place] [id number] [facility] 2022-01-06 08:03:00 2022-01-06 09:45:00 Outpatient X POZO-JOSIANE S, FABIENNE POZO-JOSIANE S, FABIENNE [facility] [id number] [facility] 2022-01-06 08:03:00 2022-01-06 09:45:00 Emergency Pozo-Josiane Troy mayersl [facility] 1.840.114 350.1.13.10 4.2.7.2.686 [id number] [facility] 2022-01-06 00:00:00 2022-01-06 00:00:00 Orders Only Doctor Unassigned, [place] [facility] 1.2840.114 350.1.13.10 4.2.7.2.686 [id number] [facility] 2022-01-01 00:00:00 2022-01-01 00:00:00 Telephone Marcelle Munguia [facility] PRESSURISED CONTAINER [facility] MATERNAL & CHILD [facility] 1.2840.114 350.1.13.10 4.2.7.2.686 [id number] [facility] 2021-12-28 08:00:00 2021-12-28 09:14:56 Outpatient R MARCELLE MUNGUIA [facility] [place] [id number] [facility] 2021-12-28 08:00:00 2021-12-28 09:14:56 Routine Visit Marcelle Munguia [facility] PRESSURISED CONTAINER [facility] & CHILD [facility] 1.2840.114 350.1.13.10 4.2.7.2.686 [id number] 107 [id number] [facility] 2021-12-28 00:00:00 2021-12-28 00:00:00 Orders Only Doctor Unassigned, [place] [facility] 1.2840.114 350.1.13.10 4.2.7.2.686 [id number] [facility] 2021-12-12 14:00:00 2021-12-12 14:22:22 Outpatient R MARCELLE MUNGUIA [facility] [place] [id number] [facility] 2021-12-12 14:00:00 2021-12-12 14:22:22 Routine Visit Marcelle Munguia [facility] PRESSURISED CONTAINER [facility] & CHILD [facility] 1.2.840.114 350.1.13.10 4.2.7.2.686 [id number] 107 [id number] [facility] 2021-12-06 14:45:00 2021-12-06 16:00:00 Family And Consumer Education Teacher Visit Ultrasound, Trudy Chahal [facility] PRESSURISED CONTAINER [facility] & CHILD [facility] 1.2.840.114 350.1.13.10 4.2.7.2.686 [id number] [facility] 2021-12-06 14:45:00 2021-12-06 14:45:00 Outpatient P TRUDY GOMEZ [facility] [place] [id number] [facility] 2021-12-06 00:00:00 2021-12-06 00:00:00 Abstract Marcelle Munguia [facility] PRESSURISED CONTAINER [facility] & CHILD [facility] 1.2.840.114 350.1.13.10 4.2.7.2.686 [id number] 107 [id number] [facility] 2021-11-28 16:00:00 2021-11-28 16:00:00 Outpatient R MARCELLE MUNGUIA [facility] [place] [id number] [facility] 2021-11-21 14:45:00 2021-11-21 14:45:00 Outpatient P [facility] [place] [id number] [facility] 2021-11-07 14:00:00 2021-11-07 14:00:00 Outpatient R MARCELLE MUNGUIA [facility] [place] [id number] [facility] 2021-11-05 16:00:00 2021-11-05 16:50:27 Outpatient R MARCELLE MUNGUIA [facility] [place] [id number] [facility] 2021-11-05 16:00:00 2021-11-05 16:50:27 Routine Visit Marcelle Munguia [facility] PRESSURISED CONTAINER [facility] MATERNAL & CHILD [facility] 1.0.114 350.1.13.10 4.2.7.2.686 [id number] [facility] 2021-11-01 17:03:00 2021-11-01 21:17:00 Outpatient X ABIEL MINERVA [facility] [id number] [facility] 2021-11-01 17:03:00 2021-11-01 21:17:00 Emergency Tuan Rc BeeebMinerva [facility] 1.0.114 350.1.13.10 4.2.7.2.686 [id number] [facility] 2021-11-01 00:00:00 2021-11-01 00:00:00 Orders Only Doctor Unassigned, [place] [facility] 1.0.114 350.1.13.10 4.2.7.2.686 [id number] [facility] 2021-10-31 13:00:00 2021-10-31 13:00:00 Outpatient P [facility] [place] [id number] [facility] 2021-10-29 00:00:00 2021-10-29 00:00:00 Telephone Marcelle Munguia [facility] PRESSURISED CONTAINER [facility] CHILD [facility] 1.840.114 350.1.13.10 4.2.7.2.686 [id number] 107 [id number] [facility] 2021-10-28 00:00:00 2021-10-28 00:00:00 Nurse Triage Sylvia Wong [facility] 1..114 350.1.13.10 4.2.7.2.686 [id number] [facility] 2021-10-25 15:00:00 2021-10-25 15:15:11 Routine Visit Marcelle Munguia Teresa K [facility] PRESSURISED CONTAINER [facility] CHILD [facility] ..840.114 350.1.13.10 4.2.7.2.686 [id number] 107 [id number] [facility] 2021-10-25 15:00:00 2021-10-25 15:15:11 Outpatient R MARCELLE MUNGUIA [facility] [place] [id number] [facility] 2021-10-25 15:00:00 2021-10-25 15:00:00 Outpatient R MARCELLE MUNGUIA [facility] [place] [id number] [facility] 2021-10-25 15:00:00 2021-10-25 15:00:00 Outpatient R MARCELLE MUNGUIA [facility] [place] [id number] [facility] 2021-10-18 15:00:00 2021-10-18 15:00:00 Outpatient GRADY BYNUM [facility] [place] [id number] [facility] 2021-10-17 13:00:00 2021-10-17 13:00:00 Outpatient R MARCELLE MUNGUIA [facility] [place] [id number] [facility] 2021-10-03 09:45:00 2021-10-03 11:05:02 Outpatient R MARCELLE MUNGUIA [facility] [place] [id number] [facility] 2021-10-03 09:45:00 2021-10-03 11:05:02 Routine Visit Marcelle Munguia [facility] PRESSURISED CONTAINER [facility] MATERNAL & CHILD [facility] ..840.114 350.1.13.10 4.2.7.2.686 [id number] 107 [id number] [facility] 2021-09-12 13:00:00 2021-09-12 13:56:10 Outpatient R MARCELLE MUGNUIA [facility] [place] [id number] [facility] 2021-09-12 13:00:00 2021-09-12 13:56:10 Routine Visit Marcelle Munguia [facility] PRESSURISED CONTAINER [facility] MATERNAL & CHILD [facility] 1.2.840.114 350.1.13.10 4.2.7.2.686 [id number] 107 [id number] [facility] 2021-08-29 08:00:00 2021-08-29 08:30:00 Family And Consumer Education Teacher Visit Ultrasound, Nathalia Jose [facility] PRESSURISED CONTAINER [facility] CHILD [facility] 1.2.840.114 350.1.13.10 4.2.7.2.686 [id number] [facility] 2021-08-29 08:00:00 2021-08-29 08:00:00 Outpatient NATHALIA CHAVEZ SANGEETA [facility] [place] [id number] [facility] 2021-08-22 10:45:00 2021-08-22 10:45:00 Outpatient R MARCELLE MUNGUIA [facility] [place] [id number] [facility] 2021-08-21 00:00:00 2021-08-21 00:00:00 Telephone Marcelle Munguia [facility] PRESSURISED CONTAINER [facility] CHILD [facility] 1.2.840.114 350.1.13.10 4.2.7.2.686 [id number] 107 [id number] [facility] 2021-08-17 08:30:00 2021-08-17 08:45:00 Family And Consumer Education Teacher Visit Lab, Salvador-RmchGavino Santos [facility] PRESSURISED CONTAINER [facility] CHILD [facility] 1.2.840.114 350.1.13.10 4.2.7.2.686 [id number] 107 [id number] [facility] 2021-08-17 08:30:00 2021-08-17 08:30:00 Outpatient GAVINO HO [facility] [place] [id number] [facility] 2021-08-15 12:45:00 2021-08-15 13:45:59 Outpatient R MARCELLE MUNGUIA [facility] [place] [id number] [facility] 2021-08-15 12:45:00 2021-08-15 13:45:59 Routine Visit Marcelle Munguia [facility] PRESSURISED CONTAINER [facility] CHILD [facility] 1.2.840.114 350.1.13.10 4.2.7.2.686 [id number] [facility] 2021-08-10 00:00:00 2021-08-10 00:00:00 Telephone Marcelle Munguia [facility] PRESSURISED CONTAINER [facility] CHILD [facility] 1.840.114 350.1.13.10 4.2.7.2.686 [id number] 107 [id number] [facility] 2021-08-09 00:00:00 2021-08-09 00:00:00 Orders Only Doctor Unassigned, [place] [facility] 1.840.114 350.1.13.10 4.2.7.2.686 [id number] [facility] 2021-08-08 07:45:00 2021-08-08 07:53:43 Family And Consumer Education Teacher Visit Lab, [facility] [place]mchp Gavino Martinez [facility]N [facility] CHILD [facility] 1..840.114 350.1.13.10 4.2.7.2.686 [id number] 107 [id number] [facility] 2021-08-08 07:45:00 2021-08-08 07:45:00 Outpatient GAVINO HO [facility] [place] [id number] [facility] 2021-08-08 07:45:00 2021-08-08 07:45:00 Outpatient GAVINO HO [facility] [place] [id number] [facility] 2021-08-06 00:00:00 2021-08-06 00:00:00 Telephone Marcelle Munguia [facility] PRESSURISED CONTAINER [facility] CHILD [facility] 1.2.840.114 350.1.13.10 4.2.7.2.686 [id number] 107 [id number] [facility] 2021-08-03 00:00:00 2021-08-03 00:00:00 Telephone Marcelle Munguia Katharine [facility] PRESSURISED CONTAINER [facility] CHILD [facility] 1.2.840.114 350.1.13.10 4.2.7.2.686 [id number] 107 [id number] [facility] 2021-08-02 00:00:00 2021-08-02 00:00:00 Abstract Marcelle Munguia [facility] PRESSURISED CONTAINER [facility] CHILD [facility] 1.2.840.114 350.1.13.10 4.2.7.2.686 [id number] 107 [id number] [facility] 2021-08-01 14:15:00 2021-08-01 15:36:04 Outpatient R MARCELLE MUNGUIA [facility] [place] [id number] [facility] 2021-08-01 14:15:00 2021-08-01 15:36:04 Initial Visit Marcelle Munguia Katharine [facility] PRESSURISED CONTAINER [facility] CHILD [facility] 1.2.840.114 350.1.13.10 4.2.7.2.686 [id number] 107 [id number] [facility] 2021-08-01 00:00:00 2021-08-01 00:00:00 Orders Only Doctor Unassigned, [place] [facility] 1.2.840.114 350.1.13.10 4.2.7.2.686 [id number] [id number] [facility] 2021-05-21 16:00:00 2021-05-21 16:44:38 Outpatient R CASTRO TAI [facility] [place] [id number] [facility] 2021-05-21 16:00:00 2021-05-21 16:44:38 Office Visit Zaire, [facility] 1.2.840.114 350.1.13.10 4.2.7.2.686 [id number] [facility] 2021-05-21 00:00:00 2021-05-21 00:00:00 Orders Only Doctor Unassigned, [place] [facility] 1.2840.114 350.1.13.10 4.2.7.2.686 [id number] [facility] 2021-04-30 16:00:00 2021-04-30 16:00:00 Outpatient CASTRO NUÑEZ [facility] [place] [id number] [facility] 2021-04-23 14:00:00 2021-04-23 14:00:00 Outpatient CASTRO NUÑEZ [facility] [place] [id number] [facility] 2021-03-10 00:00:00 2021-03-10 [facility]00[facility].2840.114 350.1.13.10 4.2.7.2.686 [id number] [facility] 2021-03-09 00:00:00 2021-03-09 00:00:00 [facility] 1.2840.114 350.1.13.10 4.2.7.2.686 [id number] [facility] 2021-03-08 05:23:00 2021-03-08 11:27:00 Outpatient R CASTRO TAI [facility] NABIL [id number] [facility] 2021-03-08 05:23:00 2021-03-08 11:27:00 Hospital Encounter [facility] 1.2840.114 350.1.13.10 4.2.7.2.686 [id number] [facility] 2021-03-08 07:15:00 2021-03-08 09:57:00 Surgery [facility] 1.2.840.114 350.1.13.10 4.2.7.2.686 [id number] [facility] 2021-03-08 00:00:00 2021-03-08 00:00:00 Orders Only Doctor Unassigned, [place] [facility] 1.2840.114 350.1.13.10 4.2.7.2.686 [id number] [facility] 2021-03-05 16:15:00 2021-03-05 16:30:00 Laboratory Only Only, Adc Test Castro Tai [facility] 1..114 350.1.13.10 4.2.7.2.686 [id number] [facility] 2021-03-05 16:15:00 2021-03-05 16:15:00 Outpatient R CASTRO TAI [facility] [place] [id number] [facility] 2021-02-12 08:00:00 2021-02-12 08:00:00 Outpatient VICKEY DOMINGO [facility] [place] [id number] [facility] 2021-02-12 08:00:00 2021-02-12 08:00:00 Outpatient VICKEY DOMINGO [facility] [place] [id number] [facility] 2021-02-11 00:00:00 2021-02-11 00:00:00 Vickey Joyce [facility] PRESSURISED CONTAINER [facility] 1..114 350.1.13.10 4.2.7.2.686 [id number] [facility] 2021-02-05 14:15:00 2021-02-05 14:30:00 Office Visit Castro Tai [facility] 1..114 350.1.13.10 4.2.7.2.686 [id number] [facility] 2021-02-05 14:15:00 2021-02-05 14:15:00 Outpatient R CASTRO TAI [facility] [place] [id number] [facility] 2020-12-06 15:00:00 2020-12-06 15:00:00 Outpatient R UNKNOWN, ATTENDING [facility] [place] [id number] [facility] 2020-12-06 14:38:30 2020-12-06 14:58:30 Urgent Care RupeshLaura conte Justin, Attending [facility] Rai?Indira [facility] 1.84.114 350.1.13.10 4.2.7.2.686 [id number] [facility] 2020-12-06 00:00:00 2020-12-06 00:00:00 Telephone Vickey Marquez [facility] PRESSURISED CONTAINER [facility] CHILD [facility] 1..840.114 350.1.13.10 4.2.7.2.686 [id number] 107 [id number] [facility] 2020-11-27 07:58:15 2020-11-27 08:13:12 Family And Consumer Education Teacher Visit Lab, [facility] Martinez [facility] PRESSURISED CONTAINER [facility] CH[facility] 1..840.114 350.1.13.10 4.2.7.2.686 [id number] 107 [id number] [facility] 2020-11-27 07:45:00 2020-11-27 07:45:00 Outpatient R [facility] [place] [id number] [facility] 2020-11-22 13:24:49 2020-11-22 14:16:05 Office Visit Vickey Marquez [facility] PRESSURISED [facility] 1.84.114 350.1.13.10 4.2.7.2.686 [id number] [facility] 2020-11-22 13:15:00 2020-11-22 13:15:00 Outpatient R VICKEY MARQUEZ [facility] [place] [id number] [facility] 2020-11-01 13:30:00 2020-11-01 13:30:00 Outpatient R MARCELLE MUNGUIA [facility] [place] [id number] [facility] 2020-10-26 00:00:00 2020-10-26 00:00:00 Patient Secure Msg Doctor Unassigned, [place] [facility] 1.114 350.1.13.10 4.2.7.2.686 [id number] [facility] 2020-10-17 08:10:15 2020-10-17 08:47:33 Nurse Visit Visit, Ang-Rmp Nurse Gavino Martinez [facility] PRESSURISED [facility] MATERNAL & CHILD HEALTH [facility] [place] 1..114 350.1.13.10 4.2.7.2.686 [id number] [facility] 2020-10-17 08:00:00 2020-10-17 08:00:00 Outpatient R GAVINO MARTINEZ [facility] [place] [id number] [facility] 2020-10-12 00:00:00 2020-10-12 00:00:00 Telephone Sada Quach [facility] 1..114 350.1.13.10 4.2.7.2.686 [id number] [facility] 2020-10-08 23:17:00 2020-10-11 18:17:00 Hospital Encounter Viktor Neves [facility] 1..114 350.1.13.10 4.2.7.2.686 [id number] [facility] 2020-10-09 07:15:00 2020-10-09 08:59:00 Surgery [facility] 1..114 350.1.13.10 4.2.7.2.686 [id number] [facility] 2020-10-06 00:00:00 2020-10-06 00:00:00 Patient Secure Msg Doctor Unassigned, [place] [facility] 1.114 350.1.13.10 4.2.7.2.686 [id number] [facility] 2020-10-04 09:57:50 2020-10-04 11:08:51 Routine Visit Risk, Ang-Rmchp-N p/High Melanie Alvarez [facility] PRESS[facility]ISED [facility] & [facility]ILD [facility] 1..114 350.1.13.10 4.2.7.2.686 [id number] [facility] 2020-10-04 10:15:00 2020-10-04 10:15:00 Outpatient R [facility] [place] [id number] [facility] 2020-10-04 00:00:00 2020-10-04 00:00:00 Telephone Risk, Ang-Rmchp-N p/High [facility] 1..114 350.1.13.10 4.2.7.2.686 [id number] [facility] 2020-10-02 14:45:00 2020-10-02 14:45:00 Outpatient R GAVINO MARTINEZ [facility] [place] [id number] [facility] 2020-09-29 00:00:00 2020-09-29 00:00:00 Telephone Nely Cruz [facility] ..114 350.1.13.10 4.2.7.2.686 [id number] [facility] 2020-09-27 13:09:15 2020-09-27 15:19:56 Routine Visit Risk, Ang-Rmchp-N p/High Melanie Alvarez [facility] PR[facility]ISED [facility] & CHILD [facility] 1..114 350.1.13.10 4.2.7.2.686 [id number] 107 [id number] [facility] 2020-09-27 13:30:00 2020-09-27 13:30:00 Outpatient R [facility] [place] [id number] [facility] 2020-09-25 15:37:36 2020-09-25 15:51:23 Family And Consumer Education Teacher Visit Ultrasound, Jj Villagomez [facility] PRESSURISED CONTAINER FILLER [facility] MATERNAL & CHILD HEALTH [facility] 1..840.114 350.1.13.10 4.2.7.2.686 [id number] [facility] 2020-09-25 15:30:00 2020-09-25 15:30:00 Outpatient P [facility] [place] [id number] [facility] 2020-09-20 14:39:05 2020-09-20 15:57:00 Routine Visit Risk, Ang-Rmchp-N p/High Melanie Alvarez [facility] PRESSURISED CONTAINER FILLER [facility] MATERNAL & CHILD HEALTH [facility] [place] 1..840.114 350.1.13.10 4.2.7.2.686 [id number] 107 [id number] [facility] 2020-09-20 15:00:00 2020-09-20 15:00:00 Outpatient R [facility] [place] [id number] [facility] 2020-09-19 00:00:00 2020-09-19 00:00:00 Telephone Marcelle Munguia [facility] PRESSURISED CONTAINER FILLER [facility] MATERNAL & CHILD [facility] 1..840.114 350.1.13.10 4.2.7.2.686 [id number] 107 [id number] [facility] 2020-09-18 17:00:00 2020-09-18 17:00:00 Outpatient R GAVINO MARTINEZ [facility] [place] [id number] [facility] 2020-09-18 15:42:10 2020-09-18 16:40:40 Routine Visit Gavino Martinez [facility] PRESSURISED CONTAINER FILLER [facility] MATERNAL & CHILD [facility] 1.2.840.114 350.1.13.10 4.2.7.2.686 [id number] 107 [id number] [facility] 2020-09-18 00:00:00 2020-09-18 00:00:00 Orders Only Doctor Unassigned, [place] [facility] 1.2.840.114 350.1.13.10 4.2.7.2.686 [id number] [facility] 2020-09-13 14:06:47 2020-09-13 15:34:24 Routine Visit Risk, Ang-Rmchp-N p/High Melanie Alvarez [facility] PRESSURISED CONTAINER FILLER [facility] MATERNAL & CHILD [facility] 1.2840.114 350.1.13.10 4.2.7.2.686 [id number] 107 [id number] [facility] 2020-09-13 14:30:00 2020-09-13 14:30:00 Outpatient R [facility] [place] [id number] [facility] 2020-09-11 14:30:00 2020-09-11 14:30:00 Outpatient R RAE MARTINEZRACHELL [facility] [place] [id number] [facility] 2020-09-11 14:10:04 2020-09-11 14:25:04 Routine Visit Martinez Lee Annalban [facility] PRESSURISED CONTAINER FILLER [facility] MATERNAL & CHILD [facility] 1.2.840.114 350.1.13.10 4.2.7.2.686 [id number] 107 [id number] [facility] 2020-09-06 14:36:08 2020-09-06 15:34:54 Routine Visit MartinezRae gamingrachell [facility] PRESSURISED CONTAINER FILLER [facility] MATERNAL & CHILD [facility] 1.2.840.114 350.1.13.10 4.2.7.2.686 [id number] 107 [id number] [facility] 2020-09-06 13:45:00 2020-09-06 13:45:00 Outpatient R [facility] [place] [id number] [facility] 2020-09-06 00:00:00 2020-09-06 00:00:00 Orders Only Doctor Unassigned, [place] [facility] 1.2840.114 350.1.13.10 4.2.7.2.686 [id number] [facility] 2020-09-04 13:56:43 2020-09-04 14:48:59 Routine Visit Gavino Martinez [facility] PRESSURISED CONTAINER [facility] & CHILD [facility] 1.2.840.114 350.1.13.10 4.2.7.2.686 [id number] 107 [id number] [facility] 2020-09-04 13:56:43 2020-09-04 14:48:59 Routine Visit Gavino Martinez [facility] PRESSURISED CONTAINER FILLER [facility] MATERNAL & CHILD [facility] 1.2840.114 350.1.13.10 4.2.7.2.686 [id number] 107 [id number] 2020-09-04 14:30:00 2020-09-04 14:30:00 Outpatient R [facility] [place] [id number] [facility] 2020-08-31 09:12:31 2020-08-31 10:08:45 Routine Visit Gavino Martinez [facility] PRESSURISED CONTAINER [facility] & CHILD [facility] 1.2.840.114 350.1.13.10 4.2.7.2.686 [id number] 107 [id number] [facility] 2020-08-31 09:30:00 2020-08-31 09:30:00 Outpatient R [facility] [place] [id number] [facility] 2020-08-29 15:25:07 2020-08-29 16:54:33 Routine Visit Gavino Martinez [facility] PRESSURISED CONTAINER [facility] & CHILD [facility] 1.840.114 350.1.13.10 4.2.7.2.686 [id number] 107 [id number] [facility] 2020-08-29 15:15:00 2020-08-29 15:15:00 Outpatient R [facility] [place] [id number] [facility] 2020-08-29 00:00:00 2020-08-29 00:00:00 Orders Only Doctor Unassigned, [place] [facility] 1..114 350.1.13.10 4.2.7.2.686 [id number] [id number] [facility] 2020-08-28 07:33:56 2020-08-28 16:19:14 Telemedici ne Visit Faculty, Salvador Downs [facility] Jj Welsh [facility] PRESSURISED CONTAINER [facility] & CHILD [facility] 1.840.114 350.1.13.10 4.2.7.2.686 [id number] 107 [id number] [facility] 2020-08-28 13:00:00 2020-08-28 13:00:00 Outpatient R [facility] [place] [id number] [facility] 2020-08-23 00:00:00 2020-08-23 00:00:00 Abstract Gavino Martinez [facility] PRESSURISED CONTAINER [facility] & CHILD [facility] 1.840.114 350.1.13.10 4.2.7.2.686 [id number] 107 [id number] [facility] 2020-08-22 14:34:23 2020-08-22 15:44:34 Family And Consumer Education Teacher Visit Ultrasound, MelindaNathalia Eubanks [facility] PRESSURISED CONTAINER [facility] & CHILD [facility] 1.840.114 350.1.13.10 4.2.7.2.686 [id number] [facility] 2020-08-22 15:15:00 2020-08-22 15:15:00 Outpatient P [facility] [place] [id number] [facility] 2020-08-21 13:42:20 2020-08-21 13:57:20 Routine Visit Gavino Martinez [facility] PRESSURISED CONTAINER FILLER [facility] MATERNAL & CHILD [facility] 1.2.840.114 350.1.13.10 4.2.7.2.686 [id number] 107 [id number] [facility] 2020-08-21 13:45:00 2020-08-21 13:45:00 Outpatient GAVINO HO [facility] [id number] [facility] 2020-08-21 00:00:00 2020-08-21 00:00:00 Orders Only Doctor Unassigned, [place] [facility] 1.840.114 350.1.13.10 4.2.7.2.686 [id number] [facility] 2020-08-09 16:01:37 2020-08-09 16:51:41 Routine Visit Gavino Martinez [facility] PRESSURISED CONTAINER FILLER [facility] MATERNAL & CHILD [facility] 1.840.114 350.1.13.10 4.2.7.2.686 [id number] 107 [id number] [facility] 2020-08-09 16:00:00 2020-08-09 16:00:00 Outpatient GAVINO HO [facility] [place] [id number] [facility] 2020-08-09 08:00:00 2020-08-09 08:00:00 Outpatient GAVINO HO [facility] [place] [id number] [facility] 2020-08-09 00:00:00 2020-08-09 00:00:00 Orders Only Doctor Unassigned, [place] [facility] 1.840.114 350.1.13.10 4.2.7.2.686 [id number] [facility] 2020-08-01 14:56:52 2020-08-01 15:29:25 Nurse Visit Visit, Ang-Rmchp Nurse Marcelle Munguia [facility] PRESSURISED CONTAINER FILLER [facility] CHILD [facility] 1..840.114 350.1.13.10 4.2.7.2.686 [id number] 107 [id number] [facility] 2020-08-01 15:00:00 2020-08-01 15:00:00 Outpatient R MARCELLE MUNGUIA [facility] [place] [id number] [facility] 2020-08-01 00:00:00 2020-08-01 00:00:00 Telephone Gavino Martinez [facility] PRESSURISED CONTAINER FILLER [facility] CHILD [facility] 1..840.114 350.1.13.10 4.2.7.2.686 [id number] 107 [id number] [facility] 2020-07-31 00:00:00 2020-07-31 00:00:00 Telephone Gavino Martinez [facility] PRESSURISED CONTAINER FILLER [facility] .840.114 350.1.13.10 4.2.7.2.686 [id number] 107 [id number] [facility] 2020-07-31 00:00:00 2020-07-31 00:00:00 Telephone Gavino Martinez [facility] PRESSURISED CONTAINER FILLER [facility] .840.114 350.1.13.10 4.2.7.2.686 [id number] 107 [id number] [facility] 2020-07-31 00:00:00 2020-07-31 00:00:00 Patient Secure Msg Doctor Unassigned, [place] [facility] PRESSURISED CONTAINER FILLER [facility] CHILD [facility] 1..840.114 350.1.13.10 4.2.7.2.686 [id number] 107 [id number] [facility] 2020-07-28 07:47:55 2020-07-28 08:00:39 Family And Consumer Education Teacher Visit Lab, Ang-Rmchp Marcelle Munguia [facility] PRESSURISED CONTAINER [facility] & CHILD [facility] 1.20.114 350.1.13.10 4.2.7.2.686 [id number] 107 [id number] [facility] 2020-07-28 07:45:00 2020-07-28 07:45:00 Outpatient R MARCELLE MUNGUIA [facility] [place] [id number] [facility] 2020-07-27 00:00:00 2020-07-27 00:00:00 Telephone Rae Martinezrachell Eugenia [facility] PRESSURISED CONTAINER FILLER [facility] CHILD [facility] 1.20.114 350.1.13.10 4.2.7.2.686 [id number] 107 [id number] [facility] 2020-07-26 10:01:56 2020-07-26 10:59:57 Routine Visit MartinezGavino [facility] PRESSURISED CONTAINER FILLER [facility] CHILD [facility] 1.20.114 350.1.13.10 4.2.7.2.686 [id number] 107 [id number] [facility] 2020-07-26 10:00:00 2020-07-26 10:00:00 Outpatient R RAE MARTINEZCHRISSYRafael [facility] [place] [id number] [facility] 2020-07-13 00:00:00 2020-07-13 00:00:00 Patient Secure Msg Doctor Unassigned, [place] [facility] PRESSURISED CONTAINER [facility] & CHILD [facility] 1.20.114 350.1.13.10 4.2.7.2.686 [id number] 107 [id number] [facility] 2020-07-13 00:00:00 2020-07-13 00:00:00 Patient Secure Msg Doctor Unassigned, [place] [facility] 1.840.114 350.1.13.10 4.2.7.2.686 [id number] [facility] 2020-07-12 10:39:50 2020-07-12 11:01:17 Routine Visit MartinezGavino [facility] PRESSURISED CONTAINER [facility] & CHILD [facility] 1.840.114 350.1.13.10 4.2.7.2.686 [id number] 107 [id number] [facility] 2020-07-12 10:45:00 2020-07-12 10:45:00 Outpatient R MARTINEZLEE ANNRACHELL [facility] [place] [id number] [facility] 2020-07-05 13:45:00 2020-07-05 13:45:00 Outpatient R MARTINEZLEE ANNRACHELL [facility] [place] [id number] [facility] 2020-07-03 13:00:00 2020-07-03 13:00:00 [facility] [id number] [facility] 2020-06-10 00:00:00 2020-06-10 00:00:00 Nurse Triage Sylvia Wong [facility] 1.840.114 350.1.13.10 4.2.7.2.686 [id number] [facility] 2020-06-06 09:16:57 2020-06-06 10:52:13 Family And Consumer Education Teacher Visit Ultrasound, Nehemiah Stephen [facility] PRESSURISED CONTAINER [facility] & CHILD [facility] 1.840.114 350.1.13.10 4.2.7.2.686 [id number] [facility] 2020-06-06 09:30:00 2020-06-06 09:30:00 Outpatient P [facility] [place] [id number] [facility] 2020-06-06 00:00:00 2020-06-06 00:00:00 Abstract MartinezGavino [facility] PRESSURISED CONTAINER [facility] & CHILD [facility] 1..840.114 350.1.13.10 4.2.7.2.686 [id number] 107 [id number] [facility] 2020-06-05 12:45:14 2020-06-05 13:08:17 Routine Visit Debbie Martinezrafael Bello [facility] PRESSURISED CONTAINER FILLER [facility] MATERNAL & CHILD [facility] 1.2840.114 350.1.13.10 4.2.7.2.686 [id number] 107 [id number] [facility] 2020-06-05 12:45:00 2020-06-05 12:45:00 Outpatient R LEE ANN MARTINEZALBAN [facility] [place] [id number] [facility] 2020-05-08 12:52:02 2020-05-08 13:41:54 Routine Visit Lee Ann Martinezalban Bello [facility] PRESSURISED CONTAINER [facility] & CHILD [facility] 1.2840.114 350.1.13.10 4.2.7.2.686 [id number] 107 [id number] [facility] 2020-05-08 13:00:00 2020-05-08 13:00:00 Outpatient R JUAN GAVINO [facility] [place] [id number] [facility] 2020-04-24 00:00:00 2020-04-24 00:00:00 Telephone Lee Ann Martinezalban [facility] PRESSURISED CONTAINER [facility] & CHILD [facility] 1.2.840.114 350.1.13.10 4.2.7.2.686 [id number] 107 [id number] [facility] 2020-04-22 00:00:00 2020-04-22 00:00:00 Nurse Triage Navi Umaña [facility] 1.2840.114 350.1.13.10 4.2.7.2.686 [id number] [facility] 2020-04-12 10:53:54 2020-04-12 11:23:54 Family And Consumer Education Teacher Visit Ultrasound, Jj Trujillo [facility] PRESSURISED CONTAINER FILLER [facility] MATERNAL & CHILD HEALTH [facility] [place] 1.2.840.114 350.1.13.10 4.2.7.2.686 [id number] [facility] 2020-04-12 11:00:00 2020-04-12 11:00:00 Outpatient P [facility] [place] [id number] [facility] 2020-04-12 00:00:00 2020-04-12 00:00:00 Abstract Gavino Martinez [facility] PRESSURISED CONTAINER FILLER [facility] MATERNAL & CHILD [facility] 1.2.840.114 350.1.13.10 4.2.7.2.686 [id number] 107 [id number] [facility] 2020-04-11 00:00:00 2020-04-11 00:00:00 Telephone Gavino Martinez [facility] PRESSURISED CONTAINER [facility] & CHILD [facility] 1.2.840.114 350.1.13.10 4.2.7.2.686 [id number] 107 [id number] [facility] 2020-04-10 12:50:04 2020-04-10 13:57:01 Initial Visit Gavino Martinez [facility] PRESSURISED CONTAINER [facility] & CHILD [facility] 1.2.840.114 350.1.13.10 4.2.7.2.686 [id number] 107 [id number] [facility] 2020-04-10 13:15:00 2020-04-10 13:15:00 Outpatient R GAVINO MARTINEZ [facility] [place] [id number] [facility] 2020-04-10 00:00:00 2020-04-10 00:00:00 Orders Only Doctor Unassigned, [place] [facility] 1.2.840.114 350.1.13.10 4.2.7.2.686 [id number] [facility] 2020-03-22 14:15:00 2020-03-22 14:15:00 Outpatient R GAVINO MARTINEZ [facility] [place] [id number] [facility] 2020-03-22 00:00:00 2020-03-22 00:00:00 Telephone Gavino Martinez [facility] PRESSURISED CONTAINER FILLER [facility] MATERNAL & CHILD [facility] 1.2.840.114 350.1.13.10 4.2.7.2.686 [id number] [facility] 2020-03-19 18:03:00 2020-03-19 21:52:00 Emergency Gilberto Smith [facility] 1..840.114 350.1.13.10 4.2.7.2.686 [id number] [facility] 2019-12-13 12:45:00 2019-12-13 12:45:00 Outpatient R MARCELLE MUNGUIA [facility] [place] [id number] [facility] Results Test Description Test Time Test Comments Results Result Co mments Source [facility] [id number] 14:27:00* Test Item Value Reference Range Interpretation Comme nts POCT PREG (test code = 1605) Negative On board controls acceptable with C Line (test code = 3574) Yes POCT PREG LOT # (test code = 3575) POCT PREG TEST DATE ( test code = 3576) [facility] [id number] 14:27:00* Test Item Value Reference Range Interpretation Comme nts POCT PREG (test code = 1605) Negative On board controls acceptable with C Line (test code = 3574) Yes POCT PREG LOT # (test code = 3575) POCT PREG TEST DATE ( test code = 3576) [facility] URINALYSIS W SPECIFIC [id number] 16:10:00* Test Item Value Reference Range Interpretation [...] POCT U APPEAR (test code = 3267) [facility] GLUCOSE (AUTOMATED)2022-02-18 16:53:36* Test Item Value Reference Range Interpretation Comme nts POCT GLU (test code = 1627220644) 121 mg/dL 70-110 H Lab Interpretation (test cod e = 95576-8) Abnormal [facility] GLUCOSE (AUTOMATED)2022-02-18 16:53:36* Test Item Value Reference Range Interpretation Comme nts POCT GLU (test code = 8273881301) 121 mg/dL 70-110 H Lab Interpretation (test cod e = 77704-4) Abnormal [facility] GLUCOSE (AUTOMATED)2022-02-18 12:10:34* Test Item Value Reference Range Interpretation Comme nts POCT GLU (test code = 7505563723) 88 mg/dL 70-110 Lab Interpretation (test cod e = 81151-3) Normal [facility] GLUCOSE (AUTOMATED)2022-02-18 12:10:34* Test Item Value Reference Range Interpretation Comme nts POCT GLU (test code = 3710345595) 88 mg/dL 70-110 Lab Interpretation (test cod e = 67977-9) Normal [facility] GLUCOSE (AUTOMATED)2022-02-18 03:51:03* Test Item Value Reference Range Interpretation Comme nts POCT GLU (test code = 5074221954) 80 mg/dL 70-110 Lab Interpretation (test cod e = 15008-0) Normal [facility] GLUCOSE (AUTOMATED)2022-02-18 03:51:03* Test Item Value Reference Range Interpretation Comme nts POCT GLU (test code = 6721315637) 80 mg/dL 70-110 Lab Interpretation (test cod e = 07095-8) Normal [facility] GLUCOSE (AUTOMATED)2022-02-18 01:44:29* Test Item Value Reference Range Interpretation Comme nts POCT GLU (test code = 5420347393) 101 mg/dL 70-110 Lab Interpretation (test cod e = 23136-3) Normal [facility] GLUCOSE (AUTOMATED)2022-02-18 01:44:29* Test Item Value Reference Range Interpretation Comme nts POCT GLU (test code = 8523832137) 101 mg/dL 70-110 Lab Interpretation (test cod e = 59011-4) Normal [facility] GLUCOSE (AUTOMATED)2022-02-17 21:05:17* Test Item Value Reference Range Interpretation Comme nts POCT GLU (test code = 9688150936) 104 mg/dL 70-110 Lab Interpretation (test cod e = 68860-7) Normal [facility] GLUCOSE (AUTOMATED)2022-02-17 21:05:17* Test Item Value Reference Range Interpretation Comme nts POCT GLU (test code = 1463132404) 104 mg/dL 70-110 Lab Interpretation (test cod e = 89365-6) Normal [facility] GLUCOSE (AUTOMATED)2022-02-17 16:47:49* Test Item Value Reference Range Interpretation Comme nts POCT GLU (test code = 9253890832) 139 mg/dL 70-110 H Lab Interpretation (test cod e = 34361-8) Abnormal [facility] GLUCOSE (AUTOMATED)2022-02-17 16:47:49* Test Item Value Reference Range Interpretation Comme nts POCT GLU (test code = 6987066828) 139 mg/dL 70-110 H Lab Interpretation (test cod e = 82308-6) Abnormal [facility] GLUCOSE (AUTOMATED)2022-02-17 12:01:28* Test Item Value Reference Range Interpretation Comme nts POCT GLU (test code = 9460482886) 94 mg/dL 70-110 Lab Interpretation (test cod e = 29727-0) Normal [facility] GLUCOSE (AUTOMATED)2022-02-17 12:01:28* Test Item Value Reference Range Interpretation Comme nts POCT GLU (test code = 1518990540) 94 mg/dL 70-110 Lab Interpretation (test cod e = 42296-2) Normal [facility] GLUCOSE (AUTOMATED)2022-02-17 04:25:48* Test Item Value Reference Range Interpretation Comme nts POCT GLU (test code = 3455950281) 107 mg/dL 70-110 Lab Interpretation (test cod e = 45645-2) Normal [facility] GLUCOSE (AUTOMATED)2022-02-17 04:25:48* Test Item Value Reference Range Interpretation Comme nts POCT GLU (test code = 7102403559) 107 mg/dL 70-110 Lab Interpretation (test cod e = 67774-6) Normal [facility] GLUCOSE (AUTOMATED)2022-02-16 22:04:25* Test Item Value Reference Range Interpretation Comme nts POCT GLU (test code = 3503278006) 118 mg/dL 70-110 H Lab Interpretation (test cod e = 09687-6) Abnormal [facility] GLUCOSE (AUTOMATED)2022-02-16 22:04:25* Test Item Value Reference Range Interpretation Comme nts POCT GLU (test code = 9663134576) 118 mg/dL 70-110 H Lab Interpretation (test cod e = 04984-1) Abnormal [facility] GLUCOSE (AUTOMATED)2022-02-16 14:23:28* Test Item Value Reference Range Interpretation Comme nts POCT GLU (test code = 3178124144) 110 mg/dL 70-110 Lab Interpretation (test cod e = 10753-1) Normal [facility] GLUCOSE (AUTOMATED)2022-02-16 14:23:28* Test Item Value Reference Range Interpretation Comme nts POCT GLU (test code = 3095327295) 110 mg/dL 70-110 Lab Interpretation (test cod e = 82740-3) [facility] [id number] 19:23:15* Test Item Value Reference Range Interpretation Comme nts RHIG CANDIDATE? (test code = 5055) No- see comment Patient is not a candidate for RhIg- Patient is Rh Positive.Performed at [facility] Laboratory Services - [facility] Blood [address] [place] [id number] Free: [phone] No. [id number] [facility] [id number] 19:23:15* Test Item Value Reference Range Interpretation Comme nts RHIG CANDIDATE? (test code = 5055) No- see comment Patient is not a candidate for RhIg- Patient is Rh Positive.Performed at [facility] Laboratory Services - [facility] Blood [address] [address]Gimp Free: [phone] No. [id number] [facility] ONLY - SYPHILIS [id number] 16:54:58* Test Item Value Reference Range Interpretation Comme nts Syphilis IgG/IgM (test code = 10854-2) Non-reactive Non-reactive KADE (test code = KADE) Non-reactive - No serologic evidence of T. pallidum infection. Cannot exclude incubating or early syphilis. Submit a second specimen in 2-4 weeks if syphilis is clinically suspected. Equivocal - Further testing to follow. Reactive - Further testing to follow. Lab Interpretation (test code = 46332-8) Normal [facility] ONLY - SYPHILIS [id number] 16:54:58* Test Item Value Reference Range Interpretation Comme nts Syphilis IgG/IgM (test code = 48476-2) Non-reactive Non-reactive KADE (test code = KADE) Non-reactive - No serologic evidence of T. pallidum infection. Cannot exclude incubating or early syphilis. Submit a second specimen in 2-4 weeks if syphilis is clinically suspected. Equivocal - Further testing to follow. Reactive - Further testing to follow. Lab Interpretation (test code = 05234-0) Normal [facility] [id number] 15:42:26* Test Item Value Reference Range Interpretation Comme nts BASE EXCESS, CORD (test code = 0970745644) mEq/L AC PH, CORD (BEAKER) (test code = 3004256621) 7.18-7.38 PC02, CORD (test code = 2521949032) See_Comment [Automated messa ge] The system which generated this result transmitted reference range: 32 - 66 mmHg. The reference range was not used to interpret this result as normal/abnormal. PO2, CORD (test code = 9219270519) See_Comment [Automated messa ge] The system which generated this result transmitted reference range: 10 - 30 mmHg. The reference range was not used to interpret this result as normal/abnormal. BICARBONATE, CORD (test code = 5952476476) See_Comment [Automated messa ge] The system which generated this result transmitted reference range: 17 - 27 mEq/L. The reference range was not used to interpret this result as normal/abnormal. [facility] Cord [id number] 15:42:26* Test Item Value Reference Range Interpretation Comme nts BASE EXCESS, CORD (test code = 7757496362) mEq/L AC PH, CORD (BEAKER) (test code = 7971615732) 7.18-7.38 PC02, CORD (test code = 9184263259) See_Comment [Automated messa ge] The system which generated this result transmitted reference range: 32 - 66 mmHg. The reference range was not used to interpret this result as normal/abnormal. PO2, CORD (test code = 1569502661) See_Comment [Automated messa ge] The system which generated this result transmitted reference range: 10 - 30 mmHg. The reference range was not used to interpret this result as normal/abnormal. BICARBONATE, CORD (test code = 3662305005) See_Comment [Automated messa ge] The system which generated this result transmitted reference range: 17 - 27 mEq/L. The reference range was not used to interpret this result as normal/abnormal. [facility] Cord [id number] 15:40:00* Test Item Value Reference Range Interpretation Comme nts VENOUS BASE EXCESS, CORD (test code = 4619546759) mEq/L VENOUS PH, CORD (test code = 1990071044) 7.25-7.45 VENOUS PC02, CORD (test code = 4504154593) See_Comment [Automated messa ge] The system which generated this result transmitted reference range: 27 - 49 mmHg. The reference range was not used to interpret this result as normal/abnormal. VENOUS PO2, CORD (test code = 7536343272) See_Comment [Automated me ssage] The system which generated this result transmitted reference range: 17 - 41 mmHg. The reference range was not used to interpret this result as normal/abnormal. VENOUS BICARBONATE, CORD (test code = 8202585424) See_Comment [Automated messa ge] The system which generated this result transmitted reference range: 12 - 29 mEq/L. The reference range was not used to interpret this result as normal/abnormal. [facility] [id number] 15:40:00* Test Item Value Reference Range Interpretation Comme nts VENOUS BASE EXCESS, CORD (test code = 9572088437) mEq/L VENOUS PH, CORD (test code = 4175293580) 7.25-7.45 VENOUS PC02, CORD (test code = 3203893340) See_Comment [Automated messa ge] The system which generated this result transmitted reference range: 27 - 49 mmHg. The reference range was not used to interpret this result as normal/abnormal. VENOUS PO2, CORD (test code = 3034353615) See_Comment [Automated me ssage] The system which generated this result transmitted reference range: 17 - 41 mmHg. The reference range was not used to interpret this result as normal/abnormal. VENOUS BICARBONATE, CORD (test code = 9400977108) See_Comment [Automated messa ge] The system which generated this result transmitted reference range: 12 - 29 mEq/L. The reference range was not used to interpret this result as normal/abnormal. [facility] B Surface [id number] 14:03:07 * Test Item Value Reference Range Interpretation Comme nts HBsAg Semi-Quantitative (rupali t code = 5195-3) Negative Negative [facility] B Surface [id number] 14:03:07 * Test Item Value Reference Range Interpretation Comme nts HBsAg Semi-Quantitative (rupali t code = 5195-3) Negative Negative [facility] Hospital[facility] and Screen - ONCE [id number] 13:31:04* Test Item Value Reference Range Interpretation Comme nts ABO & RH (test code = 20) O POSITIVE Performed at [facility] Laboratory Services - [facility] Blood [address] [address]Afkf Free: [phone] No. [id number] IAT (test code = 1185) Negative Performed at [facility] Laboratory Services - [facility] Blood [address] [address]Xrgi Free: [phone] No. [id number] [facility] HospitalType [facility] Screen - ONCE [id number] 13:31:04* Test Item Value Reference Range Interpretation Comme nts ABO & RH (test code = 20) O POSITIVE Performed at [facility] Laboratory Services - [facility] Blood [address] Free: [phone] No. [id number] IAT (test code = 1185) Negative Performed at [facility] Laboratory Services - [facility] Blood [address] Free: [phone] No. [id number] [facility] HospitalCBC with Wevdfpcujzxc1993-93-67 12:58:46* Test Item Value Reference Range Interpretation [...] 33.1 g/dL 31.6-35.1 RDW-SD (test code = 49004-5) 44.4 fL 39.0-49.9 RDW-CV (test code = 788-0) 14.9 % 12.0-15.5 PLT (test code = 777-3) See_Comment [Automated messa ge] The system which generated this result transmitted reference range: 166 - 358 10*3/?L. The reference range was not used to interpret this result as normal/abnormal. MPV (test code = 84673-5) 9.2 fL 9.5-12.9 L NRBC/100 WBC (test code = 1611453322) See_Comment [Automated [employer] ssage] The system which generated this result transmitted reference range: 0.0 - 10.0 /100 WBCs. The reference range was not used to interpret this result as normal/abnormal. NRBC x10^3 (test code = 2610419290) See_Comment [Automated messa ge] The system which generated this result transmitted reference range: 10*3/?L. The reference range was not used to interpret this result as normal/abnormal. GRAN MAT (NEUT) % (test code = 770-8) 72.1 % IMM GRAN % (test code = 2699486256) 0.60 % LYMPH % (test code = 736-9) 18.8 % MONO % (test code = 5905-5) 6.3 % EOS % (test code = 713-8) 1.9 % BASO % (test code = 706-2) 0.3 % GRAN MAT x10^3(ANC) (test code = 2101910338) 7.07 10*3/uL 1.88-7.09 IMM GRAN x10^3 (test code = 8980610260) 0.06 10*3/uL 0.00-0.06 LYMPH x10^3 (test code = 731-0) 1.85 10*3/uL 1.32-3.29 MONO x10^3 (test code = 742-7) 0.62 10*3/uL 0.33-0.92 EOS x10^3 (test code = 711-2) 0.19 10*3/uL 0.03-0.39 BASO x10^3 (test code = 704-7) 0.03 10*3/uL 0.01-0.07 Lab Interpretation (test code = 41091-9) Abnormal [facility] with Kypbhpxrvqmd7382-33-75 12:58:46* Test Item Value Reference Range Interpretation [...] 33.1 g/dL 31.6-35.1 RDW-SD (test code = 07722-4) 44.4 fL 39.0-49.9 RDW-CV (test code = 788-0) 14.9 % 12.0-15.5 PLT (test code = 777-3) See_Comment [Automated messa ge] The system which generated this result transmitted reference range: 166 - 358 10*3/?L. The reference range was not used to interpret this result as normal/abnormal. MPV (test code = 88917-9) 9.2 fL 9.5-12.9 L NRBC/100 WBC (test code = 8980299885) See_Comment [Automated [employer] ssage] The system which generated this result transmitted reference range: 0.0 - 10.0 /100 WBCs. The reference range was not used to interpret this result as normal/abnormal. NRBC x10^3 (test code = 7862492428) See_Comment [Automated messa ge] The system which generated this result transmitted reference range: 10*3/?L. The reference range was not used to interpret this result as normal/abnormal. GRAN MAT (NEUT) % (test code = 770-8) 72.1 % IMM GRAN % (test code = 0789574236) 0.60 % LYMPH % (test code = 736-9) 18.8 % MONO % (test code = 5905-5) 6.3 % EOS % (test code = 713-8) 1.9 % BASO % (test code = 706-2) 0.3 % GRAN MAT x10^3(ANC) (test code = 7241060880) 7.07 10*3/uL 1.88-7.09 IMM GRAN x10^3 (test code = 6899136194) 0.06 10*3/uL 0.00-0.06 LYMPH x10^3 (test code = 731-0) 1.85 10*3/uL 1.32-3.29 MONO x10^3 (test code = 742-7) 0.62 10*3/uL 0.33-0.92 EOS x10^3 (test code = 711-2) 0.19 10*3/uL 0.03-0.39 BASO x10^3 (test code = 704-7) 0.03 10*3/uL 0.01-0.07 Lab Interpretation (test code = 21561-7) Abnormal [facility] GLUCOSE (AUTOMATED)2022-02-15 12:16:04* Test Item Value Reference Range Interpretation Comme nts POCT GLU (test code = 3368309161) 98 mg/dL 70-110 Lab Interpretation (test cod e = 18285-9) Normal [facility] GLUCOSE (AUTOMATED)2022-02-15 12:16:04* Test Item Value Reference Range Interpretation Comme nts POCT GLU (test code = 3609269672) 98 mg/dL 70-110 Lab Interpretation (test cod e = 11588-1) Normal [facility] URINALYSIS W SPECIFIC [id number] 21:04:00* Test Item Value Reference Range Interpretation [...] POCT U APPEAR (test code = 3267) [facility] URINALYSIS W SPECIFIC [id number] 21:36:00* Test Item Value Reference Range Interpretation [...] U APPEAR (test code = 3267) . [facility] URINALYSIS W SPECIFIC [id number] 20:58:00* Test Item Value Reference Range Interpretation [...] U APPEAR (test code = 3267) . [facility] URINALYSIS W SPECIFIC [id number] 15:31:00* Test Item Value Reference Range Interpretation [...] U APPEAR (test code = 3267) . [facility] URINALYSIS W SPECIFIC [id number] 22:03:00* Test Item Value Reference Range Interpretation [...] U APPEAR (test code = 3267) . [facility] URINALYSIS W SPECIFIC [id number] 14:19:00* Test Item Value Reference Range Interpretation [...] U APPEAR (test code = 3267) . [facility] URINALYSIS W SPECIFIC [id number] 14:19:00* Test Item Value Reference Range Interpretation [...] U APPEAR (test code = 3267) . [facility] URINALYSIS W SPECIFIC [id number] 14:27:00* Test Item Value Reference Range Interpretation [...] U APPEAR (test code = 3267) . [facility] URINALYSIS W SPECIFIC [id number] 14:27:00* Test Item Value Reference Range Interpretation [...] U APPEAR (test code = 3267) . [facility] URINALYSIS W SPECIFIC [id number] 14:27:00* Test Item Value Reference Range Interpretation [...] U APPEAR (test code = 3267) . [facility] URINALYSIS W SPECIFIC [id number] 14:27:00* Test Item Value Reference Range Interpretation [...] U APPEAR (test code = 3267) . [facility] URINALYSIS W SPECIFIC [id number] 14:27:00* Test Item Value Reference Range Interpretation [...] U APPEAR (test code = 3267) . [facility] URINALYSIS W SPECIFIC [id number] 14:27:00* Test Item Value Reference Range Interpretation [...] U APPEAR (test code = 3267) . [facility] URINALYSIS W SPECIFIC [id number] 14:27:00* Test Item Value Reference Range Interpretation [...] U APPEAR (test code = 3267) . [facility] URINALYSIS W SPECIFIC [id number] 14:27:00* Test Item Value Reference Range Interpretation [...] U APPEAR (test code = 3267) . [facility] URINALYSIS W SPECIFIC [id number] 18:59:00* Test Item Value Reference Range Interpretation [...] U APPEAR (test code = 3267) . [facility] URINALYSIS W SPECIFIC [id number] 18:59:00* Test Item Value Reference Range Interpretation [...] code = 3259) Trace Negative - Negat rcystal POCT U GLU (test code = 3256) [...] U APPEAR (test code = 3267) . [facility] URINALYSIS W SPECIFIC [id number] 18:59:00* Test Item Value Reference Range Interpretation [...] U APPEAR (test code = 3267) . [facility] URINALYSIS W SPECIFIC [id number] 21:22:00* Test Item Value Reference Range Interpretation [...] POCT U APPEAR (test code = 3267) [facility] URINALYSIS W SPECIFIC [id number] 19:52:00* Test Item Value Reference Range Interpretation [...] POCT U APPEAR (test code = 3267) [facility] HospitalCULTURE, [id number] 10:31:14SPECIMEN NUMBER: [id number] CULTURE, URINE SPECIMEN NUMBER: [id number] SPECIMEN COMMENT: URINE SOURCE: URINE REPORT STATUS: [...] CFU/ML UROGENITAL RHETT PRESENT NO COMMON PATHOGENSHEMOGLOBIN [id number] 09:41:43* Test Item Value Reference Range Interpretation Comme nts HEMOGLOBIN A1 (test code = 2575) 97.7 % 95.0-98.5 HEMOGLOBIN A2 (test code = 2576) 2.3 % 1.6-3.7 HEMOGLOBIN F () (test code = 2722) 0.0 % 0.0-2.0 HEMOGLOBIN S (test code = 2724) NONE % NONE DETECTED HEMOGLOBIN C (test code = 2726) NONE % NONE DETECTED OTHER HEMOGLOBIN VARIANT (test code = 26016) NONE DETEC % NONE DETECTED PATHOLOGIST'S INTERPRETATION (test code = 2577) (NOTE) NO ABNORMAL HEMOGLOBINS IDENTIFIED. SYLVIE BRAND M.D. CT/NG, NAAT, [id number] 18:15:43* Test Item Value Reference Range Interpretation Comme nts GONORRHEA, NAAT (test code = 71980) NEGATIVE NEGATIVE IMPORTANT NO PORTILLO: SEE ANNOUNCEMENT AT [email or web address] heCobasUrineKit Note: Assay methodology is nucleic acid amplification by power originator mediated amplification (TMA) utilizing the Aptima Combo 2 Assay. CHLAMYDIA, NAAT (test code = 46827) NEGATIVE NEGATIVE IMPORTANT NO PORTILLO: SEE ANNOUNCEMENT AT [email or web address] heCobasUrineKit Note: Assay methodology is nucleic acid amplification by power originator mediated amplification (TMA) utilizing the Aptima Combo 2 Assay. VARICELLA ZOSTER [id number] 14:50:13* Test Item Value Reference Range Interpretation Comme nts VARICELLA ZOSTER IgG (test code = 74486) 270 INDEX SEE BELOW INTERPRETATI ON VZV [...] INDEX >=165 DRUG ABUSE SCREEN 10 REFLEX [id number] 06:16:03* Test Item Value Reference Range Interpretation Comme nts AMPHETAMINES (test code = 3201) NEGATIVE NEGATIVE BARBITURATES (test code = 3202) NEGATIVE NEGATIVE BENZODIAZEPINES (test code = 3203) NEGATIVE NEGATIVE CANNABINOIDS (test code = 3204) NEGATIVE NEGATIVE COCAINE METABOLITE (test code = 3205) NEGATIVE NEGATIVE OPIATES (test code = 3209) NEGATIVE NEGATIVE OXYCODONE (test code = 38220) NEGATIVE NEGATIVE PHENCYCLIDINE (test code = 3210) NEGATIVE NEGATIVE METHADONE (test code = 3207) NEGATIVE NEGATIVE BUPRENORPHINE (test code = 44374) NEGATIVE NEGATIVE SOURCE (test code = 896439) URINE SEE BELOW FO R THRESHOLDS AND [...] GLUCOSE, 1 HR, GESTATIONAL SCREEN, 50 GM [id number] 06:09:04* Test Item Value Reference Range Interpretation Comme nts GLUCOSE 1 HR POST 50 GM (test code = 2005) 197 MG/DL <140 H UNLESS OTHERWISE INDICATED, ALL TESTING PERFORMED ATCLINICAL PATHOLOGY [employer] [address] [place] [address] BONDING MACHINE SETTER: RAJAN SPRINGER M.D. CLIA NUMBER [id number] [facility] [place] [place]. [id number] OBSTETRIC PANEL + [id number] 03:35:02* Test Item Value Reference Range Interpretation [...] 0.00-0.10 ABS NUCLEATED RBCS (test code = 23531) 0.00 K/UL 0.00-0.11 BLOOD TYPE AND RH [...] >=10 RUBELLA IgG INTERP (test code = 34163) REACTIVE REACTIVE HEPATITIS B SURF AG (test code = 2739) NON-REACTIVE NON-REACTIVE RPR (test code = 18534) NON-REACTIVE NON-REACTIVE RPR TITER (test code = 3500) NOT INDIC. TITER NOT INDIC. HIV 1/2 4TH GEN, RFLX CONF (test code = 3514) NON-REACTIVE NON-REACTIVE HEPATITIS C REFLEX [id number] 03:35:02* Test Item Value Reference Range Interpretation Comme nts HEPATITIS C ANTIBODY (test c ode = 4675) NON-REACTIVE NON-REACTIVE [id number] 03:31:45* Test Item Value Reference Range Interpretation Comme nts RPR RESULT (test code = 350) NON-REACTIVE NON-REACTIVE RPR TITER (test code = 3500) NOT INDIC. TITER NOT INDIC. COMPREHENSIVE METABOLIC [id number] 02:50:58* Test Item Value Reference Range Interpretation Comme nts GLUCOSE (test code = 7) 192 MG/DL 70-99 H BUN (test code = 2207) 9 MG/DL 6-20 CREATININE (test code = 2213) 0.63 MG/DL 0.60-1.30 eGFR (2020 CKD-EPI) (test code = 62589) 125 ML/MIN/1.73 >60 CALC BUN/CREAT (test code [...] G/DL 3.5-5.2 CALC GLOBULIN (test code = 2240) 3.4 G/DL 1.9-3.7 CALC A/G RATIO (test code = 223) 1.2 RATIO 1.0-2.6 BILIRUBIN, TOTAL (test code = 2206) 0.3 MG/DL See_Comment [Automated me ssage] The system which generated this result transmitted reference range: <=1.2. The reference range was not used to interpret this result as normal/abnormal. ALKALINE PHOSPHATASE (test code = 2203) 107 U/L 40-112 AST (test code = 8) 12 U/L 9-40 ALT (test code = 2219) 18 U/L 5-40 SARS-CoV-2 (COVID-19), RT-PCR/[id number] 09:38:11* Test Item Value Reference Range Interpretation Comments SARS-CoV-2 INTERPRETATION (test code = 34174) NEGATIVE SEE NOTE SARS-CoV-2 R NA NOT [...] prevalence is high. SOURCE (test code = 10363) NOT SPECIFIED Note: Methodolog y is Roma Fredy Real-Time RT-PCR. The expected result or reference range is NEGATIVE (Not Detected). For more information regarding COVID-19 testing to include clinicalinformation, methodology detail, intended use, FDA authorization andrecommended fact sheets for patients or healthcare providers, see [facility] Announcement: SARS-CoV-2 (COVID-19) by NAAT at URL below (note,fact sheets are provided by method given in report:[email or web address] Alternatively, see downloadable PDF fact sheet at:[email or web address] UNLESS OTHERWISE INDICATED, ALL TESTING PERFORMED [facility]. [address] [place] [address] BONDING MACHINE SETTER: RAJAN SPRINGER M.D. [place] NUMBER [id number] [facility] [place]. [id number] SARS-CoV-2 (COVID-19), RT-PCR/[id number] 09:22:51* Test Item Value Reference Range Interpretation Comments SARS-CoV-2 INTERPRETATION (test code = 01608) NEGATIVE SEE NOTE SARS-CoV-2 R NA NOT [...] prevalence is high. SOURCE (test code = 67940) NASOPHARYNGEAL Note: Methodolog y is Roma Fredy Real-Time RT-PCR. The expected result or reference range is NEGATIVE (Not Detected). For more information regarding COVID-19 testing to include clinicalinformation, methodology detail, intended use, FDA authorization andrecommended fact sheets for patients or healthcare providers, see [email or web address] Announcement: SARS-CoV-2 (COVID-19) by NAAT at URL below (note,fact sheets are provided by method given in report:[email or web address] Alternatively, see downloadable PDF fact sheet at:[email or web address] UNLESS OTHERWISE INDICATED, ALL TESTING PERFORMED [facility] [address] [place] [address] BONDING MACHINE SETTER: RAJAN SPRINGER M.D. CLIA NUMBER [id number] [facility] [place]. [id number]
[2024-03-08 01:05] LABS: Specific Gravity 1.027 (1.005-1.030)
[2024-03-08 01:09] LABS: Specific Gravity 1.028 (1.005-1.030); Urine Bacteria <20 /HPF (<20); Urine Bilirubin NEGATIVE (Negative); Urine Blood 2+ (Negative); Urine Clarity Extremely Turbid (Clear); Urine Color Yellow (Yellow); Urine Culture Reflex Order NOT NEEDED; Urine Glucose NEGATIVE (Negative); Urine Ketones TRACE (Negative); Urine Micro Reflex YN NO BILL MICROSCOPIC; Urine Mucus Slight /HPF (None Seen); Urine Nitrite NEGATIVE (Negative); Urine Protein TRACE (Negative); Urine RBC <5 /HPF (None Seen); Urine Urobilinogen Normal (Normal); Urine WBC <5 /HPF (<5); Urine Yeast (Budding) Trace /HPF (None Seen); Urine pH 5.5 (5.0-7.0)
[2024-03-08 01:48] LABS: SARS-CoV-2 Antigen CONTROL BLUE LINE VIS/BG OK; SARS-CoV-2 Antigen Rapid Res Negative (Negative)
[2024-03-08 02:12] LABS: MCH 28.7 pg (27.0-35.0)
[2024-03-08 02:16] LABS: PT Prothrombin Time 13.3 SECONDS (9.4-12.5); PTT, Activated Partial Thromb 30.1 SECONDS (24.3-36.9); Protime INR 1.27
[2024-03-08] MEDS ORDERED: CEFTRIAXONE 1000 MG/VIAL ONE (02:21)
[2024-03-08] MEDS ORDERED: NA CHLORIDE 0.9% 1,000 ML ONE ×2 (02:22→08:41)
[2024-03-08] MEDS ORDERED: NA CHLORIDE 0.9% 250 ML ONE (02:22)
[2024-03-08] MEDS ORDERED: AZITHROMYCIN 500 MG INJ IVPB ONE (02:22)
[2024-03-08 02:23] LABS: ALT/SGPT 27 U/L (13-56); AST/SGOT 17 U/L (15-37); Albumin/Globulin Ratio 0.6 (1.1-1.8); Alkaline Phosphatase 84 U/L (45-117); Anion Gap 9.9 mEq/L (5.0-15.0); BUN Blood Urea Nitrogen 12 mg/dL (7-18); Bicarbonate 26 mEq/L (21-32); Bilirubin Total 0.5 mg/dL (0.2-1.0); Globulin 5.4 g/dL (2.3-3.5); Glomerular Filtration Rate 94 ml/min (=/>90); Glucose Level 102 mg/dL (74-106); Potassium 3.9 mEq/L (3.5-5.1); Protein, Total 8.4 g/dL (6.4-8.2); Sodium Level 138 mEq/L (136-145)
[2024-03-08 02:25] LABS: Troponin High Sensitivity < 3.0 pg/mL (<58.9)
[2024-03-08 02:27] LABS: Absolute Eosinophils 0.5 K/uL (0-0.5); Absolute Lymphocytes (CBC) 1.6 K/uL (0.7-4.9); Absolute Monocytes 0.6 K/uL (0.1-1.3); Absolute Neutrophil 6.8 K/uL (1.8-8.0); Basophils % 0.1 % (0-1.3); Eosinophils % 5.1 % (0-4.4); Hematocrit 41.3 % (36.0-45.0); Lymphocytes % 16.8 % (15.3-44.8); MCHC 33.9 g/dL (32.0-36.0); MCV 84.8 fL (80-100); MPV 6.9 fL (7.6-11.3); Platelets 337 thou/uL (152-406); RBC Red Blood Cell Count 4.86 M/uL (3.86-4.86); Red Cell Distribution Width 14.2 % (12.1-15.2)
[2024-03-08] MEDS ORDERED: HYDROCODONE/CHLORPHEN 5 ML/OSYR ONE (02:44)
[2024-03-08] MEDS ORDERED: IBUPROFEN 400 MG TAB ONE (02:44)
--- NOTE | 2024-03-08 02:44 | ER ---
Nurse's Notes [facility] Name: Rasheeda Alfonso Age: 28 yrs Sex: Female : 1995 Arrival Date: 03/07/2024 Time: 23:29 Bed 24 Private MD: Diagnosis: Pneumonia, unspecified organism Presentation: 03/07 23:46 Chief complaint: Patient states: c/o cough, congestion, sob, fever, chills, LANZA, body me1 aches, nausea and diarrhea that started last Friday and is getting worse. Coronavirus screen: Vaccine status: Patient reports receiving the 2nd dose of the covid vaccine. Ebola Screen: No symptoms or risks identified at this time. Initial Sepsis Screen: Does the patient meet any 2 criteria? HR > 90 bpm. Risk Assessment: Do you want to hurt yourself or someone else? Patient reports no desire to harm self or others. Onset of symptoms was March 06, 2024. 23:46 Method Of Arrival: Wheelchair me1 23:46 Acuity: RILEY 3 me1 Historical: - Allergies: 23:47 No Known Allergies; me1 - PMHx: 23:47 GALLSTONES; gestational diabetes; me1 - PSHx: 23:47 section; Cholecystectomy; me1 - Immunization history:: Adult Immunizations up to date. - Infectious Disease History:: Denies. - Social history:: Smoking status: Patient denies any tobacco usage or history of. Screenin:50 [facility] ED Fall Risk Assessment (Adult) History of falling in the last 3 months, ay including since admission No falls in past 3 months (0 pts) Confusion or Disorientation No (0 pts) Intoxicated or Sedated No (0 pts) Impaired Gait No (0 pts) Mobility Assist Device Used No (0 pt) Altered Elimination No (0 pt) Score/Fall Risk Level 0 - 2 = Low Risk Oriented to surroundings, Maintained a safe environment, Educated pt \T\ family on fall prevention, incl call for assistance when getting out of bed. Abuse screen: Denies threats or abuse. Denies injuries from another. Nutritional screening: No deficits noted. Tuberculosis screening: No symptoms or risk factors identified. Assessment: 23:50 General: Appears distressed, uncomfortable, Behavior is cooperative, restless. Pain: ay Complains of pain in Chest, lower back pain Pain radiates to left upper quadrant Pain currently is 9 out of 10 on a pain scale. Quality of pain is described as sharp, Pain began 03/03/2024. Neuro: Level of Consciousness is awake, alert, obeys commands, Oriented to person, place, time, situation, Product Development Actuary are equal bilaterally Speech is normal. Neuro:. Cardiovascular: Heart tones S1 S2 Capillary refill < 3 seconds Rhythm is sinus tachycardia. Respiratory: Airway is patent Respiratory effort is even, unlabored, Respiratory pattern is regular, symmetrical, Breath sounds are diminished in left upper lobe and left lower lobe. Respiratory: Reports cough that is non-productive, persistent. GI: Reports diarrhea, nausea, Patient currently denies abdominal pain. : No signs and/or symptoms were reported regarding the genitourinary system. EENT: No signs and/or symptoms were reported regarding the EENT system. Derm: No signs and/or symptoms reported regarding the dermatologic system. 03/08 04:46 Reassessment: Blood glucose 97. ay Vital Signs: 03/07 23:45 BP 131 / 83; Pulse 123; Resp 20; Temp 99.4(O); Pulse Ox 97% on R/A; ay 23:46 BP 133 / 83; Pulse 116; Resp 20; Temp 100.1; Pulse Ox 96% ; Weight 104.33 kg; Height 5 me1 ft. 4 in. ; 03/08 01:00 BP 122 / 65; Pulse 109; Resp 26; Pulse Ox 98% ; ay 02:00 BP 118 / 54; Pulse 109; Resp 26; Pulse Ox 96% ; ay 02:45 BP 119 / 76; Pulse 109; Resp 19; Pulse Ox 98% ; ay 04:45 BP 112 / 47; Pulse 85; Resp 20; Pulse Ox 96% ; ay 03/07 23:46 Body Mass Index 39.48 (104.33 kg, 162.56 cm) me1 Ayan Coma Score: 03/07 23:50 Eye Response: spontaneous(4). Motor Response: obeys commands(6). Verbal Response: ay oriented(5). Total: 15. ED Course: 23:31 Patient arrived in ED. jj6 23:31 Navi Allen PA is PHCP. cp 23:31 Ruiz Fernando DO is Attending Physician. cp 23:47 Triage completed. me1 23:47 Arm band placed on Patient placed in an exam room. me1 23:50 Patient has correct armband on for positive identification. Bed in low position. Call ay light in reach. Side rails up X2. Provided Education on: plan of care. 23:50 Inserted saline lock: 20 gauge in right antecubital area, using aseptic technique. ay 03/08 00:26 XRAY Chest Pa And Lat (2 Views) In Process Unspecified. EDMS 00:30 Miley Byrd RN is Primary Nurse. ay 02:42 José Lopez MD is Hospitalizing Provider. cp 02:56 EKG done, by ED staff. oe 02:57 EKG done, by ED staff, reviewed by Ruiz Fernando DO. oe 03:02 CT Chest For PE Angio In Process Unspecified. EDMS 05:00 Blood Culture Adult (2) Sent. ay 07:16 No provider procedures requiring assistance completed. Patient admitted, IV remains in jl7 place. intact, No redness/swelling at site. Administered Medications: 02:37 Drug: Zithromax IVPB 500 mg IVPB once over 1 hrs; mix in 250 mL NS Route: IVPB; Infused ay Over: 1 hrs; Site: right antecubital; 05:01 Follow up: Response: No adverse reaction ay 05:01 Follow up: IV Status: Completed infusion; IV Intake: 250ml ay 02:40 Drug: NS 0.9% IV 1000 ml IV at 1000 ml once; to be given as a bolus over 60 minutes ay Route: IV; Rate: 1000 ml; Site: right antecubital; 05:02 Follow up: Response: No adverse reaction; IV Status: Completed infusion; IV Intake: ay 1000ml 02:40 Drug: Rocephin IV 1 grams IV at calculated rate once; Given slow IV push per pharmacy ay instructions Route: IV; Rate: calculated rate; Site: right antecubital; 03:00 Follow up: Response: No adverse reaction; IV Status: Completed infusion jl7 05:01 Follow up: Response: No adverse reaction ay 02:47 Drug: Ibuprofen PO 800 mg PO once Route: PO; ay 02:48 Drug: Tussionex Pennkinetic ER PO Suspension 5 ml PO once Route: PO; ay Medication: 03/07 23:50 VIS not applicable for this client. ay Intake: 03/08 05:01 IV: 250ml; Total: 250ml. ay 05:02 IV: 1000ml; Total: 1250ml. ay Outcome: 02:43 Decision to Hospitalize by Provider. cp 07:16 Admitted to ER Hold. Please see [facility] for further documentation. jl7 07:16 Condition: stable 07:16 Instructed on the need for admit, 15:58 Patient left the ED. Signatures: Dispatcher [employer] EDMS Deandra Sidhu, RN RN Navi Allen PA PA cp Pito Canchola Jahala, RN RN jl7 Asha Lopez jj6 Jennifer Toure RN RN me1 Miley Byrd RN RN joselin
--- NOTE | 2024-03-08 02:44 | EDPHYS ---
Physician Documentation [facility] Name: Rasheeda Alfonso Age: 28 yrs Sex: Female : 1995 Arrival Date: 03/07/2024 Time: 23:29 Bed 24 Private MD: ED Physician Ruiz Fernando HPI: 03/07 23:51 This 28 yrs old Female presents to ER via Wheelchair with complaints of Cough, cp Shortness Of Breath. 23:51 The patient or guardian reports cough, that is constant. cp 23:51 Onset: The symptoms/episode began/occurred last week. Severity of symptoms: in the emergency department the symptoms are actually worse, moderately. Associated signs and symptoms: Pertinent positives: chest pain, with cough, diarrhea, fever. Historical: - Allergies: 23:47 No Known Allergies; me1 - PMHx: 23:47 GALLSTONES; gestational diabetes; me1 - PSHx: 23:47 section; Cholecystectomy; me1 - Immunization history:: Adult Immunizations up to date. - Infectious Disease History:: Denies. - Social history:: Smoking status: Patient denies any tobacco usage or history of. ROS: 23:55 Constitutional: Negative for poor PO intake, cp 23:55 Cardiovascular: Positive for chest pain, cp 23:55 Respiratory: Positive for cough, "sounds productive", shortness of breath, cp 23:55 Eyes: Negative for injury, pain, redness, and discharge, cp 23:55 Abdomen/GI: Positive for diarrhea, Negative for abdominal pain, 23:55 Neuro: Negative for altered mental status, syncope, 23:55 All other systems are negative, Exam: 23:59 Constitutional: The patient appears in no acute distress, alert, awake, cp non-diaphoretic, non-toxic, well developed, well nourished, uncomfortable, 23:59 Head/Face: Normocephalic, atraumatic. cp 23:59 Eyes: Periorbital structures: appear normal, Conjunctiva: normal, no exudate, no injection, Sclera: Lids and lashes: appear normal, bilaterally, 23:59 ENT: External ear(s): are unremarkable, Nose: is normal, Mouth: Lips: moist, Oral mucosa: moist, Posterior pharynx: Airway: no evidence of obstruction, patent, 23:59 Chest/axilla: Inspection: normal, Palpation: is normal, no crepitus, no tenderness, 23:59 Cardiovascular: Rate: tachycardic, Rhythm: regular, Edema: is not appreciated, JVD: is not appreciated, 23:59 Respiratory: the patient does not display signs of respiratory distress, Respirations: normal, no use of accessory muscles, no retractions, labored breathing, is not present, Breath sounds: are clear throughout, no decreased breath sounds, no stridor, no wheezing, 23:59 Abdomen/GI: Inspection: abdomen appears normal, Palpation: abdomen is soft and non-tender, in all quadrants, 23:59 Neuro: Orientation: to person, place \\T\\ time. Mentation: is normal, Motor: moves all fours, strength is normal, Sensation: is normal, 03/08 03:33 ECG was reviewed by the Attending Physician. ms3 Vital Signs: 03/07 23:45 BP 131 / 83; Pulse 123; Resp 20; Temp 99.4(O); Pulse Ox 97% on R/A; ay 23:46 BP 133 / 83; Pulse 116; Resp 20; Temp 100.1; Pulse Ox 96% ; Weight 104.33 kg; Height 5 me1 ft. 4 in. ; 03/08 01:00 BP 122 / 65; Pulse 109; Resp 26; Pulse Ox 98% ; ay 02:00 BP 118 / 54; Pulse 109; Resp 26; Pulse Ox 96% ; ay 02:45 BP 119 / 76; Pulse 109; Resp 19; Pulse Ox 98% ; ay 04:45 BP 112 / 47; Pulse 85; Resp 20; Pulse Ox 96% ; ay 03/07 23:46 Body Mass Index 39.48 (104.33 kg, 162.56 cm) me1 Ayan Coma Score: 03/07 23:50 Eye Response: spontaneous(4). Motor Response: obeys commands(6). Verbal Response: ay oriented(5). Total: 15. MDM: 23:46 Medical Screening Exam initiated cp 03/08 02:45 Data reviewed: vital signs, nurses notes, lab test result(s), EKG, radiologic studies, cp plain films, I have discussed the patient's presentation/case with the attending Emergency Department Physician; and as a result, I will admit patient. 02:45 Differential Diagnosis: Bronchitis Influenza Pneumonia Other pulmonary embolism. cp Management of patient was discussed with the following: Hospitalist: DR Lopez will admit after discussion. I considered the following discharge prescriptions or medication management in the emergency department Medications were administered in the Emergency Department. See MAR. Independent interpretation of the following test(s) in the Emergency Department EKG: See my EKG interpretation above. Counseling: I had a detailed discussion with the patient and/or guardian regarding the historical points, exam findings, and any diagnostic results supporting the discharge/admit diagnosis, lab results, radiology results, the need for further work-up and treatment in the hospital. Response to treatment: the patient's symptoms have mildly improved after treatment. 03/07 23:50 Order name: Urinalysis W/Microscopic; Complete Time: 01:17 cp 03/08 01:17 Interpretation: Normal except: [facility] Extremely Turbid; UKET TRACE; UBLD 2+; UPROT TRACE; cp BYST Trace. 03/07 23:50 Order name: Test, Urine; Complete Time: 01:17 cp 03/07 23:50 Order name: RSV; Complete Time: 01:48 cp 03/08 01:48 Interpretation: Reviewed. cp 03/07 23:50 Order name: Influenza Screen (a \\T\\ B); Complete Time: 01:48 cp 03/08 01:48 Interpretation: Reviewed. cp 03/07 23:50 Order name: Strep cp 03/08 01:48 Interpretation: Reviewed. cp 03/07 23:50 Order name: SARS RAPID; Complete Time: 02:23 cp 03/08 00:42 Order name: Blood Culture Adult (2) cp 03/08 00:42 Order name: CBC with Diff; Complete Time: 02:31 cp 03/08 00:42 Order name: CMP; Complete Time: 02:31 cp 03/08 00:42 Order name: Lactate w/ 2H reflex if indic.; Complete Time: 02:23 cp 03/08 02:24 Interpretation: Reviewed. cp 03/08 00:42 Order name: Protime (+inr); Complete Time: 02:23 cp 03/08 02:23 Interpretation: Normal except: PT 13.3. cp 03/08 00:42 Order name: Ptt, Activated; Complete Time: 02:23 cp 03/08 00:42 Order name: Troponin High Sensitivity; Complete Time: 02:31 cp 03/08 01:49 Order name: Throat Culture [facility] 03/08 03:53 Order name: Creatine Phosphokinase [facility] 03/08 03:53 Order name: Troponin High Sensitivity [facility] 03/08 03:53 Order name: Basic Metabolic Panel [facility] 03/08 03:53 Order name: Basic Metabolic Panel [facility] 03/08 03:53 Order name: CBC with Automated Diff [facility] 03/08 03:53 Order name: CBC with Automated Diff [facility] 03/08 03:53 Order name: Comprehensive Metabolic Panel [facility] 03/08 03:53 Order name: Comprehensive Metabolic Panel [facility] 03/08 10:45 Order name: Glucose, Ancillary Testing [facility] 03/07 23:50 Order name: XRAY Chest Pa And Lat (2 Views) 03/08 02:10 Order name: CT Chest For PE Angio 03/08 00:39 Order name: Vital Signs; Complete Time: 05:00 cp 03/08 00:42 Order name: Accucheck; Complete Time: 04:45 03/08 00:42 Order name: Cardiac monitoring; Complete Time: 02:40 cp 03/08 00:42 Order name: EKG - Nurse/Tech; Complete Time: 05:00 cp 03/08 00:42 Order name: IV Saline Lock - Large Bore; Complete Time: 05:00 03/08 00:42 Order name: Labs collected and sent; Complete Time: 02:41 cp 03/08 00:42 Order name: O2 Per Protocol; Complete Time: 02:41 cp 03/08 00:42 Order name: O2 Sat Monitoring; Complete Time: 02:41 cp EC:33 Rate is 109 beats/min. Rhythm is regular. Left axis deviation noted. MO interval is ms3 normal. QRS interval is normal. Clinical impression: Sinus tachycardia. Interpreted by me. Reviewed by me. Administered Medications: 02:37 Drug: Zithromax IVPB 500 mg IVPB once over 1 hrs; mix in 250 mL NS Route: IVPB; Infused ay Over: 1 hrs; Site: right antecubital; 05:01 Follow up: Response: No adverse reaction ay 05:01 Follow up: IV Status: Completed infusion; IV Intake: 250ml ay 02:40 Drug: NS 0.9% IV 1000 ml IV at 1000 ml once; to be given as a bolus over 60 minutes ay Route: IV; Rate: 1000 ml; Site: right antecubital; 05:02 Follow up: Response: No adverse reaction; IV Status: Completed infusion; IV Intake: ay 1000ml 02:40 Drug: Rocephin IV 1 grams IV at calculated rate once; Given slow IV push per pharmacy ay instructions Route: IV; Rate: calculated rate; Site: right antecubital; 03:00 Follow up: Response: No adverse reaction; IV Status: Completed infusion jl7 05:01 Follow up: Response: No adverse reaction ay 02:47 Drug: Ibuprofen PO 800 mg PO once Route: PO; ay 02:48 Drug: Tussionex Pennkinetic ER PO Suspension 5 ml PO once Route: PO; ay Disposition: 06:30 I was immediately available on-site in the Emergency Department for consultation in the ms3 care of the patient. Disposition Summary: 03/08/24 02:43 Hospitalization Ordered Notes: Hospitalization Status: Inpatient Admission cp Provider: José Lopez cp Condition: Stable cp Problem: new cp Symptoms: have improved cp Bed/Room Type: Standard cp Location: Telemetry/MedSurg (Inpatient)(03/08/24 15:11) bd Room Assignment: 215(03/08/24 15:11) bd Diagnosis - Pneumonia, unspecified organism cp Forms: - Medication Reconciliation Form cp - SBAR form cp - Leadership Thank You Letter cp Signatures: Dispatcher [employer] EDMS Roxanne Epperson Corey, PA PA cp Sims, Marcus, DO DO ms3 Fatoumata Arias rv1 Jennifer Toure RN RN tnMiley Burk RN RN ay Leal, Jahala RN jl7 Corrections: (The following items were deleted from the chart) 00:42 00:42 BLOOD CULTURE*+BA.LAB.BRZ ordered. EDMS EDMS 00:42 00:42 CBC+H.LAB.BRZ ordered. EDMS EDMS 00:42 00:42 COMPREHENSIVE METABOLIC PANEL+C.LAB.BRZ ordered. EDMS EDMS 00:42 00:42 LACTATE+C.LAB.BRZ ordered. EDMS EDMS 00:42 00:42 PROTIME (+INR)+COAG.LAB.BRZ ordered. EDMS EDMS 00:42 00:42 PTT, ACTIVATED+COAG.LAB.BRZ ordered. EDMS EDMS 00:42 00:42 Troponin High Sensitivity+C.LAB.BRZ ordered. EDMS EDMS 03:03 02:43 Telemetry/MedSurg (Inpatient) cp rv1 03:03 02:43 cp rv1 15:11 03:03 [facility] ER HOLD rv1 bd 15: 03:03 ERHOLD- rv1 bd
--- NOTE | 2024-03-08 03:42 | P.HP ---
Certification for Inpatient Patient admitted to: Inpatient With expected LOS: >2 Midnights Patient will require the following post-hospital care: None Practitioner: I am a practitioner with admitting privileges, knowledge of patient current condition, hospital course, and medical plan of care. Services: Services provided to patient in accordance with Admission requirements found in Title 42 Section 412.3 of the Code of Federal Regulations Patient History Date of Service: 03/08/24 Reason for admission: Cough shortness of breath History of Present Illness: 28-year-old female with past medical history of gestational diabetes who presented because of cough generalized body ache fever with chills and headache since the last 3 days. Patient states symptoms have been getting worse. She denies any cough contact. She denies any dizziness. She admits to some nausea vomiting as well as diarrhea On arrival in the ED she was noted with temp of 100.1, tachycardic at 116 BP stable, laboratory workup shows normal WBC with no shift, BMP was unremarkable. Chest x-ray shows right lower lobe infiltrate. CT/CTA of chest pending Allergies No Known Drug Allergies Allergy (Unverified 04/14/15 23:54) Unknown No Allergy (Uncoded 08/12/15 05:08) Unknown No Known Allergies Allergy (Uncoded 01/13/17 00:49) Unknown Home Medications: Famotidine [Pepcid] 1 tab-cap PO BID 04/14/15 Vitamin [ VITAMIN*] 1 tab PO BEDTIME 04/14/15 - Past Medical/Surgical History -: Gestational DM -: section -: Cholecystectomy - Social History Smoking Status: Never smoker Smoking therapy provided: No Patient receptive to therapy: No Alcohol use: No CD- Drugs: No Caffeine use: No Place of Residence: Home Review of Systems General: Fever, Chills, Weakness, Malaise Respiratory: Cough, Shortness of Breath Gastrointestinal: Nausea, Vomiting, Diarrhea Neurological: Weakness Physical Examination - Physical Exam General: Alert, In no apparent distress, Oriented x3, Cooperative HEENT: Atraumatic, Normocephalic, PERRLA Neck: Supple, 2+ carotid pulse no bruit, JVD not distended Respiratory: Normal air movement, Diminished Cardiovascular: Normal pulses, Regular rate/rhythm, Normal S1 S2 Gastrointestinal: Normal bowel sounds, Soft and benign, Non-distended, No tenderness Musculoskeletal: No clubbing, No swelling Integumentary: No rashes, No breakdown Neurological: Normal speech, Normal strength at 5/5 x4 extr, Sensation intact - Studies Laboratory Data (last 24 hrs) 03/08/24 03/08/24 03/08/24 01:06 03: 01: WBC 9.40 Hgb 14.0 Hct 41.3 Plt Count 337 PT 13.3 H INR 1.27 APTT 30.1 Sodium 138 Potassium 3.9 BUN 12 Creatinine 0.86 Glucose 102 Total Bilirubin 0.5 AST 17 ALT 27 Alkaline Phosphatase 84 Microbiology Data (last 24 hrs): 03/08/24 00:41 Throat Group A Streptococcus Rapid Screen - Final 03/08/24 00:41 Nasopharnyx Respiratory Syncytial Virus Ag Scrn - Final 03/08/24 00:41 Nasopharnyx Influenza Type A Antigen Screen - Final 03/08/24 00:41 Nasopharnyx Influenza Type B Antigen Screen - Final Assessment and Plan - Problems (Diagnosis) (1) Pneumonia involving left lung Current Visit: Yes Status: Acute - Plan Impression Left lung pneumonia Acute sepsis Plan Will admit patient Start gentle IV fluid with LR Start empirical antibiotics with cefepime Blood culture x 2 Follow-up pending CT chest and follow result Sputum for culture and sensitivity Antipyretic as needed Add antiemetic as needed Lovenox for DVT prophylaxis Pain control Full code Total time spent in evaluation greater than 70-minute Discharge Plan: Home Plan to discharge in: 48 Hours - Advance Directives Does patient have a Living Will: No Does patient have a Durable POA for Healthcare: No
[2024-03-08] MEDS ORDERED: ACETAMINOPHEN 500 MG TAB PO PRN (03:44)
[2024-03-08] MEDS ORDERED: MORPHINE 2 MG/ML SYR IV PRN (03:44)
[2024-03-08] MEDS ORDERED: HYDRALAZINE HCL 20 MG/ML VIAL IV PRN (03:49)
[2024-03-08] MEDS ORDERED: MELATONIN 5 MG TABLET PO PRN (03:49)
--- NOTE | 2024-03-08 03:57 | RAD REPORT ---
EXAM: CT Angiography Chest With Intravenous Contrast CLINICAL HISTORY: The patient is 28 years old and is Female; SOB TECHNIQUE: Axial computed tomographic angiography images of the chest with intravenous contrast. Sagittal and coronal reformatted images were created and reviewed. This CT exam was performed using one or more of the following dose reduction techniques: automated exposure control, adjustmen t of the mA and/or kV according to patient size, and/or use of iterative reconstruction technique. MIP reconstructed images were created and reviewed. COMPARISON: No relevant prior studies available. FINDINGS: Pulmonary arteries: Unremarkable. No pulmonary embolism. Aorta: No acute findings. No thoracic aortic aneurysm. Lungs: Extensive left lower lobe consolidation. Pleural space: Unremarkable. No significant effusion. No pneumothorax. Heart: Unremarkable. No cardiomegaly. No significant pericardial effusion. No evidence of R V dysfunction. Bones/joints: No acute fracture. No dislocation. Soft tissues: Unremarkable. Lymph nodes: Unremarkable. No enlarged lymph nodes. Gallbladder and bile ducts: Gallbladder is surgically absent. Spleen: Mild splenomegaly. IMPRESSION: 1. Extensive left lower lobe consolidation. 2. No evidence of pulmonary embolism. Electronically signed by: Richard Liu MD 03/08/2024 03:52 AM [facility] 8 Due to temporary technical issues with the [employer] reporting system, reports are being tarik d by the in-house radiologist without review as a courtesy to ensure prompt reporting the interpreting radiologist is fully responsible for the content of the report. Transcribed Date/Time: 03/08/2024 3:57 AM
[2024-03-08] MEDS: Levofloxacin500mg IV 500 MG/100 ML BAG IV SCH ×2 (04:00→09:00)
--- NOTE | 2024-03-08 06:37 | RAD REPORT ---
TIME OF STUDY: 03/07/2024 11:51 PM [employer] TABLE ATTENDANT REASON FOR EXAM: Cough;SOB COMPARISON: None. FINDINGS: PA and lateral chest radiographs, 2 views, were obtained. Lungs: The lungs are slightly underinflated. Dense airspace consolidation is noted in the left lower lobe. The right lung is clear. Pleura: No pneumothorax. Tiny left pleural effusion. Heart and Mediastinum: Normal cardiomediastinal silhouette and great vessels.. Bones: No acute bony abnormality.. IMPRESSION: 1. Dense airspace consolidation in the left lower lobe is consistent with pneumonia. Electronically signed by: Jhonatan Green MD 03/08/2024 12:52 AM [employer] TABLE ATTENDANT RP Due to temporary technical issues with the PACS/[employer] reporting system, reports are being tarik d by the in-house radiologist without review as a courtesy to ensure prompt reporting the interpreting radiologist is fully responsible for the content of the report. Transcribed Date/Time: 03/08/2024 6:37 AM
[2024-03-08] MEDS: NA CHLORIDE 0.9% 1,000 ML IV SCH (08:30)
[2024-03-08] MEDS: GUAIFENESIN 600 MG SA TAB PO SCH (08:30)
[2024-03-08] MEDS ORDERED: ALBUTEROL 2.5 MG/3 ML NEB SOL ONE (08:38)
[2024-03-08] MEDS ORDERED: FAMOTIDINE 20 MG TAB ONE (08:39)
[2024-03-08] MEDS ORDERED: IPRATROPIUM BROM 0.5MG/2.5ML ONE (08:39)
[2024-03-08] MEDS ORDERED: ENOXAPARIN 40 MG/0.4 ML SQ ONE (08:39)
[2024-03-08] MEDS ORDERED: HYDROCODONE/APAP 5/325 MG TAB ONE (08:39)
[2024-03-08] MEDS ORDERED: NA CHLORIDE 0.9% 100 ML ONE (08:40)
[2024-03-08] MEDS ORDERED: CEFEPIME 1 GM/VIAL ONE (08:40)
[2024-03-08] MEDS: ENOXAPARIN 40 MG/0.4 ML SQ SCH (09:00)
[2024-03-08] MEDS ORDERED: GUAIFENESIN 600 MG SA TAB PO SCH (09:00)
[2024-03-08] MEDS: CEFEPIME 1 GM in NA CHLORIDE 0.9% 100 ML IV SCH (09:00)
[2024-03-08] MEDS: FAMOTIDINE 20 MG TAB PO SCH (09:00)
[2024-03-08] MEDS: HYDROCODONE/APAP 5/325 MG TAB PO PRN (09:23)
[2024-03-08] MEDS ORDERED: Levofloxacin500mg IV 0 MG/0 ML BAG IV ONE (10:59)
[2024-03-08] MEDS: Levofloxacin 750mg IV 750 MG/150 ML BAG IV SCH (11:00)
[2024-03-08] MEDS ORDERED: Levofloxacin 750mg IV 750 MG/150 ML BAG IV ONE (11:03)
[2024-03-08 13:38] LABS: Creatine Phosphokinase 90 U/L (26-192)
[2024-03-08 13:39] LABS: Troponin High Sensitivity < 3.0 pg/mL (<58.9)
[2024-03-08] MEDS ORDERED: BENZONATATE 100 MG CAP PO ONE (13:58)
[2024-03-08] MEDS ORDERED: ONDANSETRON 4 MG/2 ML VIAL ONE (13:58)
[2024-03-08] MEDS: ONDANSETRON 4 MG/2 ML VIAL IV PRN (14:35)
[2024-03-08] MEDS: BENZONATATE 100 MG CAP PO PRN (14:35)
--- NOTE | 2024-03-08 16:54 | P.PN ---
Date of Service: 03/08/24 This is a 28 years old female patient with no past medical history except morbid obesity who presented to emergency room for shortness of breath and diagnosed with community-acquired pneumonia by CT of the chest No risk for MDR, I will downgrade antibiotics to levofloxacin 750 mg once a day, antitussive, bronchodilator. Test negative for influenza AMB, no leukocytosis, no hypoxia on room air. CT of the chest and chest x-ray personally reviewed lobar pneumonia in the left lower lobe, no PE. Anticipate discharge home in 1 or 2 days.
[2024-03-08] MEDS: IPRATROPIUM BROM 0.5MG/2.5ML NEB PRN (21:40)
[2024-03-08] MEDS: ALBUTEROL 2.5 MG/3 ML NEB SOL NEB PRN (21:40)
[2024-03-09 03:02] VITALS: BMI 39.1
[2024-03-09 05:56] LABS: Absolute Eosinophils 0.5 K/uL (0-0.5); Absolute Lymphocytes (CBC) 1.3 K/uL (0.7-4.9); Absolute Monocytes 0.4 K/uL (0.1-1.3); Absolute Neutrophil 3.3 K/uL (1.8-8.0); Basophils % 0.3 % (0-1.3); Eosinophils % 9.4 % (0-4.4); Hematocrit 32.7 % (36.0-45.0); Hemoglobin 11.2 g/dL (12.0-15.0); Lymphocytes % 23.4 % (15.3-44.8); MCH 29.1 pg (27.0-35.0); MCHC 34.3 g/dL (32.0-36.0); MCV 84.9 fL (80-100); MPV 6.8 fL (7.6-11.3); Monocytes % 7.3 % (3.3-12.3); Neutrophils % 59.6 % (41.7-73.7); Platelets 278 thou/uL (152-406); RBC Red Blood Cell Count 3.85 M/uL (3.86-4.86); Red Cell Distribution Width 13.8 % (12.1-15.2)
[2024-03-09 06:09] LABS: Albumin 2.2 g/dL (3.4-5.0); Albumin/Globulin Ratio 0.5 (1.1-1.8); Anion Gap 7.7 mEq/L (5.0-15.0); Bilirubin Total 0.2 mg/dL (0.2-1.0); Globulin 4.4 g/dL (2.3-3.5); Potassium 4.7 mEq/L (3.5-5.1); Protein, Total 6.6 g/dL (6.4-8.2)
[2024-03-09 09:10] VITALS: O2SAT 98
--- NOTE | 2024-03-09 10:22 | P.DS ---
Admission Date: 03/08/24 Discharge Date: 03/09/24 Disposition: ROUTINE DISCHARGE Discharge Condition: GOOD Reason for Admission: Cough shortness of breath Brief History of Present Illness: This is a 28 years old female patient with past medical history noted for intermittent bronchial asthma and morbid obesity who presented to emergency room for shortness of breath, subjective fever and productive cough for few days and diagnosed with community-acquired pneumonia by CT of the chest. Admitted on general medical floor. Hospital Course: She was treated with empiric antibiotics with cefepime, levofloxacin, scheduled DuoNeb, antitussive. She tested negative for influenza AMB, no leukocytosis, no hypoxia on room air. CT of the chest and chest x-ray revealed lobar pneumonia in the left lower lobe, there was no PE. She remained stable and able to tolerate oral diet and medication. Her blood culture was preliminary no growth to date, sputum culture was pending at the time of discharge. She was d ischarged home. Plan is to finish 7-day course of levofloxacin 750 daily with antitussive and albuterol inhaler as needed #1 community-acquired pneumonia, lobar pneumonia in left lower lobe without sepsis #2 history of intermittent bronchial asthma, no evidence of acute exacerbation 3. Morbid obesity Vital Signs/Physical Exam: Temp Pulse Resp BP Pulse Ox 98.0 F 81 26 H 102/57 L 98 03/09/24 08:00 03/09/24 08:00 03/09/24 08:00 03/09/24 08:00 03/09/24 08:00 Other Physical/Emotional Findings: - Physical Exam. General: Not acutely ill looking, in no apparent distress,. HEENT: Normocephalic, atraumatic, nonicteric sclera, nonanemic conjunctive. Neck: Supple, without JVD or goiter or thyroid mass. Respiratory: Normal breathing effort, crackle in left lower lung field, no wheezing, or rhonchi. Cardiovascular: Regular rate and rhythm, S1, S2 normal, no murmur no gallop. Gastrointestinal: Normal bowel sounds, nondistended, nontender, No ascites, , No masses, no hepatosplenomegaly. Extremities : No clubbing, No peripheral edema, full range of motion, no deformity, no muscle atrophy. Integumentary: No rashes, petechia, suspected lesions. Lymphatics: No axilla or cervical lymphadenopathy. Neurology; alert awake oriented x3, no focal neurologic deficit, normal affection . mood and behavior. Laboratory Data at Discharge: WBC 5.60 thou/uL (4.3-10.9) 03/09/24 05:30 Hgb 11.2 g/dL (12.0-15.0) L 03/09/24 05:30 Hct 32.7 % (36.0-45.0) L 03/09/24 05:30 Plt Count 278 thou/uL (152-406) 03/09/24 05:30 PT 13.3 SECONDS (9.4-12.5) H 03/08/24 01:25 INR 1.27 03/08/24 01: APTT 30.1 SECONDS (24.3-36.9) 03/08/24 01:25 Sodium 141 mEq/L (136-145) 03/09/24 05:30 Potassium 4.7 mEq/L (3.5-5.1) 03/09/24 05:30 BUN 10 mg/dL (7-18) 03/09/24 05:30 Creatinine 0.77 mg/dL (0.55-1.02) 03/09/24 05:30 Glucose 108 mg/dL (74-106) H 03/09/24 05:30 Total Bilirubin 0.2 mg/dL (0.2-1.0) 03/09/24 05:30 AST 13 U/L (15-37) L 03/09/24 05:30 ALT 20 U/L (13-56) 03/09/24 05:30 Alkaline Phosphatase 67 U/L (45-117) 03/09/24 05:30 Home Medications: Famotidine [Pepcid] 1 tab-cap PO BID 04/14/15 Vitamin [ VITAMIN*] 1 tab PO BEDTIME 04/14/15 Albuterol Inhaler [Ventolin Inhaler*] 2 puff IH Q6H PRN #1 03/09/24 Benzonatate [Tessalon Perle*] 200 mg PO TID PRN #45 cap 03/09/24 Guaifenesin [Mucinex] 600 mg PO BID 7 Days #14 03/09/24 levoFLOXacin [Levaquin*] 750 mg PO DAILY 5 Days #5 tab 03/09/24 New Medications: levoFLOXacin [Levaquin*] 750 mg PO DAILY 5 Days #5 tab Guaifenesin [Mucinex] 600 mg PO BID 7 Days #14 Benzonatate [Tessalon Perle*] 200 mg PO TID PRN #45 cap PRN Reason: Cough Albuterol Inhaler [Ventolin Inhaler*] 2 puff IH Q6H PRN #1 PRN Reason: Shortness Of Breath Diet: Regular Activity: Ad elizabeth Followup: JUSTIN WOODRUFF CENTR [Primary Care Provider] -
[2024-03-09] MEDS: levoFLOXacin 750 MG TAB PO SCH (11:07)
[2024-03-09 12:21] VITALS: BP 110/62; TEMP 98.1
--- NOTE | 2024-03-10 12:36 | EKG ---
Test Date: 2024-03-08 Test Time: 02:52:11 Cat Scanner Operator: PELON MEASUREMENT RESULTS: Intervals: Rate: 109 [place]: 168 QRSD: 82 QT: 356 QTc: 479 Asher: P: 55 [place]: 168 QRS: 0 T: 20 INTERPRETIVE STATEMENTS: Sinus tachycardia Otherwise normal ECG No previous ECG available for comparison Electronically Signed On 03-10-24 12:32:43 GENERATOR WORKER by Seven Le
== END 2024-03-09 14:39 | disposition home or self-care (01) | DRG 871 ==
LOC: ER 23:29 → ERHOLD 03-08 03:44 → 2ND 03-08 16:14
PROVIDERS: ADMIT Internal Medicine; ATTEND Internal Medicine
DX: A41.9 Sepsis, unspecified organism (principal); J18.9 Pneumonia, unspecified organism; E66.01 Morbid (severe) obesity due to excess calories; Z68.39 Body mass index [BMI] 39.0-39.9, adult; Z90.49 Acquired absence of other specified parts of digestive tract
CPT/HCPCS: 36415; 71046; 71275; 80053; 81001; 81025; 82550; 82947; 83605; 84484; 85025; 85610; 85730; 87040; 87070; 87077; 87081; 87186; 87205; 87804; 87807; 87811; 93005; 94640; 94760; 96365; 99285; J0692; J0696; J1650; J2405; J7030; J7050; J7613; J7644; Q9967